=== PATIENT | female | born 1945 | race Caucasian/White ===

== ENCOUNTER 2022-02-04 11:07 | Outpatient (CLI) | payer MEDICARE, SELFPAY ==
[2022-02-04 13:51] LABS: INR 2.16 (0.91-1.10); Prothrombin Time 25.2 Seconds
== END 2022-02-04 11:08 | disposition home or self-care (01) ==
LOC: FRMREF 11:07
PROVIDERS: PCP Physician Assistant Medical; Visit Provider Physician Assistant Medical
DX: Z79.01 Long term (current) use of anticoagulants (principal)
CPT/HCPCS: 85610

== ENCOUNTER 2022-09-30 10:40 | Outpatient (CLI) | payer MEDICARE, SELFPAY | END 2022-09-30 10:41 | disposition home or self-care (01) | LOC: NFLDREF 10-04 06:08 | PROVIDERS: PCP Physician Assistant Medical; Referring Provider Physician Assistant Medical; Visit Provider Physician Assistant Medical | DX: I10 Essential (primary) hypertension (principal); Z79.01 Long term (current) use of anticoagulants | CPT/HCPCS: 80048 ==

== ENCOUNTER 2022-12-19 11:49 | Outpatient (CLI) | payer MEDICARE, SELFPAY | END 2022-12-19 11:50 | disposition home or self-care (01) | LOC: NFLDREF 12-23 23:09 | PROVIDERS: PCP Physician Assistant Medical; Referring Provider Physician Assistant Medical; Visit Provider Nurse Practitioner Family | DX: N39.0 Urinary tract infection, site not specified (principal); B35.3 Tinea pedis; R35.0 Frequency of micturition | CPT/HCPCS: 87086 ==

== ENCOUNTER 2023-06-01 10:05 | Outpatient (CLI) | payer MEDICARE, SELFPAY | END 2023-06-01 10:06 | disposition home or self-care (01) | LOC: NFLDREF 06-03 07:27 | PROVIDERS: PCP Physician Assistant Medical; Referring Provider Physician Assistant Medical; Visit Provider Physician Assistant Medical | DX: E03.9 Hypothyroidism, unspecified (principal); E78.5 Hyperlipidemia, unspecified; I10 Essential (primary) hypertension; R73.03 Prediabetes | CPT/HCPCS: 80053; 80061; 84443; 87086 ==

== ENCOUNTER 2023-07-20 14:40 | Outpatient (CLI) | payer MEDICARE, SELFPAY ==
--- OUTSIDE RECORDS SUMMARY | 2023-08-04 12:30 | XMS_ITS | Encounter Summary ---
Author Organization [facility] Address [address] [place] [address] Care Team Providers Care Cured Meats Supervisor Name Role Phone Humberto Peng M.D. Primary Care Provider [phone] Encounter Details Date Type Department Care Team (Late st Contact Info) Description 07/14/2023 [facility] Only [facility] H[facility] M.D. [address] [place] [address] Hypothyroidism Social History Tobacco Use Types Packs/Day Years Used Date Smoking Tobacco: Never Smokeless Tobacco: Never Alcohol Use Standard Drinks/Week Comments No 0 (1 standard drink = 0.6 oz pur e alcohol) Humiliation, Afraid, Rape, and Kick questionnair e Answer Date Recorded Within the last year, have y ou been afraid of your partner or ex-partner? No 02/25/2022 Within the last year, have y ou been humiliated or emotionally abused in other ways by your partner or ex-partner? No Within the last year, have y ou been kicked, hit, slapped, or otherwise physically hurt by your partner or ex-partner? No 02/25/2022 Within the last year, have y ou been raped or forced to have any kind of sexual activity by your partner or ex-partner? No 02/25/2022 Social Connection and Isolat ion Panel [NHANES] Answer Date Recorded In a typical week, how many times do you talk on the phone with family, friends, or neighbors? More than three times a week 02/25/2022 How often do you get togethe r with friends or relatives? Once a week 02/25/2022 How often do you attend chur ch or yazidi services? More than 4 times per year 02/25/2022 Do you belong to any clubs o r organizations such as yazidi groups, unions, fraternal or athletic groups, or school groups? Yes 02/25/2022 How often do you attend meet ings of the clubs or organizations you belong to? More than 4 times per year 02/25/2022 Are you , , di vorced, , never , or living with a partner? 02/25/2022 AUDIT-C Answer Date Recorded Q1: How often do you have a drink containing alc ohol? Never 02/25/2022 Average Number of Drinks Not on file 023 Frequency of Binge Drinking Not on file 02/09 Overall Financial Resource Strain (CARDIA) Answe r Date Recorded How hard is it for you to pa y for the very basics like food, housing, medical care, and heating? Not hard at all 02/25/2022 PHQ-2 Answer Date Recorded PHQ-2 Score 0 03/04/2022 [facility] Occupat ional Health - Occupational Stress Questionnaire Answer Date Recorded Do you feel stress - tense, restless, nervous, or anxious, or unable to sleep at night because your mind is troubled all the time - these days? Only a little 02/25/2022 Exercise Vital Sign Answer Date Recorde d On average, how many days pe r week do you engage in moderate to strenuous exercise (like a brisk walk)? Patient declined On average, how many minutes do you engage in exercise at this level? Patient declined 02/25/2022 Hunger Vital Sign Answer Date Recorded Within the past 12 months, y ou worried that your food would run out before you got the money to buy more. Never true 02/25/19 23 Within the past 12 months, t he food you bought just didn't last and you didn't have money to get more. Never true 02/25/2022 PRAPARE - Transportation Answer Date Re corded In the past 12 months, has l ack of transportation kept you from medical appointments or from getting medications? No 02/09 In the past 12 months, has l ack of transportation kept you from meetings, work, or from getting things needed for daily living? No 02/25/2022 Housing Stability Vital Sign Answer Brian e Recorded In the last 12 months, was t here a time when you were not able to pay the mortgage or rent on time? No 02/25/2022 In the last 12 months, how many places have you lived? 1 02/25/2022 In the last 12 months, was t here a time when you did not have a steady place to sleep or slept in a chcf (including now)? No 02/25/2022 Nutrition Answer Date Recorded Nutrition: EVOO Fat Source No 02/25 On average, how many serving s of fruits and vegetables do you eat per day (serving size is equal to 1 cup or approximately the size of a tennis ball)? 2-3 02/25/2022 Dental Answer Date Recorded Dental: Regular Dentist Yes 02/09/20 Employment Answer Date Recorded Employment status Retired 02/25/2022 Education Answer Date Recorded What is the highest level of school you have completed or the highest degree you have received? Some college, no degree 06/24/2020 Sex and Gender Information Value Date Recorded Sex Assigned at Female 06/04/2018 7:39 PM CDT Gender Identity Female 06/04/2018 7:39 PM CDT Sexual Orientation Straight 06/04/2018 7: 39 PM CDT documented as of this encounter Plan of Treatment Upcoming Encounters Date Type Department Care Team (Latest Contact Info) Description 09/03/2023 1:00 PM CDT Comprehensive Visit Department of Urology in [address] [phone] Zulay Murphy, P.A.-C. [address] [place] [phone] Discharge Disposition: Home or Self Care Scheduled Orders Name Type Priority Associated Diagnoses Orde r Schedule S-TSH (Thyroid-Stimulating Hormone - Sensitive) Lab Routine Hypothyroidism Expected: 07/28/2023, Expires: 01/10/2024 documented as of this encounter Visit Diagnoses Diagnosis Hypothyroidism documented in this encounter Care Teams Cured Meats Supervisor Relationship Specialty Start Date End Date Humberto Peng M.D. [address] [place] [phone] PCP - General 08/08/16 documented as of this encounter
--- OUTSIDE RECORDS SUMMARY | 2023-08-04 12:30 | XMS_ITS | Encounter Summary ---
Author Organization [facility] Address [address] [place] [address] Care Team Providers Care Industrial Engineering Analyst Name Role Phone Humberto Peng M.D. Primary Care Provider [phone] Reason for Referral * Outpatient (Routine) - Authorized Specialty Diagnoses / Procedures Referred By Tiffanie houston Referred To Contact Urology Diagnoses Urinary Urge Incontinence Stephen Boucher P.A.-CXena [address] [place] [address] [facility] Region Referral ID Status Reason Start Date Expiration Date V isits Requested Visits Authorized [id number] Authorized 06/03/2023 12/02/2024 1 1 Encounter Details Date Type Department Care Team (Latest Contact Info) Description 06/03/2023 [facility] [address] [place] [address] Stephen Boucher P.A.-Talib [address] [place] [phone] Urinary Urge Incontinence (Primary Dx) Social History Tobacco Use Types Packs/Day Years [...] week 02/25/2022 How often do you attend [facility] or islam services? More than 4 times per year 02/25/2022 Do you belong to any clubs o r organizations such as congregational groups, unions, fraternal or athletic groups, or [...] Answer Date Recorded PHQ-2 Score 0 03/04/2022 [facility] of Occupat ional Health - Occupational Stress [...] place to sleep or slept in a usp (including now)? No 02/25/2022 Nutrition Answer Date [...] CDT Comprehensive Visit Department of Urology in [place], [place] [address] [place] [phone] Zulay Murphy P.A.-C. [address], [place] [phone] Discharge Disposition: Home or Self Care Scheduled Referrals Name Type Priority Associated Diagnoses Orde r Schedule Urology Referral Outpatient Referral Routine Urinary Urge Incontinence Expected: 06/03/2023 (Approximate), Expires: 09/01/2024 documented as of this encounter Visit Diagnoses Diagnosis Urinary Urge Incontinence- Primary documented in this encounter Care Teams Industrial Engineering Analyst Relationship Specialty Start Date End Date Humberto Peng M.D. [address] [place] [phone] PCP - General 08/08/16 documented as of this encounter
--- OUTSIDE RECORDS SUMMARY | 2023-08-04 12:30 | XMS_ITS ---
Author Organization [facility] Address [address] [place] [address] Care Team Providers Care Lawn Mower Repairer Name Role Phone Unavailable Unavailable Unavailable Surgery Details Not on file Complications Check Surgery Details section. Procedure Estimated Blood Loss Check Surgery Details section. Procedure Findings Check Surgery Details section. Procedure Specimens Taken Check Surgery Details section.
--- OUTSIDE RECORDS SUMMARY | 2023-08-04 12:30 | XMS_ITS | Referral Summary ---
Author Organization [facility] Address [address] [place] [address] Care Team Providers Care Pump House Engineer Name Role Phone Humberto Peng M.D. Primary Care Provider [phone] Source Comments Patient records contain information from all sites at [facility]. For routine questions regarding patient records, call [phone] during business hours, M-F 8:00 AM - 5:00 PM Central Time. Record requests for emergency care only can be directed to [phone] at any time.[facility] Encounters Date Type Department Care Team Description 07/27/2023 Clinical Communication Department of Urology in [address] [phone] Zulay Murphy, P.A.-C. 07/14/2023 Orders Only [facility] PCP [facility] Humberto Peng M.D. Hypothyroidism 06/03/2023 [facility] [address] [place] [address] Stephen Boucher, P.A.-C. Urinary Urge Incontinence (Primary Dx) from Last 3 Months Allergies Active Allergy Reactions Criticality Noted Date Comments Adhesive Tape-Silicones Other (see comments) 10/02/2014 Aspirin GI intolerance 05/07/2013 ASPIRIN - Upset Stomach Iodinated Contrast Media Hives (Reselect Reaction) 05/07/2013 NSAIDS - (Tolectin) Latex Other (see comments) 10/02/2014 Nsaids (Non-Steroidal Anti-Inflammatory Drug) Other (see comments) 07/16/2021 Pollen Extracts Hives (Reselect Reaction) High 08/11/2019 Sulfa (Sulfonamide Antibiotics) Other (see comments) 10/02/2014 Medications Medication Sig Dispensed Refills Start Date End Date Status acetaminophen (TYLENOL) 325 mg tablet Take 2 tablets by mouth every 4 (four) hours as needed. 11/30/2013 Active aspirin (ASPIR-81 ORAL) Take 1 tablet by mouth daily. 10/02/2014 Active miscellaneous medical supply misc nasal cushions See Instructions, Dx PAT Duration 15 months patient preference, 1 each, 5 Refill(s) 12/08/2014 Active warfarin (COUMADIN) 4 mg tablet Take 1 tablet by mouth as directed. 10/02/2014 Active montelukast (SINGULAIR) 10 mg tablet Take 1 tablet by mouth daily. 11/03/2018 Active DME CPAPIndications:Apne a Sleep Obstructive DME Order 1 Device 12/30/2019 Active cyanocobalamin (VITAMIN B12) 1,000 mcg tablet Daily Active magnesium ascorbate, bulk, powder 1 Scoop. Active lisinopril-hydroCHLO ROthiazide (Zestoretic) 10-12.5 mg per tablet Take 1 tablet by mouth daily. 90 tablet 3 12/14/2020 Active amLODIPine (NORVASC) 5 mg tablet Take 5 mg by mouth at bedtime. 12/28/2020 Active Ventolin HFA 90 mcg/actuation inhaler INHALE TWO PUFFS BY MOUTH EVERY 6 HOURS NEEDED FOR WHEEZING 54 g 3 07/20/2022 Active lovastatin (MEVACOR) 20 mg tablet TAKE ONE TABLET BY MOUTH EVERY DAY WITH DINNER 90 tablet 3 09/24/2022 Active gabapentin (NEURONTIN) 400 mg capsule TAKE 3 CAPSULES BY MOUTH 3 TIMES DAILY 810 capsule 3 09/30/2022 Active trospium (SANCTURA) 20 mg tablet TAKE 1 TABLET BY MOUTH THREE TIMES DAILY. 270 tablet 3 12/24/2022 Active levothyroxine (SYNTHROID, LEVOTHROID) 100 mcg tablet take one tablet by mouth every day 90 tablet 3 12/24/2022 Active lansoprazole (PREVACID) [address] capsule take one capsule by mouth twice a day 180 capsule 3 03/27/2023 Active Active Problems Problem Noted Date Diagnosed Date Varicose Vein Lower Extremity Bilateral 07/08/19 20 Embolus Pulmonary Personal History 06/09/2018 Hyperlipidemia On Treatment 06/04/2018 Obesity Body Mass Index 30-39.9 Adult 05/28/2017 Hypertension Essential Primary 05/14/2016 Diabetes Mellitus Type 2 Peripheral Neuropathy 0 05/14/2016 Hypothyroidism On Replacement 05/14/2016 Overactive Bladder 05/14/2016 Apnea Sleep Obstructive 05/18/2015 Mixed Irritable Bowel Syndrome 05/18/2015 Prison (Current) Anticoagulant Treatment 09/2015 Lymphedema 05/18/2015 Neuropathy Peripheral 05/18/2015 Reflux Esophageal 10/27/2013 Overview: Esophageal reflux 05/13/2007-EGD in January of 2007, repeat in 3 years 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 Overview: Degeneration of lumbar or lumbosacral intervertebral disc 05/13/2007- MRI reviewed patient declines ortho referral at present time Resolved Problems Problem Noted Date Diagnosed Date Resolved Date Transient Ischemic Attack 05/18/2015 Overview: Unspecified transient cerebral ischemia Immunizations Name Administration Dates Next Due H1N1 All Forms 01/30/2009 Influenza high dose QV(65 ye ars or older) (PF) 11/27/2020,11/21/2019 Influenza, Injectable, Quadrivalent 11/21/2019,1 Influenza, Unspecified 11/24/2019,2016,11/16/2015,2014,11/21/2013,10/26/2012,10/28/2011,0 10/23/2010,11/23/2005,12/11/2003, 003,11/30/2001,12/07/2000,01/06/2000 PPSV23 07/19/2009,05/14/2007 SARS-COV-2 (COVID-19) - PFIZ ER (Discontinued)(12 years or older) 04/24/2020,04/03/2020 Td (Adult), adsorbed 04/24/2011,05/11/2001 Tdap 05/18/2015 influenza high dose (65 year s or older) (PF) 11/29/2018,10/28/2017 Social History Tobacco Use Types Packs/Day Years Used Date Smoking Tobacco: Never Smokeless Tobacco: Never Tobacco Cessation:Counseling Given: Not Answered Alcohol Use Standard Drinks/Week Comments No 0 [...] often do you attend chur ch or islam services? More than 4 times per year 02/25/2022 Do you belong to any clubs o r organizations such as mosque groups, unions, fraternal or athletic groups, or [...] Answer Date Recorded PHQ-2 Score 0 03/04/2022 [facility] [place] [facility] Occupat ional Health - Occupational Stress [...] money to buy more. Never true 02/25/19 Within the past 12 months, t he [...] place to sleep or slept in a longterm (including now)? No 02/25/2022 Nutrition Answer Date [...] Orientation Straight 06/04/2018 7: 39 PM CDT Last Filed Vital Signs Vital Sign Reading Time Taken Comments Blood Pressure 133/73 07/16/2021 3:10 PM CDT Pulse 85 07/16/2021 3:10 PM CDT Temperature 36.1 ??C (97 ??F) 07/16/2021 3:10 PM CDT Respiratory Rate 18 12/02/2013 10:00 AM CDT Oxygen Saturation 96% 07/16/2021 3:10 PM CDT Inhaled Oxygen Concentration - - Weight 106 kg (233 lb 4 oz) 07/16/2021 3:10 PM C DT Height 163 cm (5' 4.17) 07/16/2021 3:10 PM CDT Body Mass Index 39.82 07/16/2021 3:10 PM CDT Plan of Treatment Upcoming Encounters Date Type Department Care Team (Latest Contact Info) Description 09/03/2023 1:00 PM CDT Comprehensive Visit Department of Urology in [address] [phone] Zulay Murphy, Anahi.A.-C. [address] [phone] Discharge Disposition: Home or Self Care Procedures Procedure Name Priority Date/Time Associated Diagnosis Comments BI BREAST SCREENING BILATERAL WITH TOMOSYNTHESIS RAD - Routine (most inpatients and all outpatients) 10/28/2022 1:05 PM CDT Screening Mammogram High Risk Patient EXTI THYROID-STIMULATING HORMONE-SENSITIVE (S-TSH), S Routine 02/26/2022 11:23 AM ORAL SURGERY PHYSICIAN EXTI BASIC METABOLIC PANEL, FASTING, S Routine 02/26/2022 11:23 AM ORAL SURGERY PHYSICIAN HEMOGLOBIN A1C, B Routine 07/16/2021 1:2 8 PM CDT Diabetes Mellitus Type 2 Peripheral Neuropathy (HCC) Hyperlipidemia On Treatment Hypertension Essential Primary Hypothyroidism On Replacement [employer] Gatherer (Current) Anticoagulant Treatment Reflux Esophageal ALBUMIN, RANDOM, U Routine 07/16/2021 1: 22 PM CDT Diabetes Mellitus Type 2 Peripheral Neuropathy (HCC) Hyperlipidemia On Treatment Hypertension Essential Primary Hypothyroidism On Replacement [place] Gatherer (Current) Anticoagulant Treatment Reflux Esophageal COLOGUARD Routine 07/21/2017 2:00 AM CDT Screening Cancer Colon from Last 3 Months or Most Recently Relevant to Health Maintenance Results * BI Breast Screening Bilateral with Tomosynthesis (10/28/2022 1:05 PM CDT) Anatomical Region Laterality Modality Breast, Breast Imaging RST L OS, Breast Imaging ARZ LOS, Breast Imaging FLA LOS Bilateral Mammography 10/29/2022 8:18 AM CDT Impressions 10/29/2022 8:20 AM CDT Negative. RECOMMENDATION: ??Annual Screening Mammogram ASSESSMENT: ??BI-RADS: 1: Negative. Narrative 10/29/2022 8:20 AM CDT EXAM: ??BI BREAST SCREENING BILATERAL WITH TOMOSYNTHESIS Current study was evaluated with a Computer Aided Detection (CAD) system. INDICATION: ??Screening mammogram. COMPARISON: ??Prior exam(s) were available and reviewed for comparison. DENSITY: ??b. There are scattered areas of fibroglandular density. FINDINGS: ??No mammographic findings of malignancy. Procedure Note Isidro Parry M.D. - 10/29/2022 EXAM: BI BREAST SCREENING BILATERAL WITH TOMOSYNTHESIS Current study was evaluated with a Computer Aided Detection (CAD) system. INDICATION: Screening mammogram. COMPARISON: Prior exam(s) were available and reviewed for comparison. DENSITY: b. There are scattered areas of fibroglandular density. FINDINGS: No mammographic findings of malignancy. IMPRESSION: Negative. RECOMMENDATION: Annual Screening Mammogram ASSESSMENT: BI-RADS: 1: Negative. Humberto Peng M.D. Harry BI PROCEDURES * (ABNORMAL) Hemoglobin A1c (07/16/2021 1:28 PM CDT) Hemoglobin A1c, B 6.4(H) 4.2 - 5.6 % 07/16/2021 2:04 PM CDT [facility] Comment: Hemoglobin A1c values of 5.7-6.4 percent indicate an increased risk for developing diabetes mellitus. In diabetic patients, HbA1c goals should be discussed with healthcare provider. Blood (Blood, Venous) 07/16/2021 1:28 PM CDT 07/16/2021 1:29 PM CDT Humberto Peng M.D. LAB BLOOD ADD-ON Performing Organization Address City/[facility]/ZIP Co de Phone Number [facility] [address] [place] [address], [place] [facility] in [place] [address] [place] [phone] * (ABNORMAL) Albumin, Random, Urine (07/16/2021 1:22 PM CDT) Microalbumin <12.0 mg/L 07/16/2021 2:04 PM CDT [facility] Comment:If clinically indica cristobal, contact the lab for additional testing. Creatinine 39 mg/dL 07/16/2021 2:04 PM CDT [facility] Albumin/Creatinine Ratio <31(H) <25 mg/g 07/16/2021 2:04 PM CDT [facility] Comment: This ratio may not correspond with the reference range because one or both of the values used to calculate the ratio was above or below the quantification limits. Urine (Urine, First Voided) 07/16/2021 1:22 PM CDT 07/16/2021 1:38 PM CDT Humberto Peng M.D. LAB URINE ORDERABLES Performing Organization Address City/[facility]/ZIP Co de Phone Number [facility] [address] [place] [address], [place] [facility] in [address] [phone] * (ABNORMAL) Cologuard (07/21/2017 2:00 AM CDT) Result Positive (A) Not Applicable 07/28/2017 6:30 PM CDT [facility] Comment: A positive result can indicate the presence of colorectal cancer (CRC) or advanced adenoma (pre-cancer). Correlate clinically and recommend follow-up investigation with a structural examination of the colon such as diagnostic colonoscopy. Test Type: Composite algorithmic analysis of stool DNA-biomarkers with hemoglobin immunoassay. ?? Quantitative values of individual biomarkers are not reportable and are not associated with individual biomarker result reference ranges. Precautions and Limitations: Cologuard is intended for colorectal cancer screening of adults of either sex, 50 years or older, who are at typical average-risk for colorectal cancer. A negative Cologuard test result does not guarantee the absence of colorectal cancer or advanced adenoma (pre-cancer). Patients with a negative Cologuard test result should be advised to continue participating in a colorectal cancer screening program. Cologuard may produce a positive result, even though a colonoscopy may not find colorectal cancer or precancerous polyps. The performance of Cologuard has been established in a cross sectional study (i.e., single point in time). Performance has not been evaluated in adults who have been previously tested with Cologuard or in patients less than 50 years of age. Cologuard has been approved for use by the U.S. FDA. Cologuard performance data in a 10,000 patient pivotal study using colonoscopy as the reference method can be accessed at the following location: www.[employer]/results. ??Additional description of the Cologuard test process, warnings and precautions can be found at www.cologuardtest.com. Rx Only. Stool 07/21/2017 2:00 AM CDT 07/22/2017 1:13 PM CDT Humberto Peng M.D. LAB BODY FLUIDS AND STOOLS ORDERABLES [facility] [address] [place] [address] from Last 3 Months or Most Recently Relevant to Health Maintenance Care Teams Pump House Engineer Relationship Specialty Start Date End Date Humberto Peng M.D. [address] [place] [phone] PCP - General 08/08/16
--- OUTSIDE RECORDS SUMMARY | 2023-08-04 12:30 | XMS_ITS | Encounter Summary ---
Author Organization [facility] Address [address] [place] [address] Care Team Providers Care Print Buyer Name Role Phone Humberto Peng M.D. Primary Care Provider [phone] Encounter Details Date Type Department Care Team (Late st Contact Info) Description 07/27/2023 Clinical Communication Department of Urology in [place], [place] [address] [place] [phone] Zulay Murphy, P.AXena-CXena [address], [place] [phone] Social History Tobacco Use Types Packs/Day Years [...] often do you attend chur ch or sabianism services? More than 4 times per year 02/25/2022 Do you belong to any clubs o r organizations such as alevism groups, unions, fraternal or athletic groups, or [...] Answer Date Recorded PHQ-2 Score 0 03/04/2022 [facility] of Occupat ional Health - Occupational [...] place to sleep or slept in a detention (including now)? No 02/25/2022 Nutrition Answer Date [...] CDT Comprehensive Visit Department of Urology in [place], [place] [address] [place] [phone] Zulay Murphy P.A.-C. [address] [place] [phone] Discharge Disposition: Home or Self Care documented as of this encounter Visit Diagnoses Not on filedocumented in this encounter Care Teams Print Buyer Relationship Specialty Start Date End Date Humberto Peng M.D. [address] [phone] PCP - General 08/08/16 documented as of this encounter
--- OUTSIDE RECORDS SUMMARY | 2023-08-04 12:30 | XMS_ITS | Clinical Summary ---
Author Organization [facility] Address [address] [place] [address] Care Team Providers Care Machine Compositor Name Role Phone Humberto Peng M.D. Primary Care Provider [phone] Source Comments Patient records contain information from all sites at [facility]. For routine questions regarding patient records, call [phone] during business hours, M-F 8:00 AM - 5:00 PM Central Time. Record requests for emergency care only can be directed to [phone] at any time.[facility] Allergies Active Allergy Reactions Criticality Noted Date [...] Obstructive 05/18/2015 Mixed Irritable Bowel Syndrome 05/18/2015 Custodial (Current) Anticoagulant Treatment 09/2015 Lymphedema 05/18/2015 Neuropathy [...] Attack 05/18/2015 Overview: Unspecified transient cerebral ischemia Encounters Date Type Department Care Team Description 07/27/2023 Clinical Communication Department of Urology in [place], [place] [address] [place] [address] Zulay Murphy P.A.-C. 07/14/2023 Orders Only [facility] Humberto Powers M.D. Hypothyroidism 06/03/2023 Community Orders [facility] [address] [place] [address] Stephen Boucher, P.A.-C. Urinary Urge Incontinence (Primary Dx) from Last 3 Months Immunizations Name Administration Dates Next Due H1N1 All Forms 01/30/2009 Influenza high dose QV(65 ye ars or older) (PF) 11/27/2020,11/21/2019 Influenza, Injectable, Quadrivalent 11/21/2019,1 Influenza, Unspecified 11/24/2019,2016,11/16/2015,2014,11/21/2013,10/26/2012,10/28/2011,0 10/23/2010,11/23/2005,12/11/2003, 003,11/30/2001,12/07/2000,01/06/2000 PPSV23 07/19/2009,05/14/2007 SARS-COV-2 (COVID-19) - PFIZ ER (Discontinued)(12 years or older) 04/24/2020,04/03/2020 Td (Adult), adsorbed 04/24/2011,05/11/2001 Tdap 05/18/2015 influenza high dose (65 year s or older) (PF) 11/29/2018,10/28/2017 Family History Medical History Relation Name Comments Diabetes Brother David Lopez Cataracts Father basil skin cancer Other cancer Father basil skin cancer Arthritis Mother .Raymond Lopez Heart attack Mother .Raymond Lopez Hypothyroidism Mother .Raymond Lopez Lymphoma Mother .Raymondignacio Barretore non hodgekins lymphoma Parkinsonism Mother .Raymond Lopez Parkinsons disease Mother .Raymond Lopez Coronary artery disease Paternal Grandfather Roberto Terry about 73-75 Breast cancer Paternal Grandmother Radha Lopez Multiple sclerosis Sister 1 Breast cancer Sister 2 Layla Boo currently in t reatment Diabetes Sister 2 Layla Boo Relation Name Status Comments Brother David Lopez Father basil skin cancer Mother .Raymond Lopez Paternal Grandfather Roberto Lopez Paternal Grandmother Radha Lopez Sister 1 Sister 2 Layla Boo Social History Tobacco Use Types Packs/Day Years [...] 02/25/2022 How often do you attend chur or tenriism services? More than 4 times per year [...] Answer Date Recorded PHQ-2 Score 0 03/04/2022 [facility] - Occupational [...] place to sleep or slept in a residential (including now)? No 02/25/2022 Nutrition Answer Date [...] CDT Comprehensive Visit Department of Urology in [address] [address] Zulay Murphy, P.A.-C. [address] [place] [address] [phone] (work) Discharge Disposition: Home or Self Care Health Maintenance Due Date Last Done Comments Hepatitis C Screening 1945 Office Visit for Blood Press ure Check / Re-check 1945 Visit: Medicare Annual Wellness 1945 Zoster Vaccines (1 of 2) 12/05/1993 Hepatitis B Vaccines (1 of 3 - Risk 3-dose series) 2003 Pneumococcal vaccine (65+ ye ars) (2 of 2 - PCV) 07/19/2010 07/19/2009, 05/14/2007 Dilated Eye Exam 09/23/2013 09/23/2012, 05/2010, 12/14/2008, Additional history exists Hemoglobin A1C 01/15/2022 07/16/2021, 06/10, 12/23/2019, Additional history exists Diabetic Office Visit with F oot Exam 07/16/2022 07/16/2021 Urine Albumin 07/16/2022 07/16/2021, 06/10, 11/29/2018 Depression Screening (Annual PHQ-2) 02/09/2023 Fall Risk Screen (Annual) 02/09/2023 Creatinine Level (Kidney Fun ction Test) 02/26/2023 02/26/2022, 07/16/2021, 12/26/2020, Additional history exists Potassium Level 02/26/2023 02/26/2022, 06/0 08/2021, 12/26/2020, Additional history exists Sodium Level 02/26/2023 02/26/2022, 06/0 08/2021, 12/26/2020, Additional history exists Thyroid Stimulating Hormone (TSH) test for thyroid function 02/26/2023 02/26/2022, 12/26/2020, 11/22/2018, Additional history exists Visit: Chronic Disease, age 18+ 03/04/2023 , 03/04/2022 COVID-19 Vaccine (7 - 2022-2 4 season) 2023 11/25/2022, 11/27/2021, 06/29/2021, Additional history exists DTaP,Tdap,and Td Vaccines (2 - Td or Tdap) 05/17/2025 05/18/2015, 04/24/2011, 05/11/2001 Colonoscopy Discontinued 07/25/2008 (Perf ormed elsewhere), 10/31/2004 Cologuard Discontinued 07/21/2017 Colorectal Cancer Surveillance Discontinued Mammogram Discontinued 10/28/2022, 10/10, 07/16/2021, Additional history exists Influenza Vaccine Completed 12/01/2022, , 11/27/2020, Additional history exists CT Colonography Discontinued Procedures Procedure Name Priority Date/Time Associated Diagnosis Comments BI BREAST SCREENING BILATERAL WITH TOMOSYNTHESIS RAD - Routine (most inpatients and all outpatients) 10/28/2022 1:05 PM CDT Screening Mammogram High Risk Patient EXTI THYROID-STIMULATING HORMONE-SENSITIVE (S-TSH), S Routine 02/26/2022 11:23 AM TAX REPRESENTATIVE EXTI BASIC METABOLIC PANEL, FASTING, S Routine 02/26/2022 11:23 AM TAX REPRESENTATIVE HEMOGLOBIN A1C, B Routine 07/16/2021 1:2 8 PM CDT Diabetes Mellitus Type 2 Peripheral Neuropathy (HCC) Hyperlipidemia On Treatment Hypertension Essential Primary Hypothyroidism On Replacement Custodial (Current) Anticoagulant Treatment Reflux Esophageal ALBUMIN, RANDOM, U Routine 07/16/2021 1: 22 PM CDT Diabetes Mellitus Type 2 Peripheral Neuropathy (HCC) Hyperlipidemia On Treatment Hypertension Essential Primary Hypothyroidism On Replacement Insurance Executive (Current) Anticoagulant Treatment Reflux Esophageal COLOGUARD Routine [...] ASSESSMENT: BI-RADS: 1: Negative. Humberto Peng M.D. IMG BI PROCEDURES * (ABNORMAL) Hemoglobin A1c (07/16/2021 [...] CDT Humberto Peng M.D. LAB BLOOD ADD-ON [facility] [address] [address], [place] RDWG [facility] [place] [address] [address] * (ABNORMAL) Albumin, Random, Urine (07/16/2021 1:22 [...] CDT Humberto Peng M.D. LAB URINE ORDERABLES [facility] [address] [place] [address], [facility] [place] [address] [place] [address] * (ABNORMAL) Cologuard (07/21/2017 2:00 AM CDT) Result Positive (A) Not Applicable 07/28/2017 6:30 PM CDT [facility] Comment: A positive result can indicate the [...] can be accessed at the following location: www.[facility]/results. ??Additional description of the Cologuard test process, warnings and precautions can be found at [email or web address].com. Rx Only. Stool 07/21/2017 2:00 AM CDT 07/22/2017 1:13 PM CDT Humberto Peng M.D. LAB BODY FLUIDS AND STOOLS ORDERABLES [facility] [address] [place] [address] from Last 3 Months or Most Recently Relevant to Health Maintenance Care Teams Machine Compositor Relationship Specialty Start Date End Date Humberto Peng M.D. [address] [address] PCP - General 08/08/16
--- OUTSIDE RECORDS SUMMARY | 2023-08-04 12:31 | XMS_ITS | Encounter Summary ---
Author Organization [facility] Address [address] [place] [address] Care Team Providers Care Body Engineer Name Role Phone Dudley House MD Primary Care Provider [phone] Frankie Gaspar MD Unavailable Unavailable Augusta De La Cruz DPM Unavailable [phone] Kyle Morris MD Unavailable [phone] Sony Perez MD Unavailable [phone] Matt Grover MD Unavailable [phone] Albert Brownlee MD Unavailable [phone] Humberto Peng MD Primary Care Provider [phone] James Jasso DO Unavailable [phone] Rajat Urban MD Unavailable Unavailable Thuy Coto PA-C Unavailable [phone] James Stevens DPM Unavailable [phone] Teresa Ferrer-C Unavailable Reason for Visit * Reason Onset Date Comments MyChart Communication 03/05/2010 Medication concerns Encounter Details Date Type Department Care Team (Late st Contact Info) Description 03/05/2010 MyC Medical Advice [facility] [place] Internal Medicine [address] [place] [address] Dudley House MD [address] [place] [address] MyChart Communication (Medication concerns) Social History Tobacco Use Types Packs/Day Years Used Date Smoking Tobacco: Never Alcohol Use Standard Drinks/Week Comments No 0 (1 standard drink = 0.6 oz pur e alcohol) Sex and Gender Information Value Date Recorded Sex Assigned at Not on file Gender Identity Not on file Sexual Orientation Straight 06/26/2018 6: 53 PM CDT documented as of this encounter Plan of Treatment Not on file documented as of this encounter Visit Diagnoses Not on filedocumented in this encounter Care Teams Body Engineer Relationship Specialty Start Date End Date Dudley House MD [address] [place] [address] PCP - General 03/23/07 09/02/10 Frankie Gaspar MD PCP - Obstetrics/Gynecology 03/03/00 07/23/11 Augusta De La Cruz DPM PCP - Podiatry 09/26/05 Kyle Morris MD PCP - Ophthalmology 02/17/06 Sony Perez MD PCP - ENT 03/19/07 12/08/17 Matt Grover MD [address] [facility] [address] [place], [place] [address] PCP - Urology 12/22/08 Albert Brownlee MD [address] [place] [address] PCP - Surgery Surgery 09/28/09 11/02/12 Humberto Peng MD [facility] [place] [address] [place] [address] PCP - General Family Practice 09/03/10 James Jasso DO [facility] [place] [address] [place] [address] PCP - Obstetrics/Gynecology brass sorter 07/24/11 Rajat Urban MD [facility] [place] [address] [place] [address] PCP - Orthopaedics Orthopedics 12/02/11 12/08/17 Thuy Coto PA-C [facility] [place] [address] [place] [address] PCP - Surgery Physician Heel Seat Filler 11/03/12 James Stevens DPM [address] [facility] [address] [place] [address] Assigned Musculoskeletal Provider 04/25/20 10/25/21 Teresa Ferrer PA-C [address] [address] Physician Heel Seat Filler Urology 02/20/23 documented as of this encounter
--- OUTSIDE RECORDS SUMMARY | 2023-08-04 12:31 | XMS_ITS | Encounter Summary ---
Author Organization [facility] Address [address] [place] [address] Care Team Providers Care Cdl Company Flatbed Driver Name Role Phone Dudley House MD Primary Care Provider [phone] Frankie Gaspar MD Unavailable Unavailable Augusta De La Cruz DPM Unavailable [phone] Kyle Morris MD Unavailable [phone] Ned Birmingham MD Unavailable [phone] Sony Perez MD Unavailable [phone] Matt Grover MD Unavailable [phone] Encounter Details Date Type Department Care Team (Late st Contact Info) Description 05/15/2009 8:30 AM CDT [facility] in [address] [address] Dudley House MD [address] [place] [address] Social History Tobacco Use Types Packs/Day Years [...] on filedocumented in this encounter Care Teams Cdl Company Flatbed Driver Relationship Specialty Start Date End Date Dudley House MD [address] [place] [address] PCP - General 03/23/07 09/02/10 Frankie Gaspar MD PCP - Obstetrics/Gynecology 03/03/0007/22 Augusta De La Cruz DPM PCP - Podiatry 09/26/05 Kyle Morris MD PCP - Ophthalmology 02/17/06 Ned Birmingham MD XXX [place] [address] PCP - Surgery 10/25/08 09/27/09 Sony Perez MD [address] [place] [address] PCP - ENT 03/19/07 12/08/17 Matt Grover MD [address] [place] [address] [address] [place], [place] [address] PCP - Urology 12/22/08 documented as of this encounter
--- OUTSIDE RECORDS SUMMARY | 2023-08-04 12:31 | XMS_ITS | Encounter Summary ---
Author Organization [facility] Address [address] [place] [address] Care Team Providers Care Chipper Feeder Name Role Phone Dudley House MD Primary Care Provider [phone] Frankie Gaspar MD Unavailable Unavailable Augusta De LaC ruz DPM Unavailable [phone] Kyle Morris MD Unavailable [phone] Ned Birmingham MD Unavailable [phone] Sony Perez MD Unavailable [phone] Encounter Details Date Type Department Care Team (Late st Contact Info) Description 10/27/2008 10:12 AM CDT [facility] in [address] [phone] Ned Birmingham MD XXX [place] [address] Social History Tobacco Use Types Packs/Day Years [...] on filedocumented in this encounter Care Teams Chipper Feeder Relationship Specialty Start Date End Date Dudley House MD [address] [place] [address] PCP - General 03/23/07 09/02/10 Frankie Gaspar MD PCP - Obstetrics/Gynecology 03/03/0007/22 Augusta De La Cruz DPM PCP - Podiatry 09/26/05 Kyle Morris MD PCP - Ophthalmology 02/17/06 Ned Birmingham MD XXX NO INFO FOUND [address] [place] [address] PCP - Surgery 10/25/08 09/27/09 Sony Perez MD XXX NO INFO FOUND [address] [place] [address] PCP - ENT 03/19/07 12/08/17 documented as of this encounter
--- OUTSIDE RECORDS SUMMARY | 2023-08-04 12:31 | XMS_ITS | Encounter Summary ---
Author Organization [facility] Address [address] [place] [address] Care Team Providers Care Management Liaison Name Role Phone Dudley House MD Primary Care Provider [phone] Frankie Gaspar MD Unavailable Unavailable Augusta De La Cruz DPM Unavailable [phone] Kyle Morris MD Unavailable [phone] Sony Perez MD Unavailable [phone] Matt Grover MD Unavailable [phone] Albert Brownlee MD Unavailable [phone] Encounter Details Date Type Department Care Team (Late st Contact Info) Description 11/22/2009 10:00 AM CDT [facility] in [address] [address] Albert Brownlee MD [address] [place] [address] Social History Tobacco Use Types Packs/Day Years Used Date Smoking Tobacco: Never Smokeless Tobacco: Never Alcohol Use Standard Drinks/Week Comments No 0 (1 standard drink = 0.6 oz pur e alcohol) Sex and Gender Information Value Date Recorded Sex Assigned at Not on file Gender Identity Not on file Sexual Orientation Straight 06/26/2018 6: 53 PM CDT documented as of this encounter Progress Notes * Albert Brownlee MD - 11/22/2009 1:04 PM CDT PROCEDURE/OPERATIVE REPORT Date of Procedure: 11/22/09 Attending Physician: Dr. Brownlee. PREOPERATIVE DIAGNOSIS: Right lower extremity superficial venous reflux with right medial malleolar inflammatory changes and hemosiderin deposition. POSTOPERATIVE DIAGNOSIS: Right lower extremity superficial venous reflux with right medial malleolar inflammatory changes and hemosiderin deposition. OPERATIONS: 1. Ultrasound-guided percutaneous access greater saphenous vein 2. Ultrasound-guided percutaneous access accessory vein to saphenous system 3. Ultrasound-guided sclerotherapy with 1% sodium tetradecyl 4. Position of VNUS catheter over guidewire SURGEON: Dr. Brownlee. METAL CUTTER: Mily Vega. SECOND CORONER/MEDICAL EXAMINER: MELISA Jean. ANESTHESIA: Local MAC. PROCEDURE AND FINDINGS: The patient's right leg was prepped and draped and was imaged with ultrasound. She had a traditional saphenofemoral junction. On the upper thigh region she had bifurcation of the saphenous vein. She sent one very large anterior thigh branch towards the knee region and following this down the vessel did get underneath the inflammatory changes of the anterior ankle and right medial malleolar region. The true saphenous vein at the level of this bifurcation tapered down to the level of the knee and then expanded a little bit just distal to the knee. I ultimately accessed the greater saphenous vein in the true traditional system distal to the knee, passed a guidewire but could not get it to go much above the knee due to this very narrowed area. I did put a dilating sheath, attempted to pass the catheter over a 0.25 guidewire and was unable to negotiate it. I made the decision to move slightly anterior to access the larger vessel. With a single attempt passed a guidewire and placed a 7 Turkish dilating sheath. When passing the catheter again at the level of this bifurcation in an upper thigh region the catheter could not be negotiated through this nor could a small guidewire. I made the decision to treat this short segment of this anterior branch of the greater saphenous vein. This area was infiltrated with tumescent anesthesia and with a 7 Turkish closureFAST I treated three segments for a total of 1 minute of treatment time. Both these access sheaths were removed and pressure was held until hemostatic. I then imaged the area of the inflammatory changes. There were two large segments of varicosities noted. I made the decision for ultrasound-guided injections of sodium tetradecyl. I used a total of 4 cc. I used a total of five different injection sites. Confirmation the needle into this vein was confirmed by visualization by ultrasound and also aspiration of blood. No more than 1 cc was injected at any given site. When this was completed I wrapped the access sites with Kerlix gauze. The ankle region was wrapped from the base of the toes to just proximal to the injection sites with Coban and then a compression wrap was placed. At the end of the procedure sponge, needle and instrument counts are correct. The patient tolerated the procedure well. Albert Brownlee M.D. Sis/dac cc: documented in this encounter Plan of Treatment Not on file documented as of this encounter Visit Diagnoses Not on filedocumented in this encounter Care Teams Management Liaison Relationship Specialty Start Date End Date Dudley House MD [address] [place] [address] PCP - General 03/23/07 09/02/10 Frankie Gaspar MD PCP - Obstetrics/Gynecology 03/03/0007/22 Augusta De La Cruz DPM PCP - Podiatry 09/26/05 Kyle Morris MD PCP - Ophthalmology 02/17/06 Sony Perez MD PCP - ENT 03/19/07 12/08/17 Matt Grover MD [address] [place] [address] PCP - Urology 12/22/08 Albert Brownlee MD [address] [place] [address] PCP - Surgery Surgery 09/28/09 11/02/12 documented as of this encounter
--- OUTSIDE RECORDS SUMMARY | 2023-08-04 12:31 | XMS_ITS | Encounter Summary ---
Author Organization [facility] Address [address] [place] [address] Care Team Providers Care Transportation Assistant Name Role Phone Dudley House MD Primary Care Provider rFankie Gaspar MD Unavailable Unavailable Augusta De La CruzM Unavailable [phone] Kyle Morris MD Unavailable [phone] Ned Birmingham MD Unavailable Sony Perez MD Unavailable [phone] Matt Grover MD Unavailable [phone] Albert Brownlee MD Unavailable Humberto Peng MD Primary Care Provider [phone] James Jasso DO Unavailable [phone] Rajat Urban MD Unavailable Unavailable Thuy CotoC Unavailable [phone] James Stevens DPM Unavailable [phone] Teresa FerrerC Unavailable Encounter Details Date Type Department Care Team (Late st Contact Info) Description 07/05/2009 MyC Medical Advice [facility] [place] Podiatry [address] [place] [address] Augusta De La Cruz, DPM [facility] [address] [place] [address] Social History Tobacco Use Types Packs/Day Years [...] on filedocumented in this encounter Care Teams Transportation Assistant Relationship Specialty Start Date End Date Dudley House MD [address] [place] [address] PCP - General 03/23/07 09/02/10 Frankie Gaspar MD PCP - Obstetrics/Gynecology 03/03/00 07/23/11 Augusta De La Cruz DPM PCP - Podiatry 09/26/05 Kyle Morris MD PCP - Ophthalmology 02/17/06 Ned Birmingham MD XXX [place] [address] PCP - Surgery 10/25/08 09/27/09 Sony Perez MD XXX [place] [address] PCP - ENT 03/19/07 12/08/17 Matt Grover MD [address] [place] [address] PCP - Urology 12/22/08 Albert Brownlee MD [address] [place] [address] PCP - Surgery Surgery 09/28/09 11/02/12 Humberto Peng MD [facility] [place] [address] [place] [address] PCP - General Family Practice 09/03/10 James Jasso DO [facility] [place] [address] [place] [address] PCP - Obstetrics/Gynecology cable tower 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
--- OUTSIDE RECORDS SUMMARY | 2023-08-04 12:31 | XMS_ITS | Encounter Summary ---
Author Organization [facility] Address [address] [place] [address] Care Team Providers Care Soccer Coach Name Role Phone Dudley House MD Primary Care Provider [phone] Frankie Gaspar MD Unavailable Unavailable Augusta De La Cruz DPM Unavailable [phone] Kyle Morris MD Unavailable [phone] Sony Perez MD Unavailable [phone] Matt Grover MD Unavailable [phone] Albert Brownlee MD Unavailable [phone] Humberto Peng MD Primary Care Provider [phone] James Jasso DO Unavailable [phone] Rajat Urban MD Unavailable Unavailable Thuy Coto PARickyC Unavailable + [phone] James Stevens DPM Unavailable [phone] Teresa FerrerC Unavailable Reason for Visit * Reason Onset Date Comments Refill Request 06/03/2010 Encounter Details Date Type Department Care Team (Late st Contact Info) Description 06/03/2010 MyC Refill [facility] in [place] Internal Medicine [address] [place] [address] Dudley House MD [address] [place] [address] Refill Request Social History Tobacco Use Types Packs/Day Years Used Date Smoking Tobacco: Never Alcohol Use Standard Drinks/Week Comments No 0 (1 standard drink = 0.6 oz pur e alcohol) Sex and Gender Information Value Date Recorded Sex Assigned at Not on file Gender Identity Not on file Sexual Orientation Straight 06/26/2018 6: 53 PM CDT documented as of this encounter Miscellaneous Notes * Telephone Encounter - Camila Braun - 06/03/2010 5:03 PM CDT rx faxed to sleep lab. * Telephone Encounter - Augusta Roland MD - 06/03/2010 2:07 PM CDT approved * Telephone Encounter - Carolyn Kruse - 06/03/2010 1:51 PM CDT Please review in PCPs absence. Thank you. Unable to approve medication per the RN refill protocol due to: - Medication not on refill protocol list - Provider not in refill pool Last visit: BP Readings from Last 1 Encounters: 02/15/10 110/78 CAD/HTN and/or CHF labs: CR 0.89 02/15/2010 POTASSIUM 4.0 02/15/2010 TSH 1.75 07/19/2009 * Telephone Encounter - Carolyn Kruse - 06/03/2010 1:50 PM [facility] Pastora Lua would like a refill of the following medications: ORDER FOR DME [Dudley House,] Preferred pharmacy: [facility] Lab - [facility] Comment: the Sleep Lab is needing a RX up date for Cpap mask and supplies as needed. This can be sent to them directly at the Sleep Lab here at [facility]. documented in this encounter Plan of Treatment Not on file documented as of this encounter Visit Diagnoses Diagnosis PAT (obstructive sleep apnea)- Primary Obstructive sleep apnea (adult) (pediatric) documented in this encounter Care Teams Soccer Coach Relationship Specialty Start Date End Date Dudley House MD [address] [place] [address] PCP - General 03/23/07 09/02/10 Frankie Gaspar MD PCP - Obstetrics/Gynecology 03/03/00 07/23/11 Augusta De La Cruz DPM PCP - Podiatry 09/26/05 Kyle Morris MD PCP - Ophthalmology 02/17/06 Sony ePrez MD PCP - ENT 03/19/07 12/08/17 Matt Grover MD [address] [facility] [address] [place] [address] PCP - Urology 12/22/08 Albert Brownlee MD [address] [place] [address] PCP - Surgery Surgery 09/28/09 11/02/12 Humberto Peng MD [facility] [address] [place] [address] PCP - General Family Practice 09/03/10 James Jasso DO [facility] [place] [address] [place] [address] PCP - Obstetrics/Gynecology information engineer 07/24/11 Rajat Urban MD [facility] [place] [address] [place] [address] PCP - Orthopaedics Orthopedics 12/02/11 12/08/17 Thuy Coto PA-C [facility] [place] [address] [place] [address] PCP - Surgery Physician Councillor [employer] 11/03/12 James Stevens DPM [address] [facility] [address] [place], [place] [address] Assigned Musculoskeletal Provider 04/25/20 10/25/21 Teresa Ferrer PA-C [address] [place], [place] [address] Physician Councillor [employer] Urology 02/20/23 documented as of this encounter
--- OUTSIDE RECORDS SUMMARY | 2023-08-04 12:31 | XMS_ITS | Encounter Summary ---
Author Organization [facility] Address [address] [place] [address] Care Team Providers Care Sail Finisher Hand Name Role Phone Dudley House MD Primary Care Provider Frankie Gaspar MD Unavailable Unavailable Augusta De La Cruz DPM Unavailable [phone] Kyle Morris MD Unavailable [phone] Ned Birmingham MD Unavailable [phone] Sony Perez MD Unavailable [phone] Encounter Details Date Type Department Care Team (Late st Contact Info) Description 11/17/2008 8:45 AM CDT [facility] in [address] [address] Adriane Stern [place] [address] Postop Check (Primary Dx) Social History Tobacco Use Types [...] as of this encounter Visit Diagnoses Diagnosis Postop check- Primary Follow-up examination, following unspecified surgery documented in this encounter Care Teams Sail Finisher Hand Relationship Specialty Start Date End Date Dudley House MD [address] [place] [address] PCP - General 03/23/07 09/02/10 Frankie Gaspar MD PCP - Obstetrics/Gynecology 03/03/0007/22 Augusta De La Cruz DPM PCP - Podiatry 09/26/05 Kyle Morris MD PCP - Ophthalmology 02/17/06 Ned Birmingham MD XXX NO INFO FOUND [place] [id number] PCP - Surgery 10/25/08 09/27/09 Sony Perez MD XXX NO INFO FOUND XXX [place] [id number] PCP - ENT 03/19/07 12/08/17 documented as of this encounter
--- OUTSIDE RECORDS SUMMARY | 2023-08-04 12:31 | XMS_ITS | Encounter Summary ---
Author Organization [facility] Address [address] [place] [address] Care Team Providers Care Supervisor Hard Candy Name Role Phone Dudley House MD Primary Care Provider [phone] Frankie Gaspar MD Unavailable Unavailable Augusta De La Cruz DPM Unavailable [phone] Kyle Morris MD Unavailable Ned Birmingham MD Unavailable Sony Perez MD Unavailable [phone] Encounter Details Date Type Department Care Team (Late st Contact Info) Description 11/19/2008 11:05 AM CDT [facility] in [address] [address] James Chapin MD [address] [place], [place] [id number] Social History Tobacco Use Types Packs/Day Years [...] as of this encounter Progress Notes * Adriane Stern MD - 11/20/2008 11:18 AM CDT PROCEDURE/OPERATIVE REPORT Date of Procedure: 11/17/08 PREOPERATIVE DIAGNOSES: Intrinsic sphincteric deficiency. POSTOPERATIVE DIAGNOSES: Intrinsic sphincteric deficiency. OPERATION: Periurethral bulking with Macroplastique. SURGEON: Dr. Stern. ANESTHESIA: MAC and local. ESTIMATED BLOOD LOSS: 5 mL. DRAINS: In and out Mata catheter. COMPLICATIONS: None. FINDINGS: Wide open urethra. Normal appearing bladder mucosa. Normal ureteral orifices. 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 We discussed the risks, benefits and alternatives to the procedure as well as complications and success rate. At this point consents were then obtained. PROCEDURE: The patient was taken to the operating room. She was prepped and draped in the usual fashion and at this point pause was taken to identify the patient, date of , medical record number, procedure, allergies and position. The procedure then began by placing viscous Xylocaine into the patient's urethra and bladder. Cystoscopy was performed and normal appearing bladder mucosa, ureteral orifices and wide open urethra were noted. With the cystoscope sitting in the mid urethra Macroplastique was injected circumferentially around the urethra in approximately five areas. A total of 3.5 mL was used and was able to bulk the urethra enough so the tissue then met in the midline. With the bladder full no urine was noted to leak after the procedure was concluded. In and out Mata catheter was then placed to drain her bladder. At this point the procedure was concluded. The patient was undraped, awoke and transferred to recovery in good condition. Adriane Stern M.D. KLEduin/dac2 cc: documented in this encounter Plan of Treatment Not on file documented as of this encounter Visit Diagnoses Not on filedocumented in this encounter Care Teams Supervisor Hard Candy Relationship Specialty Start Date End Date Dudley House MD [address] [place] [address] PCP - General 03/23/07 09/02/10 Frankie Gaspar MD PCP - Obstetrics/Gynecology 03/03/0007/22 Augusta De La Cruz DPM PCP - Podiatry 09/26/05 Kyle Morris MD PCP - Ophthalmology 02/17/06 Ned Birmingham MD XXX NO INFO FOUND XXX [place] [id number] PCP - Surgery 10/25/08 09/27/09 Sony Perez MD XXX NO INFO FOUND XXX [place] [id number] PCP - ENT 03/19/07 12/08/17 documented as of this encounter
--- OUTSIDE RECORDS SUMMARY | 2023-08-04 12:31 | XMS_ITS | Encounter Summary ---
Author Organization [facility] Address [address] [place] [address] Care Team Providers Care Hand Salter Name Role Phone Dudley House MD Primary Care Provider [phone] Frankie Gaspar MD Unavailable Unavailable Augusta De La Cruz DPM Unavailable [phone] Kyle Morris MD Unavailable [phone] Mike Villareal DO Unavailable [phone] Sony Perez MD Unavailable [phone] Encounter Details Date Type Department Care Team (Late st Contact Info) Description 10/20/2008 8:45 AM CDT [facility] in [address] [address] Dudley House MD [address] [place] [address] Social History Tobacco Use Types [...] on filedocumented in this encounter Care Teams Hand Salter Relationship Specialty Start Date End Date Dudley House MD [address] [place] [address] PCP - General 03/23/07 09/02/10 Frankie Gaspar MD PCP - Obstetrics/Gynecology 03/03/0007/22 Augusta De La Cruz DPM PCP - Podiatry 09/26/05 Kyle Morris MD PCP - Ophthalmology 02/17/06 Mike Villareal DO [facility] [address] [place] [address] PCP - Surgery 08/03/06 10/24/08 Sony Perez MD [facility] [address] [place], [place] [address] PCP - ENT 03/19/07 12/08/17 documented as of this encounter
--- OUTSIDE RECORDS SUMMARY | 2023-08-04 12:31 | XMS_ITS | Encounter Summary ---
Author Organization [facility] Address [address] [place] [address] Care Team Providers Care Heat Sealing Machine Operator Name Role Phone Dudley House MD Primary Care Provider [phone] Frankie Gaspar MD Unavailable Unavailable Augusta De La Cruz DPM Unavailable [phone] Kyle Morris MD Unavailable Ned Birmingham MD Unavailable [phone] Sony Perez MD Unavailable [phone] Matt Grover MD Unavailable [phone] Albert Brownlee MD Unavailable Humberto Peng MD Primary Care Provider [phone] James Jasso DO Unavailable [phone] Rajat Urban MD Unavailable Unavailable Thuy Coto PARickyC Unavailable [phone] James Stevens DPM Unavailable Teresa FerrerC Unavailable Encounter Details Date Type Department Care Team (Late st Contact Info) Description 07/27/2009 MyC Medical Advice in [place] Internal Medicine [address] [place] [address] Dudley House MD [address] [place] [address] Social History Tobacco Use Types Packs/Day Years [...] on filedocumented in this encounter Care Teams Heat Sealing Machine Operator Relationship Specialty Start Date End Date Dudley House MD [address] [place] [address] PCP - General 03/23/07 09/02/10 Frankie Gaspar MD PCP - Obstetrics/Gynecology 03/03/00 07/23/11 Augusta De La Cruz DPM PCP - Podiatry 09/26/05 Kyle Morris MD PCP - Ophthalmology 02/17/06 Ned Birmingham MD XXX [place] [address] PCP - Surgery 10/25/08 09/27/09 Sony Perez MD XXX NO INFO FOUND XXX [place] [id number] PCP - ENT 03/19/07 12/08/17 Matt Grover MD [address] [facility] [address] [place] [address] PCP - Urology 12/22/08 Albert Brownlee MD [address] [place] [address] PCP - Surgery Surgery 09/28/09 11/02/12 Humberto Peng MD [facility] [place] [address] [place] [address] PCP - General Family Practice 09/03/10 James Jasso DO [facility] [place] [address] [place] [address] PCP - Obstetrics/Gynecology professional architect 07/24/11 Rajat Urban MD [facility] [place] [address] [place] [address] PCP - Orthopaedics Orthopedics 12/02/11 12/08/17 Thuy Coto PA-C [facility] [place] [address] [place] [address] PCP - Surgery Physician Dumpcart Driver 11/03/12 James Stevens DPM [id number] [place] [address] [address] [place] [address] Assigned Musculoskeletal Provider 04/25/20 10/25/21 Teresa Ferrer PA-C [address] [place] [address] Physician Dumpcart Driver Urology 02/20/23 documented as of this encounter
--- OUTSIDE RECORDS SUMMARY | 2023-08-04 12:31 | XMS_ITS | Encounter Summary ---
Author Organization [facility] Address [address] [place] [address] Care Team Providers Care Gum Cook Name Role Phone Dudley House MD Primary Care Provider [phone] Frankie Gaspar MD Unavailable Unavailable Augusta De La Cruz DPM Unavailable [phone] Kyle Morris MD Unavailable [phone] Sony Perez MD Unavailable [phone] Matt Grover MD Unavailable [phone] Albert Brownlee MD Unavailable [phone] Encounter Details Date Type Department Care Team (Late st Contact Info) Description 11/26/2009 2:01 PM CDT [facility] [address] [place] [address] Albert Brownlee MD [address] [place] [address] Social History Tobacco Use Types Packs/Day Years [...] on filedocumented in this encounter Care Teams Gum Cook Relationship Specialty Start Date End Date Dudley House MD [address] [place] [address] PCP - General 03/23/07 09/02/10 Frankie Gaspar MD PCP - Obstetrics/Gynecology 03/03/0007/22 Augusta De La Cruz DPM PCP - Podiatry 09/26/05 Kyle Morris MD PCP - Ophthalmology 02/17/06 Sony Perez MD PCP - ENT 03/19/07 12/08/17 Matt Grover MD 420 [facility] [address] [place], [place] [address] PCP - Urology 12/22/08 Albert Brownlee MD [address] [place] [address] PCP - Surgery Surgery 09/28/09 11/02/12 documented as of this encounter
--- OUTSIDE RECORDS SUMMARY | 2023-08-04 12:31 | XMS_ITS | Encounter Summary ---
Author Organization [facility] Address [address] [place] [address] Care Team Providers Care Fashion Designer Name Role Phone Dudley House MD Primary Care Provider [phone] rFankie Gaspar MD Unavailable Unavailable Augusta De La Cruz DPM Unavailable [phone] Kyle Morris MD Unavailable [phone] Ned Birmingham MD Unavailable Sony Perez MD Unavailable [phone] Matt Grover MD Unavailable [phone] Albert Brownlee MD Unavailable [phone] Humberto Peng MD Primary Care Provider [phone] James Jasso DO Unavailable [phone] Rajat Urban MD Unavailable Unavailable Thuy Coto PARickyC Unavailable [phone] James Stevens DPM Unavailable Teresa FerrerC Unavailable Reason for Visit * Reason Onset Date Comments Patient Inquiry 07/23/2009 Encounter Details Date Type Department Care Team (Late st Contact Info) Description 07/23/2009 MyC Medical Advice [facility] in [place] Internal Medicine [address] [place] [address] Dudley House MD [address] [place] [address] Patient Inquiry Social History Tobacco Use Types Packs/Day Years [...] on filedocumented in this encounter Care Teams Fashion Designer Relationship Specialty Start Date End Date Dudley House MD [address] [place] [address] PCP - General 03/23/07 09/02/10 Frankie Gaspar MD PCP - Obstetrics/Gynecology 03/03/00 07/23/11 Augusta De La Cruz DPM PCP - Podiatry 09/26/05 Kyle Morris MD PCP - Ophthalmology 02/17/06 Ned Birmingham MD XXX [place] [address] PCP - Surgery 10/25/08 09/27/09 Sony Perez MD XXX [place] [address] PCP - ENT 03/19/07 12/08/17 Matt Grover MD [address] [place] [address] PCP - Urology 12/22/08 Albert Brownlee MD [address] [place] [address] PCP - Surgery Surgery 09/28/09 11/02/12 Humberto Peng MD [facility] [place] [address] [place] [address] PCP - General Family Practice 09/03/10 James Jasso DO [facility] [place] [address] [place] [address] PCP - Obstetrics/Gynecology surg nurse 07/24/11 Rajat Urban MD [facility] [place] [address] [place] [address] PCP - Orthopaedics Orthopedics 12/02/11 12/08/17 Thuy Coto PA-C [facility] [place] [address] [place] [address] PCP - Surgery Physician Charging Machine Operator 11/03/12 James Stevens DPM [address] [facility] [address] [place] [address] Assigned Musculoskeletal Provider 04/25/20 10/25/21 Teresa Ferrer PA-C [address] [place] [address] Physician Charging Machine Operator Urology 02/20/23 documented as of this encounter
--- OUTSIDE RECORDS SUMMARY | 2023-08-04 12:31 | XMS_ITS | Encounter Summary ---
Author Organization [facility] Address [address] [place] [address] Care Team Providers Care Size Cutter Name Role Phone Dudley House MD Primary Care Provider [phone] Frankie Gaspar MD Unavailable Unavailable Augusta De La Cruz DPM Unavailable [phone] Kyle Morris MD Unavailable [phone] Sony Perez MD Unavailable [phone] Matt Grover MD Unavailable [phone] Albert Brownlee MD Unavailable [phone] GinetteHumberto bowser MD Primary Care Provider [phone] James Jasso DO Unavailable [phone] Rajat Urban MD Unavailable Unavailable Thuy CotoC Unavailable [phone] James Stevens DPM Unavailable [phone] Teresa FerrerC Unavailable [phone] Encounter Details Date Type Department Care Team (Late st Contact Info) Description 02/15/2010 MyC Medical Advice [facility] in [place] Internal Medicine [address] [place] [address] Dudley House MD [address] [place] [address] Social History Tobacco Use Types [...] on filedocumented in this encounter Care Teams Size Cutter Relationship Specialty Start Date End Date Dudley House MD [address] [place] [address] PCP - General 03/23/07 09/02/10 Frankie Gaspar MD PCP - Obstetrics/Gynecology 03/03/00 07/23/11 Augusta De La Cruz DPM PCP - Podiatry 09/26/05 Kyle Morris MD PCP - Ophthalmology 02/17/06 Sony Perez MD PCP - ENT 03/19/07 12/08/17 Matt Grover MD 420 [facility] [address] [place] [address] PCP - Urology 12/22/08 Albert Brownlee MD [address] [place] [address] PCP - Surgery Surgery 09/28/09 11/02/12 Humberto Peng MD [facility] [place] [address] [place] [address] PCP - General Family Practice 09/03/10 James Jasso DO [facility] [place] [address] [place] [address] PCP - Obstetrics/Gynecology machine shop worker 07/24/11 Rajat Urban MD [facility] [place] [address] [place] [address] PCP - Orthopaedics Orthopedics 12/02/11 12/08/17 Thuy Coto PA-C [facility] [place] [address] [place] [address] PCP - Surgery Physician Pharmacy Ancillary 11/03/12 James Stevens DPM [address] [facility] [address] [place], [place] [address] Assigned Musculoskeletal Provider 04/25/20 10/25/21 Teresa Ferrer PA-C [address] [place] [address] Physician Pharmacy Ancillary Urology 02/20/23 documented as of this encounter
--- OUTSIDE RECORDS SUMMARY | 2023-08-04 12:31 | XMS_ITS | Clinical Summary ---
Author Organization [facility] Address [address] [place] [address] Care Team Providers Care Glaze Handler Name Role Phone Augusta De La Cruz Suzanne DPM Unavailable [phone] Kyle Morris MD Unavailable [phone] Matt Grover MD Unavailable GinetteHumberto bowser MD Primary Care Provider [phone] James Jasso DO Unavailable [phone] Thuy CotoC Unavailable [phone] Teresa Ferrer-C Unavailable Allergies Active Allergy Reactions Criticality Noted Date Comments Aspirin GI Disturbance Upset Stomach Latex Other (See Comments) 10/02/2014 Nsaids Hives (Tolectin) Sulfa Antibiotics 05/15/2003 Pt. Unsure of reaction. States nothing serious. Medications Medication Sig Dispensed Refills Start Date End Date Status ORDER FOR DMEIndications:PAT (obstructive sleep apnea) overnight oximetry with CPAP 1 Device 1 07/19/2009 Active ORDER FOR DMEIndications:PAT (obstructive sleep apnea) At Bedtime. CPAP supplies and mask 1 Device 1 05/06/2010 Active Cyanocobalamin (VITAMIN B 12 PO) Take 1,000 tablets by mouth daily. Active ORDER FOR DMEIndications:PAT (obstructive sleep apnea) Replacement CPAP supplies as needed: mask, headgear, humidifier chamber, cushions, pillows, tubing, filters, water chamber. ANA MARÍA: 99 months 1 each 0 03/25/2012 Active COMPRESSION STOCKINGSIndications:V aricose veins of lower extremities with other complications See Admin Instructions. knee high 15-20 cm water. Up to 15 a year 2 each 15 06/03/2012 Active lovastatin (MEVACOR) 20 MG tabletIndications:Mixe d hyperlipidemia Take 1 tablet (20 mg) by mouth daily (with dinner) 90 tablet 3 10/29/2012 Active trospium (SANCTURA) 20 MG tabletIndications:Urge ncy of urination Take 1 tablet (20 mg) by mouth 3 times daily (before meals) May take 1 additional tablet daily as needed. 270 tablet 3 10/29/2012 Active Elastic Bandages & Supports (MEDICAL COMPRESSION STOCKINGS) MISCIndications:Varico se veins of lower extremities with other complications 1 Package daily Wear 20-30 mm Hg knee high Juzo compression stockings daily and remove at night. 2 each 0 12/03/2012 Active gabapentin (NEURONTIN) 400 MG capsuleIndications:Uns pecified cause of encephalitis, myelitis, and encephalomyelitis Take 3 capsules (1,200 mg) by mouth 3 times daily For neuropathic pain in legs 270 capsule 3 03/31/2013 Active lisinopril-hydrochloro thiazide (PRINZIDE,ZESTORETIC) 10-12.5 MG per tabletIndications:Unsp ecified essential hypertension Take 1 tablet by mouth daily 90 tablet 3 03/31/2013 Active clopidogrel (PLAVIX) 75 MG tabletIndications:Acut e, but ill-defined, cerebrovascular disease,Mixed hyperlipidemia Take 1 tablet (75 mg) by mouth daily 90 tablet 3 03/31/2013 Active LANsoprazole (PREVACID) 30 MG capsuleIndications:Eso phageal reflux,Unspecified hypothyroidism Take 1 capsule (30 mg) by mouth 2 times daily 180 capsule 3 03/31/2013 Active levothyroxine (SYNTHROID) 88 MCG tabletIndications:Unsp ecified hypothyroidism,Esophag eal reflux Take 1 tablet (88 mcg) by mouth daily 90 tablet 3 03/31/2013 Active Additional Information Patient taking differently: 100 mcgOral DAILY, Reported on 02/27/2016 OXYCODONE HCL PO Take 5 mg by mouth every 4 hours as needed Active WARFARIN SODIUM PO Take 4 mg by mouth daily Active solifenacin (VESICARE) 5 MG tabletIndications:Mixe d incontinence urge and stress (male)(female) Take 1 tablet (5 mg) by mouth daily 30 tablet 1 02/27/2016 Active Active Problems Problem Noted Date Diagnosed Date Morbid obesity 04/19/2020 Hyperglycemia 07/25/2010 Varicose veins of lower extremities with ulcer 0 09/28/2009 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 Provider to review Degeneration of lumbar or lumbosacral interverte bral disc 05/14/2007 Overview: 05/13/2007- MRI reviewed patient declines ortho referral at present time Systemic lupus erythematosus 01/29/2007 Overview: 03/26/2007- work up at [facility] negative for lupus. Adivised her to repeat KOBE and NEIL in 3 mnth or sooner. Also no evidence of Sjorgens Transient cerebral ischemia 09/24/2004 Overview: Problem list name updated by automated process. Provider to review Hypothyroidism 12/15/2003 Overview: 05/13/2007- on 88 mcg of Synthroid stable Problem list name updated by automated process. Provider to review Essential hypertension 04/06/2003 Overview: 05/2007- stable on Lisinopril and HCTZ Problem list name updated by automated process. Provider to review Esophageal reflux 11/05/2001 Overview: 05/13/2007-EGD in January of 2007, repeat in 3 years Encephalitis, myelitis, and encephalomyelitis Overview: 2002 at [place] bases on MRI scans that subsequently improved. Problem list name updated by automated process. Provider to review Resolved Problems Problem Noted Date Diagnosed Date Resolved Date Muscle weakness (generalized) 11/20/2005 05/12/2008 Overview: MRI of lumbar spine from Jan only mild foraminal compression Achilles bursitis or tendinitis 11/06/2005 05/14/2007 Cervicalgia 01/10/2005 05/14/2007 Urinary frequency 05/30/2003 05/14/2007 Asymptomatic varicose veins 04/16/2001 05/14/2007 Immunizations Name Administration Dates Next Due Influenza (IIV3) PF 10/26/2012, 6,12/11/2003,11/22/2002, 002,12/07/2000,01/06/2000 Pneumococcal 23 valent 07/19/2009,05/14/2007 TD,PF 7+ (Tenivac) 04/24/2011,05/11/2001 012 Family History Medical History Relation Comments Diabetes Brother 3 Eye Disorder Father CATARACTS Neurologic Disorder Father Neuropathy Diabetes Maternal Grandmother Heart Disease Maternal Grandmother mi great Blood Disease Mother non-Hodgkins Lym phoma Cancer Mother non hodgkins lym phoma Neurologic Disorder Mother Parkinsons Osteoporosis Mother Thyroid Disease Mother Cerebrovascular Disease Other self Heart Disease Paternal Grandfather age 73 of [place] Neurologic Disorder Sister 4 Multiple scl erosis Alzheimer Disease No family hx of Anesthesia Reaction No family hx of Breast Cancer No family hx of Cancer - colorectal No family hx of Hypertension No family hx of Relation Status Comments Brother 1 Alive Brother 2 Alive Brother 3 Father Alive Maternal Grandmother Mother Alive Other Paternal Grandfather Sister 1 Alive Sister 2 Alive Sister 3 Alive Sister 4 Social History Tobacco Use Types Packs/Day Years Used Date Smoking Tobacco: Never Smokeless Tobacco: Never Tobacco Cessation:Counseling Given: Yes Alcohol Use Standard Drinks/Week Comments No 0 (1 standard drink = 0.6 oz pur e alcohol) Adolescent Education Answer Date Record ed Getting School Help Needed Not on file 11/02 Sex and Gender Information Value Date Recorded Sex Assigned at Not on file Gender Identity Not on file Sexual Orientation Straight 06/26/2018 6: 53 PM CDT Last Filed Vital Signs Vital Sign Reading Time Taken Comments Blood Pressure 138/68 04/19/2020 1:38 PM PEDIATRIC ONCOLOGY NURSE Pulse 88 03/31/2013 9:37 AM PEDIATRIC ONCOLOGY NURSE Temperature 36.1 ??C (96.9 ??F) 04/07/2012 4:12 PM CS T Respiratory Rate 20 12/25/2005 8:00 AM PEDIATRIC ONCOLOGY NURSE Oxygen Saturation 96% 06/15/2008 2:21 PM CDT Inhaled Oxygen Concentration - - Weight 103.7 kg (228 lb 9.9 oz) 10/29/2012 8:27 AM CDT Height 162.6 cm (5' 4) 04/19/2020 1:38 PM PEDIATRIC ONCOLOGY NURSE Body Mass Index 40.24 06/03/2012 8:14 AM CDT Plan of Treatment Health Maintenance Due Date Last Done Comments ADVANCE CARE PLANNING 1943 ANNUAL REVIEW OF HM ORDERS 1943 CT COLONOGRAPHY 1943 DIABETIC FOOT EXAM 1943 FIT 1943 FLEX SIG 1943 sDNA (Cologuard) 1943 HEPATITIS C SCREENING 12/05/1961 ZOSTER IMMUNIZATION (1 of 2) 12/05/1993 RSV VACCINE ( & 60+) (1 - 1-dose 60+ series) 2003 FALL RISK ASSESSMENT 12/05/2008 MEDICARE ANNUAL WELLNESS VISIT 10/12/2009 10/12/2008, 12/11/2006, 07/20/2003, Additional history exists Pneumococcal Vaccine: 65+ Years (2 of 2 - PCV) 07/19/2010 07/19/2009, 05/14/2007 DEXA 10/13/2011 10/12/2008, 10/10, 06/19/2000 EYE EXAM 09/23/2013 09/23/2012, 08/05/2010, 12/14/2008, Additional history exists COLONOSCOPY 10/31/2014 10/31/2004, 11/17/1991 COLORECTAL CANCER SCREENING 10/31/2014 MICROALBUMIN 07/05/2020 07/06/2019 A1C 05/27/2022 02/26/2022, 12/10, 12/23/2019, Additional history exists PHQ-2 (once per calendar year) 2023 BMP 02/26/2023 02/26/2022, 12/10, 12/23/2019, Additional history exists LIPID 02/26/2023 02/26/2022, 12/10, 12/23/2019, Additional history exists TSH W/FREE T4 REFLEX 02/26/2023 02/26/2022, 12/26/2020, 12/23/2019, Additional history exists COVID-19 Vaccine (2022- season) 2023 11/25/2022, 11/27/2021, 06/29/2021, Additional history exists DTAP/TDAP/TD IMMUNIZATION (2 - Td or Tdap) 05/17/2025 05/18/2015, 04/24/2011, 04/24/2011, Additional history exists MAMMO SCREENING Discontinued 10/28/2022, 06/0 08/2021, 07/17/2020, Additional history exists INFLUENZA VACCINE Completed 12/01/2022, , 11/27/2020, Additional history exists HPV IMMUNIZATION Aged Out No longer e ligible based on patient's age to complete this topic IPV IMMUNIZATION Aged Out No longer e ligible based on patient's age to complete this topic MENINGITIS IMMUNIZATION Aged Out No l onger eligible based on patient's age to complete this topic RSV MONOCLONAL ANTIBODY Aged Out No l onger eligible based on patient's age to complete this topic Procedures Procedure Name Priority Date/Time Associated Diagnosis Comments MA SCREENING BILATERAL W/ CALLUM Routine 10/28/2022 1:05 PM CDT TSH Routine 02/26/2022 11:23 AM PEDIATRIC ONCOLOGY NURSE Diabetic neuropathy (H) Hypothyroidism, adult Hypertension Diabetic polyneuropathy (H) Hyperlipidemia LIPID PROFILE Routine 02/26/2022 11:23 AM PEDIATRIC ONCOLOGY NURSE Diabetic neuropathy (H) Hypothyroidism, adult Hypertension Diabetic polyneuropathy (H) Hyperlipidemia BASIC METABOLIC PANEL Routine 02/26/2022 11:23 AM PEDIATRIC ONCOLOGY NURSE Diabetic neuropathy (H) Hypothyroidism, adult Hypertension Diabetic polyneuropathy (H) Hyperlipidemia HEMOGLOBIN A1C Routine 02/26/2022 11:23 AM PEDIATRIC ONCOLOGY NURSE Diabetic neuropathy (H) Hypothyroidism, adult Hypertension Diabetic polyneuropathy (H) Hyperlipidemia ALBUMIN RANDOM URINE QUANTITATIVE Routine 07/06/2019 9:51 AM CDT Diabetic neuropathy, type II diabetes mellitus (H) Hypothyroidism, adult Essential hypertension HC DEXA BONE DENSITY, >=1 SITE, AXIAL SKELETON Routine 10/12/2008 10:52 AM CDT Osteopenia [facility] COLONOSCOPY THRU STOMA, DIAGNOSTIC Routine 10/31/2004 Screening Mal Neop-Colon from Last 3 Months or Most Recently Relevant to Health Maintenance Results * TSH (02/26/2022 11:23 AM PEDIATRIC ONCOLOGY NURSE) TSH 2.31 0.30 - 4.20 uIU/mL 02/26/2022 5:49 PM PEDIATRIC ONCOLOGY NURSE [facility] Blood BLOOD SPECIMEN / Unknown Venipuncture / Unknown 02/26/2022 11:23 AM PEDIATRIC ONCOLOGY NURSE 02/26/2022 11:23 AM PEDIATRIC ONCOLOGY NURSE Humberto Peng MD LAB - BLOOD ORDERABL ES [facility] [address] [facility], [address] [address], [facility] [phone] * Lipid Profile (02/26/2022 11:23 AM PEDIATRIC ONCOLOGY NURSE) Cholesterol 168 <200 mg/dL 02/26/2022 5:49 PM PEDIATRIC ONCOLOGY NURSE [facility] Triglycerides 110 <150 mg/dL 02/26/2022 5:49 PM PEDIATRIC ONCOLOGY NURSE [facility] Direct Measure HDL 71 >=50 mg/dL 2022 5:49 PM PEDIATRIC ONCOLOGY NURSE [facility] LDL Cholesterol Calculated 75 <=100 mg/dL 02/26/2022 5:49 PM PEDIATRIC ONCOLOGY NURSE [facility] Non HDL Cholesterol 97 <130 mg/dL 02/26/2022 5:49 PM PEDIATRIC ONCOLOGY NURSE [facility] Blood BLOOD SPECIMEN / Unknown Venipuncture / Unknown 02/26/2022 11:23 AM PEDIATRIC ONCOLOGY NURSE 02/26/2022 11:23 AM PEDIATRIC ONCOLOGY NURSE Narrative [facility] - 02/26/2022 5:49 PM PEDIATRIC ONCOLOGY NURSE Cholesterol Desirable: ??<200 mg/dL Triglycerides Normal: ??Less than 150 mg/dL Borderline High: ??150-199 mg/dL High: ??200-499 mg/dL Very High: ??Greater than or equal to 500 mg/dL Direct Measure HDL Female: ??Greater than or equal to 50 mg/dL Male: ??Greater than or equal to 40 mg/dL LDL Cholesterol Desirable: ??<100mg/dL Above Desirable: ??100-129 mg/dL Borderline High: ??130-159 mg/dL High: ??160-189 mg/dL Very High: ??>= 190 mg/dL Non HDL Cholesterol Desirable: ??130 mg/dL Above Desirable: ??130-159 mg/dL Borderline High: ??160-189 mg/dL High: ??190-219 mg/dL Very High: ??Greater than or equal to 220 mg/dL Humberto Peng MD LAB - BLOOD ORDERABL ES [facility] [address] [facility], [address] [place] [address], [facility] [phone] * (ABNORMAL) Hemoglobin A1c (02/26/2022 11:23 AM PEDIATRIC ONCOLOGY NURSE) Hemoglobin A1C 6.5(H) 0.0 - 5.6 % 02/26/2022 11:46 AM PEDIATRIC ONCOLOGY NURSE [facility] Comment: Normal <5.7% Prediabetes 5.7-6.4% ?? Diabetes 6.5% or higher Note: Adopted from ADA consensus guidelines. Blood BLOOD SPECIMEN / Unknown Venipuncture / Unknown 02/26/2022 11:23 AM PEDIATRIC ONCOLOGY NURSE 02/26/2022 11:23 AM PEDIATRIC ONCOLOGY NURSE Humberto Peng MD LAB - BLOOD ORDERABL ES [facility] Lab [address] [place] [address] (no room number, 1st floor of clinic) [place] [address], [facility] [phone] * (ABNORMAL) Basic metabolic panel (02/26/2022 11:23 AM PEDIATRIC ONCOLOGY NURSE) Sodium 143 136 - 145 mmol/L 02/26/2022 5:49 PM PEDIATRIC ONCOLOGY NURSE [facility] Potassium 4.3 3.4 - 5.3 mmol/L 02/26/2022 5:49 PM PEDIATRIC ONCOLOGY NURSE [facility] Chloride 105 98 - 107 mmol/L 02/26/2022 5:49 PM PEDIATRIC ONCOLOGY NURSE [facility] Carbon Dioxide (CO2) 25 22 - 29 mmol/L 02/26/2022 5:49 PM PEDIATRIC ONCOLOGY NURSE [facility] Anion Gap 13 7 - 15 mmol/L 02/26/2022 5:49 PM PEDIATRIC ONCOLOGY NURSE [facility] Urea Nitrogen 19.2 8.0 - 23.0 mg/dL 02/26/2022 5:49 PM PEDIATRIC ONCOLOGY NURSE [facility] Creatinine 0.84 0.51 - 0.95 mg/dL 02/26/2022 5:49 PM PEDIATRIC ONCOLOGY NURSE [facility] Calcium 9.5 8.8 - 10.2 mg/dL 02/26/2022 5:49 PM PEDIATRIC ONCOLOGY NURSE [facility] Glucose 109(H) 70 - 99 mg/dL 02/26/2022 5:49 PM PEDIATRIC ONCOLOGY NURSE [facility] GFR Estimate 71 >60 mL/min/1.7 3m2 02/26/2022 5:49 PM PEDIATRIC ONCOLOGY NURSE [facility] Comment:Effective January 102020 eGFRcr in adults is calculated using the 2020 CKD-EPI creatinine equation which includes age and gender (Diane et al., NEJ, DOI: 10.1056/DNUXth4674985) Blood BLOOD SPECIMEN / Unknown Venipuncture / Unknown 02/26/2022 11:23 AM PEDIATRIC ONCOLOGY NURSE 02/26/2022 11:23 AM PEDIATRIC ONCOLOGY NURSE Humberto Peng MD LAB - BLOOD ORDERABL ES [facility] [address] [facility], [address] [id number] [phone] * Albumin Random Urine Quantitative with Creat Ratio (07/06/2019 9:51 AM CDT) Creatinine Urine 36 mg/dL 07/06/2019 1:50 PM CDT [facility] Albumin Urine mg/L <5 mg/L 07/06/2019 2:07 PM CDT [facility] Albumin Urine mg/g Cr Unable to calculate due to low value 0 - 25 mg/g Cr 07/06/2019 2:07 PM CDT [facility] Urine specimen (specimen) 07/06/2019 9:51 AM CDT 07/06/2019 9:52 AM CDT Humberto Peng MD LAB - URINE ORDERABL ES Performing Organization Address City/[facility]/ZIP Co de Phone Number [facility] [address] [place] [address] * DEXA,BONE DENSITY,AXIAL SKELETON (10/12/2008 10:52 AM CDT) Anatomical Region Laterality Modality Other 10/12/2008 10:5 2 AM CDT Impressions 10/12/2008 4:39 PM CDT DEXA BONE MINERAL DENSITY SCAN October 12, 2008 10:52 AM INDICATION: Hyperthyroidism. TECHNIQUE: The lumbar spine and hips were scanned with DEXA technique performed using a [employer] scanner. DEXA results are reported according to T-score. The T-score is the standard deviation from the peak bone mass in a normal young adult patient. A T-score of -1.0 to -2.5 correlates with osteopenia. A T-score of less than -2.5 correlates with osteoporosis. COMPARISON: 10/25/2004. FINDINGS: Lumbar spine: The T-score is -0.6 between L1 and L4. The worst lumbar spine T-score is -1.4 at L1. Hips: The right hip T-score is -0.2. The left hip T-score is -0.5. The bone mineral density at the worst hip is 0.975 gm/cm2. No statistically significant change in bone mineral density from previous exam. IMPRESSION: 1. Low normal bone mineral density in the lumbar spine is associated with low risk of insufficiency fracture. 2. Normal bone mineral density bilateral hips with associated lower risk of insufficiency fracture. Dudley House MD SPECIAL IMAGING STUD IES * COLONOSCOPY (10/31/2004) Albert Figueroa MD PROCEDURES Performing Organization Address City/[facility]/ZIP Co de Phone Number [facility] [address] from Last 3 Months or Most Recently Relevant to Health Maintenance Care Teams Glaze Handler Relationship Specialty Start Date End Date Augusta De La Cruz DPM PCP - Podiatry 09/26/05 Kyle Morris MD PCP - Ophthalmology 02/17/06 Matt Grover MD [address] [place] [address] [address] [place], [place] [address] PCP - Urology 12/22/08 Humberto Peng MD [facility] [place] [address] [place] [address] PCP - General Family Practice 09/03/10 James Jasso DO [facility] [address] [place] [address] PCP - Obstetrics/Gynecology cro 07/24/11 Thuy Coto PA-C [facility] [address] [place] [address] PCP - Surgery Physician Emu Farmer 11/03/12 Teresa Ferrer PA-C [address] [address] Physician Emu Farmer Urology 02/20/23
--- OUTSIDE RECORDS SUMMARY | 2023-08-04 12:31 | XMS_ITS | Encounter Summary ---
Author Organization [facility] Address [address] [place] [address] Care Team Providers Care Case Management Director Name Role Phone Dudley House MD Primary Care Provider [phone] Frankie Gaspar MD Unavailable Unavailable Augusta De La Cruz DPM Unavailable [phone] Kyle Morris MD Unavailable [phone] Ned Birmingham MD Unavailable Sony Perez MD Unavailable [phone] Matt Grover MD Unavailable [phone] Albert Brownlee MD Unavailable [phone] Humberto Peng MD Primary Care Provider [phone] James Jasso DO Unavailable [phone] Rajat Urban MD Unavailable Unavailable Thuy Coto PA-C Unavailable [phone] James Stevens DPM Unavailable Teresa Ferrer-C Unavailable Reason for Visit * Reason Onset Date Comments MyChart Communication 10/27/2008 DEXA resul ts Encounter Details Date Type Department Care Team (Late st Contact Info) Description 10/27/2008 MyC Medical Advice [facility] [place] Internal Medicine [address] [place] [id number] Dudley House MD [address] [place] [address] MyChart Communication (DEXA results) Social History Tobacco Use Types Packs/Day Years [...] on filedocumented in this encounter Care Teams Case Management Director Relationship Specialty Start Date End Date Dudley House MD [address] [place] [address] PCP - General 03/23/07 09/02/10 Frankie Gaspar MD PCP - Obstetrics/Gynecology 03/03/00 07/23/11 Augusta De La Cruz DPM PCP - Podiatry 09/26/05 Kyle Morris MD PCP - Ophthalmology 02/17/06 Ned Birmingham MD XXX [place] [address] PCP - Surgery 10/25/08 09/27/09 Sony Perez MD XXX NO [place] [address] PCP - ENT 03/19/07 12/08/17 Matt Grover MD [address] [place] [address] [address] [place] [address] PCP - Urology 12/22/08 Albert Brownlee MD [address] [place] [address] PCP - Surgery Surgery 09/28/09 11/02/12 Humberto Peng MD [facility] [place] [address] [place] [address] PCP - General Family Practice 09/03/10 James Jasso DO [facility] [place] [address] [place] [address] PCP - Obstetrics/Gynecology dispatcher street department 07/24/11 Rajat Urban MD [facility] [place] [address] [place] [address] PCP - Orthopaedics Orthopedics 12/02/11 12/08/17 Thuy Coto PA-C [facility] [place] [address] [place] [address] PCP - Surgery Physician German Tutor 11/03/12 James Stevens DPM [address] [facility] [address] [place], [place] [address] Assigned Musculoskeletal Provider 04/25/20 10/25/21 Teresa Ferrer PA-C [address] [place] [address] [place] [address] Physician German Tutor Urology 02/20/23 documented as of this encounter
--- OUTSIDE RECORDS SUMMARY | 2023-08-04 12:31 | XMS_ITS | Encounter Summary ---
Author Organization [facility] Address [address] [place] [address] Care Team Providers Care Licensed Embalmer Supervisor Name Role Phone Dudley House MD Primary Care Provider Frankie Gaspar MD Unavailable Unavailable Augusta De La Cruz DPM Unavailable [phone] Kyle Morris MD Unavailable [phone] Ned Birmingham MD Unavailable [phone] Sony Perez MD Unavailable [phone] Matt Grover MD Unavailable [phone] Albert Brownlee MD Unavailable Humberto Peng MD Primary Care Provider [phone] James Jasso DO Unavailable [phone] Rajat Urban MD Unavailable Unavailable Thuy Coto PA-C Unavailable [phone] James Stevens DPM Unavailable [phone] Teresa Ferrer-C Unavailable Encounter Details Date Type Department Care Team (Late st Contact Info) Description 11/23/2008 MyC Medical Advice [facility] [place] ASSISTANT PRODUCTION EDITOR [address] [place] [address] Adriane [place] [address] Social History Tobacco Use Types Packs/Day Years [...] on filedocumented in this encounter Care Teams Licensed Embalmer Supervisor Relationship Specialty Start Date End Date Dudley House MD [address] [place] [address] PCP - General 03/23/07 09/02/10 Frankie Gaspar MD PCP - Obstetrics/Gynecology 03/03/00 07/23/11 Augusta De La Cruz DPM PCP - Podiatry 09/26/05 Kyle Morris MD PCP - Ophthalmology 02/17/06 Ned Birmingham MD XXX [place] [address] PCP - Surgery 10/25/08 09/27/09 Sony Perez MD XXX [place] [address] PCP - ENT 03/19/07 12/08/17 Matt Grover MD [address] [place] [address] [address] [place] [address] PCP - Urology 12/22/08 Albert Brownlee MD [address] [place] [address] PCP - Surgery Surgery 09/28/09 11/02/[address] [facility] [place] [address] [place] [address] PCP - General Family Practice 09/03/[address] [facility] [place] [address] [place] [address] PCP - Obstetrics/Gynecology chairman & co founder 07/24/[address] [facility] [place] [address] [place] [address] PCP - Orthopaedics Orthopedics 12/02/11 12/08/17 Thuy Coto PA-C [facility] [place] [address] [place] [address] PCP - Surgery Physician Grades 1 Thru 6 Visiting Teacher 11/03/12 James Stevens DPM [address] [facility] [address] [place] [address] Assigned Musculoskeletal Provider 04/25/20 10/25/21 Teresa Ferrer PA-C [address] [place] [address] Physician Grades 1 Thru 6 Visiting Teacher Urology 02/20/23 documented as of this encounter
--- OUTSIDE RECORDS SUMMARY | 2023-08-04 12:31 | XMS_ITS | Encounter Summary ---
Author Organization [facility] Address [address] [place] [address] Care Team Providers Care Icing Mixer Name Role Phone Dudley House MD Primary Care Provider Frankie Gaspar MD Unavailable Unavailable Augusta De La Cruz DPM Unavailable [phone] Kyle Morris MD Unavailable [phone] Sony Perez MD Unavailable [phone] Matt Grover MD Unavailable [phone] Albert Brownlee MD Unavailable [phone] Encounter Details Date Type Department Care Team (Late st Contact Info) Description 08/29/2010 9:00 AM CDT [facility] in [address] [place] [address] Humberto Peng MD [address] [place] [address] Social History Tobacco Use Types Packs/Day Years [...] on filedocumented in this encounter Care Teams Icing Mixer Relationship Specialty Start Date End Date Dudley House MD [address] [place] [address] PCP - General 03/23/07 09/02/10 Frankie Gaspar MD PCP - Obstetrics/Gynecology 03/03/0007/22 Augusta De La Cruz DPM PCP - Podiatry 09/26/05 Kyle Morris MD PCP - Ophthalmology 02/17/06 Sony Perez MD PCP - ENT 03/19/07 12/08/17 Matt Grover MD 420 [facility] 394 [place], [place] [address] PCP - Urology 12/22/08 Albert Brownlee MD [address] [place] [address] PCP - Surgery Surgery 09/28/09 11/02/12 documented as of this encounter
--- OUTSIDE RECORDS SUMMARY | 2023-08-04 12:31 | XMS_ITS | Encounter Summary ---
Author Organization [facility] Address [address] [place] [address] Care Team Providers Care Timber Cutter Name Role Phone Dudley House MD Primary Care Provider [phone] Frankie Gaspar MD Unavailable Unavailable Augusta De La Cruz DPM Unavailable [phone] Kyle Morris MD Unavailable Ned Birmingham MD Unavailable [phone] Sony Perez MD Unavailable [phone] Matt Grover MD Unavailable Albert Brownlee MD Unavailable [phone] Humberto Peng MD Primary Care Provider [phone] James Jasso DO Unavailable [phone] Rajat Urban MD Unavailable Unavailable Thuy Coto PARickyC Unavailable [phone] James Stevens DPM Unavailable Teresa FerrerC Unavailable [phone] Encounter Details Date Type Department Care Team (Late st Contact Info) Description 07/26/2009 MyC Medical Advice [facility] in [place] [facility] [address] [place] [address] Dudley House MD [address] [place] [address] Social History Tobacco Use Types Packs/Day Years [...] on filedocumented in this encounter Care Teams Timber Cutter Relationship Specialty Start Date End Date Dudley House MD [address] [place] [address] PCP - General 03/23/07 09/02/10 Frankie Gaspar MD PCP - Obstetrics/Gynecology 03/03/00 07/23/11 Augusta De La Cruz DPM PCP - Podiatry 09/26/05 Kyle Morris MD PCP - Ophthalmology 02/17/06 Ned Birmingham MD XXX [place] [address] PCP - Surgery 10/25/08 09/27/09 Sony Perez MD XXX NO INFO FOUND XXX [place] [id number] PCP - ENT 03/19/07 12/08/17 Matt Grover MD 420 [facility] 394 [place] [address] PCP - Urology 12/22/08 Albert Brownlee MD 640 [place] [address] PCP - Surgery Surgery 09/28/09 11/02/12 Humberto Peng MD [facility] [place] [address] [place] [address] PCP - General Family Practice 09/03/10 James Jasso DO [facility] [place] [address] [place] [address] PCP - Obstetrics/Gynecology systems tester 07/24/11 Rajat Urban MD [facility] [place] [address] [place] [address] PCP - Orthopaedics Orthopedics 12/02/11 12/08/17 Thuy Coto PA-C [facility] [place] [address] [place] [address] PCP - Surgery Physician Diving Supervisor 11/03/12 James Stevens DPM [id number] [place] [address] [address] [place] [address] Assigned Musculoskeletal Provider 04/25/20 10/25/21 Teresa Ferrer PA-C [address] [place] [address] Physician Diving Supervisor Urology 02/20/23 documented as of this encounter
--- OUTSIDE RECORDS SUMMARY | 2023-08-04 12:31 | XMS_ITS | Encounter Summary ---
Author Organization [facility] Address [address] [place] [address] Care Team Providers Care Direct Service Professional Name Role Phone Dudley House MD Primary Care Provider [phone] Frankie Gaspar MD Unavailable Unavailable Augusta De La Cruz DPM Unavailable [phone] Kyle Morris MD Unavailable [phone] Sony Perez MD Unavailable [phone] Matt Grover MD Unavailable [phone] Albert Brownlee MD Unavailable [phone] Encounter Details Date Type Department Care Team (Late st Contact Info) Description 10/03/2009 12:[address] [facility] in [facility] [address] [place] [address] Albert Brownlee MD [address] [place] [address] Social History Tobacco Use Types Packs/Day Years [...] on filedocumented in this encounter Care Teams Direct Service Professional Relationship Specialty Start Date End Date Dudley House MD [address] [place] [address] PCP - General 03/23/07 09/02/10 rFankie Gaspar MD PCP - Obstetrics/Gynecology 03/03/0007/22 Augusta De La Cruz DPM PCP - Podiatry 09/26/05 Kyle Morris MD PCP - Ophthalmology 02/17/06 Sony Perez MD PCP - ENT 03/19/07 12/08/17 Matt Grover MD 420 [facility] 394 [place], [place] [address] PCP - Urology 12/22/08 Albert Brownlee MD 640 [place] [address] PCP - Surgery Surgery 09/28/09 11/02/12 documented as of this encounter
--- OUTSIDE RECORDS SUMMARY | 2023-08-04 12:31 | XMS_ITS | Encounter Summary ---
Author Organization [place] [place] Address [address] [place] [address] Care Team Providers Care Rotary Rig Engine Operator Name Role Phone Dudley House MD Primary Care Provider [phone] Frankie Gaspar MD Unavailable Unavailable Augusta De La Cruz DPM Unavailable [phone] Kyle Morris MD Unavailable [phone] Sony Perez MD Unavailable [phone] Matt Grover MD Unavailable Albert Brownlee MD Unavailable [phone] Encounter Details Date Type Department Care Team (Late st Contact Info) Description 01/17/2010 8:[address] [facility] in [address] [address] Albert Brownlee MD [address] [place] [address] Social History Tobacco Use Types Packs/Day Years [...] on filedocumented in this encounter Care Teams Rotary Rig Engine Operator Relationship Specialty Start Date End Date Dudley House MD [address] [place] [address] PCP - General 03/23/07 09/02/10 Frankie Gaspar MD PCP - Obstetrics/Gynecology 03/03/0007/22 Augusta De La Cruz DPM PCP - Podiatry 09/26/05 Kyle Morris MD PCP - Ophthalmology 02/17/06 Sony Perez MD PCP - ENT 03/19/07 12/08/17 Matt Grover MD 420 [facility] 394 [place] [address] PCP - Urology 12/22/08 Albert Brownlee MD 640 [place] [address] PCP - Surgery Surgery 09/28/09 11/02/12 documented as of this encounter
--- OUTSIDE RECORDS SUMMARY | 2023-08-04 12:31 | XMS_ITS | Referral Summary ---
Author Organization [facility] Address [address] [place] [address] Care Team Providers Care Firer Watertender Name Role Phone Augusta De La Cruz Suzanne DPM Unavailable [phone] Kyle Morris MD Unavailable [phone] Matt Grover MD Unavailable [phone] GinetteHumberto bowser MD Primary Care Provider [phone] James Jasso DO Unavailable [phone] Thuy CotoC Unavailable [phone] Teresa Ferrer-C Unavailable [phone] Allergies Active Allergy Reactions Criticality Noted Date [...] Encephalitis, myelitis, and encephalomyelitis Overview: 2002 at [place] bases on MRI scans that subsequently improved. [...] valent 07/19/2009,05/14/2007 TD,PF 7+ (Tenivac) 04/24/2011,05/11/2001 012 Social History Tobacco Use Types Packs/Day Years [...] Comments Blood Pressure 138/68 04/19/2020 1:38 PM MEAT SLICER Pulse 88 03/31/2013 9:37 AM MEAT SLICER Temperature 36.1 ??C (96.9 ??F) 04/07/2012 4:12 PM CS T Respiratory Rate 20 12/25/2005 8:00 AM MEAT SLICER Oxygen Saturation 96% 06/15/2008 2:21 PM CDT Inhaled Oxygen Concentration - - Weight 103.7 kg (228 lb 9.9 oz) 10/29/2012 8:27 AM CDT Height 162.6 cm (5' 4) 04/19/2020 1:38 PM MEAT SLICER Body Mass Index 40.24 06/03/2012 8:14 AM CDT Plan of Treatment Not on file Procedures Procedure Name Priority Date/Time Associated Diagnosis Comments MA SCREENING BILATERAL W/ CALLUM Routine 10/28/2022 1:05 PM CDT TSH Routine 02/26/2022 11:23 AM MEAT SLICER Diabetic neuropathy (H) Hypothyroidism, adult Hypertension Diabetic polyneuropathy (H) Hyperlipidemia LIPID PROFILE Routine 02/26/2022 11:23 AM MEAT SLICER Diabetic neuropathy (H) Hypothyroidism, adult Hypertension Diabetic polyneuropathy (H) Hyperlipidemia BASIC METABOLIC PANEL Routine 02/26/2022 11:23 AM MEAT SLICER Diabetic neuropathy (H) Hypothyroidism, adult Hypertension Diabetic polyneuropathy (H) Hyperlipidemia HEMOGLOBIN A1C Routine 02/26/2022 11:23 AM MEAT SLICER Diabetic neuropathy (H) Hypothyroidism, adult Hypertension Diabetic [...] Maintenance Results * TSH (02/26/2022 11:23 AM MEAT SLICER) TSH 2.31 0.30 - 4.20 uIU/mL 02/26/2022 5:49 PM MEAT SLICER [facility] Blood BLOOD SPECIMEN / Unknown Venipuncture / Unknown 02/26/2022 11:23 AM MEAT SLICER 02/26/2022 11:23 AM MEAT SLICER Humberto Peng MD LAB - BLOOD ORDERABL ES [facility] [address] [facility] J [facility], [address] [place] [address], [facility] [phone] * Lipid Profile (02/26/2022 11:23 AM MEAT SLICER) Cholesterol 168 <200 mg/dL 02/26/2022 5:49 PM MEAT SLICER [facility] Triglycerides 110 <150 mg/dL 02/26/2022 5:49 PM MEAT SLICER [facility] Direct Measure HDL 71 >=50 mg/dL 2022 5:49 PM MEAT SLICER [facility] LDL Cholesterol Calculated 75 <=100 mg/dL 02/26/2022 5:49 PM MEAT SLICER [facility] Non HDL Cholesterol 97 <130 mg/dL 02/26/2022 5:49 PM MEAT SLICER [facility] Blood BLOOD SPECIMEN / Unknown Venipuncture / Unknown 02/26/2022 11:23 AM MEAT SLICER 02/26/2022 11:23 AM MEAT SLICER Narrative [facility] - 02/26/2022 5:49 PM MEAT SLICER Cholesterol Desirable: ??<200 mg/dL Triglycerides Normal: ??Less [...] BLOOD ORDERABL ES [facility] 500 [facility], [address] [address] [phone] * (ABNORMAL) Hemoglobin A1c (02/26/2022 11:23 AM MEAT SLICER) Hemoglobin A1C 6.5(H) 0.0 - 5.6 % 02/26/2022 11:46 AM MEAT SLICER [facility] Comment: Normal <5.7% Prediabetes 5.7-6.4% ?? Diabetes 6.5% or higher Note: Adopted from ADA consensus guidelines. Blood BLOOD SPECIMEN / Unknown Venipuncture / Unknown 02/26/2022 11:23 AM MEAT SLICER 02/26/2022 11:23 AM MEAT SLICER Humberto Peng MD LAB - BLOOD ORDERABL ES [facility] [address] [facility] (no room number, 1st floor of clinic) [place] [address], [facility] [phone] * (ABNORMAL) Basic metabolic panel (02/26/2022 11:23 AM MEAT SLICER) Sodium 143 136 - 145 mmol/L 02/26/2022 5:49 PM MEAT SLICER [facility] Potassium 4.3 3.4 - 5.3 mmol/L 02/26/2022 5:49 PM MEAT SLICER [facility] Chloride 105 98 - 107 mmol/L 02/26/2022 5:49 PM MEAT SLICER [facility] Carbon Dioxide (CO2) 25 22 - 29 mmol/L 02/26/2022 5:49 PM MEAT SLICER [facility] Anion Gap 13 7 - 15 mmol/L 02/26/2022 5:49 PM MEAT SLICER [facility] Urea Nitrogen 19.2 8.0 - 23.0 mg/dL 02/26/2022 5:49 PM MEAT SLICER [facility] Creatinine 0.84 0.51 - 0.95 mg/dL 02/26/2022 5:49 PM MEAT SLICER [facility] Calcium 9.5 8.8 - 10.2 mg/dL 02/26/2022 5:49 PM MEAT SLICER [facility] Glucose 109(H) 70 - 99 mg/dL 02/26/2022 5:49 PM MEAT SLICER [facility] GFR Estimate 71 >60 mL/min/1.7 3m2 02/26/2022 5:49 PM MEAT SLICER [facility] Comment:Effective January 102020 eGFRcr in adults is calculated using the 2020 CKD-EPI creatinine equation which includes age and gender (Diane et al., NEJM, DOI: 10.1056/GLDZen1385691) Blood BLOOD SPECIMEN / Unknown Venipuncture / Unknown 02/26/2022 11:23 AM MEAT SLICER 02/26/2022 11:23 AM MEAT SLICER Humberto Peng MD LAB - BLOOD ORDERABL ES Performing Organization Address [facility] Co de Phone Number [facility] [address] [facility] J [facility], Room [address] [place] [address], [facility] [phone] * Albumin Random Urine Quantitative with Creat Ratio (07/06/2019 9:51 AM CDT) Creatinine Urine 36 mg/dL 07/06/2019 1:50 PM CDT [facility] Albumin Urine mg/L <5 mg/L 07/06/2019 2:07 PM CDT [facility] Albumin Urine mg/g Cr Unable to calculate due to low value 0 - 25 mg/g Cr 07/06/2019 2:07 PM CDT [facility] Urine specimen (specimen) 07/06/2019 9:51 AM CDT 07/06/2019 9:52 AM CDT Humberto Peng MD LAB - URINE ORDERABL ES Performing Organization Address [facility] Co de Phone Number [facility] [address] [place] [address] * DEXA,BONE DENSITY,AXIAL SKELETON (10/12/2008 10:52 AM CDT) Anatomical Region Laterality Modality Other 10/12/2008 10:5 2 AM CDT Impressions 10/12/2008 4:39 PM CDT DEXA BONE MINERAL DENSITY SCAN October 12, 2008 10:52 AM INDICATION: Hyperthyroidism. TECHNIQUE: The lumbar spine and hips were scanned with DEXA technique performed using a Donay scanner. DEXA results are reported according to [...] * COLONOSCOPY (10/31/2004) Albert Figueroa MD PROCEDURES [facility] [address] from Last 3 Months or Most Recently Relevant to Health Maintenance Care Teams Firer Watertender Relationship Specialty Start Date End Date Augusta De La Cruz DPM PCP - Podiatry 09/26/05 Kyle Morris MD PCP - Ophthalmology 02/17/06 Matt Grover MD [address] [facility] [address] [place] [address] PCP - Urology 12/22/08 Humberto Peng MD [facility] [address] [place] [address] PCP - General Family Practice 09/03/10 James Jasso DO [facility] [address] [place] [address] PCP - Obstetrics/Gynecology community health director 07/24/11 Thuy Coto PA-C [facility] [address] [place] [address] PCP - Surgery Physician Assembler Bonding 11/03/12 Teresa Ferrer PA-C [address] [address] Physician Assembler Bonding Urology 02/20/23
--- OUTSIDE RECORDS SUMMARY | 2023-08-04 12:31 | XMS_ITS | Encounter Summary ---
Author Organization [place] Address [address] [place] [address] Care Team Providers Care Blow Torch Burner Name Role Phone Dudley House MD Primary Care Provider Frankie Gaspar MD Unavailable Unavailable Augusta De La Cruz DPM Unavailable [phone] Kyle Morris MD Unavailable [phone] Ned Birmingham MD Unavailable Sony Perez MD Unavailable [phone] Matt Grover MD Unavailable [phone] Albert Brownlee MD Unavailable Humberto Peng MD Primary Care Provider [phone] James Jasso DO Unavailable [phone] Rajat Urban MD Unavailable Unavailable Thuy CotoC Unavailable [phone] James Stevens DPM Unavailable [phone] Teresa FerrerC Unavailable Encounter Details Date Type Department Care Team (Late st Contact Info) Description 11/17/2008 [facility] in [place] Inpatient Dept [address] [place] [address] Frw, Inpatient Provider Bladder Pain (Primary Dx) Social History Tobacco Use Types [...] as of this encounter Visit Diagnoses Diagnosis Bladder pain- Primary Other symptoms involving urinary system documented in this encounter Care Teams Blow Torch Burner Relationship Specialty Start Date End Date Dudley House MD [address] [place] [address] PCP - General 03/23/07 09/02/10 Frankie Gaspar MD PCP - Obstetrics/Gynecology 03/03/00 07/23/11 Augusta De La Cruz DPM PCP - Podiatry 09/26/05 Kyle Morris MD PCP - Ophthalmology 02/17/06 Ned Birmingham MD XXX [place] [address] PCP - Surgery 10/25/08 09/27/09 Sony Perez MD XXX [place] [address] PCP - ENT 03/19/07 12/08/17 Matt Grover MD [address] [place] [address] [address] [place] [address] PCP - Urology 12/22/08 Albert Brownlee MD [address] [place] [address] PCP - Surgery Surgery 09/28/09 11/02/12 Humberto Peng MD [facility] [place] [address] [place] [address] PCP - General Family Practice 09/03/10 James Jasso DO [facility] [place] [address] [place] [address] PCP - Obstetrics/Gynecology clinic mgr 07/24/11 Rajat Urban MD [facility] [place] [address] [place] [address] PCP - Orthopaedics Orthopedics 12/02/11 12/08/17 Thuy Coto PA-C [facility] [place] [address] [place] [address] PCP - Surgery Physician Operations Specialist 11/03/12 James Stevens DPM [address] [facility] [address] [place] [address] Assigned Musculoskeletal Provider 04/25/20 10/25/21 Teresa Ferrer PA-C [address] [place], [place] [address] Physician Operations Specialist Urology 02/20/23 documented as of this encounter
--- OUTSIDE RECORDS SUMMARY | 2023-08-04 12:31 | XMS_ITS | Encounter Summary ---
Author Organization [facility] Address [address] [place] [address] Care Team Providers Care Diesel Engine Engineer Name Role Phone Dudley House MD Primary Care Provider [phone] Frankie Gaspar MD Unavailable Unavailable Augusta De La Cruz DPM Unavailable [phone] Kyle Morris MD Unavailable [phone] Ned Birmingham MD Unavailable [phone] Sony Perez MD Unavailable [phone] Encounter Details Date Type Department Care Team (Late st Contact Info) Description 11/22/2008 5:53 PM CDT [facility] in [address] [address] Adriane Stern MD XXX RETIRED [place], [place] [id number] Social History Tobacco Use Types Packs/Day Years [...] on filedocumented in this encounter Care Teams Diesel Engine Engineer Relationship Specialty Start Date End Date Dudley House MD [address] [place] [address] PCP - General 03/23/07 09/02/10 Frankie Gaspar MD PCP - Obstetrics/Gynecology 03/03/0007/22 Augusta De La Cruz DPM PCP - Podiatry 09/26/05 Kyle Morris MD PCP - Ophthalmology 02/17/06 Ned Birmingham MD XXX NO INFO FOUND XXX [place] [address] PCP - Surgery 10/25/08 09/27/09 Sony Perez MD XXX NO INFO FOUND XXX [place] [address] PCP - ENT 03/19/07 12/08/17 documented as of this encounter
--- OUTSIDE RECORDS SUMMARY | 2023-08-04 12:32 | XMS_ITS | Encounter Summary ---
Author Organization [place] Address [address] [place] [address] Care Team Providers Care Flight Follower Name Role Phone Dudley House MD Primary Care Provider [phone] Albert Figueroa MD Primary Care Provider [phone] Frankie Gaspar MD Unavailable Unavailable Augusta De La Cruz DPM Unavailable [phone] Kyle Morris MD Unavailable [phone] Ned Birmingham MD Unavailable [phone] Mike Villareal DO Unavailable [phone] Sony Perez MD Unavailable [phone] Matt Grover MD Unavailable [phone] Albert Brownlee MD Unavailable [phone] GinetteHumberto bowser MD Primary Care Provider [phone] James Jasso DO Unavailable [phone] Rajat Urban MD Unavailable Unavailable Thuy Coto PARickyC Unavailable + [phone] James Stevens DPM Unavailable [phone] Teresa FerrerC Unavailable Reason for Visit * Reason Onset Date Comments MyChart Communication 03/15/2007 question r egarding need for appt Encounter Details Date Type Department Care Team (Latest Contact Info) Description 03/15/2007 MyC Medical Advice [facility] in [place] Ophthalmology [address] [place] [address] Kyle Morris MD [facility] [address] [facility] [address] [place] [address] MyChart Communication (question regarding ... Social History Tobacco Use Types Packs/Day Years [...] on filedocumented in this encounter Care Teams Flight Follower Relationship Specialty Start Date End Date Dudley House MD [address] [place] [address] PCP - General 03/23/07 09/02/10 Albert Figueroa MD [facility] [address] [facility] [address] [place] [address] PCP - General 10/30/03 03/22/07 Frankie Gaspar MD PCP - Obstetrics/Gynecology 03/03/00 07/23/11 Augusta De La Cruz DPM PCP - Podiatry 09/26/05 Kyle Morris MD PCP - Ophthalmology 02/17/06 Ned Birmingham MD XXX [place] [address] PCP - Surgery 10/25/08 09/27/09 Mike Villareal DO [facility] [address] [place] [address] PCP - Surgery 08/03/06 10/24/08 Sony Perez MD [facility] [address] [place] [address] PCP - ENT 03/19/07 12/08/17 Matt Grover MD [address] [place] [address] PCP - Urology 12/22/08 Albert Brownlee MD [address] [place] [address] PCP - Surgery Surgery 09/28/09 11/02/12 Humberto Peng MD [facility] [place] [address] [place] [address] PCP - General Family Practice 09/03/10 James Jasso DO [facility] [place] [address] [place] [address] PCP - Obstetrics/Gynecology trimmer buffing wheel 07/24/11 Rajat Urban MD [facility] [place] [address] [place] [address] PCP - Orthopaedics Orthopedics 12/02/11 12/08/17 Thuy Coto PA-C [facility] [place] [address] [place] [address] PCP - Surgery Physician C Winforms Developer 11/03/12 James Stevens DPM [address] [facility] [address] [place] [address] Assigned Musculoskeletal Provider 04/25/20 10/25/21 Teresa Ferrer PA-C [address] [place], [place] [address] Physician C Winforms Developer Urology 02/20/23 documented as of this encounter
--- OUTSIDE RECORDS SUMMARY | 2023-08-04 12:32 | XMS_ITS | Encounter Summary ---
Author Organization [place] Address [address] [place] [address] Care Team Providers Care Collection Systems Foreman Name Role Phone Dudley House MD Primary Care Provider [phone] Frankie Gaspar MD Unavailable Unavailable Augusta De La Cruz DPM Unavailable [phone] Kyle Morris MD Unavailable [phone] Mike Villareal DO Unavailable [phone] Sony Perez MD Unavailable [phone] Encounter Details Date Type Department Care Team (Late st Contact Info) Description 07/25/2008 9:53 AM CDT [facility] in [address] [address] Dudley House MD [address] [place] [address] Social History Tobacco Use Types [...] on filedocumented in this encounter Care Teams Collection Systems Foreman Relationship Specialty Start Date End Date Dudley House MD [address] [place] [address] PCP - General 03/23/07 09/02/10 Frankie Gaspar MD PCP - Obstetrics/Gynecology 03/03/0007/22 Augusta De La Cruz DPM PCP - Podiatry 09/26/05 Kyle Morris MD PCP - Ophthalmology 02/17/06 Mike Villareal DO [facility] [address] [place] [address] PCP - Surgery 08/03/06 10/24/08 Sony Perez MD [facility] [address] [place], [place] [address] PCP - ENT 03/19/07 12/08/17 documented as of this encounter
--- OUTSIDE RECORDS SUMMARY | 2023-08-04 12:32 | XMS_ITS | Encounter Summary ---
Author Organization [facility] Address [address] [place] [address] Care Team Providers Care Cigarette Making Machine Catcher Name Role Phone Dudley House MD Primary Care Provider [phone] Frankie Gaspar MD Unavailable Unavailable Augusta De La Cruz DPM Unavailable [phone] Kyle Morris MD Unavailable +[phone] Ned Birmingham MD Unavailable +[phone] Mike Villareal DO Unavailable [phone] Sony Perez MD Unavailable [phone] Matt Grover MD Unavailable Albert Brownlee MD Unavailable Humberto Peng MD Primary Care Provider [phone] James Jasso DO Unavailable [phone] Rajat Urban MD Unavailable Unavailable Thuy CotoC Unavailable +[phone] James Stevens DPM Unavailable +[phone] Teresa FerrerC Unavailable [phone] Encounter Details Date Type Department Care Team (Late st Contact Info) Description 10/12/2008 MyC Medical Advice [facility] in [place] Internal Medicine [address] [place] [id number] Dudley House MD [address] [place] [address] Social History Tobacco Use Types [...] on filedocumented in this encounter Care Teams Cigarette Making Machine Catcher Relationship Specialty Start Date End Date Dudley House MD [address] [place] [address] PCP - General 03/23/07 09/02/10 Frankie Gaspar MD PCP - Obstetrics/Gynecology 03/03/00 07/23/11 Augusta De La Cruz DPM PCP - Podiatry 09/26/05 Kyle Morris MD PCP - Ophthalmology 02/17/06 Ned Birmingham MD XXX [place] [address] PCP - Surgery 10/25/08 09/27/09 Mike Villareal DO [facility] [address] [place] [address] PCP - Surgery 08/03/06 10/24/08 Sony Perez MD [facility] [address] [place] [address] PCP - ENT 03/19/07 12/08/17 Matt Grover MD [address] [facility] [address] [place] [address] PCP - Urology 12/22/08 Albert Brownlee MD [address] [place] [address] PCP - Surgery Surgery 09/28/09 11/02/[address] [facility] [place] [address] [place] [address] PCP - General Family Practice 09/03/[address] [facility] [place] [address] [place] [address] PCP - Obstetrics/Gynecology dairy farm supervisor 07/24/[address] [facility] [place] [address] [place] [address] PCP - Orthopaedics Orthopedics 12/02/11 12/08/17 Thuy Coto PA-C [facility] [place] [address] [place] [address] PCP - Surgery Physician Barge Captain 11/03/12 James Stevens DPM [address] [facility] [address] [place] [address] Assigned Musculoskeletal Provider 04/25/20 10/25/21 Teresa Ferrer PA-C [address] [address] Physician Barge Captain Urology 02/20/23 documented as of this encounter
--- OUTSIDE RECORDS SUMMARY | 2023-08-04 12:32 | XMS_ITS | Encounter Summary ---
Author Organization [facility] Address [address] [place] [address] Care Team Providers Care Strap Folding Machine Operator Name Role Phone Dudley House MD Primary Care Provider [phone] Frankie Gaspar MD Unavailable Unavailable Augusta De La Cruz DPM Unavailable +[phone] Kyle Morris MD Unavailable [phone] Mike Villareal DO Unavailable [phone] Sony Perez MD Unavailable [phone] Encounter Details Date Type Department Care Team (Late st Contact Info) Description 10/12/2008 9:41 AM CDT [facility] in [address] [address] Dudley House MD [address] [place] [address] Social History Tobacco Use Types [...] on filedocumented in this encounter Care Teams Strap Folding Machine Operator Relationship Specialty Start Date End Date Dudley House MD [address] [place] [address] PCP - General 03/23/07 09/02/10 Frankie Gaspar MD PCP - Obstetrics/Gynecology 03/03/0007/22 Augusta De La Cruz DPM PCP - Podiatry 09/26/05 Kyle Morris MD PCP - Ophthalmology 02/17/06 Mike Villareal DO [facility] [address] [place] [address] PCP - Surgery 08/03/06 10/24/08 Sony Perez MD [facility] [address] [place], [place] [address] PCP - ENT 03/19/07 12/08/17 documented as of this encounter
--- OUTSIDE RECORDS SUMMARY | 2023-08-04 12:32 | XMS_ITS | Encounter Summary ---
Author Organization [facility] Address [address] [place] [address] Care Team Providers Care Forensic Nurse Name Role Phone Dudley House MD Primary Care Provider [phone] Albert Figueroa MD Primary Care Provider [phone] Frankie Gaspar MD Unavailable Unavailable Augusta De La Cruz DPM Unavailable [phone] Kyle Morris MD Unavailable [phone] Ned Birmingham MD Unavailable [phone] Mike Villareal DO Unavailable [phone] Sony Perez MD Unavailable [phone] Matt Grovre MD Unavailable [phone] Albert Brownlee MD Unavailable [phone] GinetteHumberto bowser MD Primary Care Provider [phone] James Jasso DO Unavailable + [phone] Rajat Urban MD Unavailable Unavailable Thuy CotoC Unavailable + [phone] James Stevens DPM Unavailable [phone] Teresa Ferrer PA-C Unavailable Reason for Visit * Reason Onset Date Comments MyChart Communication 06/18/2006 right eye Encounter Details Date Type Department Care Team (Latest Contact Info) Description 06/17/2006 MyC Medical Advice [facility] in [place] Ophthalmology [address] [place] [phone] Kyle Morris MD [facility] [address] [facility] [address] [place] [address] MyChart Communication (right eye) Social History Tobacco Use Types Packs/Day Years [...] on filedocumented in this encounter Care Teams Forensic Nurse Relationship Specialty Start Date End Date Dudley House MD [address] [place] [phone] PCP - General 03/23/07 09/02/10 Albert Figueroa MD [facility] [address] [facility] [address] [place] [address] PCP - General 10/30/03 03/22/07 Frankie Gaspar MD PCP - Obstetrics/Gynecology 03/03/00 07/23/11 Augusta De La Cruz DPM PCP - Podiatry 09/26/05 Kyle Morris MD PCP - Ophthalmology 02/17/06 Ned Birmingham MD [place] [address] PCP - Surgery 10/25/08 09/27/09 Mike Villareal DO [facility] [address] [place] [address] PCP - Surgery 08/03/06 10/24/08 Sony Perez MD [facility] [address] [place] [address] PCP - ENT 03/19/07 12/08/17 Matt Grover MD [address] [place] [address] PCP - Urology 12/22/08 Albert Brownlee MD [address] [place] [address] PCP - Surgery Surgery 09/28/09 11/02/12 Humberto Peng MD [facility] [place] [address] [place] [address] PCP - General Family Practice 09/03/10 James Jasso DO [facility] [place] [address] [place] [address] PCP - Obstetrics/Gynecology solar mechanical engineer 07/24/11 Rajat Urban MD [facility] [place] [address] [place] [address] PCP - Orthopaedics Orthopedics 12/02/11 12/08/17 Thuy Coto PA-C [facility] [place] [address] [place] [address] PCP - Surgery Physician Circulating Process Inspector 11/03/12 James Stevens DPM [address] [facility] [address] [place], [place] [address] Assigned Musculoskeletal Provider 04/25/20 10/25/21 Teresa Ferrer PA-C [address] [place], [place] [address] Physician Circulating Process Inspector Urology 02/20/23 documented as of this encounter
--- OUTSIDE RECORDS SUMMARY | 2023-08-04 12:32 | XMS_ITS | Encounter Summary ---
Author Organization [facility] Address [address] [place] [address] Care Team Providers Care Pre Assembly Wirer Name Role Phone Dudley House MD Primary Care Provider [phone] Albert Figueroa MD Primary Care Provider [phone] Frankie Gaspar MD Unavailable Unavailable Augusta De La Cruz DPM Unavailable [phone] Kyle Morris MD Unavailable +[phone] Ned Birmingham MD Unavailable +[phone] Mike Villareal DO Unavailable [phone] Sony Perez MD Unavailable [phone] Matt Grover MD Unavailable [phone] Albert Brownlee MD Unavailable [phone] GinetteHumberto bowser MD Primary Care Provider [phone] James Jasso DO Unavailable [phone] Rajat Urban MD Unavailable Unavailable Thuy CotoC Unavailable + [phone] James Stevens DPM Unavailable +[phone] Teresa Ferrer PA-C Unavailable [phone] Encounter Details Date Type Department Care Team (Late st Contact Info) Description 12/16/2006 MyC Medical Advice [facility] in [place] Internal Medicine [address] [facility] [address] Dudley House MD [address] [place] [address] Social History Tobacco Use Types [...] on filedocumented in this encounter Care Teams Pre Assembly Wirer Relationship Specialty Start Date End Date Dudley House MD [address] [place] [address] PCP - General 03/23/07 09/02/10 Albert Figueroa MD [facility] [address] [facility] [address] [place] [address] PCP - General 10/30/03 03/22/07 Frankie Gaspar MD PCP - Obstetrics/Gynecology 03/03/00 07/23/11 Augusta De La Cruz DPM PCP - Podiatry 09/26/05 Kyle Morris MD PCP - Ophthalmology 02/17/06 Ned Birmingham MD XXX [place] [address] PCP - Surgery 10/25/08 09/27/09 Mike Villareal DO [facility] [address] [place] [address] PCP - Surgery 08/03/06 10/24/08 Sony Perez MD [facility] [address] [place] [address] PCP - ENT 03/19/07 12/08/17 Matt Grover MD [address] [place] [address] [address] [place], [place] [address] PCP - Urology 12/22/08 Albert Brownlee MD [address] [place] [address] PCP - Surgery Surgery 09/28/09 11/02/12 Humberto Peng MD [facility] [place] [address] [place] [address] PCP - General Family Practice 09/03/10 James Jasso DO [facility] [place] [address] [place] [address] PCP - Obstetrics/Gynecology butcher assistant 07/24/11 Rajat Urban MD [facility] [place] [address] [place] [address] PCP - Orthopaedics Orthopedics 12/02/11 12/08/17 Thuy Coto PA-C [facility] [place] [address] [place] [address] PCP - Surgery Physician Migration Agent 11/03/12 James Stevens DPM [address] [facility] [address] [place] [address] Assigned Musculoskeletal Provider 04/25/20 10/25/21 Teresa Ferrer PA-C [address] [id number] Physician Migration Agent Urology 02/20/23 documented as of this encounter
--- OUTSIDE RECORDS SUMMARY | 2023-08-04 12:32 | XMS_ITS | Encounter Summary ---
Author Organization [place] Address [address] [place] [address] Care Team Providers Care Auto Self Service Station Attendant Name Role Phone Dudley House MD Primary Care Provider Albert Figueroa MD Primary Care Provider [phone] Frankie Gaspar MD Unavailable Unavailable Augusta De La Cruz DPM Unavailable [phone] Kyle Morris MD Unavailable [phone] Ned Birmingham MD Unavailable Mike Villareal DO Unavailable [phone] Sony Perez MD Unavailable [phone] Matt Grover MD Unavailable [phone] Albert Brownlee MD Unavailable [phone] GinetteHumberto bowser MD Primary Care Provider [phone] James Jasso DO Unavailable [phone] Rajat Urban MD Unavailable Unavailable Thuy CotoC Unavailable + [phone] James Stevens DPM Unavailable [phone] Teresa Ferrer PA-C Unavailable Encounter Details Date Type Department Care Team (Late st Contact Info) Description 02/09/2007 MyC Medical Advice [facility] in [place] Internal Medicine [address] [facility] [place] [address] Dudley House MD [address] [place] [address] Social History Tobacco Use Types [...] on filedocumented in this encounter Care Teams Auto Self Service Station Attendant Relationship Specialty Start Date End Date Dudley House MD [address] [place] [address] PCP - General 03/23/07 09/02/10 Albert Figueroa MD [facility] [address] [facility] [address] [place] [address] PCP - General 10/30/03 03/22/07 Frankie Gaspar MD PCP - Obstetrics/Gynecology 03/03/00 07/23/11 Augusta De La Cruz DPM PCP - Podiatry 09/26/05 Kyle Morris MD PCP - Ophthalmology 02/17/06 Ned Birmingham MD XXX [place] [address] PCP - Surgery 10/25/08 09/27/09 Mike Villareal DO [facility] [address] [place] [address] PCP - Surgery 08/03/06 10/24/08 Sony Perez MD [facility] [address] [place] [address] PCP - ENT 03/19/07 12/08/17 Matt Grover MD [address] [place] [address] [address] [place], [place] [address] PCP - Urology 12/22/08 Albert Brownlee MD [address] [place] [address] PCP - Surgery Surgery 09/28/09 11/02/12 Humberto Peng MD [facility] [place] [address] [place] [address] PCP - General Family Practice 09/03/10 James Jasso DO [facility] [place] [address] [place] [address] PCP - Obstetrics/Gynecology internal specialist 07/24/11 Rajat Urban MD [facility] [place] [address] [place] [address] PCP - Orthopaedics Orthopedics 12/02/11 12/08/17 Thuy Coto PA-C [facility] [place] [address] [place] [address] PCP - Surgery Physician Animal Rescuer 11/03/12 James Stevens DPM [address] [facility] [address] [place] [address] Assigned Musculoskeletal Provider 04/25/20 10/25/21 Teresa Ferrer PA-C [address] [id number] Physician Animal Rescuer Urology 02/20/23 documented as of this encounter
--- OUTSIDE RECORDS SUMMARY | 2023-08-04 12:32 | XMS_ITS | Encounter Summary ---
Author Organization [place] Address [address] [place] [address] Care Team Providers Care Truck Rental Service Attendant Name Role Phone Dudley House MD Primary Care Provider [phone] Albert Figueroa MD Primary Care Provider [phone] Frankie Gaspar MD Unavailable Unavailable Augusta De La Cruz DPM Unavailable [phone] Kyle Morris MD Unavailable [phone] Ned Birmingham MD Unavailable [phone] Mike Villareal DO Unavailable [phone] Sony Perez MD Unavailable [phone] Matt Grover MD Unavailable +[phone] Albert Brownlee MD Unavailable [phone] GinetteHumberto bowser MD Primary Care Provider [phone] James Jasso DO Unavailable [phone] Rajat Urban MD Unavailable Unavailable Thuy CotoC Unavailable + [phone] James Stevens DPM Unavailable +[phone] Teresa Ferrer PA-C Unavailable [phone] Encounter Details Date Type Department Care Team (Late st Contact Info) Description 12/16/2006 MyC Medical Advice [facility] in [place] Internal Medicine [address] [address] Dudley House MD [address] [place] [address] Social History Tobacco Use Types [...] on filedocumented in this encounter Care Teams Truck Rental Service Attendant Relationship Specialty Start Date End Date Dudley House MD [address] [address] PCP - General 03/23/07 09/02/10 Albert Figueroa MD [facility] [address] [facility] [address] [place] [address] PCP - General 10/30/03 03/22/07 Frankie Gaspar MD PCP - Obstetrics/Gynecology 03/03/00 07/23/11 Augusta De La Cruz DPM PCP - Podiatry 09/26/05 Kyle Morris MD PCP - Ophthalmology 02/17/06 Ned Birmingham MD XXX [place] [address] PCP - Surgery 10/25/08 09/27/09 Mike Villareal DO [facility] [address] [place] [address] PCP - Surgery 08/03/06 10/24/08 Sony Perez MD [facility] [address] [place] [address] PCP - ENT 03/19/07 12/08/17 Matt Grover MD [address] [place] [address] 394 [place], [place] [address] PCP - Urology 12/22/08 Albert Brownlee MD [address] [place] [address] PCP - Surgery Surgery 09/28/09 11/02/12 Humberto Peng MD [facility] [place] [address] [place] [address] PCP - General Family Practice 09/03/10 James Jasso DO [facility] [place] [address] [place] [address] PCP - Obstetrics/Gynecology telecommunications repairer 07/24/11 Rajat Urban MD [facility] [place] [address] [place] [address] PCP - Orthopaedics Orthopedics 12/02/11 12/08/17 Thuy Coto PA-C [facility] [place] [address] [place] [address] PCP - Surgery Physician Central Processing Tech 11/03/12 James Stevens DPM [address] [facility] [address] [place] [address] Assigned Musculoskeletal Provider 04/25/20 10/25/21 Teresa Ferrer PA-C [address] [id number] Physician Central Processing Tech Urology 02/20/23 documented as of this encounter
--- OUTSIDE RECORDS SUMMARY | 2023-08-04 12:32 | XMS_ITS | Encounter Summary ---
Author Organization [facility] Address [address] [place] [address] Care Team Providers Care Editor School Photograph Name Role Phone Dudley House MD Primary Care Provider [phone] Albert Figueroa MD Primary Care Provider [phone] Frankie Gaspar MD Unavailable Unavailable Augusta De La Cruz DPM Unavailable [phone] Kyle Morris MD Unavailable [phone] Ned Birmingham MD Unavailable +[phone] Mike Villareal DO Unavailable [phone] Sony Perez MD Unavailable [phone] Matt Grover MD Unavailable +[phone] Albert Brownlee MD Unavailable +[phone] GinetteHumberto bowser MD Primary Care Provider [phone] James Jasso DO Unavailable +[phone] Rajat Urban MD Unavailable Unavailable Thuy CotoC Unavailable + [phone] James Stevens DPM Unavailable +[phone] Teresa Ferrer PA-C Unavailable Reason for Visit * Reason Onset Date Comments Patient Request 03/22/2007 Encounter Details Date Type Department Care Team (Late st Contact Info) Description 03/22/2007 MyC Medical Advice [facility] in [place] Internal Medicine [address] [place] [address] Dudley House MD [address] [place] [address] Patient Request Social History Tobacco Use Types Packs/Day [...] encounter Miscellaneous Notes * Telephone Encounter - Megan Gurrola - 03/22/2007 4:51 PM CST See Admittor message OL BUS DRIVER/TEACHER ASSISTANT documented in this encounter Plan of Treatment Not on file documented as of this encounter Visit Diagnoses Not on filedocumented in this encounter Care Teams Editor School Photograph Relationship Specialty Start Date End Date Dudley House MD [address] [place] [address] PCP - General 03/23/07 09/02/10 Albert Figueroa MD [facility] [address] [facility] [address] [place] [address] PCP - General 10/30/03 03/22/07 Frankie Gaspar MD PCP - Obstetrics/Gynecology 03/03/00 07/23/11 Augusta De La Cruz DPM PCP - Podiatry 09/26/05 Kyle Morris MD PCP - Ophthalmology 02/17/06 Ned Birmingham MD XXX NO INFO FOUND [place] [address] PCP - Surgery 10/25/08 09/27/09 Mike Villareal DO [facility] [address] [place] [address] PCP - Surgery 08/03/06 10/24/08 Sony Perez MD [facility] [address] [place] [address] PCP - ENT 03/19/07 12/08/17 Matt Grover MD [address] [place] [address] PCP - Urology 12/22/08 Albert Brownlee MD [address] [place] [address] PCP - Surgery Surgery 09/28/09 11/02/[address] [facility] [place] [address] [place] [address] PCP - General Family Practice 09/03/[address] [facility] [place] [address] [place] [address] PCP - Obstetrics/Gynecology hha 07/24/[address] [facility] [place] [address] [place] [address] PCP - Orthopaedics Orthopedics 12/02/11 12/08/[address]uy Coto PA-C [facility] [place] [address] [facility] [address] [place] [address] PCP - Surgery Physician Show Horse Driver 11/03/12 James Stevens DPM [address] [facility] [address] [place], [place] [address] Assigned Musculoskeletal Provider 04/25/20 10/25/21 Teresa Ferrer PA-C [address] [place], [place] [address] Physician Show Horse Driver Urology 02/20/23 documented as of this encounter
--- OUTSIDE RECORDS SUMMARY | 2023-08-04 12:32 | XMS_ITS | Encounter Summary ---
Author Organization [place] Address [address] [place] [address] Care Team Providers Care Housesmith Name Role Phone Dudley House MD Primary Care Provider [phone] Albert Figueroa MD Primary Care Provider [phone] Frankie Gaspar MD Unavailable Unavailable Augusta De La Cruz DPM Unavailable +[phone] Kyle Morris MD Unavailable +[phone] Ned Birmingham MD Unavailable +[phone] Mike Villaeral DO Unavailable [phone] Sony Perez MD Unavailable [phone] Matt Grover MD Unavailable +[phone] Albert Brownlee MD Unavailable +[phone] GinetteHumberto bowser MD Primary Care Provider +[phone] James Jasso DO Unavailable +[phone] Rajat Urban MD Unavailable Unavailable Thuy CotoC Unavailable + [phone] James Stevens DPM Unavailable +[phone] Teresa Ferrer PA-C Unavailable Encounter Details Date Type Department Care Team (Late st Contact Info) Description 10/13/2006 MyC Medical Advice [facility] [place] Podiatry [address] [place] [id number] Augusta De La Cruz DPM [facility] [address] [place] [address] Social History Tobacco Use Types Packs/Day Years [...] on filedocumented in this encounter Care Teams Housesmith Relationship Specialty Start Date End Date Dudley House MD [address] [place] [phone] PCP - General 03/23/07 09/02/10 Albert Figueroa MD [facility] [address] [place] [address] PCP - General 10/30/03 03/22/07 Frankie Gaspar MD PCP - Obstetrics/Gynecology 03/03/00 07/23/11 Augusta De La Cruz DPM PCP - Podiatry 09/26/05 Kyle Morris MD PCP - Ophthalmology 02/17/06 Ned Birmingham MD XXX [place] [address] PCP - Surgery 10/25/08 09/27/09 Mike Villareal DO [facility] [address] [place] [address] PCP - Surgery 08/03/06 10/24/08 Sony Perez MD [facility] [address] [place] [address] PCP - ENT 03/19/07 12/08/17 Matt Grover MD [address] [place] [address] PCP - Urology 12/22/08 Albert Brownlee MD [address] [place] [id number] PCP - Surgery Surgery 09/28/09 11/02/[address] [facility] [place] [address] [place] [address] PCP - General Family Practice 09/03/[address] [facility] [place] [address] [place] [address] PCP - Obstetrics/Gynecology compensation supervisor 07/24/[address] [facility] [place] [address] [place] [address] PCP - Orthopaedics Orthopedics 12/02/11 12/08/17 Thuy Coto PA-C [facility] [place] [address] [place] [address] PCP - Surgery Physician Adoption Manager 11/03/12 James Stevens DPM [address] [facility] [address] [place], [place] [address] Assigned Musculoskeletal Provider 04/25/20 10/25/21 Teresa Ferrer PA-C [address] [place] [address] [id number] Physician Adoption Manager Urology 02/20/23 documented as of this encounter
--- OUTSIDE RECORDS SUMMARY | 2023-08-04 12:32 | XMS_ITS | Encounter Summary ---
Author Organization [place] Address [address] [place] [address] Care Team Providers Care Technical Project Manager Name Role Phone Dudley House MD Primary Care Provider [phone] Albert Figueroa MD Primary Care Provider +[phone] Frankie Gaspar MD Unavailable Unavailable Augusta De La Cruz DPM Unavailable +[phone] Klye Morris MD Unavailable +[phone] Ned Birmingham MD Unavailable +[phone] Mike Villareal DO Unavailable [phone] Sony Perez MD Unavailable [phone] Matt Grover MD Unavailable +[phone] Albert Brownlee MD Unavailable +[phone] GinetteHumberto bowser MD Primary Care Provider +[phone] James Jasso DO Unavailable +[phone] Rajat Urban MD Unavailable Unavailable Thuy CotoC Unavailable + [phone] James Stevens DPM Unavailable +[phone] Teresa Ferrer PA-C Unavailable Encounter Details Date Type Department Care Team (Late st Contact Info) Description 12/17/2006 MyC Medical Advice [facility] [place] Internal Medicine [address] [place] [address] Dudley House MD [address] [place] [address] Social History Tobacco Use Types [...] on filedocumented in this encounter Care Teams Technical Project Manager Relationship Specialty Start Date End Date Dudley House MD [address] [place] [address] PCP - General 03/23/07 09/02/10 Albert Figueroa MD [facility] [address] [facility] [address] [place] [address] PCP - General 10/30/03 03/22/07 Frankie Gaspar MD PCP - Obstetrics/Gynecology 03/03/00 07/23/11 Augusta De La Cruz DPM PCP - Podiatry 09/26/05 Kyle Morris MD PCP - Ophthalmology 02/17/06 Ned Birmingham MD XXX [place] [address] PCP - Surgery 10/25/08 09/27/09 Mike Villareal DO [facility] [address] [place] [address] PCP - Surgery 08/03/06 10/24/08 Sony Perez MD [facility] [address] [place] [address] PCP - ENT 03/19/07 12/08/17 Matt Grover MD [address] [place] [address] [address] [place], [place] [address]30[address] PCP - Urology 12/22/08 Albert Brownlee MD [address] [place] [address] PCP - Surgery Surgery 09/28/09 11/02/12 Humberto Peng MD [facility] [place] [address] [place] [address] PCP - General Family Practice 09/03/10 James Jasso DO [facility] [place] [address] [place] [address] PCP - Obstetrics/Gynecology river pilot 07/24/11 Rajat Urban MD [facility] [place] [address] [place] [address] PCP - Orthopaedics Orthopedics 12/02/11 12/08/17 Thuy Coto PA-C [facility] [place] [address] [place] [address] PCP - Surgery Physician Global Professional 11/03/12 James Stevens DPM [address] [facility] [address] [place] [address] Assigned Musculoskeletal Provider 04/25/20 10/25/21 Teresa Ferrer PA-C [address] [id number] Physician Global Professional Urology 02/20/23 documented as of this encounter
--- OUTSIDE RECORDS SUMMARY | 2023-08-04 12:32 | XMS_ITS | Encounter Summary ---
Author Organization [place] Address [address] [place] [address] Care Team Providers Care Sales Project Administrator Name Role Phone Dudley House MD Primary Care Provider [phone] Albert Figueroa MD Primary Care Provider [phone] Frankie Gaspar MD Unavailable Unavailable Augusta De La Cruz DPM Unavailable +[phone] Kyle Morris MD Unavailable +[phone] Ned Birmingham MD Unavailable +[phone] Mike Villareal DO Unavailable [phone] Sony Perez MD Unavailable [phone] Matt Grover MD Unavailable +[phone] Albert Brownlee MD Unavailable +[phone] GinetteHumberto bowser MD Primary Care Provider +[phone] James Jasso DO Unavailable +[phone] Rajat Urban MD Unavailable Unavailable Thuy CotoC Unavailable + [phone] James Stevens DPM Unavailable +[phone] Teresa Ferrer PA-C Unavailable Reason for Visit * Reason Onset Date Comments MyChart Communication 12/29/2006 Encounter Details Date Type Department Care Team (Latest Contact Info) Description 12/29/2006 MyC Medical Advice [facility] [place] TMH TEACHER [address] [place] [id number] Frankie [facility] Social History Tobacco Use Types Packs/Day Years [...] on filedocumented in this encounter Care Teams Sales Project Administrator Relationship Specialty Start Date End Date Dudley House MD [address] [place] [address] PCP - General 03/23/07 09/02/10 Albert Figueroa MD [facility] [address] [place] [address] PCP - General 10/30/03 03/22/07 Frankie Gaspar MD PCP - Obstetrics/Gynecology 03/03/00 07/23/11 Augusta De La Cruz DPM PCP - Podiatry 09/26/05 Kyle Morris MD PCP - Ophthalmology 02/17/06 Ned Birmingham MD XXX [place] [address] PCP - Surgery 10/25/08 09/27/09 Mike Villareal DO [facility] [address] [place] [address] PCP - Surgery 08/03/06 10/24/08 Sony Perez MD [facility] [address] [place] [address] PCP - ENT 03/19/07 12/08/17 Matt Grover MD [address] [facility] [address] [place] [address] PCP - Urology 12/22/08 Albert Brownlee MD [address] [place] [address] PCP - Surgery Surgery 09/28/09 11/02/12 Humberto Peng MD [facility] [place] [address] [place] [address] PCP - General Family Practice 09/03/10 James Jasso DO [facility] [place] [address] [place] [address] PCP - Obstetrics/Gynecology person investigator 07/24/11 Rajat Urban MD [facility] [place] [address] [place] [address] PCP - Orthopaedics Orthopedics 12/02/11 12/08/17 Thuy Coto PA-C [facility] [place] [address] [place] [address] PCP - Surgery Physician Certified Nuclear Medicine Technologist 11/03/12 [place] [address] [facility] [address] [place] [address] Assigned Musculoskeletal Provider 04/25/20 10/25/21 Teresa Ferrer PA-C [address] [address] Physician Certified Nuclear Medicine Technologist Urology 02/20/23 documented as of this encounter
--- OUTSIDE RECORDS SUMMARY | 2023-08-04 12:32 | XMS_ITS | Encounter Summary ---
Author Organization [place] Address [address] [place] [address] Care Team Providers Care Music Professionals Name Role Phone Dudley House MD Primary Care Provider Albert Figueroa MD Primary Care Provider [phone] Frankie Gaspar MD Unavailable Unavailable Augusta De La Crzu DPM Unavailable +[phone] Kyle Morris MD Unavailable +[phone] Ned Birmingham MD Unavailable +[phone] Mike Villareal DO Unavailable [phone] Sony Perez MD Unavailable [phone] Matt Grover MD Unavailable +[phone] Albert Brownlee MD Unavailable [phone] GinetteHumberto bowser MD Primary Care Provider +[phone] James Jasso DO Unavailable +[phone] Rajat Urban MD Unavailable Unavailable Thuy CotoC Unavailable + [phone] James Stevens DPM Unavailable +[phone] Teresa Ferrer PA-C Unavailable Encounter Details Date Type Department Care Team (Late st Contact Info) Description 02/09/2007 MyC Medical Advice [facility] [place] Internal Medicine [address] [place] [address] Dudley House MD [address] [place] [address] Social History Tobacco Use Types [...] on filedocumented in this encounter Care Teams Music Professionals Relationship Specialty Start Date End Date Dudley House MD [address] [place] [address] PCP - General 03/23/07 09/02/10 Albert Figueroa MD [facility] [address] [facility] [address] [place] [address] PCP - General 10/30/03 03/22/07 Frankie Gaspar MD PCP - Obstetrics/Gynecology 03/03/00 07/23/11 Augusta De La Cruz DPM PCP - Podiatry 09/26/05 Kyle Morris MD PCP - Ophthalmology 02/17/06 Ned Birmingham MD XXX NO [place] [address] PCP - Surgery 10/25/08 09/27/09 Mike Villareal DO [facility] [address] [place] [address] PCP - Surgery 08/03/06 10/24/08 Sony Perez MD [facility] [address] [place] [address] PCP - ENT 03/19/07 12/08/17 Matt Grover MD [address] [place] [address] [address] [place], [place] [address] PCP - Urology 12/22/08 Albert Brownlee MD [address] [place] [address] PCP - Surgery Surgery 09/28/09 11/02/12 Humberto Peng MD [facility] [place] [address] [place] [address] PCP - General Family Practice 09/03/10 James Jasso DO [facility] [place] [address] [place] [address] PCP - Obstetrics/Gynecology fair[place] gold attendant 07/24/11 Rajat Urban MD [facility] [place] [address] [place] [address] PCP - Orthopaedics Orthopedics 12/02/11 12/08/17 Thuy Coto PA-C [facility] [place] [address] [place] [address] PCP - Surgery Physician Lining Stuffer 11/03/12 James Stevens DPM [address] [facility] [address] [place] [address] Assigned Musculoskeletal Provider 04/25/20 10/25/21 Teresa Ferrer PA-C [address] [id number] Physician Lining Stuffer Urology 02/20/23 documented as of this encounter
--- OUTSIDE RECORDS SUMMARY | 2023-08-04 12:32 | XMS_ITS | Encounter Summary ---
Author Organization [place] Address [address] [place] [address] Care Team Providers Care Wafer Mounter Name Role Phone Dudley House MD Primary Care Provider [phone] Frankie Gaspar MD Unavailable Unavailable Augusta De La Cruz DPM Unavailable [phone] Kyle Morris MD Unavailable +[phone] Ned Birmingham MD Unavailable Mike Villareal DO Unavailable [phone] Sony Perez MD Unavailable [phone] Matt Grover MD Unavailable +[phone] Albert Brownlee MD Unavailable [phone] Humberto Peng MD Primary Care Provider [phone] James Jasso DO Unavailable [phone] Rajat Urban MD Unavailable Unavailable Thuy Coto PARickyC Unavailable +[phone] James Stevens DPM Unavailable +[phone] Teresa FerrerC Unavailable Reason for Visit * Reason Onset Date Comments MyChart Communication 06/28/2007 symptoms Encounter Details Date Type Department Care Team (Late st Contact Info) Description 06/28/2007 MyC Medical Advice [facility] [place] Podiatry [address] [place] [address] Augusta De La Cruz DPM [facility] [place] [address] [place] [address] MyChart Communication (symptoms) Social History Tobacco Use Types Packs/Day Years [...] on filedocumented in this encounter Care Teams Wafer Mounter Relationship Specialty Start Date End Date Dudley House MD [address] [place] [address] PCP - General 03/23/07 09/02/10 Frankie Gaspar MD PCP - Obstetrics/Gynecology 03/03/00 07/23/11 Augusta De La Cruz DPM PCP - Podiatry 09/26/05 Kyle Morris MD PCP - Ophthalmology 02/17/06 Ned Birmingham MD XXX [place] [address] PCP - Surgery 10/25/08 09/27/09 Mike Villareal DO [facility] [address] [place] [address] PCP - Surgery 08/03/06 10/24/08 Sony Perez MD [facility] [address] [place] [address] PCP - ENT 03/19/07 12/08/17 Matt Grover MD [address] [place] [address] 394 [place], [place] [address] PCP - Urology 12/22/08 Albert Brownlee MD [address] [place] [address] PCP - Surgery Surgery 09/28/09 11/02/12 Humberto Peng MD [facility] [place] [address] [place] [address] PCP - General Family Practice 09/03/10 James Jasso DO [facility] [place] [address] [place] [address] PCP - Obstetrics/Gynecology ground products director 07/24/11 Rajat Urban MD [facility] [place] [address] [place] [address] PCP - Orthopaedics Orthopedics 12/02/11 12/08/17 Thuy Coto PA-C [facility] [place] [address] [place] [address] PCP - Surgery Physician Promotions Director 11/03/12 [place] [address] [address] Assigned Musculoskeletal Provider 04/25/20 10/25/21 Teresa Ferrer PA-C [address] 831087 Physician Promotions Director Urology 02/20/23 documented as of this encounter
--- OUTSIDE RECORDS SUMMARY | 2023-08-04 12:32 | XMS_ITS | Encounter Summary ---
Author Organization [place] Address [address] [place] [address] Care Team Providers Care Security Solutions Architect Name Role Phone Dudley House MD Primary Care Provider [phone] Frankie Gaspar MD Unavailable Unavailable Augusta De La Cruz DPM Unavailable [phone] Kyle Morris MD Unavailable [phone] Mike Villareal DO Unavailable [phone] Sony Perez MD Unavailable [phone] Encounter Details Date Type Department Care Team (Late st Contact Info) Description 08/04/2008 9:[address] [facility] in [address] [address] Dudley House MD [address] [place] [address] Social History Tobacco Use Types [...] on filedocumented in this encounter Care Teams Security Solutions Architect Relationship Specialty Start Date End Date Dudley House MD [address] [place] [address] PCP - General 03/23/07 09/02/10 Frankie Gaspar MD PCP - Obstetrics/Gynecology 03/03/0007/22 Augusta De La Cruz DPM PCP - Podiatry 09/26/05 Kyle Morris MD PCP - Ophthalmology 02/17/06 Mike Villareal DO [facility] [address] [place] [address] PCP - Surgery 08/03/06 10/24/08 Sony Perez MD [facility] [address] [place], [place] [address] PCP - ENT 03/19/07 12/08/17 documented as of this encounter
--- OUTSIDE RECORDS SUMMARY | 2023-08-04 12:32 | XMS_ITS | Encounter Summary ---
Author Organization [place] Address [address] [place] [address] Care Team Providers Care Quilt Sewer Name Role Phone Dudley House MD Primary Care Provider [phone] Frankie Gaspar MD Unavailable Unavailable Augusta De La Cruz DPM Unavailable [phone] Kyle Morris MD Unavailable Ned Birmingham MD Unavailable Mike Villareal DO Unavailable [phone] Sony Perez MD Unavailable [phone] Matt Grover MD Unavailable Albert Brownlee MD Unavailable Humberto Peng MD Primary Care Provider [phone] James Jasso DO Unavailable [phone] Rajat Urban MD Unavailable Unavailable Thuy CotoC Unavailable [phone] James Stevens DPM Unavailable +[phone] Teresa FerrerC Unavailable Encounter Details Date Type Department Care Team (Late st Contact Info) Description 12/31/2007 MyC Medical Advice [facility] [place] Internal Medicine [address] [place] [address] Dudley House MD [address] [place] [address] Social History Tobacco Use Types [...] on filedocumented in this encounter Care Teams Quilt Sewer Relationship Specialty Start Date End Date Dudley House MD [address] [place] [address] PCP - General 03/23/07 09/02/10 Frankie Gaspar MD PCP - Obstetrics/Gynecology 03/03/00 07/23/11 Augusta De La Cruz DPM PCP - Podiatry 09/26/05 Kyle Morris MD PCP - Ophthalmology 02/17/06 Ned Birmingham MD XXX [place] [address] PCP - Surgery 10/25/08 09/27/09 Mike Villareal DO [facility] [address] [place] [address] PCP - Surgery 08/03/06 10/24/08 Sony Perez MD [facility] [address] [place] [address] PCP - ENT 03/19/07 12/08/17 Matt Grover MD [address] [facility] [address] [place] [address] PCP - Urology 12/22/08 Albert Brownlee MD [address] [place] [address] PCP - Surgery Surgery 09/28/09 11/02/12 Humberto Peng MD [facility] [place] [address] [place] [address] PCP - General Family Practice 09/03/10 James Jasso DO [facility] [address] [place] [address] PCP - Obstetrics/Gynecology race car mechanic 07/24/11 Rajat Urban MD [facility] [address] [place] [address] PCP - Orthopaedics Orthopedics 12/02/11 12/08/17 Thuy Coto PA-C [facility] [address] [place] [address] PCP - Surgery Physician Forms Examiner 11/03/12 James Stevens DPM [address] [facility] [address] [place] [address] Assigned Musculoskeletal Provider 04/25/20 10/25/21 Teresa Ferrer PA-C [address] [address] Physician Forms Examiner Urology 02/20/23 documented as of this encounter
--- OUTSIDE RECORDS SUMMARY | 2023-08-04 12:32 | XMS_ITS | Encounter Summary ---
Author Organization [place] Address [address] [place] [address] Care Team Providers Care Tile Helper Name Role Phone Dudley House MD Primary Care Provider [phone] Albert Figueroa MD Primary Care Provider [phone] Frankie Gaspar MD Unavailable Unavailable Augusta De La Cruz DPM Unavailable [phone] Kyle Morris MD Unavailable +[phone] Ned Birmingham MD Unavailable [phone] Mike Villareal DO Unavailable [phone] Sony Perez MD Unavailable [phone] Matt Grover MD Unavailable [phone] Albert Brownlee MD Unavailable [phone] GinetteHumberto bowser MD Primary Care Provider [phone] James Jasso DO Unavailable [phone] Rajat Urban MD Unavailable Unavailable Thuy CotoC Unavailable + [phone] James Stevens DPM Unavailable [phone] Teresa Ferrer PA-C Unavailable Encounter Details Date Type Department Care Team (Late st Contact Info) Description 01/13/2007 MyC Medical Advice [facility] [place] GL ACCOUNTANT [address] [place] [phone] Nicole Peraza MD [facility] [address] [place] [address] Social History Tobacco Use Types Packs/Day Years [...] on filedocumented in this encounter Care Teams Tile Helper Relationship Specialty Start Date End Date Dudley House MD [address] [place] [phone] PCP - General 03/23/07 09/02/10 Albert Figueroa MD [facility] [address] [place] [address] PCP - General 10/30/03 03/22/07 Frankie Gaspar MD PCP - Obstetrics/Gynecology 03/03/00 07/23/11 Augusta De La Cruz DPM PCP - Podiatry 09/26/05 Kyle Morris MD PCP - Ophthalmology 02/17/06 Ned Birmingham MD XXX [place] [address] PCP - Surgery 10/25/08 09/27/09 Mike Villareal DO [facility] [address] [place] [address] PCP - Surgery 08/03/06 10/24/08 Sony Perez MD [facility] [address] [place] [address] PCP - ENT 03/19/07 12/08/17 Matt Grover MD [address] [place] [address] PCP - Urology 12/22/08 Albert Brownlee MD [address] [place] [id number] PCP - Surgery Surgery 09/28/09 11/02/12 Humberto Peng MD [facility] [place] [address] [place] [address] PCP - General Family Practice 09/03/10 James Jasso DO [facility] [place] [address] [place] [address] PCP - Obstetrics/Gynecology vp digital marketing social media and crm 07/24/11 Rajat Urban MD [facility] [place] [address] [place] [address] PCP - Orthopaedics Orthopedics 12/02/11 12/08/17 Thuy Coto PA-C [facility] [place] [address] [place] [address] PCP - Surgery Physician Instructional Technology Facilitator 11/03/12 James Stevens DPM [address] [facility] [address] [place], [place] [address] Assigned Musculoskeletal Provider 04/25/20 10/25/21 Teresa Ferrer PA-C [address] [id number] Physician Instructional Technology Facilitator Urology 02/20/23 documented as of this encounter
--- OUTSIDE RECORDS SUMMARY | 2023-08-04 12:32 | XMS_ITS | Encounter Summary ---
Author Organization [place] Address [address] [place] [address] Care Team Providers Care Die Casting Supervisor Name Role Phone Dudley House MD Primary Care Provider [phone] Albert Figueroa MD Primary Care Provider [phone] Frankie Gaspar MD Unavailable Unavailable Augusta De La Cruz DPM Unavailable [phone] Kyle Morris MD Unavailable [phone] Ned Birmingham MD Unavailable Mike Villareal DO Unavailable [phone] Sony Perez MD Unavailable [phone] Matt Grover MD Unavailable [phone] Albert Brownlee MD Unavailable [phone] GinetteHumberto bowser MD Primary Care Provider [phone] James Jasso DO Unavailable [phone] Rajat Urban MD Unavailable Unavailable Thuy CotoC Unavailable + [phone] James Stevens DPM Unavailable +[phone] Teresa Ferrer PA-C Unavailable Encounter Details Date Type Department Care Team (Late st Contact Info) Description 07/17/2006 MyC Medical Advice [facility] [place] Internal Medicine [address] [place] [id number] Albert Figueroa MD [facility] [address] [place] [address] [address] [place] [address] Social History Tobacco Use Types Packs/Day Years [...] on filedocumented in this encounter Care Teams Die Casting Supervisor Relationship Specialty Start Date End Date Dudley House MD [address] [place] [address] PCP - General 03/23/07 09/02/10 Albert Figueroa MD [facility] [address] [place] [address] PCP - General 10/30/03 03/22/07 Frankie Gaspar MD PCP - Obstetrics/Gynecology 03/03/00 07/23/11 Augusta De La Cruz DPM PCP - Podiatry 09/26/05 Kyle Morris MD PCP - Ophthalmology 02/17/06 Ned Birmingham MD XXX [place] [address] PCP - Surgery 10/25/08 09/27/09 Mike Villareal DO [facility] [address] [place] [address] PCP - Surgery 08/03/06 10/24/08 Sony Perez MD [facility] [address] [place] [address] PCP - ENT 03/19/07 12/08/17 Matt Grover MD [address] [place] [address] PCP - Urology 12/22/08 Albert Brownlee MD [address] [place] [address] PCP - Surgery Surgery 09/28/09 11/02/12 Humberto Peng MD [facility] [place] [address] [place] [address] PCP - General Family Practice 09/03/10 James Jasso DO [facility] [place] [address] [place] [address] PCP - Obstetrics/Gynecology traffic signal repairer 07/24/11 Rajat Urban MD [facility] [place] [address] [place] [address] PCP - Orthopaedics Orthopedics 12/02/11 12/08/17 Thuy Coto PA-C [facility] [place] [address] [place] [address] PCP - Surgery Physician Compliance Representative Dealer 11/03/12 James Stevens DPM [address] [facility] [address] [place] [address] Assigned Musculoskeletal Provider 04/25/20 10/25/21 Teresa Ferrer PA-C [address] [address] Physician Compliance Representative Dealer Urology 02/20/23 documented as of this encounter
--- OUTSIDE RECORDS SUMMARY | 2023-08-04 12:32 | XMS_ITS | Encounter Summary ---
Author Organization [place] Address [address] [place] [address] Care Team Providers Care Reel Cart Operator Name Role Phone Dudley House MD Primary Care Provider [phone] Albert Figueroa MD Primary Care Provider [phone] Frankie Gaspar MD Unavailable Unavailable Augusta De La Cruz DPM Unavailable [phone] Kyle Morris MD Unavailable +[phone] Ned Birmingham MD Unavailable [phone] Mike Villareal DO Unavailable [phone] Sony Perez MD Unavailable [phone] Matt Grover MD Unavailable [phone] Albert Brownlee MD Unavailable [phone] GinetteHumberto bowser MD Primary Care Provider [phone] James Jasso DO Unavailable [phone] Rajat Urban MD Unavailable Unavailable Thuy CotoC Unavailable + [phone] James Stevens DPM Unavailable +[phone] Teresa Ferrer PA-C Unavailable [phone] Encounter Details Date Type Department Care Team (Late st Contact Info) Description 12/17/[address] [facility] [place] Internal Medicine [address] [facility] [place] [address] Dudley House MD [address] [place] [address] Social History Tobacco Use Types [...] on filedocumented in this encounter Care Teams Reel Cart Operator Relationship Specialty Start Date End Date Dudley House MD [address] [place] [address] PCP - General 03/23/07 09/02/10 Albert Figueroa MD [facility] [address] [facility] [address] [place] [address] PCP - General 10/30/03 03/22/07 Frankie Gaspar MD PCP - Obstetrics/Gynecology 03/03/00 07/23/11 Augusta De La Cruz DPM PCP - Podiatry 09/26/05 Kyle Morris MD PCP - Ophthalmology 02/17/06 Ned Birmingham MD XXX NO INFO FOUND [place] [address] PCP - Surgery 10/25/08 09/27/09 Mike Villareal DO [facility] [address] [place] [address] PCP - Surgery 08/03/06 10/24/08 Sony Perez MD [facility] [address] [place] [address] PCP - ENT 03/19/07 12/08/17 Matt Grover MD [address] [place] [address] [address] [place], [place] [address] PCP - Urology 12/22/08 Albert Brownlee MD [address] [place] [address] PCP - Surgery Surgery 09/28/09 11/02/12 Humberto Peng MD [facility] [place] [address] [place] [address] PCP - General Family Practice 09/03/10 James Jasso DO [facility] [place] [address] [place] [address] PCP - Obstetrics/Gynecology medication aide 07/24/11 Rajat Urban MD [facility] [place] [address] [place] [address] PCP - Orthopaedics Orthopedics 12/02/11 12/08/17 Thuy Coto PA-C [facility] [place] [address] [place] [address] PCP - Surgery Physician Assistant To The Director 11/03/12 James Stevens DPM [address] [facility] [address] [place] [address] Assigned Musculoskeletal Provider 04/25/20 10/25/21 Teresa Ferrer PA-C [address] [id number] Physician Assistant To The Director Urology 02/20/23 documented as of this encounter
--- OUTSIDE RECORDS SUMMARY | 2023-08-04 12:32 | XMS_ITS | Encounter Summary ---
Author Organization [place] Address [address] [place] [address] Care Team Providers Care Fish Roe Processor Name Role Phone Dudley House MD Primary Care Provider Frankie Gaspar MD Unavailable Unavailable Augusta De La Cruz DPM Unavailable [phone] Kyle Morris MD Unavailable [phone] Ned Birmingham MD Unavailable Mike Villareal DO Unavailable [phone] Sony Perez MD Unavailable [phone] Matt Grover MD Unavailable [phone] Albert Brownlee MD Unavailable [phone] Humberto Peng MD Primary Care Provider [phone] James Jasso DO Unavailable [phone] Rajat Urban MD Unavailable Unavailable Thuy Coto PARickyC Unavailable [phone] James Stevens DPM Unavailable [phone] Teresa FerrerC Unavailable Reason for Referral * Specialty Diagnoses / Procedures Referred By Contdemetrio t Referred To Contact Dudley House MD [address] [place] [address] Referral ID Status Reason Start Date Expiration Date Visits Re quested Visits Authorized Scheduling Instructions Sleep Lab will contact you by phone to arrange sleep study. Comments [facility] SLEEP [facility]ORD[facility] SLEEP STUDY PRESCRIPTION Allergies: Aspirin, Nsaids and Sulfa drugs Polysomnography for: excessive daytime sleepiness FULL NIGHT CPAP/BIPAP titration I give permission for sleep lab to leave message on voice mail or answering machine when scheduling. initals ___ Fax number if needed: [phone] * * * * * * * * * * NOTE FOR CHECK OUT: Sleep Lab will contact patient to arrange sleep study. * * * * * * * * * * Fax number if needed: [phone] * * * * * * * * * * NOTE FOR CHECK OUT: Sleep Lab will contact patient to arrange study. * * * * * * * * * * Reason for Visit * Reason Onset Date Comments MyChart Communication 05/22/2008 sleep stud y question Encounter Details Date Type Department Care Team (Late st Contact Info) Description 05/12/2008 MyC Medical Advice [facility] [place] Internal Medicine [address] [place] [address] Dudley House MD [address] [place] [address] MyChart Communication (sleep study question) Social History Tobacco Use Types Packs/Day Years [...] * Telephone Encounter - Camila Braun - 05/22/2008 10:50 AM CDT Rx faxed to [facility]. documented in this encounter Plan of Treatment Pending Results Name Type Priority Associated Diagnoses Date /Time CONSULT TO SLEEP LAB (RW) Referral Routine Excessive Somnolence Disorder 05/22/2008 documented as of this encounter Procedures Procedure Name Priority Date/Time Associated Diagnosis Comments [facility] ([facility]) REFERRAL Routine 05/22/2008 Excessive Somnolence Disorder documented in this encounter Visit Diagnoses Diagnosis Excessive somnolence disorder- Primary Hypersomnia, unspecified documented in this encounter Care Teams Fish Roe Processor Relationship Specialty Start Date End Date Dudley House MD [address] [place] [address] PCP - General 03/23/07 09/02/10 Frankie Gaspar MD PCP - Obstetrics/Gynecology 03/03/00 07/23/11 Augusta De La Cruz DPM PCP - Podiatry 09/26/05 Kyle Morris MD PCP - Ophthalmology 02/17/06 Ned Birmingham MD XXX [place] [address] PCP - Surgery 10/25/08 09/27/09 Mike Villareal DO [facility] [address] [place] [address] PCP - Surgery 08/03/06 10/24/08 Sony Perez MD [facility] [address] [place] [address] PCP - ENT 03/19/07 12/08/17 Matt Grover MD [address] [place] [address] [address] [place] [address] PCP - Urology 12/22/08 Albert Brownlee MD [address] [place] [address] PCP - Surgery Surgery 09/28/09 11/02/12 Humberto Peng MD [facility] [place] [address] [place] [address] PCP - General Family Practice 09/03/10 James Jasso DO [facility] [place] [address] [place] [address] PCP - Obstetrics/Gynecology insurance clerk 07/24/11 Rajat Urban MD [facility] [place] [address] [place] [address] PCP - Orthopaedics Orthopedics 12/02/11 12/08/17 Thuy Coto PA-C [facility] [place] [address] [place] [address] PCP - Surgery Physician Gun Perforator 11/03/12 James Stevens DPM [address] [facility] [address] [place] [address] Assigned Musculoskeletal Provider 04/25/20 10/25/21 Teresa Ferrer PA-C [address] [place] [address] Physician Gun Perforator Urology 02/20/23 documented as of this encounter
--- OUTSIDE RECORDS SUMMARY | 2023-08-04 12:32 | XMS_ITS | Encounter Summary ---
Author Organization [place] Address [address] [place] [address] Care Team Providers Care Disease And Insect Control Boss Name Role Phone Dudley House MD Primary Care Provider [phone] Frankie Gaspar MD Unavailable Unavailable Augusta De La Cruz DPM Unavailable [phone] Kyle Morris MD Unavailable [phone] Ned Birmingham MD Unavailable [phone] Mike Villareal DO Unavailable [phone] Sony Perez MD Unavailable [phone] aMtt Grover MD Unavailable [phone] Albert Brownlee MD Unavailable Humberto Peng MD Primary Care Provider [phone] James Jasso DO Unavailable [phone] Rajat Urban MD Unavailable Unavailable Thuy CotoC Unavailable [phone] James Stevens DPM Unavailable [phone] Teresa FerrerC Unavailable Encounter Details Date Type Department Care Team (Late st Contact Info) Description 01/05/2008 MyC Medical Advice [facility] [place] Internal Medicine [address] [place] [id number] Dudley House MD [address] [place] [address] Social History Tobacco Use Types [...] on filedocumented in this encounter Care Teams Disease And Insect Control Boss Relationship Specialty Start Date End Date Dudley House MD [address] [place] [address] PCP - General 03/23/07 09/02/10 Frankie Gaspar MD PCP - Obstetrics/Gynecology 03/03/00 07/23/11 Augusta De La Cruz DPM PCP - Podiatry 09/26/05 Kyle Morris MD PCP - Ophthalmology 02/17/06 Ned Birmingham MD XXX [place] [address] PCP - Surgery 10/25/08 09/27/09 Mike Villareal DO [facility] [address] [place] [address] PCP - Surgery 08/03/06 10/24/08 Sony Perez MD [facility] [address] [place] [address] PCP - ENT 03/19/07 12/08/17 Matt Grover MD [address] [facility] [address] [place] [address] PCP - Urology 12/22/08 Albert Brownlee MD [address] [place] [address] PCP - Surgery Surgery 09/28/09 11/02/12 Humberto Peng MD [facility] [place] [address] [place] [address] PCP - General Family Practice 09/03/10 James Jasso DO [facility] [place] [address] [place] [address] PCP - Obstetrics/Gynecology boiler tube blower 07/24/11 Rajat Urban MD [facility] [place] [address] [place] [address] PCP - Orthopaedics Orthopedics 12/02/11 12/08/17 Thuy Coto PA-C [facility] [place] [address] [place] [address] PCP - Surgery Physician Hospital Pharmacy Technician 11/03/12 James Stevens DPM [address] [facility] [address] [place] [address] Assigned Musculoskeletal Provider 04/25/20 10/25/21 Teresa Ferrer PA-C [address] [address] Physician Hospital Pharmacy Technician Urology 02/20/23 documented as of this encounter
--- OUTSIDE RECORDS SUMMARY | 2023-08-04 12:32 | XMS_ITS | Encounter Summary ---
Author Organization [place] Address [address] [place] [address] Care Team Providers Care Outboard Motor Mechanic Name Role Phone Dudley House MD Primary Care Provider [phone] Albert Figueroa MD Primary Care Provider [phone] Frankie Gaspar MD Unavailable Unavailable Augusta De La Cruz DPM Unavailable [phone] Kyle Morris MD Unavailable [phone] Ned Birmingham MD Unavailable [phone] Mike Villareal DO Unavailable [phone] Sony Perez MD Unavailable [phone] Matt Grover MD Unavailable [phone] Albert Brownlee MD Unavailable [phone] GinetteHumberto bowser MD Primary Care Provider [phone] James Jasso DO Unavailable [phone] Rajat Urban MD Unavailable Unavailable Thuy CotoC Unavailable + [phone] James Stevens DPM Unavailable [phone] Teresa Ferrer PA-C Unavailable Encounter Details Date Type Department Care Team (Late st Contact Info) Description 09/30/2006 [facility] in [place] Inpatient Dept [address] [address] Frw, Inpatient Provider Social History Tobacco Use Types Packs/Day Years [...] as of this encounter Progress Notes * Mike Villareal - 09/30/2006 11:00 AM CDTPROCEDURE/OPERATIVE REPORT Date of Procedure: 09/30/06 PREOPERATIVE DIAGNOSES: Symptomatic varicose veins, left leg. POSTOPERATIVE DIAGNOSES: Symptomatic varicose veins, left leg. OPERATION: Radiofrequency VNUS closure of the greater saphenous vein left thigh and segmental excision of a small segment of the greater saphenous vein in the proximal left lower leg just below the knee. SURGEON: Dr. Villareal. ANESTHESIA: MAC anesthetic with local infiltration of 1/4% Marcaine solution with epinephrine. PROCEDURE: The patient was prepped and draped in a supine position. The bed was turned to a slight reversed Trendelenburg position and with ultrasound guidance the greater saphenous vein was identified and the area mapped on the distal left thigh. The vein was then followed to below the knee and there was a tortuous area of the greater saphenous vein at the level of the knee. A successful puncture site was established approximately 8 to 10 centimeters below the knee and after establishing the sheath in the vein there was an attempt made to pass the J-tipped guide wire by the curved and the straight end but could not be advance past the tortuous area of greater saphenous into the level of the knee. It was decided at that point to convert the vein puncture site below the knee to a cut down of the vein where a small segment of the vein at the puncture site was isolated. It was doubly tied with 2-0 Vicryl proximally and distally and a short 1 centimeter segment of vein was then dissected free dividing the greater saphenous vein below the knee. A second puncture site was then attempted at an area above the knee and again once the sheath was established blood flow was obtained through the sheath and it was flushed with saline. The radiofrequency catheter was then measured to the appropriate length and passed through the sheath to the level of the saphenofemoral junction which was identified again with ultrasound. The tip of the catheter was withdrawn into the greater saphenous vein just distal to the greater saphenous junction and approximately 1 1/2 to 2 centimeters distal to the junction with the inferior epigastric vein. Once the catheter was positioned appropriately a tumescent was injected along the entire length of the vein utilizing approximately 390 cc of tumescent. The catheter was then activated at the groin site and it was repeated twice at this site and the total pull back time was at 2 minutes. Once the treatment was completed the radiofrequency catheter and sheath were removed and pressure held over the puncture site at the distal greater saphenous vein. The cut down site over the greater saphenous vein below the knee had been closed with two 4-0 undyed Vicryl intradermal sutures. Once hemostasis was achieved at the puncture site above the knee Benzoin and Steri-Strips were applied over both wounds and the wounds were then covered with gauze held in place with a Kerlix wrap. A compressive oil recovery operator stocking was then placed over the lower leg and a second one over the thigh. The lower leg compressive oil recovery operator was reinforced with a Coban wrap. The patient tolerated the procedure well and was returned to the post anesthetic recovery room in stable condition. Mike Villareal Jr., D.O. WFA/zaida cc: documented in this encounter Plan of Treatment Not on file documented as of this encounter Visit Diagnoses Not on filedocumented in this encounter Care Teams Outboard Motor Mechanic Relationship Specialty Start Date End Date Dudley House MD [address] [place] [address] PCP - General 03/23/07 09/02/10 Albert Figueroa MD [address] [address] PCP - General 10/30/03 03/22/07 Frankie Gaspar MD PCP - Obstetrics/Gynecology 03/03/00 07/23/11 Augusta De La Cruz, DPM PCP - Podiatry 09/26/05 Kyle Morris MD PCP - Ophthalmology 02/17/06 Ned Birmingham MD XXX NO INFO FOUND XXX [place] [address] PCP - Surgery 10/25/08 09/27/09 Mike Villareal DO [facility] [address] [place] [address] PCP - Surgery 08/03/06 10/24/08 Sony Perez MD [facility] [address] [place] [address] PCP - ENT 03/19/07 12/08/17 Matt Grover MD [address] [place] [address] [address] [place] [address] PCP - Urology 12/22/08 Albert Brownlee MD [address] [place] [address] PCP - Surgery Surgery 09/28/09 11/02/12 Humberto Peng MD [facility] [place] [address] [place] [address] PCP - General Family Practice 09/03/10 James Jasso DO [facility] [place] [address] [place] [address] PCP - Obstetrics/Gynecology fruit grader operator 07/24/11 Rajat Urban MD [facility] [place] [address] [place] [address] PCP - Orthopaedics Orthopedics 12/02/11 12/08/17 Thuy Coto PA-C [facility] [place] [address] [place] [address] PCP - Surgery Physician Clinical Account Specialist 11/03/12 James Stevens DPM [address] [facility] [address] [place], [place] [address] Assigned Musculoskeletal Provider 04/25/20 10/25/21 Teresa Ferrer PA-C [address] [place] [address] Physician Clinical Account Specialist Urology 02/20/23 documented as of this encounter
--- OUTSIDE RECORDS SUMMARY | 2023-08-04 12:32 | XMS_ITS | Encounter Summary ---
Author Organization [place] Address [address] [place] [address] Care Team Providers Care Tax Commissioner Name Role Phone Dudley House MD Primary Care Provider Frankie Gaspar MD Unavailable Unavailable Augusta De La Cruz DPM Unavailable [phone] Kyle Morris MD Unavailable Ned Birmingham MD Unavailable [phone] Miek Villareal DO Unavailable [phone] Sony Perez MD Unavailable [phone] Matt Grover MD Unavailable Albert Brownlee MD Unavailable [phone] Humberto Peng MD Primary Care Provider [phone] James Jasso DO Unavailable [phone] Rajat Urban MD Unavailable Unavailable Thuy CotoC Unavailable [phone] James Stevens DPM Unavailable [phone] Teresa FerrerC Unavailable Encounter Details Date Type Department Care Team (Late st Contact Info) Description 08/15/[address] [facility] [place] Internal Medicine [address] [place] [address] Dudley House MD [address] [place] [address] Social History Tobacco Use Types [...] on filedocumented in this encounter Care Teams Tax Commissioner Relationship Specialty Start Date End Date Dudley House MD [address] [place] [address] PCP - General 03/23/07 09/02/10 Frankie Gaspar MD PCP - Obstetrics/Gynecology 03/03/00 07/23/11 Augusta De La Cruz DPM PCP - Podiatry 09/26/05 Kyle Morris MD PCP - Ophthalmology 02/17/06 Ned Birmingham MD XXX [place] [address] PCP - Surgery 10/25/08 09/27/09 Mike Villareal DO [facility] [address] [place] [address] PCP - Surgery 08/03/06 10/24/08 Sony Perez MD [facility]3] [address] [place] [address] PCP - ENT 03/19/07 12/08/17 Matt Grover MD [address] [facility] [address] [place] [address] PCP - Urology 12/22/08 Albert Brownlee MD [address] [place] [address] PCP - Surgery Surgery 09/28/09 11/02/12 Humberto Peng MD [facility] [address] [place] [address] PCP - General Family Practice 09/03/10 James Jasso DO [facility] [address] [place] [address] PCP - Obstetrics/Gynecology technician plant and maintenance 07/24/11 Rajat Urban MD [facility] [address] [place] [address] PCP - Orthopaedics Orthopedics 12/02/11 12/08/17 Thuy Coto PA-C [facility] [address] [place] [address] PCP - Surgery Physician Wax Pumper 11/03/12 Jmaes Stevens DPM [address] [facility] [address] [place] [address] Assigned Musculoskeletal Provider 04/25/20 10/25/21 Teresa Ferrer PA-C [address] [address] Physician Wax Pumper Urology 02/20/23 documented as of this encounter
--- OUTSIDE RECORDS SUMMARY | 2023-08-04 12:33 | XMS_ITS | Encounter Summary ---
Author Organization [place] Address [address] [place] [address] Care Team Providers Care Brush Fabrication Supervisor Name Role Phone Dudley House MD Primary Care Provider [phone] Albert Figueroa MD Primary Care Provider +[phone] Frankie Gaspar MD Unavailable Unavailable Augusta De La Cruz DPM Unavailable +[phone] Kyle Morris MD Unavailable +[phone] Kayode Brambila OD Unavailable +[phone] Ned Birmingham MD Unavailable +[phone] Mike Villareal DO Unavailable +[phone] Sony Perez MD Unavailable [phone] Matt Grover MD Unavailable +[phone] Albert Brownlee MD Unavailable +[phone] GinetteHumberto bowser MD Primary Care Provider +[phone] James Jasso DO Unavailable +[phone] Rajat Urban MD Unavailable Unavailable Thuy CotoC Unavailable +[phone] James Stevens DPM Unavailable +[phone] Teresa Ferrer PA-C Unavailable Encounter Details Date Type Department Care Team (Late st Contact Info) Description 11/04/2005 MyC Medical Advice [facility] [place] Medical Records [address] [place] [phone] Elvin Allred Social History Tobacco Use Types Packs/Day Years [...] on filedocumented in this encounter Care Teams Brush Fabrication Supervisor Relationship Specialty Start Date End Date Dudley House MD [address] [place] [address] PCP - General 03/23/07 09/02/10 Albert Figueroa MD [facility] [address] [address] PCP - General 10/30/03 03/22/07 Frankie Gaspar MD PCP - Obstetrics/Gynecology 03/03/00 07/23/11 Augusta De La Cruz DPM PCP - Podiatry 09/26/05 Kyle Morris MD PCP - Ophthalmology 02/17/06 Kayode Brambila OD [facility] [address] [facility] [address] [place] [address] PCP - Ophthalmology 03/03/00 02/16/06 Ned Birmingham MD XXX NO INFO FOUND XXX [place], [place] [address] PCP - Surgery 10/25/08 09/27/09 Mike Villareal DO [facility] [address] [place] [address] PCP - Surgery 08/03/06 10/24/08 Sony Perez MD [facility] [address] [place] [address] PCP - ENT 03/19/07 12/08/17 Matt Grover MD 420 [facility] [address] [place] [address] PCP - Urology 12/22/08 Albert Brownlee MD [address] [place] [address] PCP - Surgery Surgery 09/28/09 11/02/12 Humberto Peng MD [facility] [place] [address] [place] [address] PCP - General Family Practice 09/03/10 James Jasso DO [facility] [place] [address] [place] [address] PCP - Obstetrics/Gynecology business specialist 07/24/11 Rajat Urban MD [facility] [place] [address] [place] [address] PCP - Orthopaedics Orthopedics 12/02/11 12/08/17 Thuy Coto PA-C [facility] [address] [place] [address] PCP - Surgery Physician Outside Rigger 11/03/12 James Stevens DPM [address] [facility] [address] [place], [place] [address] Assigned Musculoskeletal Provider 04/25/20 10/25/21 Teresa Ferrer PA-C [address] [place], [place] [address] Physician Outside Rigger Urology 02/20/23 documented as of this encounter
--- OUTSIDE RECORDS SUMMARY | 2023-08-04 12:33 | XMS_ITS | Encounter Summary ---
Author Organization [place] Address [address] [place] [address] Care Team Providers Care Assistant Finance Manager Name Role Phone Dudley House MD Primary Care Provider [phone] Albert Figueroa MD Primary Care Provider [phone] Frankie Gaspar MD Unavailable Unavailable Augusta De La Cruz DPM Unavailable +[phone] Kyle Morris MD Unavailable +[phone] Kayode Brambila OD Unavailable +[phone] Ned Birmingham MD Unavailable +[phone] Mike Villareal DO Unavailable +[phone] Sony Perez MD Unavailable Matt Grover MD Unavailable +[phone] Albert Brownlee MD Unavailable +[phone] GinetteHumberto bowser MD Primary Care Provider +[phone] James Jasso DO Unavailable +[phone] Rajat Urban MD Unavailable Unavailable Thuy CotoC Unavailable + [phone] James Stevens DPM Unavailable +[phone] Teresa Ferrer PA-C Unavailable [phone] Reason for Visit * Reason Onset Date Comments Counseling 12/15/2005 Encounter Details Date Type Department Care Team (Late st Contact Info) Description 12/15/2005 MyC Medical Advice [facility] in [place] Medical Records [address] [place] [phone] Elvin Allred Counseling Social History Tobacco Use Types Packs/Day Years [...] on filedocumented in this encounter Care Teams Assistant Finance Manager Relationship Specialty Start Date End Date Dudley House MD [address] [place] [address] PCP - General 03/23/07 09/02/10 Albert Figueroa MD [facility] [place] [address] [place] [address] PCP - General 10/30/03 03/22/07 Frankie Gaspar MD PCP - Obstetrics/Gynecology 03/03/00 07/23/11 Augusta De La Cruz DPM PCP - Podiatry 09/26/05 Kyle Morris MD PCP - Ophthalmology 02/17/06 Kayode Brambila OD [facility] [place] [address] [place] [address] PCP - Ophthalmology 03/03/00 02/16/06 Ned Birmingham MD XXX NO [place] [address] PCP - Surgery 10/25/08 09/27/09 Mike Villareal DO [facility] [address] [place] [address] PCP - Surgery 08/03/06 10/24/08 Sony Perez MD [facility] [address] [place] [address] PCP - ENT 03/19/07 12/08/17 Matt Grover MD [address] [place] [address] [address] [place], [place] [address] PCP - Urology 12/22/08 Albert Brownlee MD [address] [place] [address] PCP - Surgery Surgery 09/28/09 11/02/12 Humberto Peng MD [facility] [place] [address] [place] [address] PCP - General Family Practice 09/03/10 James Jasso DO [facility] [place] [address] [place] [address] PCP - Obstetrics/Gynecology retention manager 07/24/11 Rajat Urban MD [facility] [place] [address] [place] [address] PCP - Orthopaedics Orthopedics 12/02/11 12/08/17 Thuy Coto PA-C [facility] [address] [facility] [address] [place] [address] PCP - Surgery Physician Dehorner 11/03/12 James Stevens DPM [address] [facility] [address] [place], [place] [address] Assigned Musculoskeletal Provider 04/25/20 10/25/21 Teresa Ferrer PA-C [address] [place], [place] [address] Physician Dehorner Urology 02/20/23 documented as of this encounter
--- OUTSIDE RECORDS SUMMARY | 2023-08-04 12:33 | XMS_ITS | Encounter Summary ---
Author Organization [place] Address [address] [place] [address] Care Team Providers Care Keyboard Operator Name Role Phone Dudley House MD Primary Care Provider [phone] Albert Figueroa MD Primary Care Provider [phone] Frankie Gaspar MD Unavailable Unavailable Augusta De La Cruz DPM Unavailable +[phone] Kyle Morris MD Unavailable +[phone] Ned Birmingham MD Unavailable +[phone] Mike Villareal DO Unavailable [phone] Sony Perez MD Unavailable [phone] Matt Grover MD Unavailable +[phone] Albert Brownlee MD Unavailable +[phone] GinetteHumberto bowser MD Primary Care Provider +[phone] James Jasso DO Unavailable +[phone] Rajat Urban MD Unavailable Unavailable Thuy CotoC Unavailable + [phone] James Stevens DPM Unavailable +[phone] Teresa Ferrer PA-C Unavailable Encounter Details Date Type Department Care Team (Late st Contact Info) Description 06/15/2006 MyC Medical Advice [facility] [place] Internal Medicine [address] [place] [phone] Albert Figueroa MD [facility] [address] [place] [address] [address] [place] [address] Social History Tobacco Use Types Packs/Day Years [...] on filedocumented in this encounter Care Teams Keyboard Operator Relationship Specialty Start Date End Date Dudley House MD [address] [place] [address] PCP - General 03/23/07 09/02/10 Albert Figueroa MD [facility] [address] [place] [address] PCP - General 10/30/03 03/22/07 Frankie Gaspar MD PCP - Obstetrics/Gynecology 03/03/00 07/23/11 Augusta De La Cruz DPM PCP - Podiatry 09/26/05 Kyle Morris MD PCP - Ophthalmology 02/17/06 Ned Birmingham MD XXX [place] [address] PCP - Surgery 10/25/08 09/27/09 Mike Villareal DO [facility] [address] [place] [address] PCP - Surgery 08/03/06 10/24/08 Sony Perez MD [facility] [address] [place] [address] PCP - ENT 03/19/07 12/08/17 Matt Grover MD [address] [place] [address] PCP - Urology 12/22/08 Albert Brownlee MD [address] [place] [address] PCP - Surgery Surgery 09/28/09 11/02/12 Humberto Peng MD [facility] [place] [address] [place] [address] PCP - General Family Practice 09/03/10 James Jasso DO [facility] [place] [address] [place] [address] PCP - Obstetrics/Gynecology coconut cooker 07/24/11 Rajat Urban MD [facility] [place] [address] [place] [address] PCP - Orthopaedics Orthopedics 12/02/11 12/08/17 Thuy Coto PA-C [facility] [place] [address] [place] [address] PCP - Surgery Physician Personal Fitness Manager 11/03/12 James Stevens DPM [address] [facility] [address] [place] [address] Assigned Musculoskeletal Provider 04/25/20 10/25/21 Teresa Ferrer PA-C [address] [address] Physician Personal Fitness Manager Urology 02/20/23 documented as of this encounter
--- OUTSIDE RECORDS SUMMARY | 2023-08-04 12:33 | XMS_ITS | Encounter Summary ---
Author Organization [place] Address [address] [place] [address] Care Team Providers Care Carton And Can Supply Supervisor Name Role Phone Dudley House MD Primary Care Provider [phone] Albert Figueroa MD Primary Care Provider [phone] Frankie Gaspar MD Unavailable Unavailable Augusta De La Cruz DPM Unavailable +[phone] Kyle Morris MD Unavailable +[phone] Ned Birmingham MD Unavailable +[phone] Mike Villareal DO Unavailable [phone] Sony Perez MD Unavailable [phone] Matt Grover MD Unavailable +[phone] Albert Brownlee MD Unavailable +[phone] GinetteHumberto bowser MD Primary Care Provider +[phone] James Jasso DO Unavailable +[phone] Rajat Urban MD Unavailable Unavailable Thuy Coto PARickyC Unavailable + [phone] James Stevens DPM Unavailable +[phone] Teresa FerrerC Unavailable [phone] Reason for Visit * Reason Onset Date Comments MyChart Communication 04/24/2006 Dental wor k/medication question Encounter Details Date Type Department Care Team (Late st Contact Info) Description 04/24/2006 MyC Medical Advice [facility] [place] Medical Records [address] [place] [phone] Elvin Allred Communication (Dental work/medicat... Social History Tobacco Use Types Packs/Day Years [...] on filedocumented in this encounter Care Teams Carton And Can Supply Supervisor Relationship Specialty Start Date End Date Dudley House MD [address] [place] [address] PCP - General 03/23/07 09/02/10 Albert Figueroa MD [facility] [address] [place] [address] PCP - General 10/30/03 03/22/07 Frankie Gaspar MD PCP - Obstetrics/Gynecology 03/03/00 07/23/11 Augusta De La Cruz DPM PCP - Podiatry 09/26/05 Kyle Morris MD PCP - Ophthalmology 02/17/06 Ned Birmingham MD XXX NO INFO FOUND XXX [place] [address] PCP - Surgery 10/25/08 09/27/09 Mike Villareal DO [facility] [address] [place] [address] PCP - Surgery 08/03/06 10/24/08 Sony Perez MD [facility] [address] [place] [address] PCP - ENT 03/19/07 12/08/17 Matt Grover MD [address] [place] [address] [address] [place] [address] PCP - Urology 12/22/08 Albert Brownlee MD [address] [place] [id number] PCP - Surgery Surgery 09/28/09 11/02/12 Humberto Peng MD [facility] [place] [address] [place] [address] PCP - General Family Practice 09/03/10 James Jasso DO [facility] [place] [address] [place] [address] PCP - Obstetrics/Gynecology career discovery teacher 07/24/11 Rajat Urban MD [facility] [place] [address] [place] [address] PCP - Orthopaedics Orthopedics 12/02/11 12/08/17 Thuy Coto PA-C [facility] [place] [address] [place] [address] PCP - Surgery Physician Rn Disease Management 11/03/12 James Stevens DPM [address] [facility] [address] [place] [address] Assigned Musculoskeletal Provider 04/25/20 10/25/21 Teresa Ferrer PA-C [address] [address] Physician Rn Disease Management Urology 02/20/23 documented as of this encounter
--- OUTSIDE RECORDS SUMMARY | 2023-08-04 12:33 | XMS_ITS | Encounter Summary ---
Author Organization [place] Address [address] [place] [address] Care Team Providers Care Conservation Scientist Name Role Phone Dudley House MD Primary Care Provider +[phone] Albert Figueroa MD Primary Care Provider [phone] Frankie Gaspar MD Unavailable Unavailable Augusta De La Cruz DPM Unavailable +[phone] Kyle Morris MD Unavailable +[phone] Kayode Brambila OD Unavailable +[phone] Ned Birmingham MD Unavailable +[phone] Mike Villareal DO Unavailable [phone] Sony Perez MD Unavailable [phone] Matt Grover MD Unavailable +[phone] Albert Brownlee MD Unavailable +[phone] GinetteHumberto bowser MD Primary Care Provider +[phone] James Jasso DO Unavailable +[phone] Rajat Urban MD Unavailable Unavailable Thuy CotoC Unavailable +[phone] James Stevens DPM Unavailable +[phone] Teresa Ferrer PA-C Unavailable [phone] Encounter Details Date Type Department Care Team (Late st Contact Info) Description 12/10/2005 MyC Medical Advice [facility] in [place] Medical Records [address] [place] [id number] Elvin Allred Social History Tobacco Use Types [...] encounter Miscellaneous Notes * Telephone Encounter - Bud Adriane - 12/10/2005 12:[address] Figueroa could you assist with this pt question thanks very much L ENGINEERING PROCESS WORKER documented in this encounter Plan of Treatment Not on file documented as of this encounter Visit Diagnoses Not on filedocumented in this encounter Care Teams Conservation Scientist Relationship Specialty Start Date End Date Dudley House MD [address] [place] [address] PCP - General 03/23/07 09/02/10 Albert Figueroa MD [facility] [address] [place] [address] PCP - General 10/30/03 03/22/07 Frankie Gaspar MD PCP - Obstetrics/Gynecology 03/03/00 07/23/11 Augusta De La Cruz DPM PCP - Podiatry 09/26/05 Kyle Morris MD PCP - Ophthalmology 02/17/06 Kayode Brambila OD [facility] [place] [address] [place] [address] PCP - Ophthalmology 03/03/00 02/16/06 Ned Birmingham MD XXX NO [place] [address] PCP - Surgery 10/25/08 09/27/09 Mike Villareal DO [facility] [address] [place], [place] [address] PCP - Surgery 08/03/06 10/24/08 Sony Perez MD [facility] [address] [place] [address] PCP - ENT 03/19/07 12/08/17 Matt Grover MD [address] [facility] [address] [place] [address] PCP - Urology 12/22/08 Albert Brownlee MD [address] [place] [address] PCP - Surgery Surgery 09/28/09 11/02/12 Humberto Peng MD [facility] [place] [address] [place] [address] PCP - General Family Practice 09/03/10 James Jasso DO [facility] [place] [address] [place] [address] PCP - Obstetrics/Gynecology residential door installer 07/24/11 Rajat Urban MD [facility] [place] [address] [place] [address] PCP - Orthopaedics Orthopedics 12/02/11 12/08/17 Thuy Coto PA-C [facility] [place] [address] [place] [address] PCP - Surgery Physician Paradi Operator 11/03/12 James Stevens DPM [address] [facility] [address] [place] [address] Assigned Musculoskeletal Provider 04/25/20 10/25/21 Teresa Ferrer PA-C [address] [id number] Physician Paradi Operator Urology 02/20/23 documented as of this encounter
--- OUTSIDE RECORDS SUMMARY | 2023-08-04 12:33 | XMS_ITS | Encounter Summary ---
Author Organization [place] Address [address] [place] [address] Care Team Providers Care Engineering Systems Analyst Name Role Phone Dudley House MD Primary Care Provider [phone] Albert Figueroa MD Primary Care Provider +[phone] Frankie Gaspar MD Unavailable Unavailable Augusta De La Cruz DPM Unavailable +[phone] Kyle Morris MD Unavailable +[phone] Kayode Brambila OD Unavailable +[phone] Ned Birmingham MD Unavailable +[phone] Mike Villareal DO Unavailable [phone] Sony Perez MD Unavailable [phone] Matt Grover MD Unavailable +[phone] Albert Brownlee MD Unavailable +[phone] GinetteHumberto bowser MD Primary Care Provider +[phone] James Jasso DO Unavailable +[phone] Rajat Urban MD Unavailable Unavailable Thuy CotoC Unavailable +[phone] James Stevens DPM Unavailable +[phone] Teresa Ferrer PA-C Unavailable Encounter Details Date Type Department Care Team (Late st Contact Info) Description 11/06/2005 MyC Medical Advice [facility] in [place] Medical Records [address] [place] [address] Elvin Allred Social History Tobacco Use Types [...] on filedocumented in this encounter Care Teams Engineering Systems Analyst Relationship Specialty Start Date End Date Dudley House MD [address] [place] [address] PCP - General 03/23/07 09/02/10 Albert Figuerao MD [facility] [address] [address] PCP - General 10/30/03 03/22/07 Frankie Gaspar MD PCP - Obstetrics/Gynecology 03/03/00 07/23/11 Augusta De La Cruz DPM PCP - Podiatry 09/26/05 Kyle Morris MD PCP - Ophthalmology 02/17/06 Kayode Brambila OD [facility] [address] [facility] [address] [place] [address] PCP - Ophthalmology 03/03/00 02/16/06 Ned Birmingham MD XXX NO INFO FOUND XXX [place], [place] [address] PCP - Surgery 10/25/08 09/27/09 Mike Villareal DO [facility] [address] [place] [address] PCP - Surgery 08/03/06 10/24/08 Sony Perez MD [facility] [address] [place] [address] PCP - ENT 03/19/07 12/08/17 Matt Grover MD [address] [facility] [address] [place] [address] PCP - Urology 12/22/08 Albert Brownlee MD [address] [place] [address] PCP - Surgery Surgery 09/28/09 11/02/12 Humberto Peng MD [facility] [place] [address] [place] [address] PCP - General Family Practice 09/03/10 James Jasso DO [facility] [place] [address] [place] [address] PCP - Obstetrics/Gynecology degreasing wheel operator 07/24/11 Rajat Urban MD [facility] [place] [address] [place] [address] PCP - Orthopaedics Orthopedics 12/02/11 12/08/17 Thuy Coto PA-C [facility] [address] [place] [address] PCP - Surgery Physician Atomic Physics Teacher 11/03/12 James Stevens DPM [address] [facility] [address] [place], [place] [address] Assigned Musculoskeletal Provider 04/25/20 10/25/21 Teresa Ferrer PA-C [address] [place], [place] [address] Physician Atomic Physics Teacher Urology 02/20/23 documented as of this encounter
--- OUTSIDE RECORDS SUMMARY | 2023-08-04 12:33 | XMS_ITS | Encounter Summary ---
Author Organization [place] Address [address] [place] [address] Care Team Providers Care Stopper Maker Helper Name Role Phone Dudley House MD Primary Care Provider [phone] Albert Figueroa MD Primary Care Provider [phone] Frankie Gaspar MD Unavailable Unavailable Augusta De La Cruz DPM Unavailable +[phone] Kyle Morris MD Unavailable +[phone] Ned Birmingham MD Unavailable +[phone] Mike Villareal DO Unavailable [phone] Sony Perez MD Unavailable [phone] Matt Grover MD Unavailable +[phone] Albert Brownlee MD Unavailable +[phone] GinetteHumberto bowser MD Primary Care Provider +[phone] James Jasso DO Unavailable [phone] Rajat Urban MD Unavailable Unavailable Thuy CotoC Unavailable + [phone] James Stevens DPM Unavailable +[phone] Teresa Ferrer PA-C Unavailable Encounter Details Date Type Department Care Team (Late st Contact Info) Description 03/18/2006 MyC Medical Advice [facility] [place] Medical Records [address] [place] [address] Elvin Allred Social History Tobacco Use Types [...] on filedocumented in this encounter Care Teams Stopper Maker Helper Relationship Specialty Start Date End Date Dudley House MD [address] [place] [phone] PCP - General 03/23/07 09/02/10 Albert Figueroa MD [facility] [address] [facility] [address] [place] [address] PCP - General 10/30/03 03/22/07 Frankie Gaspar MD PCP - Obstetrics/Gynecology 03/03/00 07/23/11 Augusta De La Cruz DPM PCP - Podiatry 09/26/05 Kyle Morris MD PCP - Ophthalmology 02/17/06 Ned Birmingham MD XXX [place] [address] PCP - Surgery 10/25/08 09/27/[address] [facility] [address] [place] [address] PCP - Surgery 08/03/06 10/24/[address] [facility] [address] [place] [address] PCP - ENT 03/19/07 12/08/17 Matt Grover MD [address] [place] [address] [address] [place] [address] PCP - Urology 12/22/08 Albert Brownlee MD [address] [place] [address] PCP - Surgery Surgery 09/28/09 11/02/12 Humberto Peng MD [facility] [place] [address] [place] [address] PCP - General Family Practice 09/03/10 James Jasso DO [facility] [place] [address] [place] [address] PCP - Obstetrics/Gynecology director of compliance 07/24/11 Rajat Urban MD [facility] [place] [address] [place] [address] PCP - Orthopaedics Orthopedics 12/02/11 12/08/17 Thuy Coto PA-C [facility] [place] [address] [place] [address] PCP - Surgery Physician Trombone Slide Assembler 11/03/12 James Stevens DPM [facility] [address] [place] [address] Assigned Musculoskeletal Provider 04/25/20 10/25/21 Teresa Ferrer PA-C [address] [facility] [address] [place], [place] [address] Physician Trombone Slide Assembler Urology 02/20/23 documented as of this encounter
--- OUTSIDE RECORDS SUMMARY | 2023-08-04 12:33 | XMS_ITS | Encounter Summary ---
Author Organization [place] Address [address] [place] [address] Care Team Providers Care Sound Person Name Role Phone Dudley House MD Primary Care Provider [phone] Albert Figueroa MD Primary Care Provider +[phone] Frankie Gaspar MD Unavailable Unavailable Augusta De La Cruz DPM Unavailable +[phone] Kyle Morris MD Unavailable +[phone] Kayode Brambila OD Unavailable +[phone] Ned Birmingham MD Unavailable +[phone] Mike Villareal DO Unavailable +[phone] Sony Perez MD Unavailable +[phone] Matt Grover MD Unavailable +[phone] Albert Brownlee MD Unavailable +[phone] GinetteHumberto bowser MD Primary Care Provider +[phone] James Jasso DO Unavailable +[phone] Rajat Urban MD Unavailable Unavailable Thuy CotoC Unavailable +[phone] James Stevens DPM Unavailable +[phone] Teresa Ferrer PA-C Unavailable Encounter Details Date Type Department Care Team (Late st Contact Info) Description 12/10/2005 MyC Medical Advice [facility] [place] Medical Records [address] [place] [phone] Elvin Allred Social History Tobacco Use Types [...] on filedocumented in this encounter Care Teams Sound Person Relationship Specialty Start Date End Date Dudley House MD [address] [place] [address] PCP - General 03/23/07 09/02/10 Albert Figueroa MD [facility] [address] [address] PCP - General 10/30/03 03/22/07 Frankie Gaspar MD PCP - Obstetrics/Gynecology 03/03/00 07/23/11 Augusta De La Cruz DPM PCP - Podiatry 09/26/05 Kyle Morris MD PCP - Ophthalmology 02/17/06 Kayode Brambila OD [facility] [address] [facility] [address] [place] [address] PCP - Ophthalmology 03/03/00 02/16/06 Ned Birmingham MD XXX NO INFO FOUND XXX [place], [place] [address] PCP - Surgery 10/25/08 09/27/09 Mike Villareal DO [facility] [address] [place] [address] PCP - Surgery 08/03/06 10/24/08 Sony Perez MD [facility] [address] [place] [address] PCP - ENT 03/19/07 12/08/17 Matt Grover MD 420 [facility] [address] [place] [address] PCP - Urology 12/22/08 Albert Brownlee MD [address] [place] [address] PCP - Surgery Surgery 09/28/09 11/02/12 Humberto Peng MD [facility] [place] [address] [place] [address] PCP - General Family Practice 09/03/10 James Jasso DO [facility] [place] [address] [place] [address] PCP - Obstetrics/Gynecology test desk trouble locator 07/24/11 Rajat Urban MD [facility] [place] [address] [place] [address] PCP - Orthopaedics Orthopedics 12/02/11 12/08/17 Thuy Coto PA-C [facility] [address] [place] [address] PCP - Surgery Physician Hot Strip Mill Inspector 11/03/12 James Stevens DPM [address] [facility] [address] [place], [place] [id number] Assigned Musculoskeletal Provider 04/25/20 10/25/21 Teresa Ferrer PA-C [address] [place], [place] [address] Physician Hot Strip Mill Inspector Urology 02/20/23 documented as of this encounter
--- OUTSIDE RECORDS SUMMARY | 2023-08-04 12:33 | XMS_ITS | Encounter Summary ---
Author Organization [place] Address [address] [place] [address] Care Team Providers Care Male Impersonator Name Role Phone Dudley House MD Primary Care Provider [phone] Albert Figueroa MD Primary Care Provider +[phone] Frankie Gaspar MD Unavailable Unavailable Augusta De La Cruz DPM Unavailable +[phone] Kyle Morris MD Unavailable +[phone] Kayode Brambila OD Unavailable +[phone] Ned Birmingham MD Unavailable +[phone] Mike Villareal DO Unavailable +[phone] Sony Perez MD Unavailable [phone] Matt Grover MD Unavailable +[phone] Albert Brownlee MD Unavailable +[phone] GinetteHumberto bowser MD Primary Care Provider +[phone] James Jasso DO Unavailable +[phone] Rajat Urban MD Unavailable Unavailable Thuy CotoC Unavailable +[phone] James Stevens DPM Unavailable +[phone] Teresa Ferrer PA-C Unavailable Encounter Details Date Type Department Care Team (Late st Contact Info) Description 10/24/2005 MyC Medical Advice [facility] in [place] Medical Records [address] [place] [address] Elvin Allred Social History Tobacco Use Types [...] on filedocumented in this encounter Care Teams Male Impersonator Relationship Specialty Start Date End Date Dudley House MD [address] [place] [address] PCP - General 03/23/07 09/02/10 Albert Figueroa MD [facility] [address] [address] PCP - General 10/30/03 03/22/07 Frankie Gaspar MD PCP - Obstetrics/Gynecology 03/03/00 07/23/11 Augusta De La Cruz DPM PCP - Podiatry 09/26/05 Kyle Morris MD PCP - Ophthalmology 02/17/06 Kayode Brambila OD [facility] [address] [facility] [address] [place] [address] PCP - Ophthalmology 03/03/00 02/16/06 Ned Birmingham MD XXX NO INFO FOUND XXX [place] [place], [place] [address] PCP - Surgery 10/25/08 09/27/09 Mike Villareal DO [facility] [address] [place] [address] PCP - Surgery 08/03/06 10/24/08 Sony Perez MD [facility] [address] [place] [address] PCP - ENT 03/19/07 12/08/17 Matt Grover MD [address] [facility] [address] [place] [address] PCP - Urology 12/22/08 Albert Brownlee MD [address] [place] [address] PCP - Surgery Surgery 09/28/09 11/02/12 Humberto Peng MD [facility] [place] [address] [place] [address] PCP - General Family Practice 09/03/10 James Jasso DO [facility] [place] [address] [place] [address] PCP - Obstetrics/Gynecology sed special education teacher 07/24/11 Rajat Urban MD [facility] [place] [address] [place] [address] PCP - Orthopaedics Orthopedics 12/02/11 12/08/17 Thuy Coto PA-C [facility] [address] [place] [address] PCP - Surgery Physician Electric Knife Operator 11/03/12 James Stevens DPM [address] [facility] [address] [place], [place] [address] Assigned Musculoskeletal Provider 04/25/20 10/25/21 Teresa Ferrer PA-C [address] [place], [place] [address] Physician Electric Knife Operator Urology 02/20/23 documented as of this encounter
--- OUTSIDE RECORDS SUMMARY | 2023-08-04 12:33 | XMS_ITS | Encounter Summary ---
Author Organization [place] Address [address] [place] [address] Care Team Providers Care Security Sales Manager Name Role Phone Dudley House MD Primary Care Provider [phone] Albert Figueroa MD Primary Care Provider +[phone] Frankie Gaspar MD Unavailable Unavailable Augusta De La Cruz DPM Unavailable +[phone] Kyle Morris MD Unavailable +[phone] Kayode Brambila OD Unavailable +[phone] Ned Birmingham MD Unavailable +[phone] Mike Villareal DO Unavailable +[phone] Sony Perez MD Unavailable +[phone] Matt Grover MD Unavailable +[phone] Albert Brownlee MD Unavailable +[phone] GinetteHumberto bowser MD Primary Care Provider +[phone] James Jasso DO Unavailable +[phone] Rajat Urban MD Unavailable Unavailable Thuy Coto PARickyC Unavailable + [phone] James Stevens DPM Unavailable +[phone] Teresa Ferrer PA-C Unavailable Reason for Visit * Reason Onset Date Comments Triage 01/05/2006 Encounter Details Date Type Department Care Team (Late st Contact Info) Description 01/05/2006 MyC Medical Advice [facility] in [place] Medical Records [address] [place] [phone] Elvin Allred Triage Social History Tobacco Use Types Packs/Day Years [...] filedocumented in this encounter Care Teams Security Sales Manager Relationship Specialty Start Date End Date Dudley House MD [address] [place] [address] PCP - General 03/23/07 09/02/10 Albert Figueroa MD [facility] [place] [address] [place] [address] PCP - General 10/30/03 03/22/07 Frankie Gaspar MD PCP - Obstetrics/Gynecology 03/03/00 07/23/11 Augusta De La Cruz DPM PCP - Podiatry 09/26/05 Kyle Morris MD PCP - Ophthalmology 02/17/06 Kayode Brambila OD [facility] [place] [address] [place] [address] PCP - Ophthalmology 03/03/00 02/16/06 Ned Birmingham MD XXX [place] [address] PCP - Surgery 10/25/08 09/27/09 Mike Villareal DO [facility] [address] [place] [address] PCP - Surgery 08/03/06 10/24/08 Sony Perez MD [facility] [address] [place] [address] PCP - ENT 03/19/07 12/08/17 Matt Grover MD [address] [place] [address] [address] [place], [place] [address] PCP - Urology 12/22/08 Albert Brownlee MD [address] [place] [address] PCP - Surgery Surgery 09/28/09 11/02/12 Humberto Peng MD [facility] [place] [address] [place] [address] PCP - General Family Practice 09/03/10 James Jasso DO [facility] [place] [address] [place] [address] PCP - Obstetrics/Gynecology child welfare director 07/24/11 Rajat Urban MD [facility] [place] [address] [place] [address] PCP - Orthopaedics Orthopedics 12/02/11 12/08/17 Thuy Coto PA-C [facility] [address] [facility] [address] [place] [address] PCP - Surgery Physician Sign Designer 11/03/12 James Stevens DPM [address] [facility] [address] [place], [place] [address] Assigned Musculoskeletal Provider 04/25/20 10/25/21 Teresa Ferrer PA-C [address] [place], [place] [address] Physician Sign Designer Urology 02/20/23 documented as of this encounter
--- OUTSIDE RECORDS SUMMARY | 2023-08-04 12:33 | XMS_ITS | Encounter Summary ---
Author Organization [place] Address [address] [place] [address] Care Team Providers Care Medical Laboratory Scientist Name Role Phone Dudley House MD Primary Care Provider [phone] Albert Figueroa MD Primary Care Provider [phone] Frankie Gaspar MD Unavailable Unavailable Augsuta De La Cruz DPM Unavailable +[phone] Kyle Morris MD Unavailable +[phone] Ned Birmingham MD Unavailable +[phone] Mike Villareal DO Unavailable [phone] Sony Perez MD Unavailable [phone] Matt Grover MD Unavailable +[phone] Albert Brownlee MD Unavailable +[phone] GinetteHumberto bowser MD Primary Care Provider +[phone] James Jasso DO Unavailable +[phone] Rajat Urban MD Unavailable Unavailable Thuy CotoC Unavailable + [phone] James Stevens DPM Unavailable +[phone] Teresa Ferrer PA-C Unavailable Encounter Details Date Type Department Care Team (Late st Contact Info) Description 05/12/2006 MyC Medical Advice [facility] [place] Medical Records [address] [place] [phone] Elvin Allred Social History Tobacco Use Types [...] on filedocumented in this encounter Care Teams Medical Laboratory Scientist Relationship Specialty Start Date End Date Dudley House MD [address] [place] [phone] PCP - General 03/23/07 09/02/10 Albert Figueroa MD [facility] [address] [facility] [address] [place] [address] PCP - General 10/30/03 03/22/07 Frankie Gaspar MD PCP - Obstetrics/Gynecology 03/03/00 07/23/11 Augusta De La Cruz DPM PCP - Podiatry 09/26/05 Kyle Morris MD PCP - Ophthalmology 02/17/06 Ned Birmingham MD XXX [place] [address] PCP - Surgery 10/25/08 09/27/09 Mike Villareal DO [facility] [address] [place] [address] PCP - Surgery 08/03/06 10/24/08 Sony Perez MD [facility] [address] [place] [address] PCP - ENT 03/19/07 12/08/17 Matt Grover MD [address] [place] [address] [address] [place] [address] PCP - Urology 12/22/08 Albert Brownlee MD [address] [place] [address] PCP - Surgery Surgery 09/28/09 11/02/12 Humberto Peng MD [facility] [place] [address] [place] [address] PCP - General Family Practice 09/03/10 James Jasso DO [facility] [address] [place] [address] PCP - Obstetrics/Gynecology audio visual tech 07/24/11 Rajat Urban MD [facility] [address] [place] [address] PCP - Orthopaedics Orthopedics 12/02/11 12/08/17 Thuy Coto PA-C [facility] [address] [place] [address] PCP - Surgery Physician Loss Control Engineer 11/03/12 James Stevens DPM [facility] [address] [place] [address] Assigned Musculoskeletal Provider 04/25/20 10/25/21 Teresa Ferrer PA-C [address] [place], [place] [address] Physician Loss Control Engineer Urology 02/20/23 documented as of this encounter
--- OUTSIDE RECORDS SUMMARY | 2023-08-04 12:33 | XMS_ITS | Encounter Summary ---
Author Organization [place] Address [address] [place] [address] Care Team Providers Care Director Strategic Planning Name Role Phone Dudley House MD Primary Care Provider [phone] Albert Figueroa MD Primary Care Provider [phone] Frankie Gaspar MD Unavailable Unavailable Augusta De La Cruz DPM Unavailable +[phone] Kyle Morris MD Unavailable +[phone] Kayode Brambila OD Unavailable +[phone] Ned Birmingham MD Unavailable +[phone] Mike Villareal DO Unavailable [phone] Sony Perez MD Unavailable +[phone] Matt Grover MD Unavailable +[phone] Albert Brownlee MD Unavailable +[phone] GinetteHumberto bowser MD Primary Care Provider +[phone] James Jasso DO Unavailable +[phone] Rajat Urban MD Unavailable Unavailable Thuy Coto PARickyC Unavailable +[phone] James Stevens DPM Unavailable +[phone] Teresa Ferrer PA-C Unavailable [phone] Reason for Visit * Reason Onset Date Comments Call Back 01/22/2006 lab test results Encounter Details Date Type Department Care Team (Late st Contact Info) Description 01/21/2006 MyC Medical Advice [facility] in [place] Medical Records [address] [place] [phone] Elvin Allred Call Back (lab test results ) Social History Tobacco Use Types Packs/Day Years [...] * Telephone Encounter - Bud Adriane - 01/22/2006 9:36 AM CST Pt has question about recent lab test I do not see that letter has been sent test done 01-19 ORK OPERATIONS ANALYST documented in this encounter Plan of Treatment Not on file documented as of this encounter Visit Diagnoses Not on filedocumented in this encounter Care Teams Director Strategic Planning Relationship Specialty Start Date End Date Dudley House MD [address] [place] [address] PCP - General 03/23/07 09/02/10 Albert Figueroa MD [facility] [address] [facility] [address] [place] [address] PCP - General 10/30/03 03/22/07 Frankie Gaspar MD PCP - Obstetrics/Gynecology 03/03/00 07/23/11 Augusta De La Cruz DPM PCP - Podiatry 09/26/05 Kyle Morris MD PCP - Ophthalmology 02/17/06 Kayode Brambila OD [facility] [place] [address] [place] [address] PCP - Ophthalmology 03/03/00 02/16/06 Ned Birmingham MD XXX [place] [address] PCP - Surgery 10/25/08 09/27/09 Mike Villareal DO [facility] [address] [place] [address] PCP - Surgery 08/03/06 10/24/08 Sony Perez MD [facility] [address] [place] [address] PCP - ENT 03/19/07 12/08/17 Matt Grover MD [address] [place] [address] [address] [place] [address] PCP - Urology 12/22/08 Albert Brownlee MD [address] [place] [address] PCP - Surgery Surgery 09/28/09 11/02/12 Humberto Peng MD [facility] [place] [address] [place] [address] PCP - General Family Practice 09/03/10 James Jasso DO [facility] [place] [address] [place] [address] PCP - Obstetrics/Gynecology heel attacher wood 07/24/11 Rajat Urban MD [facility] [place] [address] [place] [address] PCP - Orthopaedics Orthopedics 12/02/11 12/08/17 Thuy Coto PA-C [facility] [place] [address] [place] [address] PCP - Surgery Physician Parts Expediter 11/03/12 James Stevens DPM [address] [facility] [address] [place] [address] Assigned Musculoskeletal Provider 04/25/20 10/25/21 Teresa Ferrer PA-C [address] [place], [place] [address] Physician Parts Expediter Urology 02/20/23 documented as of this encounter
--- OUTSIDE RECORDS SUMMARY | 2023-08-04 12:33 | XMS_ITS | Encounter Summary ---
Author Organization [place] Address [address] [place] [address] Care Team Providers Care Drift Miner Name Role Phone Dudley House MD Primary Care Provider [phone] Albert Figueroa MD Primary Care Provider +[phone] Frankie Gaspar MD Unavailable Unavailable Augusta De La Cruz DPM Unavailable +[phone] Kyle Morris MD Unavailable +[phone] Ned Birmingham MD Unavailable +[phone] Mike Villareal DO Unavailable [phone] Sony Perez MD Unavailable [phone] Matt Grover MD Unavailable +[phone] Albert Brownlee MD Unavailable +[phone] GinetteHumberto bowser MD Primary Care Provider +[phone] James Jasso DO Unavailable +[phone] Rajat Urban MD Unavailable Unavailable Thuy CotoC Unavailable + [phone] James Stevens DPM Unavailable +[phone] Teresa Ferrer PA-C Unavailable Encounter Details Date Type Department Care Team (Late st Contact Info) Description 03/16/2006 MyC Medical Advice [facility] [place] Medical Records [address] [place] [phone] Elvin Allred Social History Tobacco Use Types [...] on filedocumented in this encounter Care Teams Drift Miner Relationship Specialty Start Date End Date Dudley House MD [address] [place] [phone] PCP - General 03/23/07 09/02/10 Albert Figueroa MD [facility] [address] [facility] [address] [place] [address] PCP - General 10/30/03 03/22/07 Frankie Gaspar MD PCP - Obstetrics/Gynecology 03/03/00 07/23/11 Augusta De La Cruz DPM PCP - Podiatry 09/26/05 Kyle Morris MD PCP - Ophthalmology 02/17/06 Ned Birmingham MD XXX [place] [address] PCP - Surgery 10/25/08 09/27/09 Mike Villareal DO [facility] [address] [place] [address] PCP - Surgery 08/03/06 10/24/08 Sony Perez MD [facility] [address] [place] [address] PCP - ENT 03/19/07 12/08/17 Matt Grover MD [address] [place] [address] [address] [place] [address] PCP - Urology 12/22/08 Albert Brownlee MD [address] [place] [address] PCP - Surgery Surgery 09/28/09 11/02/12 Humberto Peng MD [facility] [place] [address] [place] [address] PCP - General Family Practice 09/03/10 James Jasso DO [facility] [place] [address] [place] [address] PCP - Obstetrics/Gynecology gas load dispatcher 07/24/11 Rajat Urban MD [facility] [place] [address] [place] [address] PCP - Orthopaedics Orthopedics 12/02/11 12/08/17 Thuy Coto PA-C [facility] [place] [address] [place] [address] PCP - Surgery Physician Sorting And Folding Supervisor 11/03/12 James Stevens DPM [facility] [address] [place] [address] Assigned Musculoskeletal Provider 04/25/20 10/25/21 Teresa Ferrer PA-C [address] [facility] [address] [place], [place] [address] Physician Sorting And Folding Supervisor Urology 02/20/23 documented as of this encounter
--- OUTSIDE RECORDS SUMMARY | 2023-08-04 12:33 | XMS_ITS | Encounter Summary ---
Author Organization [place] Address [address] [place] [address] Care Team Providers Care Bowling Alley Mechanic Name Role Phone Dudley Hosue MD Primary Care Provider [phone] Albert Figueroa MD Primary Care Provider [phone] Frankie Gaspar MD Unavailable Unavailable Augusta De La Cruz DPM Unavailable +[phone] Kyle Morris MD Unavailable +[phone] Kayode Brambila OD Unavailable +[phone] Ned Birmingham MD Unavailable +[phone] Mike Villareal DO Unavailable [phone] Sony Perez MD Unavailable [phone] Matt Grover MD Unavailable +[phone] Albert Brownlee MD Unavailable +[phone] GinetteHumberto bowser MD Primary Care Provider +[phone] James Jasso DO Unavailable +[phone] Rajat Urban MD Unavailable Unavailable Thuy CotoC Unavailable +[phone] James Stevens DPM Unavailable +[phone] Teresa Ferrer PA-C Unavailable Encounter Details Date Type Department Care Team (Late st Contact Info) Description 11/04/2005 MyC Medical Advice [facility] [place] Medical Records [address] [place] [phone] Elvin Allred Social History Tobacco Use Types [...] encounter Miscellaneous Notes * Telephone Encounter - Sharon Zamudio - 11/04/2005 9:40 AM CDT Routed to Dr. Gaspar documented in this encounter Plan of Treatment Not on file documented as of this encounter Visit Diagnoses Not on filedocumented in this encounter Care Teams Bowling Alley Mechanic Relationship Specialty Start Date End Date Dudley House MD [address] [place] [address] PCP - General 03/23/07 09/02/10 Albert Figueroa MD [facility] [address] [place] [address] PCP - General 10/30/03 03/22/07 Frankie Gaspar MD PCP - Obstetrics/Gynecology 03/03/00 07/23/11 Augusta De La Cruz DPM PCP - Podiatry 09/26/05 Kyle Morris MD PCP - Ophthalmology 02/17/06 Kayode Brambila OD [facility] [place] [address] [place] [address] PCP - Ophthalmology 03/03/00 02/16/06 Ned Birmingham MD XXX [place] [address] PCP - Surgery 10/25/08 09/27/09 Mike Villareal DO [facility] [address] [place], [place] [address] PCP - Surgery 08/03/06 10/24/08 Sony Perez MD [facility] [address] [place] [address] PCP - ENT 03/19/07 12/08/17 Matt Grover MD [address] [facility] [address] [place] [address] PCP - Urology 12/22/08 Albert Brownlee MD [address] [place] [address] PCP - Surgery Surgery 09/28/09 11/02/12 Humberto Peng MD [facility] [place] [address] [place] [address] PCP - General Family Practice 09/03/10 James Jasso DO [facility] [place] [address] [place] [address] PCP - Obstetrics/Gynecology network operations technician 07/24/11 Rajat Urban MD [facility] [place] [address] [place] [address] PCP - Orthopaedics Orthopedics 12/02/11 12/08/17 Thuy Coto PA-C [facility] [place] [address] [place] [address] PCP - Surgery Physician Custom Bike Builder 11/03/12 James Stevens DPM [address] [facility] [address] [place], [place] [id number] Assigned Musculoskeletal Provider 04/25/20 10/25/21 Teresa Ferrer PA-C [address] [address] Physician Custom Bike Builder Urology 02/20/23 documented as of this encounter
--- OUTSIDE RECORDS SUMMARY | 2023-08-04 12:33 | XMS_ITS | Encounter Summary ---
Author Organization [facility] Address [address] [place] [address] Care Team Providers Care Welt Slasher Name Role Phone Dudley House MD Primary Care Provider [phone] Albert Figueroa MD Primary Care Provider [phone] Frankie Gaspar MD Unavailable Unavailable Augusta De La Cruz DPM Unavailable +[phone] Kyle Morris MD Unavailable +[phone] Kayode Brambila OD Unavailable +[phone] Ned Birmingham MD Unavailable +[phone] Mike Villareal DO Unavailable [phone] Sony Perez MD Unavailable [phone] Matt Grover MD Unavailable [phone] Albert Brownlee MD Unavailable [phone] GinetteHumberto bowser MD Primary Care Provider +[phone] James Jasso DO Unavailable [phone] Rajat Urban MD Unavailable Unavailable Thuy CotoC Unavailable +[phone] James Stevens DPM Unavailable +[phone] Teresa Ferrer PA-C Unavailable Encounter Details Date Type Department Care Team (Late st Contact Info) Description 10/27/2005 MyC Medical Advice [facility] [place] Medical Records [address] [place] [id number] Elvin Allred Social History Tobacco Use Types [...] encounter Miscellaneous Notes * Telephone Encounter - Frankie Gaspar - 10/28/2005 8:58 AM CDT Coming in at 16:45 today documented in this encounter Plan of Treatment Not on file documented as of this encounter Visit Diagnoses Not on filedocumented in this encounter Care Teams Welt Slasher Relationship Specialty Start Date End Date Dudley House MD [address] [place] [address] PCP - General 03/23/07 09/02/10 Albert Figueroa MD [place] [address] [address] [facility] [address] [place] [address] PCP - General 10/30/03 03/22/07 Frankie Gaspar MD PCP - Obstetrics/Gynecology 03/03/00 07/23/11 Augusta De La Cruz DPM PCP - Podiatry 09/26/05 Kyle Morris MD PCP - Ophthalmology 02/17/06 Kayode Brambila OD [facility] [place] [address] [place] [address] PCP - Ophthalmology 03/03/00 02/16/06 Ned Birmingham MD XXX NO INFO FOUND XXX [place] [address] PCP - Surgery 10/25/08 09/27/09 Mike Villaeral DO [facility] [address] [facility] [place] [place] [address] PCP - Surgery 08/03/06 10/24/08 Sony Perez MD [facility] [address] [facility] [place] [address] PCP - ENT 03/19/07 12/08/17 Matt Grover MD [address] [facility] [address] [place] [address] PCP - Urology 12/22/08 Albert Brownlee MD [address] [place] [address] PCP - Surgery Surgery 09/28/09 11/02/12 Humberto Peng MD [facility] [place] [address] [place] [address] PCP - General Family Practice 09/03/10 James Jasso DO [facility] [place] [address] [place] [address] PCP - Obstetrics/Gynecology forest fire fighters dispatcher 07/24/11 Rajat Urban MD [facility] [place] [address] [facility] [address] [place] [address] PCP - Orthopaedics Orthopedics 12/02/11 12/08/17 Thuy Coto PA-C [facility] [place] [address] [facility] [address] [place] [address] PCP - Surgery Physician Palletiser Operator 11/03/12 James Stevens DPM [address] [facility] [address] [place], [place] [id number] Assigned Musculoskeletal Provider 04/25/20 10/25/21 Teresa Ferrer PA-C [address] [facility] [address] [place], [place] [address] Physician Palletiser Operator Urology 02/20/23 documented as of this encounter
--- OUTSIDE RECORDS SUMMARY | 2023-08-04 12:33 | XMS_ITS | Encounter Summary ---
Author Organization [facility] Address [address] [place] [address] Care Team Providers Care Fire Engine Operator Name Role Phone Dudley House MD Primary Care Provider [phone] Albert Figueroa MD Primary Care Provider [phone] Frankie Gaspar MD Unavailable Unavailable Augusta De La Cruz DPM Unavailable +[phone] Kyle Morris MD Unavailable +[phone] Kayode Brambila OD Unavailable +[phone] Ned Birmingham MD Unavailable +[phone] Mike Villareal DO Unavailable [phone] Sony Perez MD Unavailable [phone] Matt Grover MD Unavailable [phone] Albert Brownlee MD Unavailable +[phone] GinetteHumberto bowser MD Primary Care Provider +[phone] James Jasso DO Unavailable [phone] Rajat Urban MD Unavailable Unavailable Thuy CotoC Unavailable +[phone] James Stevens DPM Unavailable +[phone] Teresa Ferrer PA-C Unavailable Encounter Details Date Type Department Care Team (Late st Contact Info) Description 12/31/2005 [facility] [place] Inpatient Dept [address] [place] [address] Frw, Inpatient Provider Social History Tobacco Use [...] as of this encounter Progress Notes * Kyle Morris MD - 12/31/2005 9:52 AM CSTPROCEDURE/OPERATIVE REPORT Date of Procedure: 12/31/2005 PREOPERATIVE DIAGNOSIS: 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 POSTOPERATIVE DIAGNOSIS: Visually disabling nuclear sclerotic cortical cataract of the left eye. OPERATION: PHACOEMULSIFICATION WITH LENS IMPLANTATION LEFT EYE. SURGEON: KIANA ANESTHESIA: MAC COMPLICATIONS: None INDICATIONS: Ms. Lua presented to the Ophthalmology Clinic with complaints of blurred vision in her left eye. On examination the patient was noted to have a +3 nuclear sclerotic cataract. The risks, benefits and alternatives to phacoemulsification with lens implant were discussed including suprachoroidal hemorrhage, endophthalmitis and loss of the eye. The patient desired an emmetropic for refractive outcome. A consent was obtained. PROCEDURE: In the operating room after receiving topical anesthesia the left eye was prepped and draped in a sterile fashion. A lid speculum was placed in the eye. A 12:30 paracentesis tract was made. Viscoelastic was injected into the anterior chamber. A 2.75-millimeter clear corneal incision was made at the temporal limbus with the hetal knife. A cystotome needle and Utrata forceps created a capsulorrhexis. Hydrodissection and hydrodelineation were performed. The central cortex and epinucleus were removed from within the capsulorrhexis using the phaco handpiece. The nucleus was grooved centrally and deeply rotated 90 degrees and cracked in half. Each nuclear half was disassembled using the phaco chopper and handpiece. Each nuclear fragment was captured, phacoemulsified and removed. The epinuclear bowl was captured, flipped over and removed in its entirety. Residual cortex was removed with the irrigation and aspiration handpiece. Viscoelastic filled the capsule and anterior chamber. An WILSON PCIOL model [id number] with a power of 26.0 diopters was inserted into the capsule without difficulty. Residual viscoelastic was removed from the capsule and anterior chamber. The stroma of the wound and paracentesis tracts were hydrated and the chamber filled to a normal intraocular pressure. The wounds were checked for leaks and none were found. Quixin, Alphagan and Pilocarpine were instilled into the eye. Two 600 micron limbal relaxing incisions were made to relax 2 diopters of corneal astigmatism. The patient tolerated the procedure well and left the operating room in satisfactory condition. Kyle Morris M.D. RADHA/irma cc: OR TECHNICAL PROGRAM MANAGER documented in this encounter Plan of Treatment Not on file documented as of this encounter Visit Diagnoses Not on filedocumented in this encounter Care Teams Fire Engine Operator Relationship Specialty Start Date End Date Dudley House MD [address] [place] [address] PCP - General 03/23/07 09/02/10 Albert Figueroa MD [address] [address] PCP - General 10/30/03 03/22/07 Frankie Gaspar MD PCP - Obstetrics/Gynecology 03/03/00 07/23/11 Augusta De La Cruz DPM PCP - Podiatry 09/26/05 Kyle Morris MD PCP - Ophthalmology 02/17/06 Kayode Brambila OD [facility] [place] [address] [place] [address] PCP - Ophthalmology 03/03/00 02/16/06 Ned Birmingham MD XXX [place] [address] PCP - Surgery 10/25/08 09/27/09 Mike Villareal DO [facility] [address] [place] [address] PCP - Surgery 08/03/06 10/24/08 Sony Perez MD [facility] [address] [place] [address] PCP - ENT 03/19/07 12/08/17 Matt Grover MD [address] [facility] [address] [place] [address] PCP - Urology 12/22/08 Albert Brownlee MD [address] [place] [address] PCP - Surgery Surgery 09/28/09 11/02/12 Humberto Peng MD [facility] [place] [address] [place] [address] PCP - General Family Practice 09/03/10 James Jasso DO [facility] [place] [address] [place] [address] PCP - Obstetrics/Gynecology meat apprentice 07/24/11 Rajat Urban MD [facility] [place] [address] [place] [address] PCP - Orthopaedics Orthopedics 12/02/11 12/08/17 Thuy Coto PA-C [facility] [place] [address] [place] [address] PCP - Surgery Physician Tank Filler 11/03/12 James Stevens D[place] [address] [facility] [address] [place], [place] [id number] Assigned Musculoskeletal Provider 04/25/20 10/25/21 Teresa Ferrer PA-C [address] [place] [address] [place] [id number] Physician Tank Filler Urology 02/20/23 documented as of this encounter
--- OUTSIDE RECORDS SUMMARY | 2023-08-04 12:33 | XMS_ITS | Encounter Summary ---
Author Organization [facility] Address [address] [place] [address] Care Team Providers Care Audio Recording Engineer Name Role Phone Dudley House MD Primary Care Provider [phone] Albert Figueroa MD Primary Care Provider [phone] Frankie Gaspar MD Unavailable Unavailable Augusta De La Cruz DPM Unavailable [phone] Kyle Morris MD Unavailable +[phone] Kayode Brambila OD Unavailable +[phone] Ned Birmingham MD Unavailable +[phone] Mike Villareal DO Unavailable [phone] Sony Perez MD Unavailable [phone] Matt Grover MD Unavailable [phone] Albert Brownlee MD Unavailable [phone] GinetteHumberto bowser MD Primary Care Provider [phone] James Jasso DO Unavailable [phone] Rajat Urban MD Unavailable Unavailable Thuy CotoC Unavailable [phone] James Stevens DPM Unavailable +[phone] Teresa Ferrer PA-C Unavailable [phone] Encounter Details Date Type Department Care Team (Late st Contact Info) Description 01/19/2006 [facility] [place] Inpatient Dept [address] [place] [address] Frw, Inpatient Provider Social History Tobacco [...] Progress Notes * Kyle Morris MD - 01/19/2006 1:03 PM CSTPROCEDURE/OPERATIVE REPORT Date of Procedure: 01/19/06 PREOPERATIVE DIAGNOSIS: Visually disabling cortical nuclear sclerotic cataract, right eye. POSTOPERATIVE DIAGNOSIS: Visually disabling cortical nuclear sclerotic cataract, right eye. OPERATION: Phacoemulsification with lens implantation, right eye. SURGEON: KIANA ANESTHESIA: MAC COMPLICATIONS: None INDICATIONS: Ms. Lua presented with complaints of poor vision in her right eye. On examination in the clinic she was noted to have a cortical nuclear sclerotic cataract. She was also noted on topography and manifest refraction to have significant astigmatism. It is advised she undergo phacoemulsification with lens implantation. The risks, benefits and alternatives to surgery were discussed including suprachoroidal hemorrhage, endophthalmitis and loss of the eye. The patient desired emmetropic refractive end point. A consent was obtained. PROCEDURE: In the operating room after receiving topical anesthesia the right eye was prepped and draped in a sterile fashion. A lid speculum was placed in the eye. A 6:30 paracentesis tract was made. Viscoelastic was injected [...] and anterior chamber. An WILSON PCIOL model [id number] with a power of 25.0 diopters was inserted into the capsule without difficulty. Residual viscoelastic was removed from the capsule and anterior chamber. The stroma of the wound and paracentesis tracts were hydrated and the chamber filled to a normal intraocular pressure. The wounds were checked for leaks and none were found. Quixin, Alphagan and Pilocarpine were instilled into the eye. The patient tolerated the procedure well and left the operating room in satisfactory condition. Two limbal relaxing incisions were made to relax 2 1/2 diopters of corneal astigmatism. Analia Evans/zaida cc: MENTATION LEAD documented in this encounter Plan of Treatment Not on file documented as of this encounter Visit Diagnoses Not on filedocumented in this encounter Care Teams Audio Recording Engineer Relationship Specialty Start Date End Date Dudley House MD [address] [place] [address] PCP - General 03/23/07 09/02/10 Albert Figueroa MD [address] [address] PCP - General 10/30/03 03/22/07 Frankie Gaspar MD PCP - Obstetrics/Gynecology 03/03/00 07/23/11 Augusta De La Cruz, DPM PCP - Podiatry 09/26/05 Kyle Morris MD PCP - Ophthalmology 02/17/06 Kayode Brambila OD [facility] [place] [address] [place] [address] PCP - Ophthalmology 03/03/00 02/16/06 Ned Birmingham MD XXX NO INFO FOUND [place] [address] PCP - Surgery 10/25/08 09/27/09 Mike Villareal DO [facility] [address] [place], [place] [address] PCP - Surgery 08/03/06 10/24/08 Sony Perez MD [facility] [address] [place] [address] PCP - ENT 03/19/07 12/08/17 Matt Grover MD [address] [facility] [address] [place] [address] PCP - Urology 12/22/08 Albert Brownlee MD [address] [place] [address] PCP - Surgery Surgery 09/28/09 11/02/12 Humberto Peng MD [facility] [place] [address] [place] [address] PCP - General Family Practice 09/03/10 James Jasso DO [facility] [place] [address] [place] [address] PCP - Obstetrics/Gynecology system administrator 07/24/11 Rajat Urban MD [facility] [place] [address] [place] [address] PCP - Orthopaedics Orthopedics 12/02/11 12/08/17 Thuy Coto PA-C [facility] [place] [address] [place] [address] PCP - Surgery Physician Lay Out Former 11/03/12 James Stevens DPM [address] [facility] [address] [place], [place] [address] Assigned Musculoskeletal Provider 04/25/20 10/25/21 Teresa Ferrer PA-C [address] [address] Physician Lay Out Former Urology 02/20/23 documented as of this encounter
--- OUTSIDE RECORDS SUMMARY | 2023-08-04 12:33 | XMS_ITS | Encounter Summary ---
Author Organization [facility] Address [address] [place] [address] Care Team Providers Care Delivery Table Operator Name Role Phone Dudley House MD Primary Care Provider [phone] Albert Figueroa MD Primary Care Provider [phone] Frankie Gaspar MD Unavailable Unavailable Augusta De La Cruz DPM Unavailable [phone] Kyle Morris MD Unavailable +[phone] Ned Birmingham MD Unavailable +[phone] Mike Villareal DO Unavailable [phone] Sony Perez MD Unavailable [phone] Matt Grover MD Unavailable [phone] Albert Brownlee MD Unavailable [phone] GinetteHumberto bowser MD Primary Care Provider [phone] James Jasso DO Unavailable + [phone] Rajat Urban MD Unavailable Unavailable Thuy Coto PARickyC Unavailable + [phone] James Stevens DPM Unavailable [phone] Teresa Ferrer PA-C Unavailable Reason for Visit * Reason Onset Date Comments MyChart Communication 05/26/2006 Left eye Encounter Details Date Type Department Care Team (Late st Contact Info) Description 05/26/2006 MyC Medical Advice [facility] [place] Medical Records [address] [place] [phone] Elvin Allred Communication (Left eye) Social History Tobacco Use Types Packs/Day [...] on filedocumented in this encounter Care Teams Delivery Table Operator Relationship Specialty Start Date End Date Dudley House MD [address] [place] [address] PCP - General 03/23/07 09/02/10 Albert Figueroa MD [facility] [address] [place] [address] PCP - General 10/30/03 03/22/07 Frankie Gaspar MD PCP - Obstetrics/Gynecology 03/03/00 07/23/11 Augusta De La Cruz DPM PCP - Podiatry 09/26/05 Kyle Morris MD PCP - Ophthalmology 02/17/06 Ned Birmingham MD XXX NO [place] [address] PCP - Surgery 10/25/08 09/27/09 Mike Villareal DO [facility] [address] [place] [address] PCP - Surgery 08/03/06 10/24/08 Sony Perez MD [facility] [address] [place] [address] PCP - ENT 03/19/07 12/08/17 Matt Grover MD [address] [place] [address] [address] [place], [place] [address] PCP - Urology 12/22/08 Albert Brownlee MD [address] [place] [address] PCP - Surgery Surgery 09/28/09 11/02/[address] [facility] [place] [address] [place] [address] PCP - General Family Practice 09/03/[address] [facility] [place] [address] [place] [address] PCP - Obstetrics/Gynecology erp business analyst 07/24/[address] [facility] [place] [address] [place] [address] PCP - Orthopaedics Orthopedics 12/02/11 12/08/17 Thuy Coto PA-C [facility] [place] [address] [place] [address] PCP - Surgery Physician Tankage Supervisor 11/03/12 James Stevens DPM [address] [facility] [address] [place] [address] Assigned Musculoskeletal Provider 04/25/20 10/25/21 Teresa Ferrer PA-C [address] [address] Physician Tankage Supervisor Urology 02/20/23 documented as of this encounter
--- OUTSIDE RECORDS SUMMARY | 2023-08-04 12:33 | XMS_ITS | Encounter Summary ---
Author Organization [place] Address [address] [place] [address] Care Team Providers Care Pastry Cook Apprentice Name Role Phone Dudley House MD Primary Care Provider [phone] Albert Figueroa MD Primary Care Provider +[phone] Frankie Gaspar MD Unavailable Unavailable Augusta De La Cruz DPM Unavailable +[phone] Kyle Morris MD Unavailable +[phone] eNd Birmingham MD Unavailable +[phone] Mike Villareal DO Unavailable [phone] Sony Perez MD Unavailable [phone] Matt Grover MD Unavailable +[phone] Albert Brownlee MD Unavailable +[phone] GinetteHumberto bowser MD Primary Care Provider +[phone] James Jasso DO Unavailable [phone] Rajat Urban MD Unavailable Unavailable Thuy CotoC Unavailable + [phone] James Stevens DPM Unavailable [phone] Teresa Ferrer PA-C Unavailable Reason for Visit * Reason Onset Date Comments Medication Request 03/27/2006 Encounter Details Date Type Department Care Team (Late st Contact Info) Description 03/27/[address] [facility] [place] Medical Records [address] [place] [id number] Elvin Allred Medication Request Social History Tobacco Use Types Packs/Day [...] on filedocumented in this encounter Care Teams Pastry Cook Apprentice Relationship Specialty Start Date End Date Dudley House MD [address] [place] [address] PCP - General 03/23/07 09/02/10 Albert Figueroa MD [facility] [address] [facility] [address] [place] [address] PCP - General 10/30/03 03/22/07 Frankie Gaspar MD PCP - Obstetrics/Gynecology 03/03/00 07/23/11 Augusta De La Cruz DPM PCP - Podiatry 09/26/05 Kyle Morris MD PCP - Ophthalmology 02/17/06 Ned Birmingham MD XXX NO INFO FOUND XXX [place] [address] PCP - Surgery 10/25/08 09/27/09 Mike Villareal DO [facility] [address] [place] [address] PCP - Surgery 08/03/06 10/24/08 Sony Perez MD [facility] [address] [place] [address] PCP - ENT 03/19/07 12/08/17 Matt Grover MD [address] [place] [address] PCP - Urology 12/22/08 Albert Brownlee MD [address] [place] [address] PCP - Surgery Surgery 09/28/09 11/02/12 Humberto Peng MD [facility] [place] [address] [place] [address] PCP - General Family Practice 09/03/10 James Jasso DO [facility] [place] [address] [place] [address] PCP - Obstetrics/Gynecology bench scientist 07/24/11 Rajat Urban MD [facility] [place] [address] [place] [address] PCP - Orthopaedics Orthopedics 12/02/11 12/08/17 Thuy Coto PA-C [facility] [place] [address] [place] [address] PCP - Surgery Physician Textile Chemist 11/03/12 James Stevens DPM [address] [facility] [address] [place], [place] [id number] Assigned Musculoskeletal Provider 04/25/20 10/25/21 Teresa Ferrer PA-C [address] [facility] [address] [place], [place] [id number] Physician Textile Chemist Urology 02/20/23 documented as of this encounter
--- OUTSIDE RECORDS SUMMARY | 2023-08-04 12:33 | XMS_ITS | Encounter Summary ---
Author Organization [facility] Address [address] [place] [address] Care Team Providers Care Furnace Builder Name Role Phone Dudley House MD Primary Care Provider [phone] Albert Figueroa MD Primary Care Provider [phone] Frankie Gaspar MD Unavailable Unavailable Augusta De La Cruz DPM Unavailable +[phone] Kyle Morris MD Unavailable +[phone] Ned Birmingham MD Unavailable +[phone] Mike Villareal DO Unavailable +[phone] Sony Perez MD Unavailable [phone] Matt Grover MD Unavailable +[phone] Albert Brownlee MD Unavailable +[phone] GinetteHumberto bowser MD Primary Care Provider +[phone] James Jasso DO Unavailable +[phone] Rajat Urban MD Unavailable Unavailable Thuy CotoC Unavailable + [phone] James Stevens DPM Unavailable +[phone] Teresa Ferrer PA-C Unavailable Encounter Details Date Type Department Care Team (Late st Contact Info) Description 04/03/2006 MyC Medical Advice [facility] in [place] Medical Records [address] [place] [id number] Elvin Allred Social History Tobacco Use Types [...] on filedocumented in this encounter Care Teams Furnace Builder Relationship Specialty Start Date End Date Dudley House MD [address] [place] [phone] PCP - General 03/23/07 09/02/10 Albert Figueroa MD [facility] [address] [facility] [address] [place] [address] PCP - General 10/30/03 03/22/07 Frankie Gaspar MD PCP - Obstetrics/Gynecology 03/03/00 07/23/11 Augusta De La Cruz DPM PCP - Podiatry 09/26/05 Kyle Morris MD PCP - Ophthalmology 02/17/06 Ned Birmingham MD XXX [place] [address] PCP - Surgery 10/25/08 09/27/09 Mike Villareal DO [facility] [address] [place] [address] PCP - Surgery 08/03/06 10/24/08 Sony Perez MD [facility] [address] [place] [address] PCP - ENT 03/19/07 12/08/17 Matt Grover MD [address] [place] [address] [address] [place] [address] PCP - Urology 12/22/08 Albert Brownlee MD [address] [place] [address] PCP - Surgery Surgery 09/28/09 11/02/12 Humberto Peng MD [facility] [place] [address] [place] [address] PCP - General Family Practice 09/03/10 James Jasso DO [facility] [place] [address] [place] [address] PCP - Obstetrics/Gynecology vc++ developer 07/24/11 Rajat Urban MD [facility] [place] [address] [place] [address] PCP - Orthopaedics Orthopedics 12/02/11 12/08/17 Thuy Coto PA-C [facility] [place] [address] [place] [address] PCP - Surgery Physician Nut Dehydrator Operator 11/03/12 James Stevens DPM [facility] [address] [place] [address] Assigned Musculoskeletal Provider 04/25/20 10/25/21 Teresa Ferrer PA-C [address] [facility] [address] [place], [place] [address] Physician Nut Dehydrator Operator Urology 02/20/23 documented as of this encounter
--- OUTSIDE RECORDS SUMMARY | 2023-08-04 12:33 | XMS_ITS | Encounter Summary ---
Author Organization [facility] Address [address] [place] [address] Care Team Providers Care Blanket Weaver Name Role Phone Dudley House MD Primary Care Provider [phone] Albert Figueroa MD Primary Care Provider [phone] Frankie Gaspar MD Unavailable Unavailable Augusta De La Cruz DPM Unavailable +[phone] Kyle Morris MD Unavailable +[phone] Kayode Brambila OD Unavailable +[phone] Ned Birmingham MD Unavailable +[phone] Mike Villareal DO Unavailable +[phone] Sony Perez MD Unavailable [phone] Matt Grover MD Unavailable +[phone] Albert Brownlee MD Unavailable +[phone] GinetteHumberto bowser MD Primary Care Provider +[phone] James Jasso DO Unavailable +[phone] Rajat Urban MD Unavailable Unavailable Thuy Coto PARickyC Unavailable + [phone] James Stevens DPM Unavailable +[phone] Teresa Ferrer PA-C Unavailable Reason for Visit * Reason Onset Date Comments Call Back 12/10/2005 return My chart ?? Encounter Details Date Type Department Care Team (Late st Contact Info) Description 12/10/2005 MyC Medical Advice [facility] in [place] Medical Records [place] [phone] Elvin Allred Call Back (return My chart ??) Social History Tobacco Use Types Packs/Day Years [...] encounter Miscellaneous Notes * Telephone Encounter - Adriane Farrell - 12/10/2005 12:[address] Gaspar pt has question and is getting back to you about use of Detrol LA pt is using My CHart Y WAFFLE ASSEMBLER documented in this encounter Plan of Treatment Not on file documented as of this encounter Visit Diagnoses Not on filedocumented in this encounter Care Teams Blanket Weaver Relationship Specialty Start Date End Date Dudley House MD [address] [place] [phone] PCP - General 03/23/07 09/02/10 Albert Figueroa MD [facility] [address] [place] [address] PCP - General 10/30/03 03/22/07 Frankie Gaspar MD PCP - Obstetrics/Gynecology 03/03/00 07/23/11 Augusta De La Cruz DPM PCP - Podiatry 09/26/05 Kyle Morris MD PCP - Ophthalmology 02/17/06 Kayode Brambila OD [facility] [place] [address] [place] [address] PCP - Ophthalmology 03/03/00 02/16/06 Ned Birmingham MD XXX [place] [address] PCP - Surgery 10/25/08 09/27/09 Mike Villareal DO [facility] [address] [place] [address] PCP - Surgery 08/03/06 10/24/08 Sony Perez MD [facility] [address] [place] [address] PCP - ENT 03/19/07 12/08/17 Matt Grover MD [address] [facility] [address] [place] [address] PCP - Urology 12/22/08 Albert Brownlee MD [address] [place] [address] PCP - Surgery Surgery 09/28/09 11/02/12 Humberto Peng MD [facility] [place] [address] [place] [address] PCP - General Family Practice 09/03/10 James Jasso DO [facility] [place] [address] [place] [address] PCP - Obstetrics/Gynecology tie maker 07/24/11 Rajat Urban MD [facility] [place] [address] [place] [address] PCP - Orthopaedics Orthopedics 12/02/11 12/08/17 Thuy Coto PA-C [facility] [place] [address] [place] [address] PCP - Surgery Physician Detail Supervisor 11/03/12 James Stevens DPM [address] [facility] [address] [place], [place] [address] Assigned Musculoskeletal Provider 04/25/20 10/25/21 Teresa Ferrer PA-C [address] [place], [place] [address] Physician Detail Supervisor Urology 02/20/23 documented as of this encounter
--- OUTSIDE RECORDS SUMMARY | 2023-08-04 12:33 | XMS_ITS | Encounter Summary ---
Author Organization [facility] Address [address] [place] [address] Care Team Providers Care Medical Laboratory Manager Name Role Phone Dudley House MD Primary Care Provider [phone] Albert Figueroa MD Primary Care Provider [phone] Frankie Gaspar MD Unavailable Unavailable Augusta De La Cruz DPM Unavailable +[phone] Kyle Morris MD Unavailable +[phone] Kayode Brambila OD Unavailable +[phone] Ned Birmingham MD Unavailable +[phone] Mike Villareal DO Unavailable [phone] Sony Perez MD Unavailable [phone] Matt Grover MD Unavailable +[phone] Albert Brownlee MD Unavailable +[phone] GinetteHumberto bowser MD Primary Care Provider +[phone] James Jasso DO Unavailable +[phone] Rajat Urban MD Unavailable Unavailable Thuy CotoC Unavailable +[phone] James Stevens DPM Unavailable +[phone] Teresa Ferrer PA-C Unavailable Encounter Details Date Type Department Care Team (Late st Contact Info) Description 10/01/2005 Telephone [facility] [place] MANAGER WORK [address] [place] [phone] Frankie Gaspar MD Social History Tobacco Use Types Packs/Day Years [...] encounter Miscellaneous Notes * Telephone Encounter - Darcy Fair - 10/01/2005 1:41 PM CDT Calling you back to discuss if she should continue medication you gave her at her last visit. She can be reached at home or cell number listed below. * Telephone Encounter - Kay Bal - 10/01/2005 8:45 AM CDT Pt was instructed to call Dr Gaspar back this week. She can be reached today at [phone] or C: [phone] documented in this encounter Plan of Treatment Not on file documented as of this encounter Visit Diagnoses Not on filedocumented in this encounter Care Teams Medical Laboratory Manager Relationship Specialty Start Date End Date Dudley House MD [address] [place] [phone] PCP - General 03/23/07 09/02/10 Albert Figueroa MD [facility] [address] [place] [address] PCP - General 10/30/03 03/22/07 Frankie Gaspar MD PCP - Obstetrics/Gynecology 03/03/00 07/23/11 Augusta De La Cruz DPM PCP - Podiatry 09/26/05 Kyle Morris MD PCP - Ophthalmology 02/17/06 Kayode Brambila OD [facility] [address] [facility] [address] [place] [address] PCP - Ophthalmology 03/03/00 02/16/06 Ned Birmingham MD XXX [place] [address] PCP - Surgery 10/25/08 09/27/09 Mike Villareal DO [facility] [address] [place] [address] PCP - Surgery 08/03/06 10/24/08 Sony Perez MD [facility] [address] [place] [address] PCP - ENT 03/19/07 12/08/17 Matt Grover MD [address] [facility] [address] [place] [address] PCP - Urology 12/22/08 Albert Brownlee MD [address] [place] [address] PCP - Surgery Surgery 09/28/09 11/02/12 Humberto Peng MD [facility] [place] [address] [place] [address] PCP - General Family Practice 09/03/10 James Jasso DO [facility] [place] [address] [place] [address] PCP - Obstetrics/Gynecology barber stylist 07/24/11 Rajat Urban MD [facility] [place] [address] [place] [address] PCP - Orthopaedics Orthopedics 12/02/11 12/08/17 Thuy Coto PA-C [facility] [place] [address] [place] [address] PCP - Surgery Physician Driver License Reviewing Officer 11/03/12 James Stevens DPM [address] [facility] [address] [place], [place] [address] Assigned Musculoskeletal Provider 04/25/20 10/25/21 Teresa Ferrer PA-C [address] [facility] [address] [place], [place] [address] Physician Driver License Reviewing Officer Urology 02/20/23 documented as of this encounter
--- OUTSIDE RECORDS SUMMARY | 2023-08-04 12:34 | XMS_ITS | Encounter Summary ---
Author Organization [facility] Address [address] [place] [address] Care Team Providers Care Senior Safety Support Manager Name Role Phone Dudley House MD Primary Care Provider [phone] Albert Figueroa MD Primary Care Provider [phone] Frankie Gaspar MD Unavailable Unavailable Augusta De La Cruz DPM Unavailable Frw, None Unavailable Unavailable Kyle Morris MD Unavailable +[phone] Kayode Brambila OD Unavailable +[phone] Ned Birmingham MD Unavailable +[phone] Mike Villareal DO Unavailable [phone] Sony Perez MD Unavailable [phone] Matt Grover MD Unavailable [phone] Albert Brownlee MD Unavailable +[phone] GinetteHumberto bowser MD Primary Care Provider +[phone] James Jasso DO Unavailable [phone] Rajat Urban MD Unavailable Unavailable Thuy Coto PARickyC Unavailable +[phone] James Stevens DPM Unavailable +[phone] Teresa FerrerC Unavailable [phone] Reason for Visit * Reason Onset Date Comments MyChart Communication 03/17/2005 medication question Encounter Details Date Type Department Care Team (Late st Contact Info) Description 03/17/2005 MyC Medical Advice [facility] in [place] Medical Records [place] [phone] Elvin Allredhart Communication (medication question) Social History Tobacco Use Types Packs/Day [...] on filedocumented in this encounter Care Teams Senior Safety Support Manager Relationship Specialty Start Date End Date Dudley House MD [address] [place] [address] PCP - General 03/23/07 09/02/10 Albert Figueroa MD [facility] [address] [facility] [address] [place] [address] PCP - General 10/30/03 03/22/07 Frankie Gaspar MD PCP - Obstetrics/Gynecology 03/03/00 07/23/11 Augusta De La Cruz DPM PCP - Podiatry 09/26/05 Frw, None PCP - Podiatry 09/26/04 09/25/05 Kyle Morris MD PCP - Ophthalmology 02/17/06 Kayode Brambila OD [facility] [address] [place] [address] PCP - Ophthalmology 03/03/00 02/16/06 Ned Birmingham MD XXX [place] [id number] PCP - Surgery 10/25/08 09/27/09 Mike Villareal DO [facility] [address] [place] [address] PCP - Surgery 08/03/06 10/24/08 Sony Perez MD [facility] [address] [place] [address] PCP - ENT 03/19/07 12/08/17 Matt Grover MD [address] [facility] [address] [place] [address] PCP - Urology 12/22/08 Albert Brownlee MD [address] [place] [address] PCP - Surgery Surgery 09/28/09 11/02/12 Humberto Peng MD [facility] [place] [address] [place] [address] PCP - General Family Practice 09/03/10 James Jasso DO [facility] [place] [address] [place] [address] PCP - Obstetrics/Gynecology food service assistant 07/24/11 Rajat Urban MD [facility] [place] [address] [place] [address] PCP - Orthopaedics Orthopedics 12/02/11 12/08/17 Thuy Coto PA-C [facility] [place] [address] [place] [address] PCP - Surgery Physician Dragline Operator Helper 11/03/12 James Stevens DPM [address] [facility] [address] [place] [address] Assigned Musculoskeletal Provider 04/25/20 10/25/21 Teresa Ferrer PA-C [address] [place], [place] [address] Physician Dragline Operator Helper Urology 02/20/23 documented as of this encounter
--- OUTSIDE RECORDS SUMMARY | 2023-08-04 12:34 | XMS_ITS | Encounter Summary ---
Author Organization [facility] Address [address] [place] [address] Care Team Providers Care Wind Turbine Controls Engineer Name Role Phone Dudley House MD Primary Care Provider Albert Figueroa MD Primary Care Provider [phone] Frankie Gaspar MD Unavailable Unavailable Augusta De La Cruz DPM Unavailable +[phone] Frw, None Unavailable Unavailable Kyle Morris MD Unavailable +[phone] Kayode Brambila OD Unavailable +[phone] Ned Birmingham MD Unavailable [phone] Mike Villareal DO Unavailable [phone] Sony Perez MD Unavailable [phone] Matt Grover MD Unavailable [phone] Albert Brownlee MD Unavailable [phone] GinetteHumberto bowser MD Primary Care Provider [phone] James Jasso DO Unavailable [phone] Rajat Urban MD Unavailable Unavailable Thuy CotoC Unavailable James Stevens DPM Unavailable +[phone] Teresa Ferrer PA-C Unavailable Encounter Details Date Type Department Care Team (Late st Contact Info) Description 08/05/2005 [facility] [place] PROJECT MANAGEMENT DIRECTOR [address] [place] [phone] Frankie Gaspar MD Social History Tobacco Use [...] on filedocumented in this encounter Care Teams Wind Turbine Controls Engineer Relationship Specialty Start Date End Date Dudley House MD [address] [place] [address] PCP - General 03/23/07 09/02/10 Albert Figueroa MD [facility] [address] [place] [address] PCP - General 10/30/03 03/22/07 Frankie Gaspar MD PCP - Obstetrics/Gynecology 03/03/00 07/23/11 Augusta De La Cruz DPM PCP - Podiatry 09/26/05 Frw, None PCP - Podiatry 09/26/04 09/25/05 Kyle Morris MD PCP - Ophthalmology 02/17/06 Kayode Brambila OD [facility] [place] [address] [place] [address] PCP - Ophthalmology 03/03/00 02/16/06 Ned Birmingham MD XXX [place] [address] PCP - Surgery 10/25/08 09/27/09 Mike Villareal DO [facility] [address] [place], [place] [address] PCP - Surgery 08/03/06 10/24/08 Sony Perez MD [facility]3] [address] [place], [place] [address] PCP - ENT 03/19/07 12/08/17 Matt Grover MD [address] [place] [address] PCP - Urology 12/22/08 Albert Brownlee MD [address] [place] [address] PCP - Surgery Surgery 09/28/09 11/02/12 Humberto Peng MD [facility] [address] [place] [address] PCP - General Family Practice 09/03/10 James Jasso DO [facility] [place] [address] [place] [address] PCP - Obstetrics/Gynecology glassware selector 07/24/11 Rajat Urban MD [facility] [place] [address] [place] [address] PCP - Orthopaedics Orthopedics 12/02/11 12/08/17 Thuy Coto PA-C [facility] [place] [address] [place] [address] PCP - Surgery Physician Battery Charger 11/03/12 James Stevens DPM [address] [facility] [address] [place], [place] [address] Assigned Musculoskeletal Provider 04/25/20 10/25/21 Teresa Ferrer PA-C [address] [place] [address] Physician Battery Charger Urology 02/20/23 documented as of this encounter
--- OUTSIDE RECORDS SUMMARY | 2023-08-04 12:34 | XMS_ITS | Encounter Summary ---
Author Organization [facility] Address [address] [place] [address] Care Team Providers Care Grain Handler Name Role Phone Dudley House MD Primary Care Provider [phone] Albert Figueroa MD Primary Care Provider [phone] Frankie Gaspar MD Unavailable Unavailable Augusta De La Cruz DPM Unavailable Frw, None Unavailable Unavailable Kyle Morris MD Unavailable +[phone] Kayode Brambila OD Unavailable +[phone] Ned Birmingham MD Unavailable Mike Villareal DO Unavailable [phone] Sony Perez MD Unavailable [phone] Matt Grover MD Unavailable Albert Brownlee MD Unavailable +[phone] GinetteHumberto bowser MD Primary Care Provider [phone] James Jasso DO Unavailable [phone] Rajat Urban MD Unavailable Unavailable Thuy Coto PARickyC Unavailable [phone] James Stevens DPM Unavailable [phone] Teresa FerrerC Unavailable Reason for Visit * Reason Onset Date Comments MyChart Communication 11/13/2004 Encounter Details Date Type Department Care Team (Late st Contact Info) Description 11/11/2004 MyC Medical Advice [facility] [place] Medical Records [place] [phone] Elvin Allred MyChart Communication Social History Tobacco Use Types Packs/Day [...] on filedocumented in this encounter Care Teams Grain Handler Relationship Specialty Start Date End Date Dudley House MD [address] [place] [phone] PCP - General 03/23/07 09/02/10 Albert Figueroa MD [facility] [address] [facility] [address] [place] [address] PCP - General 10/30/03 03/22/07 Frankie Gaspar MD PCP - Obstetrics/Gynecology 03/03/00 07/23/11 Augusta De La Cruz DPM PCP - Podiatry 09/26/05 Frw, None PCP - Podiatry 09/26/04 09/25/05 Kyle Morris MD PCP - Ophthalmology 02/17/06 Kayode Brambila OD [facility] [address] [place] [address] PCP - Ophthalmology 03/03/00 02/16/06 Ned Birmingham MD XXX NO INFO FOUND XXX [place] [address] PCP - Surgery 10/25/08 09/27/09 Mike Villareal DO [facility] [address] [place] [address] PCP - Surgery 08/03/06 10/24/08 Sony Perez MD [facility] [address] [place] [address] PCP - ENT 03/19/07 12/08/17 Matt Grover MD [address] [place] [address] PCP - Urology 12/22/08 Albert Brownlee MD [address] [place] [address] PCP - Surgery Surgery 09/28/09 11/02/12 Humberto Peng MD [facility] [place] [address] [place] [address] PCP - General Family Practice 09/03/10 James Jasso DO [facility] [place] [address] [place] [address] PCP - Obstetrics/Gynecology power manager 07/24/11 Rajat Urban MD [facility] [place] [address] [place] [address] PCP - Orthopaedics Orthopedics 12/02/11 12/08/17 Thuy Coto PA-C [facility] [place] [address] [place] [address] PCP - Surgery Physician Patient Biller 11/03/12 James Stevens DPM [address] [facility] [address] [place], [place] [address] Assigned Musculoskeletal Provider 04/25/20 10/25/21 Teresa Ferrer PA-C [address] [place] [address] Physician Patient Biller Urology 02/20/23 documented as of this encounter
--- OUTSIDE RECORDS SUMMARY | 2023-08-04 12:34 | XMS_ITS | Encounter Summary ---
Author Organization [facility] Address [address] [place] [address] Care Team Providers Care Paper Sorter Name Role Phone Dudley House MD Primary Care Provider [phone] Albert Figueroa MD Primary Care Provider [phone] Frankie Gaspar MD Unavailable Unavailable Augusta De La Cruz DPM Unavailable [phone] Frw, None Unavailable Unavailable Kyle Morris MD Unavailable [phone] Kayode Brambila OD Unavailable +[phone] Ned Birmingham MD Unavailable Mike Villareal DO Unavailable [phone] Sony Perez MD Unavailable [phone] Matt Grover MD Unavailable [phone] Albert Brownlee MD Unavailable [phone] GinetteHumberto bowser MD Primary Care Provider [phone] James Jasso DO Unavailable [phone] Rajat Urban MD Unavailable Unavailable Thuy Coto PARickyC Unavailable [phone] James Stevens DPM Unavailable [phone] Teresa FerrerC Unavailable Reason for Visit * Reason Onset Date Comments Medication Question 05/05/2005 see mychart message Encounter Details Date Type Department Care Team (Late st Contact Info) Description 05/05/2005 MyC Medical Advice [facility] in [place] Medical Records CARL Alexander [phone] Elvin Allred Medication Question (see mychart message) Social History Tobacco Use Types Packs/Day Years [...] on filedocumented in this encounter Care Teams Paper Sorter Relationship Specialty Start Date End Date Dudley House MD [address] [place] [phone] PCP - General 03/23/07 09/02/10 Albert Figueroa MD [facility] [address] [facility] [address] [place] [address] PCP - General 10/30/03 03/22/07 Frankie Gaspar MD PCP - Obstetrics/Gynecology 03/03/00 07/23/11 Augusta De La Cruz DPM PCP - Podiatry 09/26/05 Frw, None PCP - Podiatry 09/26/04 09/25/05 Kyle Morris MD PCP - Ophthalmology 02/17/06 Kayode Brambila OD [facility] [address] [place] [address] PCP - Ophthalmology 03/03/00 02/16/06 Ned Birmingham MD XXX NO [place] [address] PCP - Surgery 10/25/08 09/27/09 Mike Villareal DO [facility] [address] [place] [address] PCP - Surgery 08/03/06 10/24/08 Sony Perez MD [facility] [address] [place] [address] PCP - ENT 03/19/07 12/08/17 Matt Grover MD [address] [facility] [address] [place] [address] PCP - Urology 12/22/08 Albert Brownlee MD [address] [place] [address] PCP - Surgery Surgery 09/28/09 11/02/12 Humberto Peng MD [facility] [place] [address] [facility] [address] PCP - General Family Practice 09/03/10 James Jasso DO [facility] [place] [address] [place] [address] PCP - Obstetrics/Gynecology 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 07/24/11 Rajat Urban MD [facility] [place] [address] [facility] [address] [place] [address] PCP - Orthopaedics Orthopedics 12/02/11 12/08/17 Thuy Coto PA-C [facility] [place] [address] [place] [address] PCP - Surgery Physician Regional Agronomist 11/03/12 James Stevens DPM [address] [facility] [address] [place] [address] Assigned Musculoskeletal Provider 04/25/20 10/25/21 Teresa Ferrer PA-C [address] [place] [address] Physician Regional Agronomist Urology 02/20/23 documented as of this encounter
--- OUTSIDE RECORDS SUMMARY | 2023-08-04 12:34 | XMS_ITS | Encounter Summary ---
Author Organization [facility] Address [address] [place] [address] Care Team Providers Care Advanced Registered Nurse Name Role Phone Dudley House MD Primary Care Provider Albert Figueroa MD Primary Care Provider [phone] Frankie Gaspar MD Unavailable Unavailable Augusta De La Cruz DPM Unavailable [phone] Frw, None Unavailable Unavailable Kyle Morris MD Unavailable +[phone] Kayoed Brambila OD Unavailable [phone] Ned Birmingham MD Unavailable Mike Villareal DO Unavailable [phone] Sony Perez MD Unavailable [phone] Matt Grover MD Unavailable [phone] Albert Brownlee MD Unavailable [phone] GinetteHumberto bowser MD Primary Care Provider [phone] James Jasso DO Unavailable [phone] Rajat Urban MD Unavailable Unavailable Thuy Coto PARickyC Unavailable [phone] James Stevens DPM Unavailable [phone] Teresa FerrerC Unavailable Reason for Visit * Reason Onset Date Comments Call Back 08/06/2005 post-op question s Encounter Details Date Type Department Care Team (Late st Contact Info) Description 08/06/2005 Telephone [facility] in [place] LENS GENERATING MACHINE TENDER [address] [phone] Frankie Gaspar MD Call Back (post-op questions) Social History Tobacco Use Types Packs/Day Years [...] encounter Miscellaneous Notes * Telephone Encounter - Sima De Santiago - 08/06/2005 8:57 AM CDT Pt had bladder surgery with you yesterday, wondering if it is to be expected to have continued incontinence and whether or not she should be taking her detrol. She also has significant bruising across her lower abdomen and is wondering if that is normal. She can be reached at home number or cell [phone]. documented in this encounter Plan of Treatment Not on file documented as of this encounter Visit Diagnoses Not on filedocumented in this encounter Care Teams Advanced Registered Nurse Relationship Specialty Start Date End Date Dudley House MD [address] [place] [address] PCP - General 03/23/07 09/02/10 Albert Figueroa MD [facility] [address] [place] [address] PCP - General 10/30/03 03/22/07 Frankie Gaspar MD PCP - Obstetrics/Gynecology 03/03/00 07/23/11 Augusta De La Cruz DPM PCP - Podiatry 09/26/05 Frw, None PCP - Podiatry 09/26/04 09/25/05 Kyle Morris MD PCP - Ophthalmology 02/17/06 Kayode Brambila OD [facility] [address] [facility] [address] [place] [address] PCP - Ophthalmology 03/03/00 02/16/06 Ned Birmingham MD XXX [place] [address] PCP - Surgery 10/25/08 09/27/09 Mike Villareal DO [facility] [address] [place] [address] PCP - Surgery 08/03/06 10/24/08 Sony Perez MD 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 07/24/11 Rajat Urban MD [facility] [place] [address] [place] [address] PCP - Orthopaedics Orthopedics 12/02/11 12/08/17 Thuy Coto PA-C [facility] [place] [address] [place] [address] PCP - Surgery Physician Sound Ranging Crewmember 11/03/12 James Stevens DPM [address] [facility] [address] [place], [place] [address] Assigned Musculoskeletal Provider 04/25/20 10/25/21 Teresa Ferrer PA-C [address] [place], [place] [address] Physician Sound Ranging Crewmember Urology 02/20/23 documented as of this encounter
--- OUTSIDE RECORDS SUMMARY | 2023-08-04 12:34 | XMS_ITS | Encounter Summary ---
Author Organization [facility] Address [address] [place] [address] Care Team Providers Care E Merchant Name Role Phone Dudley House MD Primary Care Provider [phone] Albert Figureoa MD Primary Care Provider [phone] Frankie Gaspar MD Unavailable Unavailable Augusta De La Cruz DPM Unavailable [phone] Frw, None Unavailable Unavailable Kyle Morris MD Unavailable [phone] Kayode Brambila OD Unavailable [phone] Ned Birmingham MD Unavailable [phone] Mike Villareal DO Unavailable [phone] Sony Perez MD Unavailable [phone] Matt Grover MD Unavailable [phone] Albert Brownlee MD Unavailable [phone] GinetteHumberto bowser MD Primary Care Provider [phone] James Jasso DO Unavailable [phone] Rajat Urban MD Unavailable Unavailable Thuy CotoC Unavailable James Stevens DPM Unavailable [phone] Teresa Ferrer PA-C Unavailable [phone] Encounter Details Date Type Department Care Team (Late st Contact Info) Description 07/25/[address] [facility] [place] Internal Medicine [address] [place] [phone] Albert Figueroa MD [facility] [address] [place] [address] Social History Tobacco Use Types Packs/Day Years [...] on filedocumented in this encounter Care Teams E Merchant Relationship Specialty Start Date End Date Dudley House MD [address] [place] [phone] PCP - General 03/23/07 09/02/10 Albert Figueroa MD [address] [address] PCP - General 10/30/03 03/22/07 Frankie Gaspar MD PCP - Obstetrics/Gynecology 03/03/00 07/23/11 Augusta De La Cruz DPM PCP - Podiatry 09/26/05 Frw, None PCP - Podiatry 09/26/04 09/25/05 Kyle Morris MD PCP - Ophthalmology 02/17/06 Kayode Brambila OD [facility] [place] [address] [place] [address] PCP - Ophthalmology 03/03/00 02/16/06 Ned Birmingham MD XXX NO INFO FOUND XXX [place] [address] PCP - Surgery 10/25/08 09/27/09 Mike Villareal DO [facility] [address] [place] [address] PCP - Surgery 08/03/06 10/24/08 Sony Perez MD [facility] [address] [place] [address] PCP - ENT 03/19/07 12/08/17 Matt Grover MD 420 [facility] [address] [place] [address] PCP - Urology 12/22/08 Albert Brownlee MD [address] [place] [address] PCP - Surgery Surgery 09/28/09 11/02/12 Humberto Peng MD [facility] [place] [address] [place] [address] PCP - General Family Practice 09/03/10 James Jasso DO [facility] [place] [address] [place] [address] PCP - Obstetrics/Gynecology fisher seal 07/24/11 Rajat Urban MD [facility] [place] [address] [place] [address] PCP - Orthopaedics Orthopedics 12/02/11 12/08/17 Thuy Coto PA-C [facility] [place] [address] [place] [address] PCP - Surgery Physician Glass Blowing Lathe Operator 11/03/12 James Stevens DPM [address] [facility] [address] [place], [place] [address] Assigned Musculoskeletal Provider 04/25/20 10/25/21 Teresa Ferrer PA-C [address] [place], [place] [address] Physician Glass Blowing Lathe Operator Urology 02/20/23 documented as of this encounter
--- OUTSIDE RECORDS SUMMARY | 2023-08-04 12:34 | XMS_ITS | Encounter Summary ---
Author Organization [facility] Address [address] [place] [address] Care Team Providers Care Cook Starch Name Role Phone Dudley House MD Primary Care Provider Albert Figueroa MD Primary Care Provider [phone] Frankie Gaspar MD Unavailable Unavailable Augusta De La Cruz DPM Unavailable +[phone] Frw, None Unavailable Unavailable Kyle Morris MD Unavailable [phone] Kayode Brambila OD Unavailable +[phone] Ned Birmingham MD Unavailable [phone] Mike Villareal DO Unavailable [phone] Sony Perez MD Unavailable [phone] Matt Grover MD Unavailable [phone] Albert Brownlee MD Unavailable [phone] GinetteHumberto bowser MD Primary Care Provider [phone] James Jasso DO Unavailable [phone] Rajat Urban MD Unavailable Unavailable Thuy CotoC Unavailable James Stevens DPM Unavailable [phone] Teresa Ferrre PA-C Unavailable Encounter Details Date Type Department Care Team (Late st Contact Info) Description 08/05/2005 [facility] in [place] Inpatient Dept [address] [place] [address] Frw, Inpatient Provider Social History Tobacco [...] as of this encounter Progress Notes * Frankie Gaspar - 08/06/2005 12:33 PM CDTPROCEDURE/OPERATIVE REPORT Date of Procedure: 08/05/2005 PREOPERATIVE DIAGNOSES: 1. Stress urinary incontinence. 2. Intrinsic sphincter defect. 3. Cystocele. POSTOPERATIVE DIAGNOSES: 1. Stress urinary incontinence. 2. Intrinsic sphincter defect. 3. Cystocele. PROCEDURE: Anterior vaginal repair, tension free vaginal tape, cystoscopy. SURGEON: Frankie Gaspar M.D., Web Content Director: Juliano Elmore M.D. ANESTHESIA: General anesthesia. ESTIMATED BLOOD LOSS: 50 milliliters. COMPLICATIONS: None. INDICATIONS: Pastora Lua has stress urinary incontinence with urodynamic studies finding ISD (intrinsic sphincter deficiency) and stress incontinence. She understands that sling surgery has the best chance of helping but also has a small chance of not being effective in solving incontinence problem. She may also need to continue on an incontinence medication. PROCEDURE: The patient is taken to surgery with an IV (intravenous) in place. General anesthesia is administered and she is easily intubated. She is placed in lithotomy position and peritoneum and vagina are prepped and draped in a normal sterile manner. The anterior vaginal wall is opened from one centimeter inside the hymenal ring to the vaginal cuff. The mucosa is taken off the fascia sharply and bluntly. The fascia is pulled to the midline with 2-0 Vicryl interrupted box sutures. A Mata catheter is placed in the bladder and the bladder emptied. A styloid is placed in the Mata and the bladder is pushed to the contralateral side as each TVT needle is placed towards the ipsilateral shoulder. With the TVT sheaths in place, the Mata catheter is removed and the cystoscope is placed in the bladder. The bladder is viewed and found to have no abnormalities and no evidence of injury. The cystoscope is removed and the Mata catheter is placed and the bladder emptied. The TVT is then pulled to within one fingerbreath of the urethra. The TVT is trimmed at the exit sites and the abdominal wall. These wounds are closed with Dermabond. The anterior vaginal wall is then closed with 0 Vicryl running locking suture and is dry. The Mata catheter is left in place. The patient is awakened and extubated in the operating room and taken awake in good condition to the recovery room. All sponge, needle and instrument counts were correct. Frankie Gaspar M.D. WDS/aleksander cc: documented in this encounter Plan of Treatment Not on file documented as of this encounter Visit Diagnoses Not on filedocumented in this encounter Care Teams Cook Starch Relationship Specialty Start Date End Date Dudley House MD [address] [place] [address] PCP - General 03/23/07 09/02/10 Albert Figueroa MD [address] [address] PCP - General 10/30/03 03/22/07 Frankie Gaspar MD PCP - Obstetrics/Gynecology 03/03/00 07/23/11 Augusta De La Cruz, WILLIAMM PCP - Podiatry 09/26/05 Frw, None PCP - Podiatry 09/26/04 09/25/05 Kyle Morris MD PCP - Ophthalmology 02/17/06 Kayode Brambila OD [facility] [place] [address] [place] [address] PCP - Ophthalmology 03/03/00 02/16/06 Ned Birmingham MD XXX [place] [address] PCP - Surgery 10/25/08 09/27/09 Mike Villareal DO [facility] [address] [place], [place] [address] PCP - Surgery 08/03/06 10/24/08 Sony Perez MD [facility] [address] [place] [address] PCP - ENT 03/19/07 12/08/17 Matt Grover MD 420 [facility] [address] [place] [address] PCP - Urology 12/22/08 Albert Brownlee MD [address] [place] [address] PCP - Surgery Surgery 09/28/09 11/02/12 Humberto Peng MD [facility] [place] [address] [place] [address] PCP - General Family Practice 09/03/10 James Jasso DO [facility] [place] [address] [place] [address] PCP - Obstetrics/Gynecology pillar worker 07/24/11 Rajat Urban MD [facility] [place] [address] [place] [address] PCP - Orthopaedics Orthopedics 12/02/11 12/08/17 Thuy Coto PA-C [facility] [place] [address] [place] [address] PCP - Surgery Physician Web Content Director 11/03/12 James Stevens DPM [address] [facility] [address] [place], [place] [address] Assigned Musculoskeletal Provider 04/25/20 10/25/21 Teresa Ferrer PA-C [address] [address] Physician Web Content Director Urology 02/20/23 documented as of this encounter
--- OUTSIDE RECORDS SUMMARY | 2023-08-04 12:34 | XMS_ITS | Encounter Summary ---
Author Organization [facility] Address [address] [place] [address] Care Team Providers Care Bar Roller Name Role Phone Dudley House MD Primary Care Provider Albert Figueroa MD Primary Care Provider [phone] Frankie Gaspar MD Unavailable Unavailable Augusta De La Cruz DPM Unavailable [phone] Frw, None Unavailable Unavailable Kyle Morris MD Unavailable [phone] Kayode Brambila OD Unavailable [phone] Ned Birmingham MD Unavailable Mike Villareal DO Unavailable [phone] Sony Perez MD Unavailable [phone] Matt Grover MD Unavailable [phone] Albert Brownlee MD Unavailable [phone] GinetteHumberto bowser MD Primary Care Provider [phone] James Jasso DO Unavailable [phone] Rajat Urban MD Unavailable Unavailable Thuy CotoC Unavailable James Stevens DPM Unavailable [phone] Teresa Ferrer PA-C Unavailable Encounter Details Date Type Department Care Team (Late st Contact Info) Description 01/01/2005 MyC Medical Advice [facility] [place] Internal Medicine [address] [place] [phone] Albert Figueroa MD [facility] [address] [place] [address] Social History Tobacco Use Types Packs/Day Years [...] on filedocumented in this encounter Care Teams Bar Roller Relationship Specialty Start Date End Date Dudley House MD [address] [place] [address] PCP - General 03/23/07 09/02/10 Albert Figueroa MD [address] [address] PCP - General 10/30/03 03/22/07 Frankie Gaspar MD PCP - Obstetrics/Gynecology 03/03/00 07/23/11 Augusta De La Cruz DPM PCP - Podiatry 09/26/05 Frw, None PCP - Podiatry 09/26/04 09/25/05 Kyle Morris MD PCP - Ophthalmology 02/17/06 Kayode Brambila OD [facility] [place] [address] [place] [address] PCP - Ophthalmology 03/03/00 02/16/06 Ned Birmingham MD XXX NO INFO FOUND XXX [place] [address] PCP - Surgery 10/25/08 09/27/[address] [facility] [address] [place] [address] PCP - Surgery 08/03/06 10/24/[address] 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
--- OUTSIDE RECORDS SUMMARY | 2023-08-04 12:34 | XMS_ITS | Encounter Summary ---
Author Organization [facility] Address [address] [place] [address] Care Team Providers Care Gastroenterology Manager Name Role Phone Dudley House MD Primary Care Provider [phone] Albert Figueroa MD Primary Care Provider [phone] Frankie Gaspar MD Unavailable Unavailable Augusta De La Cruz DPM Unavailable [phone] Frw, None Unavailable Unavailable Kyle Morris MD Unavailable +[phone] Kayode Brambila OD Unavailable +[phone] Ned Birmingham MD Unavailable [phone] Mike Villareal DO Unavailable [phone] Sony Perez MD Unavailable [phone] Matt Grover MD Unavailable Albert Brownlee MD Unavailable [phone] GinetteHumberto bowser MD Primary Care Provider [phone] James Jasso DO Unavailable [phone] Rajat Urban MD Unavailable Unavailable Thuy Coot PARickyC Unavailable [phone] James Stevens DPM Unavailable [phone] Teresa FerrerC Unavailable Reason for Visit * Reason Onset Date Comments MyChart Communication 07/28/2005 question a bout medical leave Encounter Details Date Type Department Care Team (Late st Contact Info) Description 07/28/2005 MyC Medical Advice [facility] in [place] Medical Records CARL Alexander [phone] Elvin Allred MyChart Communication (question about medi... Social History Tobacco Use Types Packs/Day Years [...] on filedocumented in this encounter Care Teams Gastroenterology Manager Relationship Specialty Start Date End Date Dudley House MD [address] [place] [phone] PCP - General 03/23/07 09/02/10 Albert Figueroa MD [facility] [place] [address] [facility] [address] [place] [address] PCP - General 10/30/03 03/22/07 Frankie Gaspar MD PCP - Obstetrics/Gynecology 03/03/00 07/23/11 Augusta De La Cruz DPM PCP - Podiatry 09/26/05 Frw, None PCP - Podiatry 09/26/04 09/25/05 Kyle Morris MD PCP - Ophthalmology 02/17/06 Kayode Brambila OD [facility] [place] [address] [place] [address] PCP - Ophthalmology 03/03/00 02/16/06 Ned Birmingham MD XXX [place] [address] PCP - Surgery 10/25/08 09/27/09 Mike Villareal DO [facility] [address] [place] [address] PCP - Surgery 08/03/06 10/24/08 Sony Perez MD [facility] [address] [place] [address] PCP - ENT 03/19/07 12/08/17 Matt Grover MD 420 [facility] [address] [place] [address] PCP - Urology 12/22/08 Albert Brownlee MD [address] [place] [address] PCP - Surgery Surgery 09/28/09 11/02/12 Humberto Peng MD [facility] [place] [address] [place] [address] PCP - General Family Practice 09/03/10 James Jasso DO [facility] [place] [address] [place] [address] PCP - Obstetrics/Gynecology job compositor 07/24/11 Rajat Urban MD [facility] [place] [address] [place] [address] PCP - Orthopaedics Orthopedics 12/02/11 12/08/17 Thuy Coto PA-C [facility] [place] [address] [place] [address] PCP - Surgery Physician 7Th Grade Teacher 11/03/12 James Stevens DPM [address] [facility] [address] [place], [place] [address] Assigned Musculoskeletal Provider 04/25/20 10/25/21 Teresa Ferrer PA-C [address] [place], [place] [address] Physician 7Th Grade Teacher Urology 02/20/23 documented as of this encounter
--- OUTSIDE RECORDS SUMMARY | 2023-08-04 12:34 | XMS_ITS | Encounter Summary ---
Author Organization [facility] Address [address] [place] [address] Care Team Providers Care Fashion Illustrator Name Role Phone Dudley House MD Primary Care Provider Albert Figueroa MD Primary Care Provider [phone] Frankie Gaspar MD Unavailable Unavailable Augusta De La Cruz DPM Unavailable [phone] Frw, None Unavailable Unavailable Kyle Morris MD Unavailable [phone] Kayode Brambila OD Unavailable [phone] Ned Birmingham MD Unavailable Mike Villareal DO Unavailable [phone] Sony Perez MD Unavailable [phone] Matt Grover MD Unavailable [phone] Albert Brownlee MD Unavailable [phone] GinetteHumberto bowser MD Primary Care Provider [phone] James Jasso DO Unavailable [phone] Rajat Urban MD Unavailable Unavailable Thuy CotoC Unavailable James Stevens DPM Unavailable [phone] Teresa Ferrer PA-C Unavailable Encounter Details Date Type Department Care Team (Late st Contact Info) Description 01/31/2005 MyC Medical Advice [facility] in [place] Internal Medicine [address] [place] [phone] Albert Figueroa MD [facility] [address] [place] [address] Social History Tobacco Use Types Packs/Day Years [...] filedocumented in this encounter Care Teams Fashion Illustrator Relationship Specialty Start Date End Date Dudley House MD [address] [place] [phone] PCP - General 03/23/07 09/02/10 Albert Figueroa MD [address] [address] PCP - General 10/30/03 03/22/07 Frankie Gaspar MD PCP - Obstetrics/Gynecology 03/03/00 07/23/11 Augusta De La Cruz DPM PCP - Podiatry 09/26/05 Frw, None PCP - Podiatry 09/26/04 09/25/05 Kyle Morris MD PCP - Ophthalmology 02/17/06 Kayode Brambila OD [facility] [place] [address] [place] [address] PCP - Ophthalmology 03/03/00 02/16/06 Ned Birmingham MD XXX NO INFO FOUND XXX CARL ADEN [address] PCP - Surgery 10/25/08 09/27/09 Mike Villareal DO [facility] [address] [place] [address] PCP - Surgery 08/03/06 10/24/08 Sony Perez MD [facility] [address] [place] [address] PCP - ENT 03/19/07 12/08/17 Matt Grover MD [address] [facility] [address] [place] [address] PCP - Urology 12/22/08 Albert Brownlee MD [address] [place] [address] PCP - Surgery Surgery 09/28/09 11/02/12 Humberto Peng MD [facility] [place] [address] [place] [address] PCP - General Family Practice 09/03/10 James Jasso DO [facility] [place] [address] [place] [address] PCP - Obstetrics/Gynecology telegraphic service dispatcher 07/24/11 Rajat Urban MD [facility] [place] [address] [place] [address] PCP - Orthopaedics Orthopedics 12/02/11 12/08/17 Thuy Coto PA-C [facility] [place] [address] [place] [address] PCP - Surgery Physician Tangled Yarn Worker 11/03/12 James Stevens DPM [address] [facility] [address] [place], [place] [id number] Assigned Musculoskeletal Provider 04/25/20 10/25/21 Teresa Ferrer PA-C [address] [place], [place] [address] Physician Tangled Yarn Worker Urology 02/20/23 documented as of this encounter
--- OUTSIDE RECORDS SUMMARY | 2023-08-04 12:34 | XMS_ITS | Encounter Summary ---
Author Organization [facility] Address [address] [place] [address] Care Team Providers Care Electrical Maintenance Technician Name Role Phone Dudley House MD Primary Care Provider [phone] Albert Figueroa MD Primary Care Provider [phone] Frankie Gaspar MD Unavailable Unavailable Augusta De La Cruz DPM Unavailable +[phone] Frw, None Unavailable Unavailable Kyle Morris MD Unavailable [phone] Kayode Brambila OD Unavailable [phone] Ned Birmingham MD Unavailable [phone] Mike Villareal DO Unavailable [phone] Sony Perez MD Unavailable [phone] Matt Grover MD Unavailable Albert Brownlee MD Unavailable [phone] GinetteHumberto bowser MD Primary Care Provider [phone] James Jasso DO Unavailable [phone] Rajat Urban MD Unavailable Unavailable Thuy Coto PARickyC Unavailable [phone] James Stevens DPM Unavailable [phone] Teresa FerrerC Unavailable Reason for Visit * Reason Onset Date Comments MyChart Communication 11/13/2004 Encounter Details Date Type Department Care Team (Late st Contact Info) Description 11/11/2004 MyC Medical Advice [facility] in [place] Medical Records CARL Alexander [phone] Elvin Allred MyChart Communication Social History Tobacco [...] on filedocumented in this encounter Care Teams Electrical Maintenance Technician Relationship Specialty Start Date End Date Dudley House MD [address] [place] [phone] PCP - General 03/23/07 09/02/10 Albert Figureoa MD [facility] [address] [facility] [address] [place] [address] PCP - General 10/30/03 03/22/07 Frankie Gaspar MD PCP - Obstetrics/Gynecology 03/03/00 07/23/11 Augusta De La Cruz DPM PCP - Podiatry 09/26/05 Frw, None PCP - Podiatry 09/26/04 09/25/05 Kyle Morris MD PCP - Ophthalmology 02/17/06 Kayode Brambila OD [facility] [address] [place] [address] PCP - Ophthalmology 03/03/00 02/16/06 Ned Birmingham MD XXX NO INFO FOUND XXX CAR[place] ADEN [address] PCP - Surgery 10/25/08 09/27/[address] [facility] [address] [place] [address] PCP - Surgery 08/03/06 10/24/[address] [facility] [address] [place] [address] PCP - ENT 03/19/07 12/08/17 Matt Grover MD [address] [place] [address] PCP - Urology 12/22/08 Albert Brownlee MD [address] [place] [address] PCP - Surgery Surgery 09/28/09 11/02/12 Humberto Peng MD [facility] [place] [address] [place] [address] PCP - General Family Practice 09/03/10 James Jasso DO [facility] [place] [address] [place] [address] PCP - Obstetrics/Gynecology inspector subassemblies 07/24/11 Rajat Urban MD [facility] [place] [address] [place] [address] PCP - Orthopaedics Orthopedics 12/02/11 12/08/17 Thuy Coto PA-C [facility] [place] [address] [place] [address] PCP - Surgery Physician Cocoa Roaster 11/03/12 James Stevens DPM [address] [facility] [address] [place], [place] [address] Assigned Musculoskeletal Provider 04/25/20 10/25/21 Teresa Ferrer PA-C [address] [place] [address] Physician Cocoa Roaster Urology 02/20/23 documented as of this encounter
--- OUTSIDE RECORDS SUMMARY | 2023-08-04 12:34 | XMS_ITS | Encounter Summary ---
Author Organization [facility] Address [address] [place] [address] Care Team Providers Care Sales Marketing Director Name Role Phone Dudley House MD Primary Care Provider Albert Figueroa MD Primary Care Provider [phone] Frankie Gaspar MD Unavailable Unavailable Augusta De La Cruz DPM Unavailable [phone] Frw, None Unavailable Unavailable Kyle Morris MD Unavailable [phone] Kayode Brambila OD Unavailable [phone] Ned Birmingham MD Unavailable Mike Villareal DO Unavailable [phone] Sony Perez MD Unavailable [phone] Matt Grover MD Unavailable [phone] Albert Brownlee MD Unavailable [phone] GinetteHumberto bowser MD Primary Care Provider [phone] James Jasso DO Unavailable [phone] Rajat Urban MD Unavailable Unavailable Thuy CotoC Unavailable James Stevens DPM Unavailable [phone] Teresa Ferrer PA-C Unavailable Encounter Details Date Type Department Care Team (Late st Contact Info) Description 04/22/2005 MyC Medical Advice [facility] in [place] Medical Records [address] [place] [phone] Elvin Allred Social History Tobacco Use Types [...] filedocumented in this encounter Care Teams Sales Marketing Director Relationship Specialty Start Date End Date Dudley House MD [address] [place] [address] PCP - General 03/23/07 09/02/10 Albert Figueroa MD [facility] [place] [address] [facility] [address] [place] [address] PCP - General 10/30/03 03/22/07 Frankie Gaspar MD PCP - Obstetrics/Gynecology 03/03/00 07/23/11 Augusta De La Cruz DPM PCP - Podiatry 09/26/05 Frw, None PCP - Podiatry 09/26/04 09/25/05 Kyle Morris MD PCP - Ophthalmology 02/17/06 Kayode Brambila OD [facility] [place] [address] [place] [address] PCP - Ophthalmology 03/03/00 02/16/06 Ned Birmingham MD XXX NO [place] [address] PCP - Surgery 10/25/08 09/27/09 Mike Villareal DO [facility] [address] [place] [address] PCP - Surgery 08/03/06 10/24/08 Sony Perez MD [facility] [address] [place] [address] PCP - ENT 03/19/07 12/08/17 Matt Grover MD [address] [place] [address] PCP - Urology 12/22/08 Albert Brownlee MD [address] [place] [address] PCP - Surgery Surgery 09/28/09 11/02/12 Humberto Peng MD [facility] [place] [address] [place] [address] PCP - General Family Practice 09/03/10 James Jasso DO [facility] [place] [address] [place] [address] PCP - Obstetrics/Gynecology sandwich counter attendant 07/24/11 Rajat Urban MD [facility] [place] [address] [place] [address] PCP - Orthopaedics Orthopedics 12/02/11 12/08/17 Thuy Coto PA-C [facility] [place] [address] [place] [address] PCP - Surgery Physician Security Expert 11/03/12 Jmaes Stevens DPM [address] [facility] [address] [place] [address] Assigned Musculoskeletal Provider 04/25/20 10/25/21 Teresa Ferrer PA-C [address] [facility] [address] [place] [address] Physician Security Expert Urology 02/20/23 documented as of this encounter
--- OUTSIDE RECORDS SUMMARY | 2023-08-04 12:34 | XMS_ITS | Encounter Summary ---
Author Organization [facility] Address [address] [place] [address] Care Team Providers Care Red Lead Burner Name Role Phone Dudley House MD Primary Care Provider Albert Figueroa MD Primary Care Provider [phone] Frankie Gaspar MD Unavailable Unavailable Augusta De La Cruz DPM Unavailable [phone] Frw, None Unavailable Unavailable Kyle Morris MD Unavailable [phone] Kayode Brambila OD Unavailable [phone] Ned Birmingham MD Unavailable Mike Villareal DO Unavailable [phone] Sony Perez MD Unavailable [phone] Matt Grover MD Unavailable [phone] Albert Brownlee MD Unavailable [phone] GinetteHumberto bowser MD Primary Care Provider [phone] James Jasso DO Unavailable [phone] Rajat Urban MD Unavailable Unavailable Thuy CotoC Unavailable James Stevens DPM Unavailable [phone] Teresa Ferrer PA-C Unavailable Encounter Details Date Type Department Care Team (Late st Contact Info) Description 01/31/2005 MyC Medical Advice [facility] in [place] Internal Medicine [address] [place] [phone] Albert Figueroa MD [facility] [place] [address] [place] [address] Social History Tobacco Use Types Packs/Day Years [...] on filedocumented in this encounter Care Teams Red Lead Burner Relationship Specialty Start Date End Date Dudley House MD [address] [place] [phone] PCP - General 03/23/07 09/02/10 Albert Figueroa MD [address] [address] PCP - General 10/30/03 03/22/07 Frankie Gaspar MD PCP - Obstetrics/Gynecology 03/03/00 07/23/11 Augusta De La Cruz DPM PCP - Podiatry 09/26/05 Frw, None PCP - Podiatry 09/26/04 09/25/05 Kyle Morris MD PCP - Ophthalmology 02/17/06 Kayode Brambila OD [facility] [place] [address] [place] [address] PCP - Ophthalmology 03/03/00 02/16/06 Ned Birmingham MD XXX NO INFO FOUND XXX CARL ADEN [address] PCP - Surgery 10/25/08 09/27/09 Mike Villareal DO [facility] [address] [place] [address] PCP - Surgery 08/03/06 10/24/08 Sony Perez MD [facility] [address] [place] [address] PCP - ENT 03/19/07 12/08/17 Matt Grover MD [address] [facility] [address] [place] [address] PCP - Urology 12/22/08 Albert Brownlee MD [address] [place] [address] PCP - Surgery Surgery 09/28/09 11/02/12 Humberto Peng MD [facility] [place] [address] [place] [address] PCP - General Family Practice 09/03/10 James Jasso DO [facility] [place] [address] [place] [address] PCP - Obstetrics/Gynecology red lead burner 07/24/11 Rajat Urban MD [facility] [place] [address] [place] [address] PCP - Orthopaedics Orthopedics 12/02/11 12/08/17 Thuy Coto PA-C [facility] [place] [address] [place] [address] PCP - Surgery Physician Herpetology Teacher 11/03/12 James Stevens DPM [address] [facility] [address] [place], [place] [address] Assigned Musculoskeletal Provider 04/25/20 10/25/21 Teresa Ferrer PA-C [address] [place], [place] [address] Physician Herpetology Teacher Urology 02/20/23 documented as of this encounter
--- OUTSIDE RECORDS SUMMARY | 2023-08-04 12:34 | XMS_ITS | Encounter Summary ---
Author Organization [facility] Address [address] [place] [address] Care Team Providers Care Sample Supervisor Name Role Phone Dudley House MD Primary Care Provider Albert Figueroa MD Primary Care Provider [phone] Frankie Gaspar MD Unavailable Unavailable Augusta De La Cruz DPM Unavailable [phone] Frw, None Unavailable Unavailable Kyle Morris MD Unavailable [phone] Kayode Brambila OD Unavailable [phone] Ned Birmingham MD Unavailable [phone] Mike Villareal DO Unavailable [phone] Sony Perez MD Unavailable [phone] Matt Grover MD Unavailable [phone] Albert Brownlee MD Unavailable [phone] GinetteHumberto bowser MD Primary Care Provider [phone] James Jasso DO Unavailable [phone] Rajat Urban MD Unavailable Unavailable Thuy CotoC Unavailable James Stevens DPM Unavailable [phone] Teresa Ferrer PA-C Unavailable Encounter Details Date Type Department Care Team (Late st Contact Info) Description 12/30/2004 MyC Medical Advice [facility] in [place] Medical Records [address] [place] [phone] Elvin Allred Social History Tobacco Use Types [...] on filedocumented in this encounter Care Teams Sample Supervisor Relationship Specialty Start Date End Date Dudley House MD [address] [place] [address] PCP - General 03/23/07 09/02/10 Albert Figueroa MD [facility] [place] [address] [facility] [address] [place] [address] PCP - General 10/30/03 03/22/07 Frankie Gaspar MD PCP - Obstetrics/Gynecology 03/03/00 07/23/11 Augusta De La Cruz DPM PCP - Podiatry 09/26/05 Frw, None PCP - Podiatry 09/26/04 09/25/05 Kyle Morris MD PCP - Ophthalmology 02/17/06 Kayode Brambila OD [facility] [place] [address] [place] [address] PCP - Ophthalmology 03/03/00 02/16/06 Ned Birmingham MD XXX [place] [address] PCP - Surgery 10/25/08 09/27/09 Mike Villareal DO [facility] [address] [place] [address] PCP - Surgery 08/03/06 10/24/08 Sony Perez MD [facility] [address] [place] [address] PCP - ENT 03/19/07 12/08/17 Matt Grover MD [address] [place] [address] PCP - Urology 12/22/08 Albert Brownlee MD [address] [place] [address] PCP - Surgery Surgery 09/28/09 11/02/12 Humberto Peng MD [facility] [place] [address] [place] [address] PCP - General Family Practice 09/03/10 James Jasso DO [facility] [place] [address] [place] [address] PCP - Obstetrics/Gynecology food service hotel runner 07/24/11 Rajat Urban MD [facility] [place] [address] [place] [address] PCP - Orthopaedics Orthopedics 12/02/11 12/08/17 Thuy Coto PA-C [facility] [place] [address] [place] [address] PCP - Surgery Physician Bank President 11/03/12 James Stevens DPM [address] [facility] [address] [place] [address] Assigned Musculoskeletal Provider 04/25/20 10/25/21 Teresa Ferrer PA-C [address] [facility] [address] [place] [address] Physician Bank President Urology 02/20/23 documented as of this encounter
--- OUTSIDE RECORDS SUMMARY | 2023-08-04 12:34 | XMS_ITS | Encounter Summary ---
Author Organization [facility] Address [address] [place] [address] Care Team Providers Care Internet Developer Name Role Phone Dudley House MD Primary Care Provider [phone] Albert Figueroa MD Primary Care Provider [phone] Frankie Gaspar MD Unavailable Unavailable Augusta De La Cruz DPM Unavailable [phone] Frw, None Unavailable Unavailable Kyle Morris MD Unavailable [phone] Kayode Brambila OD Unavailable [phone] Ned Birmingham MD Unavailable Mike Villareal DO Unavailable [phone] Sony Perez MD Unavailable [phone] Matt Grover MD Unavailable [phone] Albert Brownlee MD Unavailable [phone] GinetteHumberto bowser MD Primary Care Provider [phone] James Jasso DO Unavailable [phone] Rajat Urban MD Unavailable Unavailable Thuy CotoC Unavailable James Stevens DPM Unavailable [phone] Teresa Ferrer PA-C Unavailable Encounter Details Date Type Department Care Team (Late st Contact Info) Description 03/18/2005 MyC Refill [facility] in [place] Internal Medicine [address] [place] [phone] Albert Figueroa MD [facility] [address] [place] [address] Social History Tobacco Use Types Packs/Day Years [...] on filedocumented in this encounter Care Teams Internet Developer Relationship Specialty Start Date End Date Dudley House MD [address] [place] [phone] PCP - General 03/23/07 09/02/10 Albert Figueroa MD [address] [address] PCP - General 10/30/03 03/22/07 Frankie Gaspar MD PCP - Obstetrics/Gynecology 03/03/00 07/23/11 Augusta De La Cruz DPM PCP - Podiatry 09/26/05 Frw, None PCP - Podiatry 09/26/04 09/25/05 Kyle Morris MD PCP - Ophthalmology 02/17/06 Kayode Brambila OD [facility] [place] [address] [place] [address] PCP - Ophthalmology 03/03/00 02/16/06 Ned Birmingham MD XXX NO INFO FOUND XXX CARL ADEN [address] PCP - Surgery 10/25/08 09/27/09 Mike Villareal DO [facility] [address] [place] [address] PCP - Surgery 08/03/06 10/24/08 Sony Perez MD [facility] [address] [place] [address] PCP - ENT 03/19/07 12/08/17 Matt Grover MD [address] [facility] [address] [place] [address] PCP - Urology 12/22/08 Albert Brownlee MD [address] [place] [address] PCP - Surgery Surgery 09/28/09 11/02/12 Humberto Peng MD [facility] [place] [address] [place] [address] PCP - General Family Practice 09/03/10 James Jasso DO [facility] [place] [address] [place] [address] PCP - Obstetrics/Gynecology apprise counselor 07/24/11 Rajat Urban MD [facility] [place] [address] [place] [address] PCP - Orthopaedics Orthopedics 12/02/11 12/08/17 Thuy Coto PA-C [facility] [place] [address] [place] [address] PCP - Surgery Physician Teaching Manager 11/03/12 James Stevens DPM [address] [facility] [address] [place], [place] [address] Assigned Musculoskeletal Provider 04/25/20 10/25/21 Teresa Ferrer PA-C [address] [place], [place] [address] Physician Teaching Manager Urology 02/20/23 documented as of this encounter
--- OUTSIDE RECORDS SUMMARY | 2023-08-04 12:34 | XMS_ITS | Encounter Summary ---
Author Organization [facility] Address [address] [place] [address] Care Team Providers Care Floral Designer Salesperson Name Role Phone Dudley House MD Primary Care Provider Albert Figueroa MD Primary Care Provider [phone] Frankie Gaspar MD Unavailable Unavailable Augusta De La Cruz DPM Unavailable [phone] Frw, None Unavailable Unavailable Kyle Morris MD Unavailable +[phone] Kayode Brambila OD Unavailable [phone] Ned Birmingham MD Unavailable Mike Villareal DO Unavailable [phone] Sony Perez MD Unavailable [phone] Matt Grover MD Unavailable [phone] Albert Brownlee MD Unavailable [phone] GinetteHumberto bowser MD Primary Care Provider [phone] James Jasso DO Unavailable [phone] Rajat Urban MD Unavailable Unavailable Thuy CotoC Unavailable James Stevens DPM Unavailable [phone] Teresa Ferrer PA-C Unavailable [phone] Encounter Details Date Type Department Care Team (Late st Contact Info) Description 01/17/2005 MyC Medical Advice [facility] in [place] Internal Medicine [address] [place] [phone] Albert Figueroa MD [facility] [address] [place] [address] Social History Tobacco Use Types Packs/Day Years [...] on filedocumented in this encounter Care Teams Floral Designer Salesperson Relationship Specialty Start Date End Date Dudley House MD [address] [place] [phone] PCP - General 03/23/07 09/02/10 Albert Figueroa MD [address] [address] PCP - General 10/30/03 03/22/07 Frankie Gaspar MD PCP - Obstetrics/Gynecology 03/03/00 07/23/11 Augusta De La Cruz DPM PCP - Podiatry 09/26/05 Frw, None PCP - Podiatry 09/26/04 09/25/05 Kyle Morris MD PCP - Ophthalmology 02/17/06 Kayode Brambila OD [facility] [place] [address] [place] [address] PCP - Ophthalmology 03/03/00 02/16/06 Ned Birmingham MD XXX NO INFO FOUND XXX CARL ADEN [address] PCP - Surgery 10/25/08 09/27/09 Mike Villareal DO [facility] [address] [place] [address] PCP - Surgery 08/03/06 10/24/08 Sony Perez MD [facility] [address] [place] [address] PCP - ENT 03/19/07 12/08/17 Matt Grover MD [address] [facility] [address] [place] [address] PCP - Urology 12/22/08 Albert Brownlee MD [address] [place] [address] PCP - Surgery Surgery 09/28/09 11/02/12 Humberto Peng MD [facility] [place] [address] [place] [address] PCP - General Family Practice 09/03/10 James Jasso DO [facility] [place] [address] [place] [address] PCP - Obstetrics/Gynecology masking machine operator 07/24/11 Rajat Urban MD [facility] [place] [address] [place] [address] PCP - Orthopaedics Orthopedics 12/02/11 12/08/17 Thuy Coto PA-C [facility] [place] [address] [place] [address] PCP - Surgery Physician Coordinator Cardiopulmonary Services 11/03/12 James Stevens DPM [address] [facility] [address] [place], [place] [address] Assigned Musculoskeletal Provider 04/25/20 10/25/21 Teresa Ferrer PA-C [address] [place], [place] [address] Physician Coordinator Cardiopulmonary Services Urology 02/20/23 documented as of this encounter
--- OUTSIDE RECORDS SUMMARY | 2023-08-04 12:34 | XMS_ITS | Encounter Summary ---
Author Organization [place] Address [address] [place] [address] Care Team Providers Care Authorization Rep Name Role Phone Dudley House MD Primary Care Provider Albert Figueroa MD Primary Care Provider [phone] Frankie Gaspar MD Unavailable Unavailable Augusta De La Cruz DPM Unavailable Frw, None Unavailable Unavailable Kyle Morris MD Unavailable [phone] Kayode Brambila OD Unavailable [phone] Ned Birmingham MD Unavailable [phone] Mike Villareal DO Unavailable [phone] Sony Perez MD Unavailable [phone] Matt Grover MD Unavailable Albert Brownlee MD Unavailable [phone] GinetteHumberto bowser MD Primary Care Provider [phone] James Jasso DO Unavailable [phone] Rajat Urban MD Unavailable Unavailable Thuy Coto PARickyC Unavailable [phone] James Stevens DPM Unavailable [phone] Teresa FerrerC Unavailable [phone] Reason for Visit * Reason Onset Date Comments MyChart Communication 08/18/2005 would like to return to work Encounter Details Date Type Department Care Team (Late st Contact Info) Description 08/18/2005 MyC Medical Advice [facility] in [place] Medical Records CARL Alexander [phone] Elvin Allred MyChart Communication (would like to retur... Social History Tobacco Use Types Packs/Day Years [...] on filedocumented in this encounter Care Teams Authorization Rep Relationship Specialty Start Date End Date Dudley House MD [address] [place] [phone] PCP - General 03/23/07 09/02/10 Albert Figueroa MD [facility] [address] [facility] [address] [place] [address] PCP - General 10/30/03 03/22/07 Frankie Gaspar MD PCP - Obstetrics/Gynecology 03/03/00 07/23/11 Augusta De La Cruz DPM PCP - Podiatry 09/26/05 Frw, None PCP - Podiatry 09/26/04 09/25/05 Kyle Morris MD PCP - Ophthalmology 02/17/06 Kayode Brambila OD [facility] [address] [place] [address] PCP - Ophthalmology 03/03/00 02/16/06 Ned Birmingham MD XXX [place] [address] PCP - Surgery 10/25/08 09/27/09 Mike Villareal DO [facility] [address] [place] [address] PCP - Surgery 08/03/06 10/24/08 Sony Perez MD [facility] [address] [place] [address] PCP - ENT 03/19/07 12/08/17 Matt Grover MD [address] [facility] [address] [place] [address] PCP - Urology 12/22/08 Albert Brownlee MD [address] [place] [address] PCP - Surgery Surgery 09/28/09 11/02/12 Humberto Peng MD [facility] [place] [address] [place] [address] PCP - General Family Practice 09/03/10 James Jasso DO [facility] [place] [address] [place] [address] PCP - Obstetrics/Gynecology automobile brake bonder 07/24/11 Rajat Urban MD [facility] [place] [address] [facility] [address] [place] [address] PCP - Orthopaedics Orthopedics 12/02/11 12/08/17 Thuy Coto PA-C [facility] [place] [address] [facility] [address] [place] [address] PCP - Surgery Physician Database Security Administrator 11/03/12 James Stevens DPM [address] [facility] [address] [place], [place] [id number] Assigned Musculoskeletal Provider 04/25/20 10/25/21 Teresa Ferrer PA-C [address] [facility] [address] [place], [place] [id number] Physician Database Security Administrator Urology 02/20/23 documented as of this encounter
--- OUTSIDE RECORDS SUMMARY | 2023-08-04 12:34 | XMS_ITS | Encounter Summary ---
Author Organization [place] Address [address] [place] [address] Care Team Providers Care Correspondence Analyst Name Role Phone Dudley House MD Primary Care Provider Albert Fiugeroa MD Primary Care Provider [phone] Frankie Gaspar MD Unavailable Unavailable Augusta De La Cruz DPM Unavailable [phone] Frw, None Unavailable Unavailable Kyle Morris MD Unavailable [phone] Kayode Brambila OD Unavailable [phone] Ned Bimringham MD Unavailable [phone] Mike Villareal DO Unavailable [phone] Sony Perez MD Unavailable [phone] Matt Grover MD Unavailable [phone] Albert Brownlee MD Unavailable [phone] GinetteHumberto bowser MD Primary Care Provider [phone] James Jasso DO Unavailable [phone] Rajat Urban MD Unavailable Unavailable Thuy CotoC Unavailable James Stevens DPM Unavailable [phone] Teresa Ferrer PA-C Unavailable Encounter Details Date Type Department Care Team (Late st Contact Info) Description 05/18/2005 MyC Medical Advice [facility] in [place] Medical Records [address] [place] [phone] Elvin Allred Social History Tobacco Use Types [...] on filedocumented in this encounter Care Teams Correspondence Analyst Relationship Specialty Start Date End Date Dudley House MD [address] [place] [address] PCP - General 03/23/07 09/02/10 Albert Figueroa MD [facility] [place] [address] [facility] [address] [place] [address] PCP - General 10/30/03 03/22/07 Frankie Gaspar MD PCP - Obstetrics/Gynecology 03/03/00 07/23/11 Augusta De La Cruz DPM PCP - Podiatry 09/26/05 Frw, None PCP - Podiatry 09/26/04 09/25/05 Kyle Morris MD PCP - Ophthalmology 02/17/06 Kayode Brambila OD [facility] [place] [address] [place] [address] PCP - Ophthalmology 03/03/00 02/16/06 Ned Birmingham MD XXX [place] [address] PCP - Surgery 10/25/08 09/27/09 Mike Villareal DO [facility] [address] [place] [address] PCP - Surgery 08/03/06 10/24/08 Sony Perez MD [facility] [address] [place] [address] PCP - ENT 03/19/07 12/08/17 Matt Grover MD [address] [place] [address] PCP - Urology 12/22/08 Albert Brownlee MD [address] [place] [address] PCP - Surgery Surgery 09/28/09 11/02/12 Humberto Peng MD [facility] [place] [address] [place] [address] PCP - General Family Practice 09/03/10 James Jasso DO [facility] [place] [address] [place] [address] PCP - Obstetrics/Gynecology oracle dba 07/24/11 Rajat Urban MD [facility] [place] [address] [place] [address] PCP - Orthopaedics Orthopedics 12/02/11 12/08/17 Thuy Coto PA-C [facility] [place] [address] [place] [address] PCP - Surgery Physician Filter Press Pumper 11/03/12 James Stevens DPM [address] [facility] [address] [place] [address] Assigned Musculoskeletal Provider 04/25/20 10/25/21 Teresa Ferrer PA-C [address] [facility] [address] [place] [address] Physician Filter Press Pumper Urology 02/20/23 documented as of this encounter
--- OUTSIDE RECORDS SUMMARY | 2023-08-04 12:34 | XMS_ITS | Encounter Summary ---
Author Organization [place] Address [address] [place] [address] Care Team Providers Care Employee Relations Director Name Role Phone Dudley House MD Primary Care Provider Albert Figueroa MD Primary Care Provider [phone] Frankie Gaspar MD Unavailable Unavailable Augusta De La Cruz DPM Unavailable [phone] Frw, None Unavailable Unavailable Kyle Morris MD Unavailable [phone] Kayode Brambila OD Unavailable [phone] Ned Birmingham MD Unavailable Mike Villareal DO Unavailable [phone] Sony Perez MD Unavailable [phone] Matt Grover MD Unavailable [phone] Albert Brownlee MD Unavailable [phone] GinetteHumberto bowser MD Primary Care Provider [phone] James Jasso DO Unavailable [phone] Rajat Urban MD Unavailable Unavailable Thuy Coto PARickyC Unavailable [phone] James Stevens DPM Unavailable [phone] Teresa FerrerC Unavailable [phone] Reason for Visit * Reason Onset Date Comments Medication Question 03/20/2005 see mychart message Encounter Details Date Type Department Care Team (Late st Contact Info) Description 03/20/2005 MyC Medical Advice [facility] in [place] Medical Records CARL [place] [phone] Elvin Allred Medication Question (see mychart message) [...] on filedocumented in this encounter Care Teams Employee Relations Director Relationship Specialty Start Date End Date Dudley House MD [address] [place] [phone] PCP - General 03/23/07 09/02/10 Albert Figueroa MD [facility] [address] [facility] [address] [place] [address] PCP - General 10/30/03 03/22/07 Frankie Gaspar MD PCP - Obstetrics/Gynecology 03/03/00 07/23/11 Augusta De La Cruz DPM PCP - Podiatry 09/26/05 Frw, None PCP - Podiatry 09/26/04 09/25/05 Kyle Morris MD PCP - Ophthalmology 02/17/06 Kayode Brambila OD [facility] [address] [place] [address] PCP - Ophthalmology 03/03/00 02/16/06 Ned Birmingham MD XXX [place] [address] PCP - Surgery 10/25/08 09/27/09 Mike Villareal DO [facility] [address] [place] [address] PCP - Surgery 08/03/06 10/24/08 Sony Perez MD [facility] [address] [place] [address] PCP - ENT 03/19/07 12/08/17 Matt Grover MD [address] [facility] [address] [place] [address] PCP - Urology 12/22/08 Albert Brownlee MD [address] [place] [address] PCP - Surgery Surgery 09/28/09 11/02/12 Humberto Peng MD [facility] [place] [address] [facility] [place] [address] PCP - General Family Practice 09/03/10 James Jasso DO [facility] [place] [address] [place] [address] PCP - Obstetrics/Gynecology insurance sales producer 07/24/11 Rajat Urban MD [facility] [place] [address] [facility] [address] [place] [address] PCP - Orthopaedics Orthopedics 12/02/11 12/08/17 Thuy Coto PA-C [facility] [place] [address] [place] [address] PCP - Surgery Physician Medical Laboratory Technical Officer 11/03/12 James Stevens DPM [address] [facility] [address] [place] [address] Assigned Musculoskeletal Provider 04/25/20 10/25/21 Teresa Ferrer PA-C [address] [place] [address] Physician Medical Laboratory Technical Officer Urology 02/20/23 documented as of this encounter
--- OUTSIDE RECORDS SUMMARY | 2023-08-04 12:35 | XMS_ITS | Encounter Summary ---
Author Organization [place] Address [address] [place] [address] Care Team Providers Care Disability Counselor Name Role Phone Dudley House MD Primary Care Provider Albert Figueroa MD Primary Care Provider [phone] Frankie Gaspar MD Unavailable Unavailable Augusta De La Cruz DPM Unavailable [phone] Frw, None Unavailable Unavailable Kyle Morris MD Unavailable [phone] Kayode Brambila OD Unavailable [phone] Ned Birmingham MD Unavailable Mike Villareal DO Unavailable [phone] Sony Perez MD Unavailable [phone] Matt Grover MD Unavailable [phone] Albert Brownlee MD Unavailable [phone] GinetteHumberto bowser MD Primary Care Provider [phone] James Jasso DO Unavailable [phone] Rajat Urban MD Unavailable Unavailable Thuy Coto PARickyC Unavailable [phone] James Stevens DPM Unavailable [phone] Teresa FerrerC Unavailable Reason for Visit * Reason Onset Date Comments Forms 10/02/2004 FMLA Encounter Details Date Type Department Care Team (Late st Contact Info) Description 10/02/2004 MyC Medical Advice [facility] in [place] Internal Medicine [address] [id number] Albert Figueroa MD [facility] [address] [facility] [address] [place], [place] [phone] Forms (FMLA) Social History Tobacco Use Types Packs/Day Years [...] encounter Miscellaneous Notes * Telephone Encounter - Ruth Shetty - 10/02/2004 11:59 PM CDTFrom: Albert Figueroa To: PASTORA PRADO Sent: ThuOct 02, 2004 9:27 AM Subject: FMLA form Dear Ms. Prado I was just starting to fill out your FMLA form, I understand you want to go back to work 1/2 day. Please let me know: - are you still dizzy - do you have to do driving etc to get to work - what day do you want to go back to work (I understand sometime in 2 weeks from your note). Thank- you for using [employer]. Albert Figueroa MD documented in this encounter Plan of Treatment Not on file documented as of this encounter Visit Diagnoses Not on filedocumented in this encounter Care Teams Disability Counselor Relationship Specialty Start Date End Date Dudley House MD [address] [place] [phone] PCP - General 03/23/07 09/02/10 Albert Figueroa MD [facility] [address] [place] [address] PCP - General 10/30/03 03/22/07 Frankie Gaspar MD PCP - Obstetrics/Gynecology 03/03/00 07/23/11 Augusta De La Cruz, DPM PCP - Podiatry 09/26/05 Frw, None PCP - Podiatry 09/26/04 09/25/05 Kyle Morris MD PCP - Ophthalmology 02/17/06 Kayode Brambila OD [facility] [address] [facility] [address] [place] [address] PCP - Ophthalmology 03/03/00 02/16/06 Ned Birmingham MD XXX [place] [address] PCP - Surgery 10/25/08 09/27/09 Mike Villareal DO [facility] [address] [place] [address] PCP - Surgery 08/03/06 10/24/08 Sony Perez MD [facility] [address] [place] [address] PCP - ENT 03/19/07 12/08/17 Matt Grover MD [address] [place] [address] PCP - Urology 12/22/08 Albert Brownlee MD [address] [place] [address] PCP - Surgery Surgery 09/28/09 11/02/12 Humberto Peng MD [facility] [place] [address] [place] [address] PCP - General Family Practice 09/03/10 James Jasso DO [facility] [place] [address] [place] [address] PCP - Obstetrics/Gynecology living advisor 07/24/11 Rajat Urban MD [facility] [place] [address] [place] [address] PCP - Orthopaedics Orthopedics 12/02/11 12/08/17 Thuy Coto PA-C [facility] [place] [address] [place] [address] PCP - Surgery Physician Disassembler Product 11/03/12 James Stevens DPM [address] [facility] [address] [place] [address] Assigned Musculoskeletal Provider 04/25/20 10/25/21 Teresa Ferrer PA-C [address] [place] [address] Physician Disassembler Product Urology 02/20/23 documented as of this encounter
--- OUTSIDE RECORDS SUMMARY | 2023-08-04 12:35 | XMS_ITS | Encounter Summary ---
Author Organization [place] Address [address] [place] [address] Care Team Providers Care Tin Flipper Name Role Phone Dudley House MD Primary Care Provider Albert Figueroa MD Primary Care Provider Frankie Gaspar MD Unavailable Unavailable Augusta De La Cruz DPM Unavailable Frw, None Unavailable Unavailable Megan Segal DPM Unavailable [phone] Kyle Morris MD Unavailable Kayode Brambila OD Unavailable Ned Birmingham MD Unavailable Mike Villareal DO Unavailable [phone] Sony Perez MD Unavailable [phone] Matt Grover MD Unavailable Albert Brownlee MD Unavailable [phone] GinetteHumberto bowser MD Primary Care Provider [phone] James Jasso DO Unavailable Rajat Urban MD Unavailable Unavailable Thuy Coto PA-C Unavailable James Stevens DPM Unavailable [phone] Teresa Ferrer-C Unavailable Encounter Details Date Type Department Care Team (Late st Contact Info) Description 09/20/2004 MyC Medical Advice [facility] in [place] Medical Records [address] [place] [phone] Elvin Allred Social History Tobacco Use Types [...] on filedocumented in this encounter Care Teams Tin Flipper Relationship Specialty Start Date End Date Dudley House MD [address] [place] [phone] PCP - General 03/23/07 09/02/10 Albert Figueroa MD [facility] [address] [place] [address] PCP - General 10/30/03 03/22/07 Frankie Gaspar MD PCP - Obstetrics/Gynecology 03/03/00 07/23/11 Augusta De La Cruz DPM PCP - Podiatry 09/26/05 Frw, None PCP - Podiatry 09/26/04 09/25/05 Megan Segal DPM [address] [place], [place] [address] PCP - Podiatry 03/03/00 09/25/04 Kyle Morris MD [address] [place], [place] [address] PCP - Ophthalmology 02/17/06 Kayode Brambila OD [facility] [place] [address] [place] [address] PCP - Ophthalmology 03/03/00 02/16/06 Ned Birmingham MD [place] [address] PCP - Surgery 10/25/08 09/27/09 Mike Villareal DO [facility] [address] [place] [address] PCP - Surgery 08/03/06 10/24/08 Sony Perez MD [facility] [address] [place] [address] PCP - ENT 03/19/07 12/08/17 Matt Grover MD [address] [place] [address] [address] [place] [address] PCP - Urology 12/22/08 Albert Brownlee MD [address] [place] [address] PCP - Surgery Surgery 09/28/09 11/02/12 Humberto Peng MD [facility] [place] [address] [place] [address] PCP - General Family Practice 09/03/10 James Jasso DO [facility] [place] [address] [place] [address] PCP - Obstetrics/Gynecology credit interviewer 07/24/11 Rajat Urban MD [facility] [place] [address] [place] [address] PCP - Orthopaedics Orthopedics 12/02/11 12/08/17 Thuy Coto PA-C [facility] [place] [address] [place] [address] PCP - Surgery Physician Attendance Secretary 11/03/12 James Stevens DPM [address] [facility] [address] [place] [address] Assigned Musculoskeletal Provider 04/25/20 10/25/21 Teresa Ferrer PA-C [address] [facility] [address] [place] [address] Physician Attendance Secretary Urology 02/20/23 documented as of this encounter
--- OUTSIDE RECORDS SUMMARY | 2023-08-04 12:35 | XMS_ITS | Encounter Summary ---
Author Organization [place] Address [address] [place] [address] Care Team Providers Care Research And Evaluation Analyst Name Role Phone Dudley House MD Primary Care Provider Albert Figueroa MD Primary Care Provider [phone] Frankie Gaspar MD Unavailable Unavailable Augusta De La Cruz DPM Unavailable Frw, None Unavailable Unavailable Megan Segal DPM Unavailable [phone] Kyle Morris MD Unavailable [phone] Kayode Brambila OD Unavailable [phone] Ned Birmingham MD Unavailable Mike Villareal DO Unavailable [phone] Sony Perez MD Unavailable [phone] Matt Grover MD Unavailable [phone] Albert Brownlee MD Unavailable [phone] GinetteHumberto bowser MD Primary Care Provider [phone] James Jasso DO Unavailable Rajat Urban MD Unavailable Unavailable Thuy Coto PA-C Unavailable James Stevens DPM Unavailable [phone] Teresa Ferrer-C Unavailable [phone] Encounter Details Date Type Department Care Team (Late st Contact Info) Description 09/18/2004 MyC Medical Advice [facility] in [place] Medical Records [address] [place] [phone] Elvin Allred Social History Tobacco Use Types [...] on filedocumented in this encounter Care Teams Research And Evaluation Analyst Relationship Specialty Start Date End Date Dudley House MD [address] [place] [phone] PCP - General 03/23/07 09/02/10 Albert Figueroa MD [facility] [address] [place] [address] PCP - General 10/30/03 03/22/07 Frankie Gaspar MD PCP - Obstetrics/Gynecology 03/03/00 07/23/11 Augusta De La Cruz DPM PCP - Podiatry 09/26/05 Frw, None PCP - Podiatry 09/26/04 09/25/05 Megan Segal DPM [address] [place], [place] [address] PCP - Podiatry 03/03/00 09/25/04 Kyle Morris MD [address] [place], [place] [address] PCP - Ophthalmology 02/17/06 Kayode Brambila OD [facility] [place] [address] [place] [address] PCP - Ophthalmology 03/03/00 02/16/06 Ned Birmingham MD [place] [address] PCP - Surgery 10/25/08 09/27/09 Mike Villareal DO [facility] [address] [place] [address] PCP - Surgery 08/03/06 10/24/08 Sony Perez MD [facility] [address] [place] [address] PCP - ENT 03/19/07 12/08/17 Matt Grover MD [address] [place] [address] [address] [place] [address] PCP - Urology 12/22/08 Albert Brownlee MD [address] [place] [address] PCP - Surgery Surgery 09/28/09 11/02/12 Humberto Peng MD [facility] [place] [address] [place] [address] PCP - General Family Practice 09/03/10 James Jasso DO [facility] [place] [address] [place] [address] PCP - Obstetrics/Gynecology hotel lobby concierge 07/24/11 Rajat Urban MD [facility] [place] [address] [place] [address] PCP - Orthopaedics Orthopedics 12/02/11 12/08/17 Thuy Coto PA-C [facility] [place] [address] [place] [address] PCP - Surgery Physician Roll Forming Machine Set Up Mechanic 11/03/12 James Stevens DPM [address] [facility] [address] [place] [address] Assigned Musculoskeletal Provider 04/25/20 10/25/21 Teresa Ferrer PA-C [address] [facility] [address] [place] [address] Physician Roll Forming Machine Set Up Mechanic Urology 02/20/23 documented as of this encounter
--- OUTSIDE RECORDS SUMMARY | 2023-08-04 12:35 | XMS_ITS | Encounter Summary ---
Author Organization [facility] Address [address] [place] [address] Care Team Providers Care Pilling Machine Operator Name Role Phone Dudley House MD Primary Care Provider Albert Figueroa MD Primary Care Provider [phone] Frankie Gaspar MD Unavailable Unavailable Augusta De La Cruz DPM Unavailable Frw, None Unavailable Unavailable Megan Segal DPM Unavailable [phone] Kyle Morris MD Unavailable Kayode Brambila OD Unavailable [phone] Ned Birmingham MD Unavailable [phone] Mike Villareal DO Unavailable [phone] Sony Perez MD Unavailable [phone] Matt Grover MD Unavailable Albert Brownlee MD Unavailable GinetteHumberto bowser MD Primary Care Provider [phone] James Jasso DO Unavailable Rajat Urban MD Unavailable Unavailable Thuy Coto PA-C Unavailable James Stevens DPM Unavailable [phone] Teresa Ferrer-C Unavailable [phone] Encounter Details Date Type Department Care Team (Late st Contact Info) Description 09/18/2004 MyC Medical Advice [facility] in [place] Medical Records [address] [place] [phone] Elvin Allred Social History Tobacco Use Types [...] on filedocumented in this encounter Care Teams Pilling Machine Operator Relationship Specialty Start Date End Date Dudley House MD [address] [place] [phone] PCP - General 03/23/07 09/02/10 Albert Figueroa MD [facility] [address] [place] [address] PCP - General 10/30/03 03/22/07 Frankie Gaspar MD PCP - Obstetrics/Gynecology 03/03/00 07/23/11 Augusta De La Cruz DPM PCP - Podiatry 09/26/05 Frw, None PCP - Podiatry 09/26/04 09/25/05 Megan Segal DPM [address] [place], [place] [address] PCP - Podiatry 03/03/00 09/25/04 Kyle Morris MD [address] [place], [place] [address] PCP - Ophthalmology 02/17/06 Kayode Brambila OD [facility] [place] [address] [place] [address] PCP - Ophthalmology 03/03/00 02/16/06 Ned Birmingham MD [place] [address] PCP - Surgery 10/25/08 09/27/09 Mike Villareal DO [facility] [address] [place] [address] PCP - Surgery 08/03/06 10/24/08 Sony Perez MD [facility] [address] [place] [address] PCP - ENT 03/19/07 12/08/17 Matt Grover MD [address] [place] [address] [address] [place] [address] PCP - Urology 12/22/08 Albert Brownlee MD [address] [place] [address] PCP - Surgery Surgery 09/28/09 11/02/12 Humberto Peng MD [facility] [place] [address] [place] [address] PCP - General Family Practice 09/03/10 James Jasso DO [facility] [place] [address] [place] [address] PCP - Obstetrics/Gynecology gear lapper 07/24/11 Rajat Urban MD [facility] [place] [address] [place] [address] PCP - Orthopaedics Orthopedics 12/02/11 12/08/17 Thuy Coto PA-C [facility] [place] [address] [place] [address] PCP - Surgery Physician Assistant Librarian 11/03/12 James Stevens DPM [address] [facility] [address] [place] [address] Assigned Musculoskeletal Provider 04/25/20 10/25/21 Teresa Ferrer PA-C [address] [facility] [address] [place] [address] Physician Assistant Librarian Urology 02/20/23 documented as of this encounter
--- OUTSIDE RECORDS SUMMARY | 2023-08-04 12:35 | XMS_ITS | Encounter Summary ---
Author Organization [facility] Address [address] [place] [address] Care Team Providers Care Service Or Work Dispatcher Chief Name Role Phone Dudley House MD Primary Care Provider [phone] Albert Figueroa MD Primary Care Provider [phone] Frankie Gaspar MD Unavailable Unavailable Augusta De La Cruz DPM Unavailable [phone] Frw, None Unavailable Unavailable Kyle Morris MD Unavailable [phone] Kayode Brambila OD Unavailable [phone] Ned Birmingham MD Unavailable [phone] Mike Villareal DO Unavailable [phone] Sony Perez MD Unavailable [phone] Matt Grover MD Unavailable [phone] Albert Brownlee MD Unavailable [phone] GinetteHumberto bowser MD Primary Care Provider [phone] James Jasso DO Unavailable [phone] Rajat Urban MD Unavailable Unavailable Thuy CotoC Unavailable James Stevens DPM Unavailable [phone] Teresa Ferrer PA-C Unavailable Encounter Details Date Type Department Care Team (Late st Contact Info) Description 11/11/2004 MyC Medical Advice [facility] in [place] Medical Records [address] [place] [phone] Elvin Allred Social History Tobacco Use Types [...] on filedocumented in this encounter Care Teams Service Or Work Dispatcher Chief Relationship Specialty Start Date End Date Dudley House MD [address] [place] [address] PCP - General 03/23/07 09/02/10 Albert Figueroa MD [facility] [place] [address] [facility] [address] [place] [address] PCP - General 10/30/03 03/22/07 Frankie Gaspar MD PCP - Obstetrics/Gynecology 03/03/00 07/23/11 Augusta De La Cruz DPM PCP - Podiatry 09/26/05 Frw, None PCP - Podiatry 09/26/04 09/25/05 Kyle Morris MD PCP - Ophthalmology 02/17/06 Kayode Brambila OD [facility] [place] [address] [place] [address] PCP - Ophthalmology 03/03/00 02/16/06 Ned Birmingham MD XXX [place] [address] PCP - Surgery 10/25/08 09/27/09 Mike Villareal DO [facility] [address] [place] [address] PCP - Surgery 08/03/06 10/24/08 Sony Perez MD [facility] [address] [place] [address] PCP - ENT 03/19/07 12/08/17 Matt Grover MD [address] [place] [address] PCP - Urology 12/22/08 Albert Brownlee MD [address] [place] [address] PCP - Surgery Surgery 09/28/09 11/02/12 Humberto Peng MD [facility] [place] [address] [place] [address] PCP - General Family Practice 09/03/10 James Jasso DO [facility] [place] [address] [place] [address] PCP - Obstetrics/Gynecology kettleman 07/24/11 Rajat Urban MD [facility] [place] [address] [place] [address] PCP - Orthopaedics Orthopedics 12/02/11 12/08/17 Thuy Coto PA-C [facility] [place] [address] [place] [address] PCP - Surgery Physician Bureau Director 11/03/12 James Stevens DPM [address] [facility] [address] [place] [address] Assigned Musculoskeletal Provider 04/25/20 10/25/21 Teresa Ferrer PA-C [address] [facility] [address] [place] [address] Physician Bureau Director Urology 02/20/23 documented as of this encounter
--- OUTSIDE RECORDS SUMMARY | 2023-08-04 12:35 | XMS_ITS | Encounter Summary ---
Author Organization [facility] Address [address] [place] [address] Care Team Providers Care Shoulder Boner Name Role Phone Dudley House MD Primary Care Provider [phone] Albert Figueroa MD Primary Care Provider [phone] Frankie Gaspar MD Unavailable Unavailable Augusta De La Cruz DPM Unavailable [phone] Frw, None Unavailable Unavailable Kyle Morris MD Unavailable [phone] Kayode Brambila OD Unavailable [phone] Ned Birmingham MD Unavailable Mike Villareal DO Unavailable [phone] Sony Perez MD Unavailable [phone] Matt Grover MD Unavailable Albert Brownlee MD Unavailable [phone] GinetteHumberto bowser MD Primary Care Provider [phone] James Jasso DO Unavailable [phone] Rajat Urban MD Unavailable Unavailable Thuy Coto PARickyC Unavailable [phone] James Stevens DPM Unavailable [phone] Teresa FerrerC Unavailable Reason for Visit * Reason Onset Date Comments MyChart Communication 11/13/2004 Encounter Details Date Type Department Care Team (Late st Contact Info) Description 11/11/2004 MyC Medical Advice [facility] [place] Medical Records [place] [phone] Elvin Allred MyChart Communication Social History Tobacco [...] on filedocumented in this encounter Care Teams Shoulder Boner Relationship Specialty Start Date End Date Dudley House MD [address] [place] [phone] PCP - General 03/23/07 09/02/10 Albert Figueroa MD [facility] [address] [facility] [address] [place] [address] PCP - General 10/30/03 03/22/07 Frankie Gaspar MD PCP - Obstetrics/Gynecology 03/03/00 07/23/11 Augusta De La Cruz DPM PCP - Podiatry 09/26/05 Frw, None PCP - Podiatry 09/26/04 09/25/05 Kyle Morris MD PCP - Ophthalmology 02/17/06 Kayode Brambila OD [facility] [address] [place] [address] PCP - Ophthalmology 03/03/00 02/16/06 Ned Birmingham MD XXX NO INFO FOUND XXX [place] [address] PCP - Surgery 10/25/08 09/27/09 Mike Villareal DO [facility] [address] [place] [address] PCP - Surgery 08/03/06 10/24/08 Sony Perez MD [facility] [address] [place] [address] PCP - ENT 03/19/07 12/08/17 Matt Grover MD [address] [place] [address] PCP - Urology 12/22/08 Albert Brownlee MD [address] [place] [address] PCP - Surgery Surgery 09/28/09 11/02/12 Humberto Peng MD [facility] [place] [address] [place] [address] PCP - General Family Practice 09/03/10 James Jasso DO [facility] [place] [address] [place] [address] PCP - Obstetrics/Gynecology special agent group insurance 07/24/11 Rajat Urban MD [facility] [place] [address] [place] [address] PCP - Orthopaedics Orthopedics 12/02/11 12/08/17 Thuy Coto PA-C [facility] [place] [address] [place] [address] PCP - Surgery Physician House Mover Helper 11/03/12 James Stevens DPM [address] [facility] [address] [place], [place] [address] Assigned Musculoskeletal Provider 04/25/20 10/25/21 Teresa Ferrer PA-C [address] [place] [address] Physician House Mover Helper Urology 02/20/23 documented as of this encounter
--- OUTSIDE RECORDS SUMMARY | 2023-08-04 12:35 | XMS_ITS | Encounter Summary ---
Author Organization [facility] Address [address] [place] [address] Care Team Providers Care Security Screener Name Role Phone Dudley House MD Primary Care Provider [phone] Albert Figueroa MD Primary Care Provider [phone] Frankie Gaspar MD Unavailable Unavailable Augusta De La Cruz DPM Unavailable [phone] Frw, None Unavailable Unavailable Kyle Morris MD Unavailable [phone] Kayode Brambila OD Unavailable [phone] Ned Birmingham MD Unavailable Mike Villareal DO Unavailable [phone] Sony Perez MD Unavailable [phone] Matt Grover MD Unavailable [phone] Albert Brownlee MD Unavailable [phone] GinetteHumberto boswer MD Primary Care Provider [phone] James Jasso DO Unavailable [phone] Rajat Urban MD Unavailable Unavailable Thuy Coto PARickyC Unavailable [phone] James Stevens DPM Unavailable [phone] Teresa FerrerC Unavailable [phone] Reason for Visit * Reason Onset Date Comments MyChart Communication 10/25/2004 plavix/sco pe Encounter Details Date Type Department Care Team (Late st Contact Info) Description 10/25/2004 MyC Medical Advice [facility] in [place] Medical Records [place] [phone] KishantElvin MyChart Communication (plavix/scope) Social History Tobacco Use Types Packs/Day Years [...] encounter Miscellaneous Notes * Telephone Encounter - Martha Ross - 10/25/2004 10:02 AM CDT please address documented in this encounter Plan of Treatment Not on file documented as of this encounter Visit Diagnoses Not on filedocumented in this encounter Care Teams Security Screener Relationship Specialty Start Date End Date Dudley House MD [address] [place] [phone] PCP - General 03/23/07 09/02/10 Albert Figueroa MD [facility] [address] [facility] [address] [place] [address] PCP - General 10/30/03 03/22/07 Frankie Gaspar MD PCP - Obstetrics/Gynecology 03/03/00 07/23/11 Augusta De La Cruz DPM PCP - Podiatry 09/26/05 Frw, None PCP - Podiatry 09/26/04 09/25/05 Kyle Morris MD PCP - Ophthalmology 02/17/06 Kayode Brambila OD [facility] [place] [address] [place] [address] PCP - Ophthalmology 03/03/00 02/16/06 Ned Birmingham MD XXX [place] [address] PCP - Surgery 10/25/08 09/27/09 Mike Villareal DO [facility] [address] [place] [address] PCP - Surgery 08/03/06 10/24/08 Sony Perez MD [facility] [address] [facility] [place] [address] PCP - ENT 03/19/07 12/08/17 Matt Grover MD [address] [facility] [address] [place] [address] PCP - Urology 12/22/08 Albert Brownlee MD [address] [place] [address] PCP - Surgery Surgery 09/28/09 11/02/12 Humberto Peng MD [facility] [place] [address] [place] [address] PCP - General Family Practice 09/03/10 James Jasso DO [facility] [place] [address] [place] [address] PCP - Obstetrics/Gynecology commercial door installer 07/24/11 Rajat Urban MD [facility] [place] [address] [place] [address] PCP - Orthopaedics Orthopedics 12/02/11 12/08/17 Thuy Coto PA-C [facility] [place] [address] [place] [address] PCP - Surgery Physician Geothermal Technician 11/03/12 James Stevens DPM [address] [facility] [address] [place], [place] [address] Assigned Musculoskeletal Provider 04/25/20 10/25/21 Teresa Ferrer PA-C [address] [address] Physician Geothermal Technician Urology 02/20/23 documented as of this encounter
--- OUTSIDE RECORDS SUMMARY | 2023-08-04 12:35 | XMS_ITS | Encounter Summary ---
Author Organization [facility] Address [address] [place] [address] Care Team Providers Care Developmental Specialist Name Role Phone Dudley House MD Primary Care Provider Albert Figueroa MD Primary Care Provider Frankie Gaspar MD Unavailable Unavailable Augusta De La Cruz DPM Unavailable [phone] Frw, None Unavailable Unavailable Megan Segal DPM Unavailable [phone] Kyle Morris MD Unavailable Kayode Brambila OD Unavailable [phone] Ned Birmingham MD Unavailable Mike Villareal DO Unavailable [phone] Sony Perez MD Unavailable [phone] Matt Grover MD Unavailable Albert Brownlee MD Unavailable [phone] GinetteHumberto bowser MD Primary Care Provider [phone] James Jasso DO Unavailable Rajat Urban MD Unavailable Unavailable Thuy Coto PA-C Unavailable James Stevens DPM Unavailable [phone] Teresa Ferrer-C Unavailable Encounter Details Date Type Department Care Team (Late st Contact Info) Description 09/18/2004 MyC Medical Advice [facility] [place] Medical Records [address] [place] [phone] Elvin Allred Social History Tobacco Use Types [...] on filedocumented in this encounter Care Teams Developmental Specialist Relationship Specialty Start Date End Date Dudley House MD [address] [place] [phone] PCP - General 03/23/07 09/02/10 Albert Figueroa MD [facility] [address] [place] [address] PCP - General 10/30/03 03/22/07 Frankie Gaspar MD PCP - Obstetrics/Gynecology 03/03/00 07/23/11 Augusta De La Cruz DPM PCP - Podiatry 09/26/05 Frw, None PCP - Podiatry 09/26/04 09/25/05 Megan Segal DPM [address] [place], [place] [address] PCP - Podiatry 03/03/00 09/25/04 Kyle Morris MD [address] [place], [place] [address] PCP - Ophthalmology 02/17/06 Kayode Brambila OD [facility] [place] [address] [place] [address] PCP - Ophthalmology 03/03/00 02/16/06 Ned Birmingham MD XXX [place] [address] PCP - Surgery 10/25/08 09/27/09 Mike Villareal DO [facility] [address] [place] [address] PCP - Surgery 08/03/06 10/24/08 Sony Perez MD [facility] [address] [place] [address] PCP - ENT 03/19/07 12/08/17 Matt Grover MD [address] [place] [address] [address] [place] [address] PCP - Urology 12/22/08 Albert Brownlee MD [address] [place] [address] PCP - Surgery Surgery 09/28/09 11/02/12 Humberto Peng MD [facility] [place] [address] [place] [address] PCP - General Family Practice 09/03/10 James Jasso DO [facility] [place] [address] [place] [address] PCP - Obstetrics/Gynecology orthotic aide 07/24/11 Rajat Urban MD [facility] [place] [address] [place] [address] PCP - Orthopaedics Orthopedics 12/02/11 12/08/17 Thuy Coto PA-C [facility] [place] [address] [place] [address] PCP - Surgery Physician Parcel Post Order Clerk 11/03/12 [place] D[place] [address] [facility] [address] [place] [address] Assigned Musculoskeletal Provider 04/25/20 10/25/21 Teresa Ferrer PA-C [address] [facility] [address] [place] [address] Physician Parcel Post Order Clerk Urology 02/20/23 documented as of this encounter
--- OUTSIDE RECORDS SUMMARY | 2023-08-04 12:35 | XMS_ITS | Encounter Summary ---
Author Organization [facility] Address [address] [place] [address] Care Team Providers Care Advanced Registered Nurse Name Role Phone Dudley House MD Primary Care Provider Albert Figueroa MD Primary Care Provider Frankie Gaspar MD Unavailable Unavailable Augusta De La Cruz DPM Unavailable [phone] Frw, None Unavailable Unavailable Megan Segal DPM Unavailable Kyle Morris MD Unavailable Kayode Brambila OD Unavailable Ned Birmingham MD Unavailable Mike Villareal DO Unavailable [phone] Sony Perez MD Unavailable [phone] Matt Grover MD Unavailable [phone] Albert Brownlee MD Unavailable GinetteHumberto bowser MD Primary Care Provider [phone] James Jasso DO Unavailable Rajat Urban MD Unavailable Unavailable Thuy Coto PA-C Unavailable James Stevens DPM Unavailable [phone] Teresa Ferrer-C Unavailable Reason for Visit * Reason Onset Date Comments MyChart Communication 09/25/2004 questions regarding recent test and symptoms Encounter Details Date Type Department Care Team (Late st Contact Info) Description 09/24/[address] [facility] in [place] Medical Records [address] [id number] BrianhartElvin MyChart Communication (questions regarding... Social History Tobacco Use Types Packs/Day Years [...] * Telephone Encounter - Martha Ross - 09/25/2004 9:02 AM CDT please address in pcp absence documented in this encounter Plan of Treatment Not on file documented as of this encounter Visit Diagnoses Not on filedocumented in this encounter Care Teams Advanced Registered Nurse Relationship Specialty Start Date End Date Dudley House MD [address] [place] [address] PCP - General 03/23/07 09/02/10 Albert Figueroa MD [facility] [address] [facility] [address] [place] [address] PCP - General 10/30/03 03/22/07 Frankie Gaspar MD PCP - Obstetrics/Gynecology 03/03/00 07/23/11 Augusta De La Cruz DPM PCP - Podiatry 09/26/05 Frw, None PCP - Podiatry 09/26/04 09/25/05 Megan Segal, DPM [address] [place] [address] PCP - Podiatry 03/03/00 09/25/04 Kyle Morris MD [address] [place] [address] PCP - Ophthalmology 02/17/06 Kayode Brambila OD [facility] [place] [address] [place] [address] PCP - Ophthalmology 03/03/00 02/16/06 Ned Birmingham MD XXX [place] [address] PCP - Surgery 10/25/08 09/27/09 Mike Villareal DO [facility] [address] [place], [place] [address] PCP - Surgery 08/03/06 10/24/08 Sony Perez MD [facility] [address] [place] [address] PCP - ENT 03/19/07 12/08/17 Matt Grover MD [address] [facility] [address] [place], [place] [address] PCP - Urology 12/22/08 Albert Brownlee MD [address] [place] [address] PCP - Surgery Surgery 09/28/09 11/02/12 Humberto Peng MD [facility] [place] [address] [place] [address] PCP - General Family Practice 09/03/10 James Jasso DO [facility] [place] [address] [place] [address] PCP - Obstetrics/Gynecology mechanic recovery 07/24/11 Rajat Urban MD [facility] [place] [address] [place] [address] PCP - Orthopaedics Orthopedics 12/02/11 12/08/17 Thuy Coto PA-C [facility] [place] [address] [place] [address] PCP - Surgery Physician Business Development Executive 11/03/12 James Stevens DPM [address] [facility] [address] [place] [address] Assigned Musculoskeletal Provider 04/25/20 10/25/21 Teresa Ferrer PA-C [address] [address] Physician Business Development Executive Urology 02/20/23 documented as of this encounter
--- OUTSIDE RECORDS SUMMARY | 2023-08-04 12:35 | XMS_ITS | Encounter Summary ---
Author Organization [address] Address [address] [place] [address] Care Team Providers Care Program Manager Name Role Phone Dudley House MD Primary Care Provider Albert Figueroa MD Primary Care Provider Frankie Gaspar MD Unavailable Unavailable Augusta De La Cruz DPM Unavailable Frw, None Unavailable Unavailable Megan Segal DPM Unavailable Kyle Morris MD Unavailable Kayode Brambila OD Unavailable [phone] Ned Birmingham MD Unavailable [phone] Mike Villareal DO Unavailable [phone] Sony Perez MD Unavailable [phone] Matt Grover MD Unavailable Albert Brownlee MD Unavailable GinetteHumberto bowser MD Primary Care Provider [phone] James Jasso DO Unavailable Rajat Urban MD Unavailable Unavailable Thuy Coto PA-C Unavailable James Stevens DPM Unavailable [phone] Teresa Ferrer-C Unavailable Encounter Details Date Type Department Care Team (Late st Contact Info) Description 09/24/2004 MyC Medical Advice [facility] in [place] Medical Records CARL Alexander [id number] Elvin Allred Social History Tobacco Use Types [...] encounter Miscellaneous Notes * Telephone Encounter - Lokesh Wheat - 09/24/2004 9:33 AM CDT FYI, see note that was sent to patient. documented in this encounter Plan of Treatment Not on file documented as of this encounter Visit Diagnoses Not on filedocumented in this encounter Care Teams Program Manager Relationship Specialty Start Date End Date Dudley House MD [address] [place] [id number] PCP - General 03/23/07 09/02/10 Albert Figueroa MD [facility] [address] [facility] [address] [place] [address] PCP - General 10/30/03 03/22/07 Frankie Gaspar MD PCP - Obstetrics/Gynecology 03/03/00 07/23/11 Augusta De La Cruz DPM PCP - Podiatry 09/26/05 Frw, None PCP - Podiatry 09/26/04 09/25/05 Megan Segal DPM [address] [place] [address] PCP - Podiatry 03/03/00 09/25/04 Kyle Morris MD [address] [facility] [address] [place] [address] PCP - Ophthalmology 02/17/06 Kayode Brambila OD [facility] [place] [address] [facility] [address] [place] [address] PCP - Ophthalmology 03/03/00 02/16/06 Ned Birmingham MD [place] [address] PCP - Surgery 10/25/08 09/27/09 Mike Villareal DO [facility] [address] [place] [address] PCP - Surgery 08/03/06 10/24/08 Sony Perez MD [facility] [address] [place] [address] PCP - ENT 03/19/07 12/08/17 Matt Grover MD [address] [place] [address] PCP - Urology 12/22/08 Albert Brownlee MD [address] [place] [address] PCP - Surgery Surgery 09/28/09 11/02/12 Humberto Peng MD [facility] [place] [address] [place] [address] PCP - General Family Practice 09/03/10 James Jasso DO [facility] [place] [address] [place] [address] PCP - Obstetrics/Gynecology lead caster 07/24/11 Rajat Urban MD [facility] [place] [address] [place] [address] PCP - Orthopaedics Orthopedics 12/02/11 12/08/17 Thuy Coto PA-C [facility] [place] [address] [place] [address] PCP - Surgery Physician Suture Winder Hand 11/03/12 James Stevens DPM [address] [facility] [address] [place], [place] [address] Assigned Musculoskeletal Provider 04/25/20 10/25/21 Teresa Ferrer PA-C [address] [place], [place] [address] Physician Suture Winder Hand Urology 02/20/23 documented as of this encounter
--- OUTSIDE RECORDS SUMMARY | 2023-08-04 12:35 | XMS_ITS | Encounter Summary ---
Author Organization [place] Address [address] [place] [address] Care Team Providers Care Rn Critical Care Name Role Phone Dudley House MD Primary Care Provider Albert Figueroa MD Primary Care Provider Ferny Neil MD Primary Care Provider Frankie Gaspar MD Unavailable Unavailable Augusta De La Cruz DPM Unavailable Frw, None Unavailable Unavailable Megan Segal DPM Unavailable [phone] Kyle Morris MD Unavailable Kayode Brambila OD Unavailable [phone] Ned Birmingham MD Unavailable Mike Villareal DO Unavailable [phone] Sony Perez MD Unavailable [phone] Matt Grover MD Unavailable Albert Brownlee MD Unavailable [phone] GinetteHumberto bowser MD Primary Care Provider [phone] James Jasso DO Unavailable [phone] Rajat Urban MD Unavailable Unavailable Thuy Coto PA-C Unavailable [phone] James Stevens DPM Unavailable [phone] Teresa Ferrer CIPRIANO Unavailable Reason for Visit * Reason Comments Abstract Encounter Details Date Type Department Care Team (Late st Contact Info) Description 06/03/2000 Abstract [facility] in [place] Medical Records [place] [phone] Heel Sander, George Social History Tobacco Use Types Packs/Day Years Used Date Smoking Tobacco: Never Assessed Sex and Gender Information Value Date Recorded Sex Assigned at Not on file Gender Identity Not on file Sexual Orientation Straight 06/26/2018 6: 53 PM CDT documented as of this encounter Progress Notes * 06/03/2000 11:59 PM CDT Abstracted by Ricardo lror on 06/03/2000 Pastora Lua [birth year]-00 [id number] The patient enters complaining of cough, nonproductive, witho ut fever, chills or night sweats thatshe has had for a week and a half. It was not proceeded by any other upper respiratory symptoms. She denies sore throat, sinus pain, fever, chills, hemoptysis. S he is a nonsmoker and has no history of pulmonary disease. She does have a problem with transverse m yelitis and has noted that she is dev eloping some numbness in the inner aspect of her right foot mychal lar to what she had developed earlier in the left. His has been present for just a couple of weeks a lso. Her medications were reviewed and are correct on the medication sheet. She remains on the Neur ontin t.i.d. Her toe fracture hascompletely healed. ON EXAM: Ears - canals are clear. TMs are normal. Nose and throat normal. Mouth, tongue normal. Neck supple, no cervical or supraclavicular adenopathy. Lungs clear to percussion and auscultation. Heart regular rate and rhythm, no murmurs, gallops or rubs. IMPRESSION: Bronchitis. DISPOSITION: 1. Florencesin AC, 1 tsp q 4 prn cough. Increase humidity at home. 2. 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 If her symptoms persist she will call me in 2 to 3 weeks and we will have her see neurology again. Tomasz lala M.D./natan D: 03-17-00 T: 03-20-00 A bstracted by Ricardo lror on 06/03/2000 Pastora Lua 02-04-00 [id number] TELEPHONE CALL: Phone message was left regarding nondisplaced left fourth metatarsal fracture that she is to use a la ce shoe with good padding and that it should heal over a 6 week period. Ferny Neil M.D./[facility] Abstracted by Ricardo still bstractor on 06/03/2000 Pastora Lua 01-30-00 [id number] S: The patient enters for follow-up. She continues to have some aching and numbness and tingling inher left leg. I have reviewed the ne urologist's note from the [facility] in May and June when she was seen down there. They felt she h ad a transverse myelitis documented on MRI which would certainly explain her symptoms. She's been un brianne a lot of stress at work and her symptoms have gotten worse. She has more numbness. Her foot fee ls somewhat at times. She's also noticed some jerking movements and cramping at night. She did recently decrease her Neurontin from 300 mg t.i.d. to 300 mgb.i.d. and her symptoms did seem to inc rease at that time. She also injured her right foot 1 ?? months ago when she twisted it while stepping on the edge of adrop-off accidentally. She noted no swelling at that time. Her heartburn seems t o be well controlled. She has no dysphagia, odynophagia, nausea or vomiting. Her irritable bowel sy ndrome also improved interestingly with the Neurontin. O: She is alert, oriented and appropriate. BP 134/72, pulse 80, weight 197. Mouth, tongue and buccal mucosa are normal. Carotids equal withou t bruits. No neck vein distention. No adenopathy. Lungs clear. Heart regular without murmurs or g allops. Abdomen soft. No masses or tenderness. Extremities:she has bilateral varicosities, more o n the left than right. She has venous stasis pigment changes, more on the left ankle than right ankl e. There's no dependent edema. Distal pulses are 4 over 4 at the posterior tibials. 1 over 4 at the dorsalis pedis and symmetric. Neurologic: DTR's are 3+ and symmetric at the biceps, triceps and brachial radialis. 3+ at the rightknee, 2+ at the left knee, 3+ at the right ankle, 2+ at the left ankle. She has altered sensation in the left lower extremity laterally and medially, but more so lat erally. Sensation to touch over the face, upper extremities and lower extremities is otherwise eriberto l except for the left lateral leg below the knee and the left foot. Ccrodw-si-nkdm, rapid alternatin g movements are normal. Strength is 4 over 5 and symmetric at the biceps, shoulder abductors, tricep s, fingers, hamstrings and quads. Also 4 over 5 and symmetric at the dorsiflexors of the feet. A & P: Transverse myelitis, possibly related to MS, although that diagnosis remains in doubt. GERD, reasonably well controlled, although she has had a little chest pain since dropping her dos eof Neurontin. She'll increase her Prevacid to 30 b.i.d. for two weeks and then drop back to 30 onc e daily. Her Synthroid is renewed for one year, related to her hypothyroidism. In addition, she complains of some tenderness over the dorsum of the right foot which I can cause by palpating over the fourth metatarsal. We'll get a film of that area to make sure she doesn 't havea stress fracture. She has bilateral varicose veins, more on the left and righ t, and will be referred to Surgery for that. Her meds were all renewed. Ferny Neil M.D./ester D: 01-30-00 T: 02-04-00 Abstracted by Keysha Martinez magazine keeper on 06/03/2000 Pastora Lua 01-13-00 [id number] Pastora is in today with complai nts of (R) ear swelling, redness and some discomfort. She has noted it for approximately 3 days. It c mal on without obvious precipitating injury or event. Symptoms have primarily been some increased war mth and feeling of some enlargement, swelling and prominence of the (R) ear. She has used ice packs f or it and some pressure with some improvement of her symptoms. She denies any fevers, chills, ear nicole n, sinus or facial pain, neck pain, or throat discomfort. She has not had problems with her ears prev iously. She does not use the phone a lot, nor does she use earphones. She does have some earphones th at she uses at home with an electronic piano, but otherwise, does not have any pressure or damage to her ear. She does wear glasses. She states that has been about the same over the last 12-24 hours. I f anything, maybe a little bit less swollen or uncomfortable than it was yesterday or last evening. S he denies any constitutional symptoms of fevers, chills, aches and pains. Her Examination reveals (R ) external ear some swelling evident with what feels like some increasedwarmth and some floppiness, although it is not too dissimilar to the (L) ear with associated hyperemia. No obvious puncture wound . No tenderness along the crease line. No scalp or (R) sided neck, jaw or throat abnormalities. The ( R) TM is normal. Nasal exam is negative. Assessment: Hyperemia of the (R) ear of uncertain etiology . She did have an exposure to a topical lotion several days ago which she used on her hands which cau sed some itching along the thenar surface of both thumbs. No evidence of any rash or inflammation the re. It is possible that inadvertently she did grab the ear, although she does not recall that. I do n ot see any obvious signs that thisis a residual infection, and certainly it does not appear to be in volving the cartilage in the (R)ear. At this point uncertain of exact etiology although I think it i s likely a, if anything, more of an allergic reaction rather than a rash. I Recommend cool compresse s, continued observation. Treat with antibiotics if it obviously changesto the worse. But I think it should continue to resolve. I recommended she use alcohol wipes for cleaning both her arms of her gl asses as well as her ear phones for her piano, and to let us know if it worsens. Would consider antib iotics at that time. Berry Patterson MD/kiara documented in this encounter Plan of Treatment Not on file documented as of this encounter Procedures Procedure Name Priority Date/Time Associated Diagnosis Comments HCL A.M.A. HEPATIC PANEL (RW) Routine 07/12/1999 HCL AMYLASE, SERUM Routine 07/03/1999 HCL BASIC METABOLIC PANEL Routine 07/02/1999 HCL PAP SMEAR (RW) Routine 02/21/1999 HCL LIPID PANEL Routine 02/21/1999 HCL TSH Routine 02/21/1999 HCL GLUCOSE Routine 02/21/[address] [facility] UGI ENDOSCOPY, SIMPLE EXAM Routine 04/11/1998 [facility] COLONOSCOPY THRU STOMA, DIAGNOSTIC Routine 11/17/1991 documented in this encounter Results * A.M.A. HEPATIC PANEL (RW) (07/12/1999) Bilirubin Total 0.45 0.2 - 1.3 (adult)mg/ dl [facility] [place] [facility] Bilirubin Direct 0 0.0 - 0.3 (adult)mg/ dl [facility] Alkaline Phosphatase 61 50 - 136 (Adult) u/l [facility] [place] [facility] ALT 33 0 - 65 U/L [facility] [place] [facility] AST 21 0 - 37 U/L [facility] Protein Total 7.8 6.0 - 8.2 g/dl [facility] Albumin 3.5 3.2 - 4.5 g/dL [facility] Jelani Heel Sander LABORATORY Performing Organization Address [facility] de Phone Number [facility] [place] [address] * AMYLASE, SERUM (07/03/1999) Amylase 27 25 - 115 U/L [facility] [place] [facility] Jelani Heel Sander LABORATORY Performing Organization Address [facility] de Phone Number [facility] [place] [address] * A.M.A. BASIC METABOLIC PANEL (07/02/1999) Sodium 143 136 - 148 mmol/L [facility] [place] [facility] Potassium 4.3 3.5 - 5.2 mmol/L [facility] [place] [facility] Chloride 109 94 - 109 mmol/L [facility] [place] [facility] Carbon Dioxide 21.7 20 - 32 mmol/L [facility] [place] [facility] Jelani Heel Sander LABORATORY Performing Organization Address [facility] de Phone Number [facility] [place] [address] * PAP SMEAR (RW) (02/21/1999) PAP wnl [facility] Jelani Heel Sander LABORATORY Performing Organization Address [facility] de Phone Number [facility] [place] [address] * TSH (02/21/1999) TSH 1.67 0.34 - 4.82 IU/mL [facility] [place] [facility] T.W. Heel Sander LABORATORY Performing Organization Address [facility] de Phone Number [facility] [place] [address] * (ABNORMAL) A.M.A. LIPID PANEL (02/21/1999) Cholesterol 247(A) 0 - 200 mg/dL [facility] [place] [facility] Triglycerides 165 0 - 200 mg/dL [facility] [place] [facility] HDL Cholesterol 76 35 - 80 mg/dL [facility] [place] [facility] LDL Cholesterol Calculated 138(A) 0 - 130 mg/dL [facility] [place] [facility] Cholesterol/HDL Ratio 3.3 0 - 5 [facility] [place] [facility] T.W. Heel Sander LABORATORY Performing Organization Address [facility] de Phone Number [facility] [place] [address] * GLUCOSE (02/21/1999) Glucose 98 60 - 115 mg/dL [facility] [place] [facility] T.W. Heel Sander LABORATORY Performing Organization Address [facility] de Phone Number [facility] [place] [address] * UPPER GI ENDOSCOPY,EXAM (04/11/1998) K.J Heel Sander PROCEDURES Performing Organization Address [facility] de Phone Number [facility] [place] [address] * COLONOSCOPY (11/17/1991) K.J Heel Sander PROCEDURES Performing Organization Address [facility] de Phone Number [facility] [place] [address] documented in this encounter Visit Diagnoses Not on filedocumented in this encounter Care Teams Rn Critical Care Relationship Specialty Start Date End Date Dudley House MD [address] [facility] [place] [address] PCP - General 03/23/07 09/02/10 Albert Figueroa MD [facility] [place] [address] [place] [address] PCP - General 10/30/03 03/22/07 Ferny Neil MD [place] [address] PCP - General 03/03/00 10/29/03 Frankie Gaspar MD PCP - Obstetrics/Gynecology 03/03/00 07/23/11 Augusta De La Cruz, DPM PCP - Podiatry 09/26/05 Frw, None PCP - Podiatry 09/26/04 09/25/05 Megan Segal, DPM [address] [place] [address] PCP - Podiatry 03/03/00 09/25/04 Kyle Morris MD [address] [place] [address] PCP - Ophthalmology 02/17/06 Kayode Brambila OD [facility] [place] [address] [facility] [address] [place] [address] PCP - Ophthalmology 03/03/00 02/16/06 Ned Birmingham MD [place] [address] PCP - Surgery 10/25/08 09/27/09 Mike Villareal DO [facility] [address] [place] [address] PCP - Surgery 08/03/06 10/24/08 Sony Perez MD [facility] [address] [place] [address] PCP - ENT 03/19/07 12/08/17 Matt Grover MD [address] [facility] [address] [place] [address] PCP - Urology 12/22/08 Albert Brownlee MD [address] [place] [address] PCP - Surgery Surgery 09/28/09 11/02/12 Humberto Peng MD [facility] [place] [address] [place] [address] PCP - General Family Practice 09/03/10 James Jasso DO [facility] [place] [address] [place] [address] PCP - Obstetrics/Gynecology 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
--- OUTSIDE RECORDS SUMMARY | 2023-08-04 12:35 | XMS_ITS | Encounter Summary ---
Author Organization [place] Address [address] [place] [address] Care Team Providers Care Online Merchandising Coordinator Name Role Phone Dudley House MD Primary Care Provider [phone] Albert Figueroa MD Primary Care Provider [phone] Frankie Gaspar MD Unavailable Unavailable Augusta De La Cruz DPM Unavailable Frw, None Unavailable Unavailable Kyle Morris MD Unavailable [phone] Kayode Brambila OD Unavailable [phone] Ned Birmingham MD Unavailable [phone] Mike Villareal DO Unavailable [phone] Sony Perez MD Unavailable [phone] Matt Grover MD Unavailable Albert Brownlee MD Unavailable [phone] GinetteHumberto bowser MD Primary Care Provider [phone] James Jasso DO Unavailable [phone] Rajat Urban MD Unavailable Unavailable Thuy Coto PARickyC Unavailable [phone] James Stevens DPM Unavailable [phone] Teresa FerrerC Unavailable Reason for Visit * Reason Onset Date Comments MyChart Communication 11/05/2004 questions regarding injections for scan Encounter Details Date Type Department Care Team (Late st Contact Info) Description 11/05/2004 MyC Medical Advice [facility] [place] Medical Records CARL Alexander [phone] Elvin Allred MyChart Communication (questions regarding... Social History Tobacco [...] * Telephone Encounter - Martha Ross - 11/05/2004 8:41 AM CDT could you please have a provider address this question documented in this encounter Plan of Treatment Not on file documented as of this encounter Visit Diagnoses Not on filedocumented in this encounter Care Teams Online Merchandising Coordinator Relationship Specialty Start Date End Date Dudley House MD [address] [place] [address] PCP - General 03/23/07 09/02/10 Albert Figueroa MD [facility] [address] [facility] [address] [place] [address] PCP - General 10/30/03 03/22/07 Frankie Gaspar MD PCP - Obstetrics/Gynecology 03/03/00 07/23/11 Augusta De La Cruz DPM PCP - Podiatry 09/26/05 Frw, None PCP - Podiatry 09/26/04 09/25/05 Kyle Morris MD PCP - Ophthalmology 02/17/06 Kayode Brambila OD [facility] [place] [address] [place] [address] PCP - Ophthalmology 03/03/00 02/16/06 Ned Birmingham MD XXX [place] [address] PCP - Surgery 10/25/08 09/27/09 Mike Villareal DO [facility] [address] [place] [address] PCP - Surgery 08/03/06 10/24/08 Sony Perez MD [facility] [address] [place] [address] PCP - ENT 03/19/07 12/08/17 Matt Grover MD [address] [facility] [address] [place] [address] PCP - Urology 12/22/08 Albert Brownlee MD [address] [place] [address] PCP - Surgery Surgery 09/28/09 11/02/12 Humberto Peng MD [facility] [place] [address] [place] [address] PCP - General Family Practice 09/03/10 James Jasso DO [facility] [place] [address] [place] [address] PCP - Obstetrics/Gynecology prosthetist 07/24/11 Rajat Urban MD [facility] [place] [address] [place] [address] PCP - Orthopaedics Orthopedics 12/02/11 12/08/17 Thuy Coto PA-C [facility] [place] [address] [place] [address] PCP - Surgery Physician Sort Line Worker 11/03/12 James Stevens DPM [address] [facility] [address] [place], [place] [id number] Assigned Musculoskeletal Provider 04/25/20 10/25/21 Teresa Ferrer PA-C [address] [address] Physician Sort Line Worker Urology 02/20/23 documented as of this encounter
--- OUTSIDE RECORDS SUMMARY | 2023-08-04 12:35 | XMS_ITS | Encounter Summary ---
Author Organization [facility] Address [address] [place] [id number] Care Team Providers Care Car Supplier Name Role Phone Dudley House MD Primary Care Provider [phone] Albert Figueroa MD Primary Care Provider [phone] Frankie Gaspar MD Unavailable Unavailable Augusta De La Cruz DPM Unavailable [phone] Frw, None Unavailable Unavailable Kyle Morris MD Unavailable [phone] Kayode Brambila OD Unavailable [phone] Ned Birmingham MD Unavailable Mike Villareal DO Unavailable [phone] Sony Perez MD Unavailable [phone] Matt Grover MD Unavailable [phone] Albert Brownlee MD Unavailable [phone] GinetteHumberto bowser MD Primary Care Provider [phone] James Jasso DO Unavailable [phone] Rajat Urban MD Unavailable Unavailable Thuy CotoC Unavailable James Stevens DPM Unavailable [phone] Teresa Ferrer PA-C Unavailable Encounter Details Date Type Department Care Team (Late st Contact Info) Description 10/01/2004 [facility] Medical Advice [facility] [place] Medical Records [address] [place] [id number] Elvin Allred Social History Tobacco Use Types [...] on filedocumented in this encounter Care Teams Car Supplier Relationship Specialty Start Date End Date Dudley House MD [address] [place] [phone] PCP - General 03/23/07 09/02/10 Albert Figueroa MD [facility] [place] [address] [facility] [address] [place] [address] PCP - General 10/30/03 03/22/07 Frankie Gaspar MD PCP - Obstetrics/Gynecology 03/03/00 07/23/11 Augusta De La Cruz DPM PCP - Podiatry 09/26/05 Frw, None PCP - Podiatry 09/26/04 09/25/05 Kyle Morris MD PCP - Ophthalmology 02/17/06 Kayode Brambila OD [facility] [place] [address] [place] [address] PCP - Ophthalmology 03/03/00 02/16/06 Ned Birmingham MD XXX [place] [address] PCP - Surgery 10/25/08 09/27/09 Mike Villareal DO [facility] [address] [place] [address] PCP - Surgery 08/03/06 10/24/08 Sony Perez MD [facility] [address] [place] [address] PCP - ENT 03/19/07 12/08/17 Matt Grover MD [address] [place] [address] PCP - Urology 12/22/08 Albert Brownlee MD [address] [place] [address] PCP - Surgery Surgery 09/28/09 11/02/12 Humberto Peng MD [facility] [place] [address] [place] [address] PCP - General Family Practice 09/03/10 James Jasso DO [facility] [place] [address] [place] [address] PCP - Obstetrics/Gynecology accountant 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
== END 2023-07-20 14:41 | disposition home or self-care (01) ==
LOC: NFLDREF 08-04 12:28
PROVIDERS: PCP Physician Assistant Medical; Referring Provider Physician Assistant Medical; Visit Provider Physician Assistant Medical
DX: N39.0 Urinary tract infection, site not specified (principal); B35.6 Tinea cruris
CPT/HCPCS: 87077; 87086

== ENCOUNTER 2023-08-06 13:08 | Outpatient (CLI) | payer MEDICARE, SELFPAY ==
--- NOTE | 2023-08-06 13:30 | CRLHL7_ITS ---
For Patients: As a result of the Century Cures Act, medical imaging exams and procedure reports are released immediately into your electronic medical record. You may view this report before your referring provider. If you have questions, please contact your health care provider. DXA BONE MINERAL DENSITY STUDY Reason for exam: Asymptomatic menopausal state. Current height (in): 64. Weight (lb): 234. Menopause age: 28. Ethnicity: White. 1. Have you had a previous hip or vertebral fracture? No. 2. Have you had any fractures during your adult life which did not result from significant trauma (e.g., auto accident)? No. 3. Did either of your parents have a hip fracture? No. 4. Do you smoke? No. 5. Have you ever taken Glucocorticoids? No. 6. Do you have rheumatoid arthritis? No. 7. Do you have secondary osteoporosis? No. 8. Do you drink 3 or more alcoholic drinks per day? No. 9. Are you being treated for osteoporosis? No. 10. Have you ever taken any of the following medications: Actonel, Evista, Fosamax, Miacalcin, Reclast, Boniva, Forteo, HRT (i.e., estrogen/hormone therapy), Protelos, Prolia, Vitamin D, Calcium, other ??? please specify. ANSWER: No. 11. Do you have any of the following medical conditions: Anorexia or bulimia, asthma or emphysema, end stage renal disease, hyperparathyroidism, any seizure disorders, cancer, inflammatory bowel diseases, hysterectomy, other ??? please specify. ANSWER: Yes, hysterectomy. 12. What was your maximum height (inches)? 64. 13. Do you perform weight bearing exercise regularly? No. 14. Do you regularly consume dairy products? No. 15. Do you drink caffeinated beverages? No. 16. At what age did your period start? 10. 17. Are you premenopausal? No. 18. How many full-term pregnancies have you had? 2. 19. Have you ever missed your period for more than 6 months in a row (not including or menopause)? No. TECHNIQUE: Bone mineral density study was performed using the [employer]. FINDINGS: The results of the study expressed as bone mineral density (BMD) are as follows: Lumbar spine L1 to L3: BMD: 1.073 g/cm2. T-score: 0.5. Z-score: 3.1 Neck Left: BMD: 0.860 g/cm2. T-score: 0.1. Z-score: 2.4 Right: BMD: 0.831 g/cm2. T-score: -0.2. Z-score: 2.1 Total Left: BMD: 1.124 g/cm2. T-score: 1.5. Z-score: 3.5 Right: BMD: 1.005 g/cm2. T-score: 0.5. Z-score: 2.6 IMPRESSION: Normal bone density. *Comparison exams done prior to 07/2019 were performed on different unit, Aleph[employer]. Humberto Contreras M.D. Diagnostic Radiologist [email or web address]/[email or web address]/Dictated by: Humberto Contreras MD @ 08/10/2023 9:06:00 AM (Electronically Signed)
== END 2023-08-06 13:09 | disposition home or self-care (01) ==
LOC: RAD 13:09
PROVIDERS: PCP Physician Assistant Medical; Visit Provider Physician Assistant Medical
DX: Z78.0 Asymptomatic menopausal state (principal)
CPT/HCPCS: 77080

== ENCOUNTER 2024-01-08 08:39 | Outpatient (CLI) | payer MEDICARE, SELFPAY ==
--- OUTSIDE RECORDS SUMMARY | 2024-01-08 14:35 | XMS_ITS | Clinical Summary ---
Author Organization [facility] Address [address] [place] [address] Care Team Providers Care Continuity Tester Name Role Phone Humberto Peng M.D. Primary Care Provider [phone] Source Comments Patient records contain information from all sites at [facility]. For routine questions regarding patient records, call [phone] during business hours, M-F 8:00 AM - 5:00 PM Central Time. Record requests for emergency care only can be directed to [phone] at any time.[facility] Allergies Active Allergy Reactions Criticality Noted Date Comments Adhesive Tape-Silicones Other (see comments) 10/02/2014 Aspirin GI intolerance 05/07/2013 ASPIRIN - Upset Stomach Iodinated Contrast Media Hives (Reselect Reaction) 05/07/2013 NSAIDS - (Tolectin) Latex Other (see comments) 10/02/2014 Nsaids (Non-Steroidal Anti-Inflammatory Drug) Other (see comments) 07/16/2021 Pollen Extracts Hives (Reselect Reaction) High 08/11/2019 Sulfa (Sulfonamide Antibiotics) Other (see comments) 10/02/2014 Medications * This document contains information received from the source organization and may not represent a complete record from that organization. acetaminophen (TYLENOL) 325 mg tablet Take 2 tablets by mouth every 4 (four) hours as needed. 4 Active aspirin (ASPIR-81 ORAL) Take 1 tablet by mouth daily. 5 Active miscellaneous medical supply misc nasal cushions See Instructions , Dx PAT Duration 15 months patient preference, 1 each, 5 Refill(s) 5 Active warfarin (COUMADIN) 4 mg tablet Take 1 tablet by mouth as directed. 5 Active montelukast (SINGULAIR) 10 mg tablet Take 1 tablet by mouth daily. 9 Active DME CPAPIndications: Apnea Sleep Obstructive DME Order 1 Device 0 Active cyanocobalamin (VITAMIN B12) 1,000 mcg tablet Daily Act eduardo magnesium ascorbate, bulk, powder 1 Scoop. Active lisinopril-hydro CHLOROthiazide (Zestoretic) 10-12.5 mg per tablet Take 1 tablet by mouth daily. 90 tablet 3 1 Active amLODIPine (NORVASC) 5 mg tablet Take 5 mg by mouth at bedtime. 1 Active Ventolin HFA 90 mcg/actuation inhaler INHALE TWO PUFFS BY MOUTH EVERY 6 HOURS NEEDED FOR WHEEZING 54 g 3 3 Active levothyroxine (SYNTHROID, LEVOTHROID) 100 mcg tablet take one tablet by mouth every day 90 tablet 3 3 Active lansoprazole (PREVACID) [address] capsule take one capsule by mouth twice a day 180 capsule 3 4 Active triamcinolone (Kenalog) 0.1 % cream Apply topically. 3 Active lovastatin (Mevacor) 20 mg tablet Take 1 tablet (20 mg total) by mouth daily with evening meal. Patient needs Office Visit for further refills. 90 tablet 4 Active gabapentin (Neurontin) 400 mg capsule TAKE THREE CAPSULES BY MOUTH THREE TIMES A DAY 810 capsule 3 4 Active mirabegron (Myrbetriq) 25 mg 24 hr tablet Take 1 tablet (25 mg total) by mouth daily. 90 tablet 4 03/09/19 25 Active trospium (SANCTURA) 20 mg tablet TAKE 1 TABLET BY MOUTH THREE TIMES DAILY. 270 tablet 3 3 12/18/19 24 Discontinu ed(Therapy completed) Gemtesa 75 mg tablet take one tablet by mouth every day 30 tablet 4 12/18/19 24 Discontinu ed(Therapy completed) Myrbetriq 25 mg 24 hr tablet take one tablet by mouth every day 30 tablet 4 12/10/19 24 Discontinu ed(Reorder ) Active Problems Problem Noted Date Diagnosed Date Varicose Vein Lower Extremity Bilateral 07/08/19 20 Embolus Pulmonary Personal History 06/09/2018 Hyperlipidemia On Treatment 06/04/2018 Obesity Body Mass Index 30-39.9 Adult 05/28/2017 Hypertension Essential Primary 05/14/2016 Diabetes Mellitus Type 2 Peripheral Neuropathy 0 05/14/2016 Hypothyroidism On Replacement 05/14/2016 Overactive Bladder 05/14/2016 Apnea Sleep Obstructive 05/18/2015 Mixed Irritable Bowel Syndrome 05/18/2015 Residential (Current) Anticoagulant Treatment 09/2015 Lymphedema 05/18/2015 Neuropathy Peripheral 05/18/2015 Reflux Esophageal 10/27/2013 Overview (05/28/2017): Esophageal reflux 05/13/2007-EGD in January of 2007, repeat in 3 years 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 Urinary Urge Incontinence (Primary Dx) Discharge Disposition: Home or Self Care 12/12/2023 Refill Department of Family Medicine, [facility] [place], in [address] [phone] Humberto Peng M.D. Med Refill 12/10/2023 Orders Only Department of Urology in [address] [phone] Zulay Murphy MPAS, P.A.-C. 12/08/2023 Clinical Communication Department of Urology in [address] [phone] Zulay Murphy MPAS, PHung.-C. 12/17 Urology visit 12/04/2023 Refill Department of Urology in [address] [phone] Jax Mcintyre M.D. Med Refill 12/04/2023 Refill Department of Family Medicine, [facility] [place], in [address] [phone] Humberto Peng M.D. Med Refill 11/11/2023 Refill Department of Urology in [address] [phone] Jax Mcintyre M.D. Med Refill 10/18/2023 Refill Department of Family Medicine, [facility] [place], in [address] [phone] Humberto Peng M.D. Med Refill 10/16/2023 2:30 PM CDT Procedure visit Department of Urology in [address] [phone] Jax Mcintyre M.D. Urinary Urge Incontinence Discharge Disposition: Home or Self Care 10/16/2023 2:10 PM CDT Ancillary Procedure Department of Urology 10/13/2023 Orders Only [facility] Diabetes Mellitus Type 2 Peripheral Neuropathy (HCC); Monitoring For Therapeutic Drug Therapy from Last 3 Months Immunizations Name Administration Dates Next Due H1N1 All Forms 01/30/2009 Influenza high dose QV(65 ye ars or older) (PF) 11/27/2020,11/21/2019 Influenza, Injectable, Quadrivalent 11/21/2019,1 Influenza, Unspecified 11/24/2019,2016,11/16/2015,2014,11/21/2013,10/26/2012,10/28/2011,0 10/23/2010,11/23/2005,12/11/2003, 003,11/30/2001,12/07/2000,01/06/2000 PPSV23 07/19/2009,05/14/2007 SARS-COV-2 (COVID-19) - PFIZ ER (Discontinued)(12 years or older) 04/24/2020,04/03/2020 Td (Adult), adsorbed 04/24/2011,05/11/2001 Tdap 05/18/2015 influenza trivalent high dos e (HD)(PF) 11/29/2018,10/28/2017 Family History Medical History Relation Name Comments Diabetes Brother David Lopez Cataracts Father basil skin cancer Other cancer Father basil skin cancer Arthritis Mother .Raymond Lopez Heart attack Mother .Raymond Lopez Hypothyroidism Mother .Raymond Lopez Lymphoma Mother .Raymond Lopez non [place] lymphoma Parkinsonism Mother .Raymond Lopez Parkinsons disease Mother .Raymond Lopez Coronary artery disease Paternal Grandfather Roberto Terry about 73-75 Breast cancer Paternal Grandmother [place] Nicki Multiple sclerosis Sister 1 Breast cancer Sister 2 Layla Boo currently in t reatment Diabetes Sister 2 Layla Boo Relation Name Status Comments Brother David Lpoez Father basil skin cancer Mother .Raymond Loepz Paternal Grandfather Roberto Celisuire Paternal Grandmother Radha Lopez Sister 1 Sister 2 Layla Boo Social History Tobacco Use Types Packs/Day Years Used Date Smoking Tobacco: Never Smokeless Tobacco: Never Tobacco Cessation:Counseling Given: Not Answered Alcohol Use Standard Drinks/Week Comments No 0 (1 standard drink = 0.6 oz pur e alcohol) [facility] Utilities Answer Date Recorded In the past 12 months has e electric, gas, oil, or water company threatened to shut off services in your home? No 08/30/2023 Humiliation, Afraid, Rape, and Kick questionnair e [...] How often do you attend chur or oriental orthodox services? More than 4 times per year 02/25/2022 Do you belong to any clubs o r organizations such as congregation groups, unions, fraternal or athletic groups, or [...] Answer Date Recorded PHQ-2 Score 0 03/04/2022 [facility] - Occupational [...] in exercise at this level? Patient declined 08/30/2023 Hunger Vital Sign Answer Date Recorded Within the past 12 months, y ou worried that your food would run out before you got the money to buy more. Never true 08/30/19 24 Within the past 12 months, t he food you bought just didn't last and you didn't have money to get more. Never true 08/30/2023 PRAPARE - Transportation Answer Date Re corded In the past 12 months, has l ack of transportation kept you from medical appointments or from getting medications? No 08/10 In the past 12 months, has l ack of transportation kept you from meetings, work, or from getting things needed for daily living? No 08/30/2023 Nutrition Answer Date Recorded On average, how many serving s of fruits and vegetables do you eat per day (serving size is equal to 1 cup or approximately the size of a tennis ball)? 3-5 08/30/2023 Dental Answer Date Recorded Dental: Regular Dentist Yes 02/09/20 Employment Answer Date Recorded Employment status Retired 08/30/2023 Housing Stability Answer Date Recorded What is your living situation today? I have a [facility] place to live 08/30/2023 Education Answer Date Recorded What is the highest level of school you have completed or the highest degree you have received? 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 Gender Identity Female 06/04/2018 7:39 PM CDT Sexual Orientation Straight 06/04/2018 7: 39 PM CDT Last Filed Vital Signs Vital Sign Reading Time Taken Comments Blood Pressure 158/74 10/16/2023 2:28 PM CDT Pulse 96 10/16/2023 2:28 PM CDT Temperature 36.5 C (97.7 F) 10/16/2023 2:28 PM CDT Respiratory Rate 18 12/02/2013 10:00 AM CDT Oxygen Saturation 96% 07/16/2021 3:10 PM CDT Inhaled Oxygen Concentration - - Weight 106 kg (233 lb 4 oz) 07/16/2021 3:10 PM C DT Height 163 cm (5' 4.17) 07/16/2021 3:10 PM CDT Body Mass Index 39.82 07/16/2021 3:10 PM CDT Plan of Treatment Health Maintenance Due Date Last Done Comments Office Visit for Blood Pressure Check / Re-check 1945 Visit: Medicare Annual Wellness 1945 Zoster Vaccines (1 of 2) 12/05/1993 Hepatitis B Vaccines (1 of 3 - Risk 3-dose series) 2003 Pneumococcal vaccine (65+ years) (2 of 2 - PCV) 07/19/2010 07/19/2009, 05/14/2007 Dilated Eye Exam 09/23/2013 09/23/2012, 05/2010, 12/14/2008, Additional history exists RSV vaccine - (32-36 weeks) or 60+ years (1 - 1-dose 75+ series) 12/05/2018 Diabetic Office Visit with Foot Exam 07/16/2022 07/16/2021 Urine Albumin 07/16/2022 07/16/2021, 05/2 , 11/29/2018 Hemoglobin A1C 08/26/2022 02/26/2022, 06/0 08/2021, 12/26/2020, Additional history exists Depression Screening (Annual PHQ-2) 02/09/2023 Fall Risk Screen (Annual) 02/09/2023 Creatinine Level (Kidney Function Test) 02/26/2023 02/26/2022, 07/16/2021, 12/26/2020, Additional history exists Potassium Level 02/26/2023 02/26/2022, 06/0 08/2021, 12/26/2020, Additional history exists Sodium Level 02/26/2023 02/26/2022, 06/0 08/2021, 12/26/2020, Additional history exists Thyroid Stimulating Hormone (TSH) test for thyroid function 02/26/2023 02/26/2022, 12/26/2020, 11/22/2018, Additional history exists Visit: Chronic Disease, age 18+ 03/04/2023 03/04/2022, 03/04/2022 COVID-19 Vaccine ( season) 2023 11/25/2022, 11/27/2021, 06/29/2021, Additional history exists Influenza Vaccine (#1) 2023 3, 11/26/2021, 11/27/2020, Additional history exists DTaP,Tdap,and Td Vaccines (2 - Td or Tdap) 05/17/2025 05/18/2015, 04/24/2011, 05/11/2001 Colonoscopy Discontinued 07/25/2008 (Perf ormed elsewhere), 10/31/2004 Cologuard Discontinued 07/21/2017 Colorectal Cancer Surveillance Discontinued Mammogram Discontinued 10/28/2022, 10/10, 07/16/2021, Additional history exists CT Colonography Discontinued IPV Vaccines Aged Out No longer eligi ble based on patient's age to complete this topic Procedures Procedure Name Priority Date/Time Associated Diagnosis Comments UROLOGY IMAGE EXAM Routine 10/16/2023 2: 10 PM CDT BI BREAST SCREENING BILATERAL WITH TOMOSYNTHESIS RAD - Routine (most inpatients and all outpatients) 10/28/2022 1:05 PM CDT Screening Mammogram High Risk Patient HEMOGLOBIN A1C, B Routine 07/16/2021 1:2 8 PM CDT Diabetes Mellitus Type 2 Peripheral Neuropathy (HCC) Hyperlipidemia On Treatment Hypertension Essential Primary Hypothyroidism On Replacement Residential (Current) Anticoagulant Treatment Reflux Esophageal BASIC METABOLIC PANEL, S/P Routine 07/16/2021 1:28 PM CDT Diabetes Mellitus Type 2 Peripheral Neuropathy (HCC) Hyperlipidemia On Treatment Hypertension Essential Primary Hypothyroidism On Replacement Residential (Current) Anticoagulant Treatment Reflux Esophageal ALBUMIN, RANDOM, U Routine 07/16/2021 1: 22 PM CDT Diabetes Mellitus Type 2 Peripheral Neuropathy (HCC) Hyperlipidemia On Treatment Hypertension Essential Primary 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 The clinical documentation to support these images can be found on the encounter that produced images. Provider Not In System IMG NON RAD IMAGING PROCE DURES Final Result [facility] NA * BI Breast Screening Bilateral with Tomosynthesis (10/28/2022 1:05 PM CDT) Anatomical Region Laterality Modality Breast, Breast Imaging RST L OS, Breast Imaging ARZ LOS, Breast Imaging FLA LOS Bilateral Mammography 10/29/2022 8:18 AM CDT Impressions 10/29/2022 8:20 AM CDT Negative. RECOMMENDATION: Annual Screening Mammogram ASSESSMENT: BI-RADS: 1: Negative. Narrative 10/29/2022 8:20 AM CDT EXAM: BI BREAST SCREENING BILATERAL WITH TOMOSYNTHESIS Current study was evaluated with a Computer Aided Detection (CAD) system. INDICATION: Screening mammogram. COMPARISON: Prior exam(s) were available and reviewed for comparison. DENSITY: b. There are scattered areas of fibroglandular density. FINDINGS: No mammographic findings of malignancy. Procedure Note Isidro [...] Negative. Humberto Peng M.D. IMG BI PROCEDURES Final Result * (ABNORMAL) Hemoglobin A1c (07/16/2021 1:28 PM CDT) Hemoglobin A1c, B 6.4(H) 4.2 - 5.6 % 07/16/2021 2:04 PM CDT [facility] Comment: Hemoglobin A1c values of 5.7-6.4 percent indicate an increased risk for developing diabetes mellitus. In diabetic patients, HbA1c goals should be discussed with healthcare provider. Blood (Blood, Venous) 07/16/2021 1:28 PM CDT 07/16/2021 1:29 PM CDT us Humberto Peng M.D. LAB BLOOD ADD-ON Final Result [facility] [address] [place] [address], [facility] [place] [address] [place] [address] * Basic Metabolic Panel (07/16/2021 1:28 PM CDT) Potassium, P 4.2 3.6 - 5.2 mmol/L 07/16/2021 2:02 PM CDT [facility] Sodium, P 139 135 - 145 mmol/L 07/16/2021 2:02 PM CDT [facility] Chloride, P 105 98 - 107 mmol/L 07/16/2021 2:02 PM CDT [facility] Bicarbonate, P 22 22 - 29 mmol/L 07/16/2021 2:02 PM CDT [facility] Anion Gap, P 12 7 - 15 07/16/2021 2:02 PM CDT [facility] BUN (Blood Urea Nitrogen), P 18 6 - 21 mg/dL 07/16/2021 2:02 PM CDT [facility] Creatinine 0.77 0.59 - 1.04 mg/dL 07/16/2021 2:02 PM CDT [facility] eGFR-Black/Afric an [place] Islander 86 >=60 mL/min/BSA 07/16/2021 2:02 PM CDT [facility] Comment: ----ADDITIONAL INFORMATION---- Estimated GFR calculated using the 2009 CKD_EPI creatinine equation. eGFR Non-Black/Christine n [place] Islander 75 >=60 mL/min/BSA 07/16/2021 2:02 PM CDT [facility] Comment: ----ADDITIONAL INFORMATION---- Estimated GFR calculated using the 2009 CKD_EPI creatinine equation. Calcium, Total, P 9.6 8.8 - 10.2 mg/dL 07/16/2021 2:02 PM CDT [facility] Glucose, P 121 70 - 140 mg/dL 07/16/2021 2:02 PM CDT [facility] Blood (Blood, Venous) 07/16/2021 1:28 PM CDT 07/16/2021 1:29 PM CDT Humberto Peng M.D. LAB BLOOD ADD-ON Final Result Performing Organization Address [facility] Co de Phone Number [facility] [address] [place] [id number], [facility] in [address] [phone] * (ABNORMAL) Albumin, Random, Urine (07/16/2021 1:22 [...] 1:22 PM CDT 07/16/2021 1:38 PM CDT us Humberto Peng M.D. LAB URINE ORDERABLES Final Res ult Performing Organization Address [facility]/ZIP Co de Phone Number [facility] [address] [address], [facility] [place] [address] [phone] * S-TSH (Thyroid-Stimulating Hormone - Sensitive) (11/22/2018) EXT TSH 1.27 Blood (Blood, Venous) us Ordering Provider External M.D. LAB BLOOD ADD-ON Final Result * (ABNORMAL) Cologuard (07/21/2017 2:00 AM CDT) Result Positive (A) Not Applicable 07/28/2017 6:30 PM CDT [employer] Comment: A positive result can indicate the presence of colorectal cancer (CRC) or advanced adenoma (pre-cancer). Correlate clinically and recommend follow-up investigation with a structural examination of the colon such as diagnostic colonoscopy. Test Type: Composite algorithmic analysis of stool DNA-biomarkers with hemoglobin immunoassay. Quantitative values of individual biomarkers are not [...] can be accessed at the following location: www.[employer]/results. Additional description of the Cologuard test process, warnings and precautions can be found at [email or web address]. Rx Only. Stool 07/21/2017 2:00 AM CDT 07/22/2017 1:13 PM CDT Humberto Peng M.D. LAB BODY FLUIDS AND STOOLS ORD ERABLES Final Result [employer] [address] [place] [address] from Last 3 Months or Most Recently Relevant to Health Maintenance Insurance [facility] Care Teams Continuity Tester Relationship Specialty Start Date End Date Humberto Peng M.D. [address] [place] [phone] PCP - General 08/08/16
--- OUTSIDE RECORDS SUMMARY | 2024-01-08 14:35 | XMS_ITS | Referral Summary ---
Author Organization [facility] Address [address] [place] [address] Care Team Providers Care Emergency Telecommunications Dispatcher Name Role Phone Humberto Peng M.D. Primary Care Provider [phone] Source Comments Patient records contain information from all sites at [facility]. For routine questions regarding patient records, call [phone] during business hours, M-F 8:00 AM - 5:00 PM Central Time. Record requests for emergency care only can be directed to [phone] at any time.[facility] Encounters Date Type Department Care Team Description 12/18/2023 1:30 PM AMORTIZATION SCHEDULE CLERK Office Visit Department of Urology in [address] [phone] Zulay Murphy MPAS, P.A.-C. Urinary Urge Incontinence (Primary Dx) Discharge Disposition: Home or Self Care 12/12/2023 Refill Department of Family Medicine, [facility], in [address] [phone] Humberto Peng M.D. Med Refill 12/10/2023 Orders Only Department of Urology in [address] [phone] Zulay Murphy MPAS, P.A.-C. 12/08/2023 Clinical Communication Department of Urology in [address] [phone] Zulay Murphy MPAS, P.A.-C. 12/17 Urology visit 12/04/2023 Refill Department of Urology in [address] [phone] Jax Mcintyre M.D. Med Refill 12/04/2023 Refill Department of Family Medicine, [facility], in [address] [phone] Humberto Peng M.D. Med Refill 11/11/2023 Refill Department of Urology in [address] [phone] Jax Mcintyre M.D. Med Refill 10/18/2023 Refill Department of [facility], [address] [phone] Humberto Peng M.D. Med Refill 10/16/2023 2:10 PM CDT Ancillary Procedure Department of Urology 10/16/2023 2:30 PM CDT Procedure visit Department of Urology in [address] [phone] Jax Mcintyre M.D. Urinary Urge Incontinence Discharge Disposition: Home or Self Care 10/13/2023 Orders Only [facility] Humberto Peng M.D. 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) Anticoagulant Treatment 09/2015 Lymphedema 05/18/2015 Neuropathy [...] 05/18/2015 Overview (05/28/2017): Unspecified transient cerebral ischemia Immunizations Name Administration Dates Next Due H1N1 All Forms 01/30/2009 Influenza high dose QV(65 ye ars or older) (PF) 11/27/2020,11/21/2019 Influenza, Injectable, Quadrivalent 11/21/2019,1 Influenza, Unspecified 11/24/2019,2016,11/16/2015,2014,11/21/2013,10/26/2012,10/28/2011,0 10/23/2010,11/23/2005,12/11/2003, 003,11/30/2001,12/07/2000,01/06/2000 PPSV23 07/19/2009,05/14/2007 SARS-COV-2 (COVID-19) - PFIZ ER (Discontinued)(12 years or older) 04/24/2020,04/03/2020 Td (Adult), adsorbed 04/24/2011,05/11/2001 Tdap 05/18/2015 influenza trivalent high dos e (HD)(PF) 11/29/2018,10/28/2017 Social History Tobacco Use Types Packs/Day Years Used Date Smoking Tobacco: Never Smokeless Tobacco: Never Tobacco Cessation:Counseling Given: Not Answered Alcohol Use Standard Drinks/Week Comments No 0 (1 standard drink = 0.6 oz pur e alcohol) [facility] Active Endpointsities Answer Date Recorded In the past 12 months has e [employer], gas, oil, or water [employer] threatened to shut off services in your [...] do you attend [facility] or confucianism services? More than 4 times per year 02/25/2022 Do you belong to any clubs o r organizations such as restorationism groups, unions, fraternal or athletic groups, or [...] Answer Date Recorded PHQ-2 Score 0 03/04/2022 [facility] of Occupat ional [facility] - Occupational Stress Questionnaire Answer Date Recorded [...] your living situation today? I have a [facility] place to live 08/30/2023 Education Answer Date Recorded What is the highest level of school you have completed or the highest degree you have received? Some college, no degree 06/24/2020 Comments No Sex and Gender Information Value Date Recorded Sex Assigned at Female 06/04/2018 7:39 PM CDT Legal Sex Female 7:48 AM AMORTIZATION SCHEDULE CLERK Gender Identity Female 06/04/2018 7:39 PM CDT [...] 07/16/2021 3:10 PM CDT Plan of Treatment Not on file [...] Treatment Hypertension Essential Primary Hypothyroidism On Replacement [employer] [facility] (Current) Anticoagulant Treatment Reflux Esophageal BASIC METABOLIC PANEL, S/P Routine 07/16/2021 1:28 PM CDT Diabetes Mellitus Type 2 Peripheral Neuropathy (HCC) Hyperlipidemia On Treatment Hypertension Essential Primary Hypothyroidism On Replacement [facility] (Current) Anticoagulant Treatment Reflux Esophageal ALBUMIN, RANDOM, U Routine 07/16/2021 1: 22 PM CDT Diabetes Mellitus Type 2 Peripheral Neuropathy (HCC) Hyperlipidemia On Treatment Hypertension Essential Primary Hypothyroidism On Replacement Half-Way (Current) Anticoagulant Treatment Reflux Esophageal THYROID-STIMULATING HORMONE-SENSITIVE [...] found on the encounter that produced images. us Provider Not In System IMG NON RAD IMAGING PROCE DURES Final Result IINH NA * BI Breast Screening Bilateral with [...] Annual Screening Mammogram ASSESSMENT: BI-RADS: 1: Negative. us Humberto Peng M.D. IMG BI PROCEDURES Final [...] Peng M.D. LAB BLOOD ADD-ON Final Result [facility] [address] [facility] [place] [address], [facility] [place] [address] [place] [address] * Basic Metabolic Panel (07/16/2021 1:28 PM [...] 07/16/2021 2:02 PM CDT [facility] eGFR-Black/Afric an Icelandic 86 >=60 mL/min/BSA 07/16/2021 2:02 PM CDT [facility] Comment: ----ADDITIONAL INFORMATION---- Estimated GFR calculated using the 2009 CKD_EPI creatinine equation. eGFR Non-Black/Christine n Icelandic 75 >=60 mL/min/BSA 07/16/2021 2:02 PM CDT [...] Peng M.D. LAB BLOOD ADD-ON Final Result [facility] [address] [place] [address], [facility] [place] [address] [place] [address] * (ABNORMAL) Albumin, Random, Urine (07/16/2021 1:22 [...] CDT Humberto Peng M.D. LAB URINE ORDERABLES Final Res ult [facility] [address] [place] [address], [facility] in [place] [address] [place] [phone] * S-TSH (Thyroid-Stimulating Hormone - Sensitive) (11/22/2018) EXT TSH 1.27 Blood (Blood, Venous) Ordering Provider Vanessa Helms LAB BLOOD ADD-ON Final Result * (ABNORMAL) Cologuard (07/21/2017 2:00 AM CDT) Result Positive (A) Not Applicable 07/28/2017 6:30 PM CDT [facility] Comment: A positive result can indicate the [...] can be accessed at the following location: www.Travolver/results. Additional description of the Cologuard test process, warnings and precautions can be found at [email or web address].com. Rx Only. Stool 07/21/2017 2:00 AM CDT 07/22/2017 1:13 PM CDT Humberto Peng M.D. LAB BODY FLUIDS AND STOOLS ORD ERABLES Final Result [facility] [address] [place] [phone] from Last 3 Months or Most Recently Relevant to Health Maintenance Insurance [facility] [place] [address] Care Teams Emergency Telecommunications Dispatcher Relationship Specialty Start Date End Date Humberto Peng M.D. [address] [place] [phone] PCP - General 08/08/16
--- OUTSIDE RECORDS SUMMARY | 2024-01-08 14:36 | XMS_ITS | Encounter Summary ---
Author Organization [facility] Address [address] [place] [address] Care Team Providers Care Windsmith Name Role Phone Humberto Peng M.D. Primary Care Provider [phone] Encounter Details Date Type Department Care Team (Late st Contact Info) Description 12/10/2023 Orders Only Department of Urology in [place], [place] [address] [place] [phone] Zulay Murphy, MPAS, P.A.-C. [address] [place] [phone] Social History Tobacco Use Types Packs/Day Years Used Date Smoking Tobacco: Never Smokeless Tobacco: Never Alcohol Use Standard Drinks/Week Comments No 0 (1 standard drink = 0.6 oz pur e alcohol) [facility] Utilities Answer Date Recorded In the past 12 months has [employer], gas, oil, or water [email or web address] threatened to shut off services in your [...] How often do you attend chur or muslim services? More than 4 times per year 02/25/2022 Do you belong to any clubs o r organizations such as yarsanism groups, unions, fraternal or athletic groups, or [...] Answer Date Recorded PHQ-2 Score 0 03/04/2022 [facility] of Occupat ional Health - Occupational Stress [...] your living situation today? I have a [facility] place to live 08/30/2023 Education Answer Date Recorded What is the highest level of school you have completed or the highest degree you have received? Some college, no degree 06/24/2020 Comments No Sex and Gender Information Value Date Recorded Sex Assigned at Female 06/04/2018 7:39 PM CDT Legal Sex Female 7:48 AM PORCELAIN TURNER Gender Identity Female 06/04/2018 7:39 PM CDT Sexual Orientation Straight 06/04/2018 7: 39 PM CDT documented as of this encounter Plan of Treatment Not on file documented as of this encounter Visit Diagnoses Not on filedocumented in this encounter Care Teams Windsmith Relationship Specialty Start Date End Date Humberto Peng M.D. ALEXANDRA: [id number] [address] [place] [phone] PCP - General 08/08/16 documented as of this encounter
--- OUTSIDE RECORDS SUMMARY | 2024-01-08 14:36 | XMS_ITS | Encounter Summary ---
Author Organization [facility] Address [address] [place] [address] Care Team Providers Care Graduate Recruiter Name Role Phone Humberto Peng M.D. Primary Care Provider [phone] Reason for Visit * Reason Onset Date Comments Communication 09/24/2023 Blood thinners a nd Cysto Encounter Details Date Type Department Care Team (Latest Contact Info) Description 09/24/2023 Clinical Communication Department of Urology in [place], [place] [address] [place] [address] [phone] Zulay Murphy, MPAS, P.A.-C. [address] [place] [phone] Communication (Blood thinners and Cysto) Social History Tobacco Use Types Packs/Day Years Used Date Smoking Tobacco: Never Smokeless Tobacco: Never Alcohol Use Standard Drinks/Week Comments No 0 (1 standard drink = 0.6 oz pur e alcohol) [facility] Utilities Answer Date Recorded In the [...] How often do you attend chur or synagogue services? More than 4 times per year 02/25/2022 Do you belong to any clubs o r organizations such as faith groups, unions, fraternal or athletic groups, or [...] Answer Date Recorded PHQ-2 Score 0 03/04/2022 [facility] [place] of Occupat ional Health - Occupational Stress [...] your living situation today? I have a [facility] place to live 08/30/2023 Education Answer Date Recorded What is the highest level of school you have completed or the highest degree you have received? 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 ALEXANDRA: [id number] [address] [place] [address] [place] [phone] PCP - General 08/08/16 documented as of this encounter
--- OUTSIDE RECORDS SUMMARY | 2024-01-08 14:36 | XMS_ITS | Encounter Summary ---
Author Organization [facility] Address [address] [place] [address] Care Team Providers Care Knot Saw Operator Name Role Phone Humberto Peng M.D. Primary Care Provider [phone] Reason for Visit * Reason Comments Med Refill Encounter Details Date Type Department Care Team (Late st Contact Info) Description 12/12/2023 Refill Department of Family Medicine, [facility], in [place], [place] [address] [place] [phone] Humberto Peng M.D. [address] [place] [phone] Med Refill Social History Tobacco Use Types Packs/Day Years Used Date Smoking Tobacco: Never Smokeless Tobacco: Never Alcohol Use Standard Drinks/Week Comments No 0 (1 standard drink = 0.6 oz pur e alcohol) [facility] Utilities Answer Date Recorded In the past 12 months has e [employer], gas, oil, or water [employer] threatened to shut off services in your [...] often do you attend chur ch or samaritan services? More than 4 times per year [...] Answer Date Recorded PHQ-2 Score 0 03/04/2022 [facility] of Occupat ional Health - [...] your living situation today? I have a [facility] place to live 08/30/2023 Education Answer Date Recorded What is the highest level of school you have completed or the highest degree you have received? Some college, no degree 06/24/2020 Comments No Sex and Gender Information Value Date Recorded Sex Assigned at Female 06/04/2018 7:39 PM CDT Legal Sex Female 7:48 AM MEN'S CUSTOM HAIR PIECE CONSULTANT Gender Identity Female 06/04/2018 7:39 PM CDT Sexual Orientation Straight 06/04/2018 7: 39 PM CDT documented as of this encounter Miscellaneous Notes * Telephone Encounter - Gretchen Gupta - 12/14/2023 9:[address] Peng refused refill request 12/04/23. 'S CUSTOM HAIR PIECE CONSULTANT documented in this encounter Plan of Treatment Not on file documented as of this encounter Visit Diagnoses Not on filedocumented in this encounter Care Teams Knot Saw Operator Relationship Specialty Start Date End Date Humberto Peng M.D. [address] [place] [phone] PCP - General 08/08/16 documented as of this encounter
--- OUTSIDE RECORDS SUMMARY | 2024-01-08 14:36 | XMS_ITS | Encounter Summary ---
Author Organization [facility] Address [address] [place] [address] Care Team Providers Care Press Tender Star Signal Name Role Phone Humberto Peng M.D. Primary Care Provider [phone] Encounter Details Date Type Department Care Team (Late st Contact Info) Description 10/13/2023 Orders Only [facility] Humberto Peng M.D. [address] [place] [phone] Diabetes Mellitus Type 2 Peripheral Neuropathy (HCC); Monitoring For Therapeutic Drug Therapy Social History Tobacco Use Types Packs/Day Years Used Date Smoking Tobacco: Never Smokeless Tobacco: Never Alcohol Use Standard Drinks/Week Comments No 0 (1 standard drink = 0.6 oz pur e alcohol) [facility] Utilities Answer Date Recorded In the past 12 months has [facility] [employer], gas, oil, or water [employer] threatened to shut off services in your [...] How often do you attend chur or gnosticist services? More than 4 times per year 02/25/2022 Do you belong to any clubs o r organizations such as denominational groups, unions, fraternal or athletic groups, or [...] Answer Date Recorded PHQ-2 Score 0 03/04/2022 [facility] of Occupat ional Health - [...] your living situation today? I have a [facility] place to live 08/30/2023 Education Answer Date Recorded What is the highest level of school you have completed or the highest degree you have received? Some college, no degree 06/24/2020 Comments No Sex and Gender Information Value Date Recorded Sex Assigned at Female 06/04/2018 7:39 PM CDT Legal Sex Female 7:48 AM COMMISSIONS MANAGER Gender Identity Female 06/04/2018 7:39 PM CDT Sexual Orientation Straight 06/04/2018 7: 39 PM CDT documented as of this encounter Plan of Treatment Scheduled Orders Name Type Priority Associated Diagnoses Orde r Schedule Albumin, Random, Urine Lab Routine Diabetes Mellitus Type 2 Peripheral Neuropathy (HCC) Expected: 10/27/2023, Expires: 04/10/2024 Basic Metabolic Panel Lab Routine Monitoring For Therapeutic Drug Therapy Expected: 10/27/2023, Expires: 04/10/2024 Hemoglobin A1c Lab Routine Diabetes Mellitus Type 2 Peripheral Neuropathy (HCC) Expected: 10/27/2023, Expires: 04/10/2024 documented as of this encounter Visit Diagnoses Diagnosis Diabetes Mellitus Type 2 Peripheral Neuropathy (HCC) Monitoring For Therapeutic Drug Therapy documented in this encounter Care Teams Press Tender Star Signal Relationship Specialty Start Date End Date Humberto Peng M.D. [address] [place] [phone] PCP - General 08/08/16 documented as of this encounter
--- OUTSIDE RECORDS SUMMARY | 2024-01-08 14:36 | XMS_ITS | Encounter Summary ---
Author Organization [facility] Address [address] [place] [address] Care Team Providers Care Physicist Astrophysics Name Role Phone Humberto Peng M.D. Primary Care Provider [phone] Reason for Visit * Reason Comments Med Refill Encounter Details Date Type Department Care Team (Late st Contact Info) Description 12/04/2023 Refill Department of Urology in [place], [place] [address] [place] [phone] Jax Mcintrye M.D. [address] [place] [phone] Med Refill Social History Tobacco Use Types Packs/Day Years Used Date Smoking Tobacco: Never Smokeless Tobacco: Never Alcohol Use Standard Drinks/Week Comments No 0 (1 standard drink = 0.6 oz pur e alcohol) [facility] Utilities Answer Date Recorded In the past 12 months has [employer], gas, oil, or water [employer] threatened to shut off services in your [...] often do you attend chur ch or episcopal services? More than 4 times per year 02/25/2022 Do you belong to any clubs o r organizations such as gnosticist groups, unions, fraternal or athletic groups, or [...] Answer Date Recorded PHQ-2 Score 0 03/04/2022 [facility] of Occupat ional Health - Occupational [...] your living situation today? I have a [facility] place to live 08/30/2023 Education Answer Date Recorded What is the highest level of school you have completed or the highest degree you have received? Some college, no degree 06/24/2020 Comments No Sex and Gender Information Value Date Recorded Sex Assigned at Female 06/04/2018 7:39 PM CDT Legal Sex Female 7:48 AM RECYCLING SORTER Gender Identity Female 06/04/2018 7:39 PM CDT Sexual Orientation Straight 06/04/2018 7: 39 PM CDT documented as of this encounter Plan of Treatment Not on file documented as of this encounter Visit Diagnoses Not on filedocumented in this encounter Care Teams Physicist Astrophysics Relationship Specialty Start Date End Date Humberto Peng M.D. [address] [place] [phone] PCP - General 08/08/16 documented as of this encounter
--- OUTSIDE RECORDS SUMMARY | 2024-01-08 14:36 | XMS_ITS | Encounter Summary ---
Author Organization [facility] Address [address] [place] [address] Care Team Providers Care Line Mechanic Name Role Phone Humberto Peng M.D. Primary Care Provider [phone] Encounter Details Date Type Department Care Team (Late st Contact Info) Description 10/16/2023 2:10 PM CDT Ancillary Procedure Department of Urology Social History Tobacco Use Types Packs/Day Years Used Date Smoking Tobacco: Never Smokeless Tobacco: Never Alcohol Use Standard Drinks/Week Comments No 0 (1 standard drink = 0.6 oz pur e alcohol) [facility] Utilities Answer Date Recorded In the [...] often do you attend chur ch or lutheran services? 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 Gender Identity Female 06/04/2018 7:39 PM CDT Sexual Orientation Straight 06/04/2018 7: 39 PM CDT documented as of this encounter Plan of Treatment Not on file documented as of this encounter Procedures Procedure Name Priority Date/Time Associated Diagnosis Comments UROLOGY IMAGE EXAM Routine 10/16/2023 2: 10 PM CDT documented in this encounter Results * Urology Image Exam-Urology Image Exam [...] IMAGING PROCE DURES Final Result [facility] NA documented in this encounter Visit Diagnoses Not on filedocumented in this encounter Care Teams Line Mechanic Relationship Specialty Start Date End Date Humberto Peng M.D. [address] [place] [phone] PCP - General 08/08/16 documented as of this encounter
--- OUTSIDE RECORDS SUMMARY | 2024-01-08 14:36 | XMS_ITS | Encounter Summary ---
Author Organization [facility] Address [address] [place] [address] Care Team Providers Care Manager Risk Name Role Phone Humberto Peng M.D. Primary Care Provider [phone] Reason for Referral * Outpatient (Routine) - Authorized Specialty Diagnoses / Procedures Referred By Contac t Referred To Contact Urology Zulay Murphy MPAS, P.A.-CXena [address] [place] [phone] Phone: tel: fax: [facility] Region Referral ID Status Reason Start Date Expiration Date V isits Requested Visits Authorized [id number] Authorized 12/18/2023 06/18/2025 1 1 ER HELPER Reason for Visit * Outpatient (Routine) - Closed Specialty Diagnoses / Procedures Referred By Contac t Referred To Contact Urology Jax Mcintyre M.D. [address] [place] [address] Phone: tel: [facility] Region Referral ID Status Reason Start Date Expiration Date Visits Re quested Visits Authorized [id number] Closed 10/16/2023 04/16/2025 1 1 Encounter Details Date Type Department Care Team (Late st Contact Info) Description 12/18/2023 1:30 PM TAPPER HELPER Office Visit Department of Urology in [address] [phone] Zulay Murphy, [facility], P.[facility].-C. [address] [phone] Urinary Urge Incontinence (Primary Dx) Discharge Disposition: Home or Self Care Social History Tobacco Use Types Packs/Day Years Used Date Smoking Tobacco: Never Smokeless Tobacco: Never Tobacco Cessation:Counseling Given: Not Answered Alcohol Use Standard Drinks/Week Comments No 0 (1 standard drink = 0.6 oz pur e alcohol) [facility] [employer]osa[employer] Answer Date Recorded In the past 12 months has e [employer], gas, oil, or water [employer] threatened to shut off services in your [...] often do you attend chur ch or tenriism services? More than 4 times per year 02/25/2022 Do you belong to any clubs o r organizations such as gnosticism groups, unions, fraternal or athletic groups, or [...] Answer Date Recorded PHQ-2 Score 0 03/04/2022 [facility] of Occupat ional Health - Occupational Stress [...] Answer Date Recorded Dental: Regular Dentist Yes 12/31/20 22 Employment Answer Date Recorded Employment status Retired [...] PM CDT Legal Sex Female 7:48 AM TAPPER HELPER Gender Identity Female 06/04/2018 7:39 PM CDT Sexual Orientation Straight 06/04/2018 7: 39 PM CDT documented as of this encounter Progress Notes * Cecy Davis - 12/18/2023 1:30 PM CST Bladder Scan Documentation Void prior to Scan: YES Bladder Distention: absent Patient states need to void: YES Position during scan: supine Bladder Scan Volume: na Post Void Residual: 26ml Was Uroflow used: YES If yes, complex uroflowmetry was completed using calibrated electronic equipment utilized. ER HELPER * Zulay Murphy MPAS, P.AXena-C. - 12/18/2023 1:30 PM CST SUBJECTIVE CHIEF COMPLAINT/REASON FOR VISIT Face to Face, uro clinic UUI HISTORY OF PRESENT ILLNESS Pleasant 78-year-old with refractory urge incontinence. Using mirabegron 25 mg daily. Previously was on trospium but had unpleasant side effects, and was recommended discontinue. Gemtesa cause diarrhea. Mirabegron helpful, but still incomplete as far as controlling her urgency frequency and incontinence. She was using a brief overnight, wakes wet leaking on the way to the restroom. Multiple pads and briefs during the day. No diuretic therapy. No UTI symptoms She was avoiding dietary irritants and doing timed voiding. Low PVR of 26 mL. She has a history of stress urinary incontinence, had a TVT with continued leakage following, 1009 she had Macroplastique would had significant urge incontinence following. She has trialed several different anticholinergics, Detrol, enablex, trospium. REVIEW OF SYSTEMS Per HPI. Pain 0/10 OBJECTIVE VITAL SIGNS There were no vitals taken for this visit. PHYSICAL EXAMINATION General: Overall well-appearing, no acute distress. Skin: No raised areas, rashes or lesions to areas I inspected. Eyes: No scleral icterus, normal conjunctivae. Respiratory: Normal respiratory effort. Musculoskeletal: Walks with a steady gait, without assistance. Psychiatric: Appropriate affect. Neurological: Alert and oriented x4. DIAGNOSTICS Uroflow: Patient voided 53 mL over 31.8 seconds with a peak of 3.1 average of 1.7 and a PVR of 26 mL via ultrasound Waveform: Flattened obstructive prolonged [address] - Complex Uroflowmetry, calibrated electronic equipment utilized ASSESSMENT / PLAN ASSESSMENT/PLAN #1 Refractory urinary urge incontinence She will continue her behavioral management of timed voiding every 2 hours avoidance of dietary bladder irritants. Continue mirabegron 25 mg daily we did consider increasing to 50 mg she would like to wait a few months before considering We again discussed third line options sacral neuromodulation InterStim and Botox she was provided patient education materials, would consider this in the future, wishes to get through the winter before deciding on any procedure therapy will follow up in 6 months and discuss again. PATIENT EDUCATION Ready to learn, no apparent learning barriers were identified; learning preferences include listening. Explained diagnosis and treatment plan; patient expressed understanding of the content. ER HELPER documented in this encounter Plan of Treatment Scheduled Referrals Name Type Priority Associated Diagnoses Orde r Schedule Urology office visit (clinic) Outpatient Referral Routine Expected: 06/16/2024, Expires: 03/19/2025 documented as of this encounter Visit Diagnoses Diagnosis Urinary Urge Incontinence- Primary documented in this encounter Care Teams Manager Risk Relationship Specialty Start Date End Date Humberto Peng M.D. [address] [place] [phone] PCP - General 08/08/16 documented as of this encounter
--- OUTSIDE RECORDS SUMMARY | 2024-01-08 14:36 | XMS_ITS | Encounter Summary ---
Author Organization [facility] Address [address] [place] [address] Care Team Providers Care Water And Sewer Systems Superintendent Name Role Phone Humberto Peng M.D. Primary Care Provider [phone] Reason for Visit * Reason Comments Med Refill Encounter Details Date Type Department Care Team (Late st Contact Info) Description 10/18/2023 Refill Department of Family Medicine, [facility], in [place], [place] [address] [place] [address] Humberto Peng M.D. [address] [place] [phone] Med Refill Social History Tobacco Use Types Packs/Day Years Used Date Smoking Tobacco: Never Smokeless Tobacco: Never Alcohol Use Standard Drinks/Week Comments No 0 (1 standard drink = 0.6 oz pur e alcohol) [facility] Utilities Answer Date Recorded In the past 12 months has e [employer], gas, oil, or water [employer] threatened to shut off services in your [...] often do you attend chur ch or faith services? More than 4 times per year 02/25/2022 Do you belong to any clubs o r organizations such as temple groups, unions, fraternal or athletic groups, or [...] Answer Date Recorded PHQ-2 Score 0 03/04/2022 [facility] of Occupat ional Health - Occupational [...] your living situation today? I have a [facility] place to live 08/30/2023 Education Answer Date Recorded What is the highest level of school you have completed or the highest degree you have received? Some college, no degree 06/24/2020 Comments No Sex and Gender Information Value Date Recorded Sex Assigned at Female 06/04/2018 7:39 PM CDT Legal Sex Female 7:48 AM TRAIN STATION AGENT Gender Identity Female 06/04/2018 7:39 PM CDT Sexual Orientation Straight 06/04/2018 7: 39 PM CDT documented as of this encounter Miscellaneous Notes * Telephone Encounter - Humberto Peng M.D. - 10/20/2023 5:03 PM CDT RX approved documented in this encounter Plan of Treatment Not on file documented as of this encounter Visit Diagnoses Not on filedocumented in this encounter Care Teams Water And Sewer Systems Superintendent Relationship Specialty Start Date End Date Humberto Peng M.D. [address] [place] [phone] PCP - General 08/08/16 documented as of this encounter
--- OUTSIDE RECORDS SUMMARY | 2024-01-08 14:36 | XMS_ITS | Encounter Summary ---
Author Organization [facility] Address [address] [place] [address] Care Team Providers Care Asbestos Brake Lining Finisher Name Role Phone Humberto Peng M.D. Primary Care Provider [phone] Reason for Visit * Reason Onset Date Comments 12/17 Urology visit 12/08/2023 Encounter Details Date Type Department Care Team (Latest Contact Info) Description 12/08/2023 Clinical Communication Department of Urology in [address] [phone] Zulay Murphy, [facility], [facility].-C. [address], [place] [address] 12/17 Urology visit Social History Tobacco Use Types Packs/Day Years Used Date Smoking Tobacco: Never Smokeless Tobacco: Never Alcohol Use Standard Drinks/Week Comments No 0 (1 standard drink = 0.6 oz pur e alcohol) [facility] Utilities Answer Date Recorded In the past [...] often do you attend chur ch or rastafari services? More than 4 times per year [...] Answer Date Recorded PHQ-2 Score 0 03/04/2022 [facility] of Occupat ional Health - [...] your living situation today? I have a [facility] place to live 08/30/2023 Education Answer Date Recorded What is the highest level of school you have completed or the highest degree you have received? Some college, no degree 06/24/2020 Comments No Sex and Gender Information Value Date Recorded Sex Assigned at Female 06/04/2018 7:39 PM CDT Legal Sex Female 7:48 AM TOOL AND DIE DESIGNER Gender Identity Female 06/04/2018 7:39 PM CDT Sexual Orientation Straight 06/04/2018 7: 39 PM CDT documented as of this encounter Plan of Treatment Not on file documented as of this encounter Visit Diagnoses Not on filedocumented in this encounter Care Teams Asbestos Brake Lining Finisher Relationship Specialty Start Date End Date Humberto Peng [facility]. [facility] [place] [phone] PCP - General 08/08/16 documented as of this encounter
--- OUTSIDE RECORDS SUMMARY | 2024-01-08 14:36 | XMS_ITS | Encounter Summary ---
Author Organization [facility] Address [address] [place] [address] Care Team Providers Care Rig Mechanic Name Role Phone Humberto Peng M.D. Primary Care Provider [phone] Reason for Visit * Reason Comments Med Refill Encounter Details Date Type Department Care Team (Late st Contact Info) Description 12/04/2023 Refill Department of Family Medicine, [facility], in [place], [place] [address] [place] [address] Humberto Peng M.D. [address] [place] [phone] Med Refill Social History Tobacco Use Types Packs/Day Years Used Date Smoking Tobacco: Never Smokeless Tobacco: Never Alcohol Use Standard Drinks/Week Comments No 0 (1 standard drink = 0.6 oz pur e alcohol) [facility] Utilities Answer Date Recorded In the past 12 months has e [employer], gas, oil, or water [employer] threatened to shut off services in your [...] often do you attend chur ch or taoism services? More than 4 times per year 02/25/2022 Do you belong to any clubs o r organizations such as yarsani groups, unions, fraternal or athletic groups, or [...] Answer Date Recorded PHQ-2 Score 0 03/04/2022 [facility] of Occupat ional Health - Occupational Stress [...] PM CDT Legal Sex Female 7:48 AM INSPECTOR AND UNLOADER Gender Identity Female 06/04/2018 7:39 PM CDT Sexual Orientation Straight 06/04/2018 7: 39 PM CDT documented as of this encounter Plan of Treatment Not on file documented as of this encounter Visit Diagnoses Not on filedocumented in this encounter Care Teams Rig Mechanic Relationship Specialty Start Date End Date Humberto Peng M.D. [address] [place] [phone] PCP - General 08/08/16 documented as of this encounter
--- OUTSIDE RECORDS SUMMARY | 2024-01-08 14:36 | XMS_ITS ---
Author Organization [facility] Address [address] [place] [address] Care Team Providers Care Neon Tube Bender Name Role Phone Unavailable Unavailable Unavailable Surgery Details Not on file Complications Check Surgery Details section. Procedure Estimated Blood Loss Check Surgery Details section. Procedure Findings Check Surgery Details section. Procedure Specimens Taken Check Surgery Details section.
--- OUTSIDE RECORDS SUMMARY | 2024-01-08 14:36 | XMS_ITS | Encounter Summary ---
Author Organization [facility] Address [address] [place] [address] Care Team Providers Care Door Liner Name Role Phone Humberto Peng M.D. Primary Care Provider [phone] Reason for Visit * Reason Comments Med Refill Encounter Details Date Type Department Care Team (Late st Contact Info) Description 11/11/2023 Refill Department of Urology in [place], [place] [address] [place] [phone] Jax Mcintyre M.D. [address] [place] [phone] Med Refill Social History Tobacco Use Types Packs/Day Years Used Date Smoking Tobacco: Never Smokeless Tobacco: Never Alcohol Use Standard Drinks/Week Comments No 0 (1 standard drink = 0.6 oz pur e alcohol) [facility] Utilities Answer Date Recorded In the past 12 months has [employer], gas, oil, or water [employer] threatened to shut off services in your [...] often do you attend chur ch or mormon services? More than 4 times per year 02/25/2022 Do you belong to any clubs o r organizations such as restoration groups, unions, fraternal or athletic groups, or [...] Answer Date Recorded PHQ-2 Score 0 03/04/2022 [facility] [place] [facility] of Occupat ional Health - [...] your living situation today? I have a [facility] place to live 08/30/2023 Education Answer Date Recorded What is the highest level of school you have completed or the highest degree you have received? Some college, no degree 06/24/2020 Comments No Sex and Gender Information Value Date Recorded Sex Assigned at Female 06/04/2018 7:39 PM CDT Legal Sex Female 7:48 AM PROJECT PORTFOLIO ANALYST Gender Identity Female 06/04/2018 7:39 PM CDT Sexual Orientation Straight 06/04/2018 7: 39 PM CDT documented as of this encounter Plan of Treatment Not on file documented as of this encounter Visit Diagnoses Not on filedocumented in this encounter Care Teams Door Liner Relationship Specialty Start Date End Date Humberto Peng M.D. [address] [place] [phone] PCP - General 08/08/16 documented as of this encounter
--- OUTSIDE RECORDS SUMMARY | 2024-01-08 14:36 | XMS_ITS | Encounter Summary ---
Author Organization [facility] Address [address] [place] [address] Care Team Providers Care Manufacturing Business Analyst Name Role Phone Humberto Peng M.D. Primary Care Provider [phone] Reason for Referral * Outpatient (Routine) - Closed Specialty Diagnoses / Procedures Referred By Tiffanie houston Referred To Contact Urology Jax Mcintyre M.D. [address], [place] [address] Phone: tel: fax: [facility] Referral ID Status Reason Start Date Expiration Date Visits Re quested Visits Authorized [id number] Closed 10/16/2023 04/16/2025 1 1 Reason for Visit * Outpatient (Routine) - Closed Specialty Diagnoses / Procedures Referred By Tiffanie houston Referred To Contact Diagnoses Urinary Urge Incontinence Procedures Cystoscopy (specific provider) Zulay Murphy MPAS P.AXena-CXena [address], [place] [address] Phone: tel: fax: Zulay Murphy MPAS P.A.-CXena [address], [place] [address] Phone: tel: fax: Referral ID Status Reason Start Date Expiration Date Visits Re quested Visits Authorized [id number] Closed 09/03/2023 09/02/2024 1 1 Encounter Details Date Type Department Care Team (Latest Contact Info) Description 10/16/2023 2:30 PM CDT Procedure visit Department of Urology in [place], [place] [address] [place] [phone] Jax Mcintyre M.D. [address] [place] [address] Urinary Urge Incontinence Discharge Disposition: Home or Self Care Social History Tobacco Use Types Packs/Day Years Used Date Smoking Tobacco: Never Smokeless Tobacco: Never Alcohol Use Standard Drinks/Week Comments No 0 (1 standard drink = 0.6 oz pur e alcohol) [facility] [employer]ities Answer Date Recorded In the past 12 months has [employer], gas, oil, or water [employer] threatened to shut off services in your [...] week 02/25/2022 How often do you attend [facility] or rastafarian services? More than 4 times per year 02/25/2022 Do you belong to any clubs o r organizations such as adventism groups, unions, fraternal or athletic groups, or [...] Answer Date Recorded PHQ-2 Score 0 03/04/2022 [facility] of Occupat ional Health - [...] PM CDT Legal Sex Female 7:48 AM BESSEMER CONVERTER OPERATOR Gender Identity Female 06/04/2018 7:39 PM CDT Sexual Orientation Straight 06/04/2018 7: 39 PM CDT documented as of this encounter Last Filed Vital Signs Vital Sign Reading Time Taken Comments Blood Pressure 158/74 10/16/2023 2:28 PM CDT Pulse 96 10/16/2023 2:28 PM CDT Temperature 36.5 C (97.7 F) 10/16/2023 2:28 PM CDT Respiratory Rate - - Oxygen Saturation - - Inhaled Oxygen Concentration - - Weight - - Height - - Body Mass Index - - documented in this encounter Procedure Notes * Jax Mcintyre M.D. - 10/16/2023 2:30 PM CDT CHIEF COMPLAINT / REASON FOR VISIT Cystoscopy. HISTORY OF PRESENT ILLNESS INDICATION: History of urinary incontinence as previously outlined. See prior chart notes. Up until fairly recently she had been taking Sanctura 20 mg 3 times daily. A few weeks ago this waslowered to 20 mg twice daily. She is still leaking. She describes urge incontinence, not stress incontinence. INSTRUMENT: Flexible cystoscope. ANESTHESIA: 2% aqueous lidocaine jelly. PROCEDURE: During this procedure the universal protocol was utilized. The patient's identity was confirmed by no less than two patient identifiers, correct procedure was verified, correct site was verified and marked as applicable and a final pause was completed. Verbal consent was given. The patient was taken to the cystoscopy suite and placed in the dorsal lithotomy position. The genitalia were prepped and draped sterilely. The urethra was anesthetized with 2% aqueous lidocaine jelly. FINDINGS: Pelvic: Normal external genitalia. Urethrocele is absent. Cystocele is absent. No pelvic masses. Normal adnexa. Vaginal atrophy is noted. Meatus: Normal position, normal appearance and normal caliber. There is not a urethral caruncle. Urethra: unremarkable. Bladder Neck: Normal. Bladder: Residual urine Small (75 - 200 ml). Ureteral Orifices: Singular bilaterally, normal position on the trigone, slit- like in configurationwith clear efflux of urine noted bilaterally. Trabeculation: mild. Tumors: No tumors, exophytic lesions, foreign bodies or calculi. The procedure was well tolerated by the patient. Normal sensation of filling. Afterwards a uroflow was attempted, however her stream was too slow totrigger off the flow. Initial postvoid residual was approximately 240 mL. She voided a second time bladder scan residual was closer to 246 ml. She was discharged from the office in satisfactory condition. Post-cystoscopy instructions were reviewed with her. IMPRESSION: 1. Urge urinary incontinence 2. Incomplete bladder emptying, possibly iatrogenic PLAN: 1. In the short term I would like to have her decrease the trospium an to 20 mg once daily. 2. I have written prescriptions for both Virabegron 75 mg and mirabegron 25 mg. She is instructed to get whichever one is less expensive. When she starts one of these medications the trospium should be discontinued entirely. 3. Return to clinic in approximately four weeks to monitor clinical progress. In the event that sheis happy, and her bladder is emptying well with one of these medications we would simply continue with the medication. In the event she is not emptying well, or not clinically improved in terms of her incontinence I would give serious consideration towards proceeding with neuromodulation. We discussed neuromodulation in the form of sacral nerve stimulation. This has the potential benefit of improving both her urgency, urge incontinence as well as her incomplete bladder emptying. Jax Mcintyre M.D. 10/16/23 4:03 PM CDT documented in this encounter Plan of Treatment Scheduled Referrals Name Type Priority Associated Diagnoses Orde r Schedule Urology office visit (clinic) General Outpatient Referral Routine Expected: 11/15/2023, Expires: 01/14/2025 documented as of this encounter Visit Diagnoses Diagnosis Urinary Urge Incontinence documented in this encounter Care Teams Manufacturing Business Analyst Relationship Specialty Start Date End Date Humberto Peng M.D. [address] [place] [phone] PCP - General 08/08/16 documented as of this encounter
--- OUTSIDE RECORDS SUMMARY | 2024-01-08 14:37 | XMS_ITS | Encounter Summary ---
Author Organization [facility] Address [address] [place] [address] Care Team Providers Care Wastewater Superintendent Name Role Phone Dudley House MD Primary Care Provider Frankie Gaspar MD Unavailable Unavailable Augusta De La Cruz DPM Unavailable Kyle Morris MD Unavailable Ned Birmingham MD Unavailable Sony Perez MD Unavailable [phone] Matt Grover MD Unavailable [phone] Albert Brownlee MD Unavailable Humberto Peng MD Primary Care Provider [phone] James Jasso DO Unavailable [phone] Rajat Urban MD Unavailable Unavailable Thuy Coto PA-C Unavailable [phone] James Stevens DPM Unavailable [phone] Teresa Ferrer-C Unavailable [phone] Encounter Details Date Type Department Care Team (Late st Contact Info) Description 11/23/2008 MyC Medical Advice [facility] in [place] [facility] [address] [place] [address] Adriane [place] [address] Social History Tobacco Use Types Packs/Day Years Used Date Smoking Tobacco: Never Alcohol Use Standard Drinks/Week Comments No 0 (1 standard drink = 0.6 oz pur e alcohol) Comments No Sex and Gender Information Value Date Recorded Sex Assigned at Not on file Legal Sex Female 3:49 AM DIRECTOR OF STUDENT SERVICES Gender Identity Not on file Sexual Orientation Straight 06/26/2018 6: 53 PM CDT Occupation Industry Job Start Date Job End Date Not on file Not on file Not on file Not on file documented as of this encounter Plan of Treatment Not on file documented as of this encounter Visit Diagnoses Not on filedocumented in this encounter Care Teams Wastewater Superintendent Relationship Specialty Start Date End Date Dudley House MD [address] [place] [address] PCP - General 03/23/07 09/02/10 Frankie Gaspar MD PCP - Obstetrics/Gynecology 03/03/00 07/23/11 Augusta De La Cruz DPM PCP - Podiatry 09/26/05 Kyle Morris MD PCP - Ophthalmology 02/17/06 Ned Birmingham MD XXX NO INFO FOUND XXX [place] [id number] PCP - Surgery 10/25/08 09/27/09 Sony Perez MD XXX NO INFO FOUND XXX [place] [id number] PCP - ENT 03/19/07 12/08/17 Matt Grover MD [address] [place] [address] [address] [place] [address] PCP - Urology 12/22/08 Albert Brwonlee MD [address] [place] [address] PCP - Surgery Surgery 09/28/09 11/02/12 Humberto Peng MD [facility] [place] [address] [place] [address] PCP - General Family Practice 09/03/10 James Jasso DO [facility] [place] [address] [place] [address] PCP - Obstetrics/Gynecology beam doffer 07/24/11 Rajat Urban MD [facility] [place] [address] [place] [address] PCP - Orthopaedics Orthopedics 12/02/11 12/08/17 Thuy Coto PA-C [facility] [place] [address] [place] [address] PCP - Surgery Physician Graphic Design Intern 11/03/12 James Stevens DPM [id number] [facility] [address] [place], [place] [address] Assigned Musculoskeletal Provider 04/25/20 10/25/21 Teresa Ferrer PA-C [address] [place], [place] [address] Physician Graphic Design Intern Urology 02/20/23 documented as of this encounter
--- OUTSIDE RECORDS SUMMARY | 2024-01-08 14:37 | XMS_ITS | Encounter Summary ---
Author Organization [facility] Address [address] [place] [address] Care Team Providers Care [employer] Law Clerk Name Role Phone Dudley House MD Primary Care Provider [phone] Frankie Gaspar MD Unavailable Unavailable Augusta De La Cruz DPM Unavailable [phone] Kyle Morris MD Unavailable [phone] Sony Perez MD Unavailable [phone] Matt Grover MD Unavailable [phone] Albert Brownlee MD Unavailable [phone] Encounter Details Date Type Department Care Team (Late st Contact Info) Description 11/22/2009 10:00 AM CDT [facility] in [address] [address] Albert Brownlee MD [address] [place] [address] Social History Tobacco Use Types Packs/Day Years Used Date Smoking Tobacco: Never Smokeless Tobacco: Never Alcohol Use Standard Drinks/Week Comments No 0 (1 standard drink = 0.6 oz pur e alcohol) Comments No Sex and Gender Information Value Date Recorded Sex Assigned at Not on file Legal Sex Female 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 Brownlee. FOREST PRODUCTS TEACHER: Mily Vega. SECOND TIRE BLADDER MAKER: MELISA Jean. ANESTHESIA: Local MAC. PROCEDURE AND [...] passed a guidewire and placed a 7 Ivorian dilating sheath. When passing the catheter again at the level of this bifurcation in an upper thigh region the catheter could not be negotiated through this nor could a small guidewire. I made the decision to treat this short segment of this anterior branch of the greater saphenous vein. This area was infiltrated with tumescent anesthesia and with a 7 Ivorian closureFAST I treated three segments for a [...] tolerated the procedure well. Albert Brownlee M.D. B/dac cc: documented in this encounter Plan of Treatment Not on file documented as of this encounter Visit Diagnoses Not on filedocumented in this encounter Care Teams [employer] Law Clerk Relationship Specialty Start Date End Date Dudley House MD [address] [place] [address] PCP - General 03/23/07 09/02/10 Frankie Gaspar MD PCP - Obstetrics/Gynecology 03/03/0007/22 Augusta De La Cruz DPM PCP - Podiatry 09/26/05 Kyle Morris MD PCP - Ophthalmology 02/17/06 Sony Perez MD PCP - ENT 03/19/07 12/08/17 Matt Grover MD [address] [facility] [address] [place] [address] PCP - Urology 12/22/08 Albert Brownlee MD [address] [place] [address] PCP - Surgery Surgery 09/28/09 11/02/12 documented as of this encounter
--- OUTSIDE RECORDS SUMMARY | 2024-01-08 14:37 | XMS_ITS | Encounter Summary ---
Author Organization [facility] Address [address] [place] [address] Care Team Providers Care Cotton Candy Maker Name Role Phone Dudley House MD Primary Care Provider Frankie Gaspar MD Unavailable Unavailable Augusta De La Cruz DPM Unavailable Kyle Morris MD Unavailable Ned Birmingham MD Unavailable [phone] Sony Perez MD Unavailable [phone] Encounter Details Date Type Department Care Team (Late st Contact Info) Description 11/17/2008 8:45 AM CDT [facility] in [address] [address] Adriane Stern MD XXX RETIRED [place], [place] [id number] Postop Check (Primary Dx) Social History Tobacco Use Types Packs/Day Years Used Date Smoking Tobacco: Never Smokeless Tobacco: Never Alcohol Use Standard Drinks/Week Comments No 0 (1 standard drink = 0.6 oz pur e alcohol) Comments No Sex and Gender Information Value Date Recorded Sex Assigned at Not on file 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 Gender Identity Not on file Sexual Orientation [...] surgery documented in this encounter Care Teams Cotton Candy Maker Relationship Specialty Start Date End Date Dudley House MD [address] [place] [address] PCP - General 03/23/07 09/02/10 Frankie Gaspar MD PCP - Obstetrics/Gynecology 03/03/0007/22 Augusta De La Cruz DPM PCP - Podiatry 09/26/05 Kyle Morris MD PCP - Ophthalmology 02/17/06 Ned Birmingham MD XXX NO INFO FOUND XXX [place] [id number] PCP - Surgery 10/25/08 09/27/09 Sony Perez MD XXX NO INFO FOUND XXX [place] [id number] PCP - ENT 03/19/07 12/08/17 documented as of this encounter
--- OUTSIDE RECORDS SUMMARY | 2024-01-08 14:37 | XMS_ITS | Encounter Summary ---
Author Organization [facility] Address [address] [place] [address] Care Team Providers Care Wheat Cleaner Name Role Phone Dudley House MD Primary Care Provider [phone] Frankie Gaspar MD Unavailable Unavailable Augusta De La Cruz DPM Unavailable [phone] Kyle Morris MD Unavailable [phone] Ned Birmingham MD Unavailable Sony Perez MD Unavailable [phone] Encounter Details Date Type Department Care Team (Late st Contact Info) Description 10/27/2008 10:12 AM CDT [facility] in [address] [id number] Ned Birmingham MD [place] [address] Social History Tobacco Use Types Packs/Day Years Used Date Smoking Tobacco: Never Smokeless Tobacco: Never Alcohol Use Standard Drinks/Week Comments No 0 (1 standard drink = 0.6 oz pur e alcohol) Comments No Sex and Gender Information Value Date Recorded Sex Assigned at Not on file 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 Gender Identity Not on file Sexual Orientation Straight 06/26/2018 6: 53 PM CDT Occupation Industry Job Start Date Job End Date Not on file Not on file Not on file Not on file documented as of this encounter Plan of Treatment Not on file documented as of this encounter Visit Diagnoses Not on filedocumented in this encounter Care Teams Wheat Cleaner Relationship Specialty Start Date End Date Dudley House MD [address] [place] [address] PCP - General 03/23/07 09/02/10 Frankie Gaspar MD PCP - Obstetrics/Gynecology 03/03/0007/22 Augusta De La Cruz DPM PCP - Podiatry 09/26/05 Kyle Morris MD PCP - Ophthalmology 02/17/06 Ned Birmingham MD XXX [place] [address] PCP - Surgery 10/25/08 09/27/09 Sony Perez MD XXX [place] [address] PCP - ENT 03/19/07 12/08/17 documented as of this encounter
--- OUTSIDE RECORDS SUMMARY | 2024-01-08 14:37 | XMS_ITS | Encounter Summary ---
Author Organization [facility] Address [address] [place] [address] Care Team Providers Care Shaper Setter Name Role Phone Dudley House MD Primary Care Provider [phone] Frankie Gaspar MD Unavailable Unavailable Augusta De La Cruz DPM Unavailable [phone] Kyle Morris MD Unavailable [phone] Sony Perez MD Unavailable [phone] Matt Grover MD Unavailable [phone] Albert Brownlee MD Unavailable [phone] Encounter Details Date Type Department Care Team (Late st Contact Info) Description 08/29/2010 9:00 AM CDT [facility] in [address] [address] Humberto Peng MD [address] [place] [address] Social History Tobacco Use Types Packs/Day Years Used Date Smoking Tobacco: Never Smokeless Tobacco: Never Alcohol Use Standard Drinks/Week Comments No 0 (1 standard drink = 0.6 oz pur e alcohol) Comments No Sex and Gender Information Value Date Recorded Sex Assigned at Not on file 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 Gender Identity Not on file Sexual Orientation Straight 06/26/2018 6: 53 PM CDT Occupation Industry Job Start Date Job End Date Not on file Not on file Not on file Not on file documented as of this encounter Plan of Treatment Not on file documented as of this encounter Visit Diagnoses Not on filedocumented in this encounter Care Teams Shaper Setter Relationship Specialty Start Date End Date Dudley House MD [address] [place] [address] PCP - General 03/23/07 09/02/10 Frankie Gaspar MD PCP - Obstetrics/Gynecology 03/03/0007/22 Augusta De La Cruz DPM PCP - Podiatry 09/26/05 Kyle Morris MD PCP - Ophthalmology 02/17/06 Sony Perez MD PCP - ENT 03/19/07 12/08/17 Matt Grover MD [address] [facility] [address] [place] [address] PCP - Urology 12/22/08 Albert Brownlee MD [address] [place] [address] PCP - Surgery Surgery 09/28/09 11/02/12 documented as of this encounter
--- OUTSIDE RECORDS SUMMARY | 2024-01-08 14:37 | XMS_ITS | Clinical Summary ---
Author Organization [facility] Address [address] [place] [address] Care Team Providers Care Data Solutions Architect Name Role Phone Augusta De La Cruz Suzanne DPM Unavailable [phone] Kyle Morris MD Unavailable [phone] Matt Grover MD Unavailable GinetteHumberto MD Primary Care Provider James Jasso DO Unavailable [phone] Thuy CotoC Unavailable [phone] Teresa Ferrer-C Unavailable Allergies Active Allergy Reactions Criticality Noted Date Comments Aspirin GI Disturbance Upset Stomach Latex Other (See Comments) 10/02/2014 Nsaids Hives (Tolectin) Sulfa Antibiotics 05/15/2003 Pt. Unsure of reaction. States nothing serious. Medications ORDER FOR DMEIndications:PAT (obstructive sleep apnea) overnight oximetry with CPAP 1 Device 1 07/20/19 10 Active ORDER FOR DMEIndications:PAT (obstructive sleep apnea) At Bedtime. CPAP supplies and mask 1 Device 1 05/07/19 11 Active Cyanocobalamin (VITAMIN B 12 PO) Take 1,000 tablets by mouth daily. Active ORDER FOR DMEIndications:PAT (obstructive sleep apnea) Replacement CPAP supplies as needed: mask, headgear, humidifier chamber, cushions, pillows, tubing, filters, water chamber. ANA MARÍA: 99 months 1 each 0 03/25/19 13 Active COMPRESSION STOCKINGSIndications: Varicose veins of lower extremities with other complications See Admin Instructions. knee high 15-20 cm water. Up to 15 a year 2 each 15 06/04/19 13 Active lovastatin (MEVACOR) 20 MG tabletIndications:Mix ed hyperlipidemia Take 1 tablet (20 mg) by mouth daily (with dinner) 90 tablet 3 10/30/19 13 Active trospium (SANCTURA) 20 MG tabletIndications:Urg ency of urination Take 1 tablet (20 mg) by mouth 3 times daily (before meals) May take 1 additional tablet daily as needed. 270 tablet 3 10/30/19 13 Active Elastic Bandages & Supports (MEDICAL COMPRESSION STOCKINGS) MISCIndications:Varic ose veins of lower extremities with other complications 1 Package daily Wear 20-30 mm Hg knee high Juzo compression stockings daily and remove at night. 2 each 0 12/04/19 13 Active gabapentin (NEURONTIN) 400 MG capsuleIndications:Un specified cause of encephalitis, myelitis, and encephalomyelitis Take 3 capsules (1,200 mg) by mouth 3 times daily For neuropathic pain in legs 270 capsule 3 03/31/19 14 Active lisinopril-hydrochlor othiazide (PRINZIDE,ZESTORETIC) 10-12.5 MG per tabletIndications:Uns pecified essential hypertension Take 1 tablet by mouth daily 90 tablet 3 03/31/19 14 Active clopidogrel (PLAVIX) 75 MG tabletIndications:Acu te, but ill-defined, cerebrovascular disease,Mixed hyperlipidemia Take 1 tablet (75 mg) by mouth daily 90 tablet 3 03/31/19 14 Active LANsoprazole (PREVACID) 30 MG capsuleIndications:Es ophageal reflux,Unspecified hypothyroidism Take 1 capsule (30 mg) by mouth 2 times daily 180 capsule 3 03/31/19 14 Active levothyroxine (SYNTHROID) 88 MCG tabletIndications:Uns pecified hypothyroidism,Esopha geal reflux Take 1 tablet (88 mcg) by mouth daily 90 tablet 3 03/31/19 14 Active Additional Information Patient taking differently: 100 mcgOral DAILY, Reported on 02/27/2016 OXYCODONE HCL PO Take 5 mg by mouth every 4 hours as needed Active WARFARIN SODIUM PO Take 4 mg by mouth daily Active solifenacin (VESICARE) 5 MG tabletIndications:Mix ed incontinence urge and stress (male)(female) Take 1 tablet (5 mg) by mouth daily 30 tablet 1 02/26/19 17 Active Active Problems Problem Noted Date Diagnosed Date Morbid obesity 04/19/2020 Hyperglycemia 07/25/2010 Varicose veins of lower extremities with ulcer 0 09/28/2009 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 Provider to review Degeneration of lumbar or lumbosacral interverte bral disc 05/14/2007 Overview (05/14/2007): 05/13/2007- MRI reviewed patient declines ortho referral at present time Systemic lupus erythematosus 01/29/2007 Overview (03/30/2007): 03/26/2007- work up at [facility] for lupus. Adivised her to repeat KOBE and NEIL in 3 mnth or sooner. Also no evidence of Sjorgens Transient cerebral ischemia 09/24/2004 Overview (11/09/2014): Problem list name updated by automated process. Provider to review Hypothyroidism 12/15/2003 Overview (11/09/2014): 05/13/2007- on 88 mcg of Synthroid stable Problem list name updated by automated process. Provider to review Essential hypertension 04/06/2003 Overview (11/09/2014): 05/2007- stable on Lisinopril and HCTZ Problem list name updated by automated process. Provider to review Esophageal reflux 11/05/2001 Overview (05/14/2007): 05/13/2007-EGD in January of 2007, repeat in 3 years Encephalitis, myelitis, and encephalomyelitis Overview (11/09/2014): 2002 at [place] on MRI scans that subsequently improved. Problem list name updated by automated process. Provider to review Resolved Problems Problem Noted Date Diagnosed Date Resolved Date Muscle weakness (generalized) 11/20/2005 05/12/2008 Overview (02/09/2007): MRI of lumbar spine from Jan only [...] Heart Disease Paternal Grandfather age 73 of [place] Neurologic Disorder Sister 4 Multiple scl erosis [...] School Help Needed Not on file 11/02 Comments No Sex and Gender Information Value Date Recorded Sex Assigned at Not on file Legal Sex Female 3:49 AM PLANNING ASSISTANT Gender Identity Not on file Sexual Orientation Straight 06/26/2018 6: 53 PM CDT Occupation Industry Job Start Date Job End Date Not on file Not on file Not on file Not on file Last Filed Vital Signs Vital Sign Reading Time Taken Comments Blood Pressure 138/68 04/19/2020 1:38 PM PLANNING ASSISTANT Pulse 88 03/31/2013 9:37 AM PLANNING ASSISTANT Temperature 36.1 C (96.9 F) 04/07/2012 4:12 PM PLANNING ASSISTANT Respiratory Rate 20 12/25/2005 8:00 AM PLANNING ASSISTANT Oxygen Saturation 96% 06/15/2008 2:21 PM CDT Inhaled Oxygen Concentration - - Weight 103.7 kg (228 lb 9.9 oz) 10/29/2012 8:27 AM CDT Height 162.6 cm (5' 4) 04/19/2020 1:38 PM PLANNING ASSISTANT Body Mass Index 40.24 06/03/2012 8:14 AM CDT Plan of Treatment Health Maintenance Due Date Last Done Comments ADVANCE CARE PLANNING 1945 ANNUAL REVIEW OF HM ORDERS 1943 CT COLONOGRAPHY 1943 DIABETIC FOOT EXAM 1943 FIT 1943 FLEX SIG 1943 sDNA (Cologuard) 1943 ZOSTER IMMUNIZATION (1 of 2) 12/05/1993 FALL RISK ASSESSMENT 12/05/2008 MEDICARE ANNUAL WELLNESS VISIT 10/12/2009 10/12/2008, 12/11/2006, 07/20/2003, Additional history exists Pneumococcal Vaccine: 65+ Years (2 of 2 - PCV) 07/19/2010 07/19/2009, 05/14/2007 DEXA 10/13/2011 10/12/2008, 10/10, 06/19/2000 EYE EXAM 09/23/2013 09/23/2012, 08/05/2010, 12/14/2008, Additional history exists COLONOSCOPY 10/31/2014 10/31/2004, 11/17/1991 COLORECTAL CANCER SCREENING 10/31/2014 RSV VACCINE (1 - 1-dose 75+ series) 12/05/2018 MICROALBUMIN 07/05/2020 07/06/2019 A1C 05/27/2022 02/26/2022, 12/10, 12/23/2019, Additional history exists PHQ-2 (once per calendar year) 2023 BMP 02/26/2023 02/26/2022, 12/10, 12/23/2019, Additional history exists LIPID 02/26/2023 02/26/2022, 12/10, 12/23/2019, Additional history exists TSH W/FREE T4 REFLEX 02/26/2023 02/26/2022, 12/26/2020, 12/23/2019, Additional history exists COVID-19 Vaccine ( season) 2023 11/25/2022, 11/27/2021, 06/29/2021, Additional history exists INFLUENZA VACCINE (#1) 2023 , 11/26/2021, 11/27/2020, Additional history exists DTAP/TDAP/TD IMMUNIZATION (2 - Td or Tdap) 05/17/2025 05/18/2015, 04/24/2011, 04/24/2011, Additional history exists MAMMO SCREENING Discontinued 10/28/2022, 08/2021, 07/17/2020, Additional history exists HPV IMMUNIZATION Aged Out No longer e ligible based on patient's age to complete this topic MENINGITIS IMMUNIZATION Aged Out No l onger eligible based on patient's age to complete this topic RSV MONOCLONAL ANTIBODY Aged Out No l onger eligible based on patient's age to complete this topic Procedures Procedure Name Priority Date/Time Associated Diagnosis Comments TSH Routine 02/26/2022 11:23 AM PLANNING ASSISTANT Diabetic neuropathy (H) Hypothyroidism, adult Hypertension Diabetic polyneuropathy (H) Hyperlipidemia LIPID PROFILE Routine 02/26/2022 11:23 AM PLANNING ASSISTANT Diabetic neuropathy (H) Hypothyroidism, adult Hypertension Diabetic polyneuropathy (H) Hyperlipidemia BASIC METABOLIC PANEL Routine 02/26/2022 11:23 AM PLANNING ASSISTANT Diabetic neuropathy (H) Hypothyroidism, adult Hypertension Diabetic polyneuropathy (H) Hyperlipidemia HEMOGLOBIN A1C Routine 02/26/2022 11:23 AM PLANNING ASSISTANT Diabetic neuropathy (H) Hypothyroidism, adult Hypertension Diabetic polyneuropathy (H) Hyperlipidemia ALBUMIN RANDOM URINE QUANTITATIVE Routine 07/06/2019 9:51 AM CDT Diabetic neuropathy, type II diabetes mellitus (H) Hypothyroidism, adult Essential hypertension MAMMOGRAM - HIM SCAN Routine 07/10/2013 HC DEXA BONE DENSITY, >=1 SITE, AXIAL SKELETON Routine 10/12/2008 10:52 AM CDT Osteopenia [facility] COLONOSCOPY THRU STOMA, DIAGNOSTIC Routine 10/31/2004 Screening Mal Neop-Colon from Last 3 Months or Most Recently Relevant to Health Maintenance Results * TSH (02/26/2022 11:23 AM PLANNING ASSISTANT) TSH 2.31 0.30 - 4.20 uIU/mL 02/26/2022 5:49 PM PLANNING ASSISTANT [facility] Blood BLOOD SPECIMEN / Unknown Venipuncture / Unknown 02/26/2022 11:23 AM PLANNING ASSISTANT 02/26/2022 11:23 AM PLANNING ASSISTANT us Humberto Peng MD LAB - BLOOD ORDERABLES Final Res ult [facility] [address] [facility], [address] [place] [address], [facility] [phone] * Lipid Profile (02/26/2022 11:23 AM PLANNING ASSISTANT) Cholesterol 168 <200 mg/dL 02/26/2022 5:49 PM PLANNING ASSISTANT [facility] Triglycerides 110 <150 mg/dL 02/26/2022 5:49 PM PLANNING ASSISTANT [facility] Direct Measure HDL 71 >=50 mg/dL 2022 5:49 PM PLANNING ASSISTANT [facility] LDL Cholesterol Calculated 75 <=100 mg/dL 02/26/2022 5:49 PM PLANNING ASSISTANT [facility] Non HDL Cholesterol 97 <130 mg/dL 02/26/2022 5:49 PM PLANNING ASSISTANT [facility] Blood BLOOD SPECIMEN / Unknown Venipuncture / Unknown 02/26/2022 11:23 AM PLANNING ASSISTANT 02/26/2022 11:23 AM PLANNING ASSISTANT Narrative [facility] - 02/26/2022 5:49 PM PLANNING ASSISTANT Cholesterol Desirable: <200 mg/dL Triglycerides Normal: Less than 150 mg/dL Borderline High: 150-199 mg/dL High: 200-499 mg/dL Very High: Greater than or equal to 500 mg/dL Direct Measure HDL Female: Greater than or equal to 50 mg/dL Male: Greater than or equal to 40 mg/dL LDL Cholesterol Desirable: <100mg/dL Above Desirable: 100-129 mg/dL Borderline High: 130-159 mg/dL High: 160-189 mg/dL Very High: >= 190 mg/dL Non HDL Cholesterol Desirable: 130 mg/dL Above Desirable: 130-159 mg/dL Borderline High: 160-189 mg/dL High: 190-219 mg/dL Very High: Greater than or equal to 220 mg/dL Humberto Peng MD LAB - BLOOD ORDERABLES Final Res ult [facility] [address] [facility], [address] [place] [address], [place] [phone] * (ABNORMAL) Hemoglobin A1c (02/26/2022 11:23 AM PLANNING ASSISTANT) Hemoglobin A1C 6.5(H) 0.0 - 5.6 % 02/26/2022 11:46 AM PLANNING ASSISTANT [facility] Comment: Normal <5.7% Prediabetes 5.7-6.4% Diabetes 6.5% or higher Note: Adopted from ADA consensus guidelines. Blood BLOOD SPECIMEN / Unknown Venipuncture / Unknown 02/26/2022 11:23 AM PLANNING ASSISTANT 02/26/2022 11:23 AM PLANNING ASSISTANT Humberto Peng MD LAB - BLOOD ORDERABLES Final Res ult [facility] [address] (no room number, 1st floor of clinic) [place] [address], [place] [phone] * (ABNORMAL) Basic metabolic panel (02/26/2022 11:23 AM PLANNING ASSISTANT) Sodium 143 136 - 145 mmol/L 02/26/2022 5:49 PM PLANNING ASSISTANT [facility] Potassium 4.3 3.4 - 5.3 mmol/L 02/26/2022 5:49 PM PLANNING ASSISTANT [facility] Chloride 105 98 - 107 mmol/L 02/26/2022 5:49 PM PLANNING ASSISTANT [facility] Carbon Dioxide (CO2) 25 22 - 29 mmol/L 02/26/2022 5:49 PM PLANNING ASSISTANT [facility] Anion Gap 13 7 - 15 mmol/L 02/26/2022 5:49 PM PLANNING ASSISTANT [facility] Urea Nitrogen 19.2 8.0 - 23.0 mg/dL 02/26/2022 5:49 PM PLANNING ASSISTANT [facility] Creatinine 0.84 0.51 - 0.95 mg/dL 02/26/2022 5:49 PM PLANNING ASSISTANT [facility] Calcium 9.5 8.8 - 10.2 mg/dL 02/26/2022 5:49 PM PLANNING ASSISTANT [facility] Glucose 109(H) 70 - 99 mg/dL 02/26/2022 5:49 PM PLANNING ASSISTANT [facility] GFR Estimate 71 >60 mL/min/1.7 3m2 02/26/2022 5:49 PM PLANNING ASSISTANT [facility] Comment:Effective January 102020 eGFRcr in adults is calculated using the 2020 CKD-EPI creatinine equation which includes age and gender (Diane et al., NEJM, DOI: 10.1056/FYXIzr0953187) Blood BLOOD SPECIMEN / Unknown Venipuncture / Unknown 02/26/2022 11:23 AM PLANNING ASSISTANT 02/26/2022 11:23 AM PLANNING ASSISTANT us Humberto Peng MD LAB - BLOOD ORDERABLES Final Res ult [facility] [address] [facility], [address] [place] [address], [facility] [phone] * Albumin Random Urine Quantitative with Creat Ratio (07/06/2019 9:51 AM CDT) Creatinine Urine 36 mg/dL 07/06/2019 1:50 PM CDT [facility] Albumin Urine mg/L <5 mg/L 07/06/2019 2:07 PM CDT [facility] Albumin Urine mg/g Cr Unable to calculate due to low value 0 - 25 mg/g Cr 07/06/2019 2:07 PM CDT [facility] Urine specimen (specimen) 07/06/2019 9:51 AM CDT 07/06/2019 9:52 AM CDT us Humberto Peng MD LAB - URINE ORDERABLES Final Res ult [facility] [address] [place] [address] * Mammogram - HIM Scan (07/10/2013) Anatomical Region Laterality Modality Other Narrative 07/10/2013 [facility] RECORDS 10/02/14-04/15/99 us Provider Outside IMG MAMMOGRAPHY ORDERABLES Leticia l Result * DEXA,BONE DENSITY,AXIAL SKELETON (10/12/2008 10:52 AM CDT) Anatomical Region Laterality Modality Other 10/12/2008 10:5 2 AM CDT Impressions 10/12/2008 4:39 PM CDT DEXA BONE MINERAL DENSITY SCAN October 12, 2008 10:52 AM INDICATION: Hyperthyroidism. TECHNIQUE: The lumbar spine and hips were scanned with DEXA technique performed using a Confovis scanner. DEXA results are reported according to [...] with associated lower risk of insufficiency fracture. us Dudley House MD SPECIAL IMAGING STUDIES Edited * COLONOSCOPY (10/31/2004) us Albert Figueroa MD PROCEDURES Final Result [facility] [place] [address] from Last 3 Months or Most Recently Relevant to Health Maintenance Insurance [facility] MEDICARE ADVANTAGE Care Teams Data Solutions Architect Relationship Specialty Start Date End Date Augusta De La Cruz DPM PCP - Podiatry 09/26/05 Kyle Morris MD PCP - Ophthalmology 02/17/06 Matt Grover MD [address] [place] [address] PCP - Urology 12/22/08 Humberto Peng MD [facility] [place] [address] [place] [address] PCP - General Family Practice 09/03/10 James Jasso DO [facility] [place] [address] [place] [address] PCP - Obstetrics/Gynecology fire department 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
--- OUTSIDE RECORDS SUMMARY | 2024-01-08 14:37 | XMS_ITS | Encounter Summary ---
Author Organization [facility] Address [address] [place] [address] Care Team Providers Care Hot Air Furnace Installer Repairer Name Role Phone Dudley House MD Primary Care Provider Frankie Gaspar MD Unavailable Unavailable Augusta De La Cruz DPM Unavailable [phone] Kyle Morris MD Unavailable [phone] Sony Perez MD Unavailable [phone] Matt Grover MD Unavailable [phone] Albert Brownlee MD Unavailable [phone] Encounter Details Date Type Department Care Team (Late st Contact Info) Description 11/26/2009 2:[address] 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 Gender Identity Not on file Sexual Orientation Straight 06/26/2018 6: 53 PM CDT Occupation Industry Job Start Date Job End Date Not on file Not on file Not on file Not on file documented as of this encounter Plan of Treatment Not on file documented as of this encounter Visit Diagnoses Not on filedocumented in this encounter Care Teams Hot Air Furnace Installer Repairer Relationship Specialty Start Date End Date Dudley House MD [address] [place] [address] PCP - General 03/23/07 09/02/10 Frankie Gaspar MD PCP - Obstetrics/Gynecology 03/03/0007/22 Augusta De La Cruz DPM PCP - Podiatry 09/26/05 Kyle Morris MD PCP - Ophthalmology 02/17/06 Sony Perez MD PCP - ENT 03/19/07 12/08/17 Matt Grover MD [address] [facility] [address] [place] [address] PCP - Urology 12/22/08 Albert Brownlee MD [address] [place] [address] PCP - Surgery Surgery 09/28/09 11/02/12 documented as of this encounter
--- OUTSIDE RECORDS SUMMARY | 2024-01-08 14:37 | XMS_ITS | Encounter Summary ---
Author Organization [facility] Address [address] [place] [address] Care Team Providers Care Outdoor Adventure Leader Name Role Phone Dudley House MD Primary Care Provider Frankie Gaspar MD Unavailable Unavailable Augusta De La Cruz DPM Unavailable [phone] Kyle Morris MD Unavailable Ned Birmingham MD Unavailable Sony Perez MD Unavailable [phone] Matt Grvoer MD Unavailable Albret Brownlee MD Unavailable Humberto Peng MD Primary Care Provider [phone] James Jasso DO Unavailable Rajat Urban MD Unavailable Unavailable Thuy CotoC Unavailable [phone] James Stevens DPM Unavailable Teresa FerrerC Unavailable Encounter Details Date Type Department Care Team (Late st Contact Info) Description 11/17/2008 [facility] in [place] Inpatient Dept [address] [place] [address] Frw, Inpatient Provider Bladder Pain (Primary Dx) Social History Tobacco Use Types Packs/Day Years Used Date Smoking Tobacco: Never Smokeless Tobacco: Never Alcohol Use Standard Drinks/Week Comments No 0 (1 standard drink = 0.6 oz pur e alcohol) Comments No Sex and Gender Information Value Date Recorded Sex Assigned at Not on file Legal Sex Female 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 Gender Identity Not on file Sexual Orientation [...] system documented in this encounter Care Teams Outdoor Adventure Leader Relationship Specialty Start Date End Date Dudley House MD [address] [place] [address] PCP - General 03/23/07 09/02/10 Frankie Gaspar MD PCP - Obstetrics/Gynecology 03/03/00 07/23/11 Augusta De La Cruz DPM PCP - Podiatry 09/26/05 Kyle Morris MD PCP - Ophthalmology 02/17/06 Ned Birmingham MD XXX [place] [address] PCP - Surgery 10/25/08 09/27/09 Sony Perez MD XXX [place] [address] PCP - ENT 03/19/07 12/08/17 Matt Grover MD [address] [place] [address] [address] [place] [address] PCP - Urology 12/22/08 Albert Brownlee MD [address] [place] [address] PCP - Surgery Surgery 09/28/09 11/02/12 Humberto Peng MD [facility] [place] [address] [place] [address] PCP - General Family Practice 09/03/10 James Jasso DO [facility] [place] [address] [place] [address] PCP - Obstetrics/Gynecology air defense specialist 07/24/11 Rajat Urban MD [facility] [place] [address] [place] [address] PCP - Orthopaedics Orthopedics 12/02/11 12/08/17 Thuy Coto PA-C [facility] [place] [address] [place] [address] PCP - Surgery Physician Supervisory Lifeguard 11/03/12 James Stevens DPM [id number] [facility] [address] [place] [address] Assigned Musculoskeletal Provider 04/25/20 10/25/21 Teresa Ferrer PA-C [address] [place] [address] Physician Supervisory Lifeguard Urology 02/20/23 documented as of this encounter
--- OUTSIDE RECORDS SUMMARY | 2024-01-08 14:37 | XMS_ITS | Encounter Summary ---
Author Organization [facility] Address [address] [place] [address] Care Team Providers Care Air Traffic Supervisor Name Role Phone Dudley House MD Primary Care Provider Frankie Gaspar MD Unavailable Unavailable Augusta De La Cruz DPM Unavailable [phone] Kyle Morris MD Unavailable Ned Birmingham MD Unavailable Sony Perez MD Unavailable [phone] Matt Grover MD Unavailable Albert Brownlee MD Unavailable Humberto Peng MD Primary Care Provider James Jasso DO Unavailable [phone] Rajat Urban MD Unavailable Unavailable Thuy Coto PARickyC Unavailable [phone] James Stevens DPM Unavailable Teresa FerrerC Unavailable Encounter Details Date Type Department Care Team (Late st Contact Info) Description 07/27/2009 [facility] Medical Advice [facility] in [place] Internal Medicine [address] [place] [address] Dudley House MD [address] [place] [address] Social History Tobacco Use Types Packs/Day Years Used Date Smoking Tobacco: Never Alcohol Use Standard Drinks/Week Comments No 0 (1 standard drink = 0.6 oz pur e alcohol) Comments No Sex and Gender Information Value Date Recorded Sex Assigned at Not on file 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 Gender Identity Not on file Sexual Orientation Straight 06/26/2018 6: 53 PM CDT Occupation Industry Job Start Date Job End Date Not on file Not on file Not on file Not on file documented as of this encounter Plan of Treatment Not on file documented as of this encounter Visit Diagnoses Not on filedocumented in this encounter Care Teams Air Traffic Supervisor Relationship Specialty Start Date End Date Dudley House MD [address] [place] [id number] PCP - General 03/23/07 09/02/10 Frankie Gaspar MD PCP - Obstetrics/Gynecology 03/03/00 07/23/11 Augusta De La Cruz DPM PCP - Podiatry 09/26/05 Kyle Morris MD PCP - Ophthalmology 02/17/06 Ned Birmingham MD XXX NO INFO FOUND XXX [place] [address] PCP - Surgery 10/25/08 09/27/09 Sony Perez MD XXX NO INFO FOUND XXX [place] [address] PCP - ENT 03/19/07 12/08/17 Matt Grover MD [address] [facility] [address] [place] [address] PCP - Urology 12/22/08 Albert Brownlee MD [address] [place] [address] PCP - Surgery Surgery 09/28/09 11/02/12 Humberto Peng MD [facility] [place] [address] [place] [address] PCP - General Family Practice 09/03/10 James Jasso DO [facility] [place] [address] [place] [address] PCP - Obstetrics/Gynecology apparel manager 07/24/11 Rajat Urban MD [facility] [place] [address] [place] [address] PCP - Orthopaedics Orthopedics 12/02/11 12/08/17 Thuy Coto PA-C [facility] [place] [address] [place] [address] PCP - Surgery Physician Manager Talent 11/03/12 [place] [id number] [facility] [address] [place] [address] Assigned Musculoskeletal Provider 04/25/20 10/25/21 Teresa Ferrer PA-C [address] [place] [address] Physician Manager Talent Urology 02/20/23 documented as of this encounter
--- OUTSIDE RECORDS SUMMARY | 2024-01-08 14:37 | XMS_ITS | Referral Summary ---
Author Organization [facility] Address [address] [place] [address] Care Team Providers Care Community Health Nurse Staff Name Role Phone Augusta De La Cruz Suzanne DPM Unavailable Kyle Morris MD Unavailable [phone] Matt Grover MD Unavailable GinetteHumberto MD Primary Care Provider [phone] James Jasso DO Unavailable [phone] Thuy CotoC Unavailable [phone] Teresa Ferrer-C Unavailable Allergies Active Allergy Reactions [...] myelitis, and encephalomyelitis Overview (11/09/2014): 2002 at [place] on MRI scans that subsequently improved. [...] on file Legal Sex Female 3:49 AM TOURISM RADIO PRESENTER Gender Identity Not on file Sexual Orientation Straight 06/26/2018 6: 53 PM CDT Occupation Industry Job Start Date Job End Date Not on file Not on file Not on file Not on file Last Filed Vital Signs Vital Sign Reading Time Taken Comments Blood Pressure 138/68 04/19/2020 1:38 PM TOURISM RADIO PRESENTER Pulse 88 03/31/2013 9:37 AM TOURISM RADIO PRESENTER Temperature 36.1 C (96.9 F) 04/07/2012 4:12 PM TOURISM RADIO PRESENTER Respiratory Rate 20 12/25/2005 8:00 AM TOURISM RADIO PRESENTER Oxygen Saturation 96% 06/15/2008 2:21 PM CDT Inhaled Oxygen Concentration - - Weight 103.7 kg (228 lb 9.9 oz) 10/29/2012 8:27 AM CDT Height 162.6 cm (5' 4) 04/19/2020 1:38 PM TOURISM RADIO PRESENTER Body Mass Index 40.24 06/03/2012 8:14 AM CDT Plan of Treatment Not on file Procedures Procedure Name Priority Date/Time Associated Diagnosis Comments TSH Routine 02/26/2022 11:23 AM TOURISM RADIO PRESENTER Diabetic neuropathy (H) Hypothyroidism, adult Hypertension Diabetic polyneuropathy (H) Hyperlipidemia LIPID PROFILE Routine 02/26/2022 11:23 AM TOURISM RADIO PRESENTER Diabetic neuropathy (H) Hypothyroidism, adult Hypertension Diabetic polyneuropathy (H) Hyperlipidemia BASIC METABOLIC PANEL Routine 02/26/2022 11:23 AM TOURISM RADIO PRESENTER Diabetic neuropathy (H) Hypothyroidism, adult Hypertension Diabetic polyneuropathy (H) Hyperlipidemia HEMOGLOBIN A1C Routine 02/26/2022 11:23 AM TOURISM RADIO PRESENTER Diabetic neuropathy (H) Hypothyroidism, adult Hypertension Diabetic [...] Maintenance Results * TSH (02/26/2022 11:23 AM TOURISM RADIO PRESENTER) TSH 2.31 0.30 - 4.20 uIU/mL 02/26/2022 5:49 PM TOURISM RADIO PRESENTER [facility] Blood BLOOD SPECIMEN / Unknown Venipuncture / Unknown 02/26/2022 11:23 AM TOURISM RADIO PRESENTER 02/26/2022 11:23 AM TOURISM RADIO PRESENTER us Humberto Peng MD LAB - BLOOD ORDERABLES Final Res ult [facility] [address] [facility], [address] [place] [address], [facility] [phone] * Lipid Profile (02/26/2022 11:23 AM TOURISM RADIO PRESENTER) Cholesterol 168 <200 mg/dL 02/26/2022 5:49 PM TOURISM RADIO PRESENTER [facility] Triglycerides 110 <150 mg/dL 02/26/2022 5:49 PM TOURISM RADIO PRESENTER [facility] Direct Measure HDL 71 >=50 mg/dL 2022 5:49 PM TOURISM RADIO PRESENTER [facility] LDL Cholesterol Calculated 75 <=100 mg/dL 02/26/2022 5:49 PM TOURISM RADIO PRESENTER [facility] Non HDL Cholesterol 97 <130 mg/dL 02/26/2022 5:49 PM TOURISM RADIO PRESENTER [facility] Blood BLOOD SPECIMEN / Unknown Venipuncture / Unknown 02/26/2022 11:23 AM TOURISM RADIO PRESENTER 02/26/2022 11:23 AM TOURISM RADIO PRESENTER Narrative [facility] - 02/26/2022 5:49 PM TOURISM RADIO PRESENTER Cholesterol Desirable: <200 mg/dL Triglycerides Normal: Less [...] Greater than or equal to 220 mg/dL us Humberto Peng MD LAB - BLOOD ORDERABLES Final Res ult [facility] [address] [facility], [address] [place] [address], [facility] [phone] * (ABNORMAL) Hemoglobin A1c (02/26/2022 11:23 AM TOURISM RADIO PRESENTER) Hemoglobin A1C 6.5(H) 0.0 - 5.6 % 02/26/2022 11:46 AM TOURISM RADIO PRESENTER [facility] Comment: Normal <5.7% Prediabetes 5.7-6.4% Diabetes 6.5% or higher Note: Adopted from ADA consensus guidelines. Blood BLOOD SPECIMEN / Unknown Venipuncture / Unknown 02/26/2022 11:23 AM TOURISM RADIO PRESENTER 02/26/2022 11:23 AM TOURISM RADIO PRESENTER us Humberto Peng MD LAB - BLOOD ORDERABLES Final Res ult [facility]AT[facility] [address] [facility] Lab (no room number, 1st floor of clinic) [place] [address], [facility] [phone] * (ABNORMAL) Basic metabolic panel (02/26/2022 11:23 AM TOURISM RADIO PRESENTER) Sodium 143 136 - 145 mmol/L 02/26/2022 5:49 PM TOURISM RADIO PRESENTER [facility] Potassium 4.3 3.4 - 5.3 mmol/L 02/26/2022 5:49 PM TOURISM RADIO PRESENTER [facility] Chloride 105 98 - 107 mmol/L 02/26/2022 5:49 PM TOURISM RADIO PRESENTER [facility] Carbon Dioxide (CO2) 25 22 - 29 mmol/L 02/26/2022 5:49 PM TOURISM RADIO PRESENTER [facility] Anion Gap 13 7 - 15 mmol/L 02/26/2022 5:49 PM TOURISM RADIO PRESENTER [facility] Urea Nitrogen 19.2 8.0 - 23.0 mg/dL 02/26/2022 5:49 PM TOURISM RADIO PRESENTER [facility] Creatinine 0.84 0.51 - 0.95 mg/dL 02/26/2022 5:49 PM TOURISM RADIO PRESENTER [facility] Calcium 9.5 8.8 - 10.2 mg/dL 02/26/2022 5:49 PM TOURISM RADIO PRESENTER [facility] Glucose 109(H) 70 - 99 mg/dL 02/26/2022 5:49 PM TOURISM RADIO PRESENTER [facility] GFR Estimate 71 >60 mL/min/1.7 3m2 02/26/2022 5:49 PM TOURISM RADIO PRESENTER [facility] Comment:Effective January 102020 eGFRcr in adults is calculated using the 2020 CKD-EPI creatinine equation which includes age and gender (Diane et al., NEJM, DOI: 10.1056/TZUOmu7531671) Blood BLOOD SPECIMEN / Unknown Venipuncture / Unknown 02/26/2022 11:23 AM TOURISM RADIO PRESENTER 02/26/2022 11:23 AM TOURISM RADIO PRESENTER us Humberto Peng MD LAB - BLOOD ORDERABLES Final Res ult U [facility] [address] [facility], [address] [address], [facility] [phone] * Albumin Random Urine Quantitative with Creat Ratio (07/06/2019 9:51 AM CDT) Creatinine Urine 36 mg/dL 07/06/2019 1:50 PM CDT [facility] Albumin Urine mg/L <5 mg/L 07/06/2019 2:07 PM CDT [facility] Albumin Urine mg/g Cr Unable to calculate due to low value 0 - 25 mg/g Cr 07/06/2019 2:07 PM CDT [facility] Urine specimen (specimen) 07/06/2019 9:51 AM CDT 07/06/2019 9:52 AM CDT us Humberto Peng MD LAB - URINE ORDERABLES Final Res ult [facility] [address] [place] [address] * Mammogram - HIM Scan (07/10/2013) Anatomical Region Laterality Modality Other Narrative 07/10/2013 [facility] TRANSFERRED RECORDS 10/02/14-04/15/99 us Provider Outside IMG MAMMOGRAPHY ORDERABLES Leticia l Result * DEXA,BONE DENSITY,AXIAL SKELETON (10/12/2008 10:52 AM CDT) Anatomical Region Laterality Modality Other 10/12/2008 10:5 2 AM CDT Impressions 10/12/2008 4:39 PM CDT DEXA BONE MINERAL DENSITY SCAN October 12, 2008 10:52 AM INDICATION: Hyperthyroidism. TECHNIQUE: The lumbar spine and hips were scanned with DEXA technique performed using a Novomer scanner. DEXA results are reported according to [...] us Albert Figueroa MD PROCEDURES Final Result Performing Organization Address City/State/[facility] Co de Phone Number [place] JACKELYN [place] [facility] [place] [address] from Last 3 Months or Most Recently Relevant to Health Maintenance Insurance [address] [place] [address] [facility] MEDICARE ADVANTAGE Care Teams Community Health Nurse Staff Relationship Specialty Start Date End Date Augusta De La Cruz DPM PCP - Podiatry 09/26/05 Kyle Morris MD PCP - Ophthalmology 02/17/06 Matt Grover MD [address] [place] [address] [address] [place], [place] [address] PCP - Urology 12/22/08 Humberto Peng MD [facility] [place] [address] [place] [address] PCP - General Family Practice 09/03/10 James Jasso DO [facility] [place] [address] [place] [address] PCP - Obstetrics/Gynecology truck supervisor 07/24/11 Thuy Coto PA-C [facility] [place] [address] [place] [address] PCP - Surgery Physician Administrative Volunteer 11/03/12 Teresa Ferrer PA-C [address] [address] Physician Administrative Volunteer Urology 02/20/23
--- OUTSIDE RECORDS SUMMARY | 2024-01-08 14:37 | XMS_ITS | Encounter Summary ---
Author Organization [facility] Address [address] [place] [address] Care Team Providers Care Director Security Management Name Role Phone Dudley House MD Primary Care Provider [phone] Frankie Gaspar MD Unavailable Unavailable Augusta De La Cruz DPM Unavailable [phone] Kyle Morris MD Unavailable [phone] Ned Birmingham MD Unavailable [phone] Sony Perez MD Unavailable [phone] Matt Grover MD Unavailable Albert Brownlee MD Unavailable Humberto Peng MD Primary Care Provider [phone] James Jasso DO Unavailable [phone] Rajat Urban MD Unavailable Unavailable Thuy Coto PARickyC Unavailable [phone] James Stevens DPM Unavailable [phone] Teresa FerrerC Unavailable [phone] Reason for Visit * Reason Onset Date Comments Patient Inquiry 07/23/2009 Encounter Details Date Type Department Care Team (Late st Contact Info) Description 07/23/2009 MyC Medical Advice [facility] [place] Internal Medicine [address] [place] [address] Dudley House MD [address] [place] [address] Patient Inquiry Social History Tobacco Use Types Packs/Day Years Used Date Smoking Tobacco: Never Alcohol Use Standard Drinks/Week Comments No 0 (1 standard drink = 0.6 oz pur e alcohol) Comments No Sex and Gender Information Value Date Recorded Sex Assigned at Not on file Legal Sex Female 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 Gender Identity Not on file Sexual Orientation Straight 06/26/2018 6: 53 PM CDT Occupation Industry Job Start Date Job End Date Not on file Not on file Not on file Not on file documented as of this encounter Plan of Treatment Not on file documented as of this encounter Visit Diagnoses Not on filedocumented in this encounter Care Teams Director Security Management Relationship Specialty Start Date End Date Dudley House MD [address] [place] [address] PCP - General 03/23/07 09/02/10 Frankie Gaspar MD PCP - Obstetrics/Gynecology 03/03/00 07/23/11 Augusta De La Cruz DPM PCP - Podiatry 09/26/05 Kyle Morris MD PCP - Ophthalmology 02/17/06 Ned Birmingham MD XXX NO INFO FOUND XXX [place] [id number] PCP - Surgery 10/25/08 09/27/09 Sony Perez MD XXX NO INFO FOUND XXX [place] [id number] PCP - ENT 03/19/07 12/08/17 Matt Grover MD [address] [facility] [address] [place] [address] PCP - Urology 12/22/08 Albert Brownlee MD [address] [place] [address] PCP - Surgery Surgery 09/28/09 11/02/12 Humberto Peng MD [facility] [place] [address] [place] [address] PCP - General Family Practice 09/03/10 James Jasso DO [facility] [place] [address] [place] [address] PCP - Obstetrics/Gynecology marine farmer 07/24/11 Rajat Urban MD [facility] [place] [address] [place] [address] PCP - Orthopaedics Orthopedics 12/02/11 12/08/17 Thuy Coto PA-C [facility] [place] [address] [place] [address] PCP - Surgery Physician Director Medical Safety 11/03/12 James Stevens DPM [address] [facility] [address] [place], [place] [id number] Assigned Musculoskeletal Provider 04/25/20 10/25/21 Teresa Ferrer PA-C [address] [address] Physician Director Medical Safety Urology 02/20/23 documented as of this encounter
--- OUTSIDE RECORDS SUMMARY | 2024-01-08 14:37 | XMS_ITS | Encounter Summary ---
Author Organization [facility] Address [address] [place] [address] Care Team Providers Care Check Grader Name Role Phone Dudley House MD Primary Care Provider Frankie Gaspar MD Unavailable Unavailable Augusta De La Cruz DPM Unavailable [phone] Kyle Morris MD Unavailable [phone] Ned Birmingham MD Unavailable Mike Villareal DO Unavailable [phone] Sony Perez MD Unavailable [phone] Matt Grover MD Unavailable Albetr Brownlee MD Unavailable Humberto Peng MD Primary Care Provider [phone] James Jasso DO Unavailable [phone] Rajat Urban MD Unavailable Unavailable Thuy CotoC Unavailable [phone] James Stevens DPM Unavailable Teresa FerrerC Unavailable [phone] Encounter Details Date Type Department Care Team (Late st Contact Info) Description 10/12/2008 MyC Medical Advice [facility] in [place] Internal Medicine [address] [place] [id number] Dudley House MD [address] [place] [address] Social History Tobacco Use Types Packs/Day Years Used Date Smoking Tobacco: Never Alcohol Use Standard Drinks/Week Comments No 0 (1 standard drink = 0.6 oz pur e alcohol) Comments No Sex and Gender Information Value Date Recorded Sex Assigned at Not on file Legal Sex Female 3:49 AM 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 Gender Identity Not on file Sexual Orientation Straight 06/26/2018 6: 53 PM CDT Occupation Industry Job Start Date Job End Date Not on file Not on file Not on file Not on file documented as of this encounter Plan of Treatment Not on file documented as of this encounter Visit Diagnoses Not on filedocumented in this encounter Care Teams Check Grader Relationship Specialty Start Date End Date Dudley House MD [address] [place] [address] PCP - General 03/23/07 09/02/10 Frankie Gaspar MD PCP - Obstetrics/Gynecology 03/03/00 07/23/11 Augusta De La Cruz DPM PCP - Podiatry 09/26/05 Kyle Morris MD PCP - Ophthalmology 02/17/06 Ned Birmingham MD XXX NO INFO FOUND XXX [place] [id number] PCP - Surgery 10/25/08 09/27/09 Mike Villareal DO [facility] [address] [place] [address] PCP - Surgery 08/03/06 10/24/08 Sony Perez MD [facility] [address] [place] [address] PCP - ENT 03/19/07 12/08/17 Matt Grover MD [address] [place] [address] [address] [place] [address] PCP - Urology 12/22/08 Albert Brownlee MD [address] [place] [address] PCP - Surgery Surgery 09/28/09 11/02/12 Humberto Peng MD [facility] [place] [address] [place] [address] PCP - General Family Practice 09/03/10 James Jasso DO [facility] [place] [address] [place] [address] PCP - Obstetrics/Gynecology surveillance technician 07/24/11 Rajat Urban MD [facility] [place] [address] [place] [address] PCP - Orthopaedics Orthopedics 12/02/11 12/08/17 Thuy Coto PA-C [facility] [place] [address] [place] [address] PCP - Surgery Physician Automatic Drill Operator 11/03/12 James Stevens DPM [id number] [place] [address] [place] [id number] Assigned Musculoskeletal Provider 04/25/20 10/25/21 Teresa Ferrer PA-C [address] [facility] [address] [place], [place] [id number] Physician Automatic Drill Operator Urology 02/20/23 documented as of this encounter
--- OUTSIDE RECORDS SUMMARY | 2024-01-08 14:37 | XMS_ITS | Encounter Summary ---
Author Organization [facility] Address [address] [place] [address] Care Team Providers Care Procedure Rn Name Role Phone Dudley House MD Primary Care Provider Frankie Gaspar MD Unavailable Unavailable Augusta De La Cruz DPM Unavailable [phone] Kyle Morris MD Unavailable [phone] Sony Perez MD Unavailable [phone] Matt Grover MD Unavailable Albert Brownlee MD Unavailable Humberto Peng MD Primary Care Provider [phone] James Jasso DO Unavailable [phone] Rajat Urban MD Unavailable Unavailable Thuy Coto PA-C Unavailable [phone] James Stevens DPM Unavailable [phone] Teresa Ferrer-C Unavailable Reason for Visit * Reason Onset Date Comments MyChart Communication 03/05/2010 Medication concerns Encounter Details Date Type Department Care Team (Late st Contact Info) Description 03/05/2010 MyC Medical Advice [facility] [place] Internal Medicine [address] [place] [address] Dudley House MD [address] [place] [address] MyChart Communication (Medication concerns) Social History Tobacco Use Types Packs/Day Years Used Date Smoking Tobacco: Never Alcohol Use Standard Drinks/Week Comments No 0 (1 standard drink = 0.6 oz pur e alcohol) Comments No Sex and Gender Information Value Date Recorded Sex Assigned at Not on file 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 Gender Identity Not on file Sexual Orientation Straight 06/26/2018 6: 53 PM CDT Occupation Industry Job Start Date Job End Date Not on file Not on file Not on file Not on file documented as of this encounter Plan of Treatment Not on file documented as of this encounter Visit Diagnoses Not on filedocumented in this encounter Care Teams Procedure Rn Relationship Specialty Start Date End Date Dudley House MD [address] [place] [address] PCP - General 03/23/07 09/02/10 Frankie Gaspar MD PCP - Obstetrics/Gynecology 03/03/00 07/23/11 Augusta De La Cruz DPM PCP - Podiatry 09/26/05 Kyle Morris MD PCP - Ophthalmology 02/17/06 Sony Perez MD PCP - ENT 03/19/07 12/08/17 Matt Grover MD [address] [place] [address] PCP - Urology 12/22/08 Albert Brownlee MD [address] [place] [address] [place] [address] PCP - Surgery Surgery 09/28/09 11/02/[address] [facility] [place] [address] [place] [address] PCP - General Family Practice 09/03/[address] [facility] [place] [address] [place] [address] PCP - Obstetrics/Gynecology labor arbitrator 07/24/11 Rajat Urban MD [facility] [place] [address] [place] [address] PCP - Orthopaedics Orthopedics 12/02/11 12/08/17 Thuy Coto PA-C [facility] [place] [address] [place] [address] PCP - Surgery Physician Director Of Undergraduate Admissions 11/03/12 James Stevens DPM [address] [facility] [address] [place] [address] Assigned Musculoskeletal Provider 04/25/20 10/25/21 Teresa Ferrer PA-C [address] [place] [address] [place], [place] [address] Physician Director Of Undergraduate Admissions Urology 02/20/23 documented as of this encounter
--- OUTSIDE RECORDS SUMMARY | 2024-01-08 14:37 | XMS_ITS | Encounter Summary ---
Author Organization [facility] Address [address] [place] [address] Care Team Providers Care Production Superintendent Name Role Phone Dudley House MD Primary Care Provider Frankie Gaspar MD Unavailable Unavailable Augusta De La Cruz DPM Unavailable [phone] Kyle Morris MD Unavailable Ned Birmingham MD Unavailable [phone] Sony Perez MD Unavailable [phone] Encounter Details Date Type Department Care Team (Late st Contact Info) Description 11/19/2008 11:05 AM CDT [facility] in [address] [address] James Chapin MD [address] [place], [place] [address] Social History Tobacco Use Types Packs/Day Years Used Date Smoking Tobacco: Never Smokeless Tobacco: Never Alcohol Use Standard Drinks/Week Comments No 0 (1 standard drink = 0.6 oz pur e alcohol) Comments No Sex and Gender Information Value Date Recorded Sex Assigned at Not on file 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 Gender Identity Not on file Sexual Orientation [...] on filedocumented in this encounter Care Teams Production Superintendent Relationship Specialty Start Date End Date Dudley House MD [address] [place] [address] PCP - General 03/23/07 09/02/10 Frankie Gaspar MD PCP - Obstetrics/Gynecology 03/03/0007/22 Augusta De La Cruz DPM PCP - Podiatry 09/26/05 Kyle Morris MD PCP - Ophthalmology 02/17/06 Ned Birmingham MD XXX NO INFO FOUND XXX [place] [id number] PCP - Surgery 10/25/08 09/27/09 Sony Perez MD XXX NO INFO FOUND XXX [place] [id number] PCP - ENT 03/19/07 12/08/17 documented as of this encounter
--- OUTSIDE RECORDS SUMMARY | 2024-01-08 14:37 | XMS_ITS | Encounter Summary ---
Author Organization [facility] Address [address] [place] [address] Care Team Providers Care Cryptoanalysis Teacher Name Role Phone Dudley House MD Primary Care Provider [phone] Frankei Gaspar MD Unavailable Unavailable Augusta De La Cruz DPM Unavailable [phone] Kyle Morris MD Unavailable [phone] Mike Villareal DO Unavailable [phone] Sony Perez MD Unavailable [phone] Encounter Details Date Type Department Care Team (Late st Contact Info) Description 10/20/2008 8:45 AM CDT [facility] in [address] [address] Dudley House MD [address] [place] [address] Social History Tobacco Use Types Packs/Day Years Used Date Smoking Tobacco: Never Smokeless Tobacco: Never Alcohol Use Standard Drinks/Week Comments No 0 (1 standard drink = 0.6 oz pur e alcohol) Comments No Sex and Gender Information Value Date Recorded Sex Assigned at Not on file 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 Gender Identity Not on file Sexual Orientation Straight 06/26/2018 6: 53 PM CDT Occupation Industry Job Start Date Job End Date Not on file Not on file Not on file Not on file documented as of this encounter Plan of Treatment Not on file documented as of this encounter Visit Diagnoses Not on filedocumented in this encounter Care Teams Cryptoanalysis Teacher Relationship Specialty Start Date End Date Dudley House MD [address] [place] [address] PCP - General 03/23/07 09/02/10 Frankie Gaspar MD PCP - Obstetrics/Gynecology 03/03/0007/22 Augusta De La Cruz DPM PCP - Podiatry 09/26/05 Kyle Morris MD PCP - Ophthalmology 02/17/06 Mike Villareal DO [facility] [address] [place] [address] PCP - Surgery 08/03/06 10/24/08 Sony Perez MD [facility] [address] [place] [address] PCP - ENT 03/19/07 12/08/17 documented as of this encounter
--- OUTSIDE RECORDS SUMMARY | 2024-01-08 14:37 | XMS_ITS | Encounter Summary ---
Author Organization [place] Address [address] [place] [address] Care Team Providers Care Home Economics Extension Worker Name Role Phone Dudley House MD Primary Care Provider [phone] Frankie Gaspar MD Unavailable Unavailable Augusta De La Cruz DPM Unavailable [phone] Kyle Morris MD Unavailable Sony Perez MD Unavailable [phone] Matt Grover MD Unavailable Albert Brownlee MD Unavailable [phone] GinetteHumberto bowser MD Primary Care Provider [phone] James Jasso DO Unavailable [phone] Rajat Urban MD Unavailable Unavailable Thuy Coto PARickyC Unavailable [phone] James Stevens DPM Unavailable Teresa FerrerC Unavailable Encounter Details Date Type Department Care Team (Late st Contact Info) Description 02/15/2010 MyC Medical Advice [facility] in [place] Internal Medicine [address] [place] [address] Dudley House MD [address] [place] [address] Social History Tobacco Use Types Packs/Day Years Used Date Smoking Tobacco: Never Alcohol Use Standard Drinks/Week Comments No 0 (1 standard drink = 0.6 oz pur e alcohol) Comments No Sex and Gender Information Value Date Recorded Sex Assigned at Not on file 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 Gender Identity Not on file Sexual Orientation Straight 06/26/2018 6: 53 PM CDT Occupation Industry Job Start Date Job End Date Not on file Not on file Not on file Not on file documented as of this encounter Plan of Treatment Not on file documented as of this encounter Visit Diagnoses Not on filedocumented in this encounter Care Teams Home Economics Extension Worker Relationship Specialty Start Date End Date Dudley House MD [address] [place] [address] PCP - General 03/23/07 09/02/10 Frankie Gaspar MD PCP - Obstetrics/Gynecology 03/03/00 07/23/11 Augusta De La Cruz DPM PCP - Podiatry 09/26/05 Kyle Morris MD PCP - Ophthalmology 02/17/06 oSny Perez MD PCP - ENT 03/19/07 12/08/17 Matt Grover MD 420 [facility] [address] [place], [place] [address] PCP - Urology 12/22/08 Albert Brownlee MD [address] [place] [address] PCP - Surgery Surgery 09/28/09 11/02/12 Humberto Peng MD [facility] [place] [address] [place] [address] PCP - General Family Practice 09/03/10 James Jasso DO [facility] [place] [address] [place] [address] PCP - Obstetrics/Gynecology cable splicer 07/24/11 Rajat Urban MD [facility] [place] [address] [place] [address] PCP - Orthopaedics Orthopedics 12/02/11 12/08/17 Thuy Coto PA-C [facility] [place] [address] [place] [address] PCP - Surgery Physician Medical Records Technician 11/03/12 James Stevens DPM [address] [facility] [address] [place] [address] Assigned Musculoskeletal Provider 04/25/20 10/25/21 Teresa Ferrer PA-C [address] [address] Physician Medical Records Technician Urology 02/20/23 documented as of this encounter
--- OUTSIDE RECORDS SUMMARY | 2024-01-08 14:37 | XMS_ITS | Encounter Summary ---
Author Organization [place] Address [address] [place] [address] Care Team Providers Care Rod Cup Filler Name Role Phone Dudley House MD Primary Care Provider Frankie Gaspar MD Unavailable Unavailable Augusta De La Cruz DPM Unavailable Kyle Morris MD Unavailable [phone] Ned Birmingham MD Unavailable Sony Perez MD Unavailable [phone] Encounter Details Date Type Department Care Team (Late st Contact Info) Description 11/22/2008 5:[address] [facility] in [address] [address] Adriane Stern MD XXX RETIRED XXX [place], [place] [id number] Social History Tobacco Use Types Packs/Day Years Used Date Smoking Tobacco: Never Smokeless Tobacco: Never Alcohol Use Standard Drinks/Week Comments No 0 (1 standard drink = 0.6 oz pur e alcohol) Comments No Sex and Gender Information Value Date Recorded Sex Assigned at Not on file Legal Sex Female 3:49 AM RN AMBULATORY Gender Identity Not on file Sexual Orientation Straight 06/26/2018 6: 53 PM CDT Occupation Industry Job Start Date Job End Date Not on file Not on file Not on file Not on file documented as of this encounter Plan of Treatment Not on file documented as of this encounter Visit Diagnoses Not on filedocumented in this encounter Care Teams Rod Cup Filler Relationship Specialty Start Date End Date Dudley House MD [address] [place] [address] PCP - General 03/23/07 09/02/10 Frankie Gaspar MD PCP - Obstetrics/Gynecology 03/03/0007/22 Augusta De La Cruz DPM PCP - Podiatry 09/26/05 Kyle Morris MD PCP - Ophthalmology 02/17/06 Ned Birmingham MD XXX NO INFO FOUND [place] [id number] PCP - Surgery 10/25/08 09/27/09 Sony Perez MD XXX NO INFO FOUND XXX [place] [id number] PCP - ENT 03/19/07 12/08/17 documented as of this encounter
--- OUTSIDE RECORDS SUMMARY | 2024-01-08 14:37 | XMS_ITS | Encounter Summary ---
Author Organization [place] Address [address] [place] [address] Care Team Providers Care Life Sciences Manager Name Role Phone Dudley House MD Primary Care Provider Frankie Gaspar MD Unavailable Unavailable Augusta De La Cruz DPM Unavailable [phone] Kyle Morris MD Unavailable [phone] Sony Perez MD Unavailable [phone] Matt Grover MD Unavailable [phone] Albert Brownlee MD Unavailable [phone] Encounter Details Date Type Department Care Team (Late st Contact Info) Description 01/17/2010 8:26 AM [facility] in [address] [address] Albert Brownlee MD [address] [place] [address] Social History Tobacco Use Types Packs/Day Years Used Date Smoking Tobacco: Never Smokeless Tobacco: Never Alcohol Use Standard Drinks/Week Comments No 0 (1 standard drink = 0.6 oz pur e alcohol) Comments No Sex and Gender Information Value Date Recorded Sex Assigned at Not on file Legal Sex Female 3:49 AM [facility] Gender Identity Not on file Sexual Orientation Straight 06/26/2018 6: 53 PM CDT Occupation Industry Job Start Date Job End Date Not on file Not on file Not on file Not on file documented as of this encounter Plan of Treatment Not on file documented as of this encounter Visit Diagnoses Not on filedocumented in this encounter Care Teams Life Sciences Manager Relationship Specialty Start Date End Date Dudley House MD [address] [place] [address] PCP - General 03/23/07 09/02/10 Frankie Gaspar MD PCP - Obstetrics/Gynecology 03/03/0007/22 Augusta De La Cruz DPM PCP - Podiatry 09/26/05 Kyle Morris MD PCP - Ophthalmology 02/17/06 Sony Perez MD PCP - ENT 03/19/07 12/08/17 Matt Grover MD 420 [facility] [address] [place] [address] PCP - Urology 12/22/08 Albert Brownlee MD [address] [place] [address] PCP - Surgery Surgery 09/28/09 11/02/12 documented as of this encounter
--- OUTSIDE RECORDS SUMMARY | 2024-01-08 14:37 | XMS_ITS | Encounter Summary ---
Author Organization [facility] Address [address] [place] [address] Care Team Providers Care Hydroblaster Name Role Phone Dudley House MD Primary Care Provider Frankie Gaspar MD Unavailable Unavailable Augusta De La Cruz DPM Unavailable [phone] Kyle Morris MD Unavailable [phone] Sony Perez MD Unavailable [phone] Matt Grover MD Unavailable Albert Brownlee MD Unavailable [phone] Humberto Peng MD Primary Care Provider [phone] James Jasso DO Unavailable [phone] Rajat Urban MD Unavailable Unavailable Thuy Coto PARickyC Unavailable [phone] James Stevens DPM Unavailable Teresa FerrerC Unavailable Reason for Visit * Reason Onset Date Comments Refill Request 06/03/2010 Encounter Details Date Type Department Care Team (Late st Contact Info) Description 06/03/2010 MyC Refill [facility] in [place] Internal Medicine [address] [place] [address] Dudley House MD [address] [place] [address] Refill Request Social History Tobacco Use Types Packs/Day Years Used Date Smoking Tobacco: Never Alcohol Use Standard Drinks/Week Comments No 0 (1 standard drink = 0.6 oz pur e alcohol) Comments No Sex and Gender Information Value Date Recorded Sex Assigned at Not on file 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 This can be sent to them directly at the Sleep [facility] here at [facility]. documented in this encounter Plan of Treatment Not on file documented as of this encounter Visit Diagnoses Diagnosis PAT (obstructive sleep apnea)- Primary Obstructive sleep apnea (adult) (pediatric) documented in this encounter Care Teams Hydroblaster Relationship Specialty Start Date End Date Dudley House MD [address] [place] [address] PCP - General 03/23/07 09/02/10 Frankie Gaspar MD PCP - Obstetrics/Gynecology 03/03/00 07/23/11 Augusta De La Cruz DPM PCP - Podiatry 09/26/05 Kyle Morris MD PCP - Ophthalmology 02/17/06 Sony Perez MD PCP - ENT 03/19/07 12/08/17 Matt Grover MD 420 [facility] [address] [place] [address] PCP - Urology 12/22/08 Albert Brownlee MD [address] [place] [address] PCP - Surgery Surgery 09/28/09 11/02/12 Humberto Peng MD [address] [address] PCP - General Family Practice 09/03/10 James Jasso DO [facility] [place] [address] [place] [address] PCP - Obstetrics/Gynecology fountain dispenser 07/24/11 Rajat Urban MD [facility] [place] [address] [facility] [address] [place] [address] PCP - Orthopaedics Orthopedics 12/02/11 12/08/17 Thuy Coto PA-C [facility] [address] [facility] [address] [place] [address] PCP - Surgery Physician Java Web User Interface Developer 11/03/12 James Stevens DPM [id number] [facility] [address] [place], [place] [id number] Assigned Musculoskeletal Provider 04/25/20 10/25/21 Teresa Ferrer PA-C [address] [facility] [address] [place], [place] [address] Physician Java Web User Interface Developer Urology 02/20/23 documented as of this encounter
--- OUTSIDE RECORDS SUMMARY | 2024-01-08 14:37 | XMS_ITS | Encounter Summary ---
Author Organization [place] Address [address] [place] [address] Care Team Providers Care Acute Care Clinical Nurse Specialist Name Role Phone Dudley House MD Primary Care Provider [phone] Frankie Gaspar MD Unavailable Unavailable Augusta De La Cruz DPM Unavailable [phone] Kyle Morris MD Unavailable [phone] Ned Birmingham MD Unavailable Sony Perez MD Unavailable [phone] Matt Grover MD Unavailable Albert Brownlee MD Unavailable [phone] Humberto Peng MD Primary Care Provider James Jasso DO Unavailable [phone] Rajat Urban MD Unavailable Unavailable Thuy Coto PARickyC Unavailable [phone] James Stevens DPM Unavailable Teresa FerrerC Unavailable Encounter Details Date Type Department Care Team (Late st Contact Info) Description 07/26/2009 MyC Medical Advice [facility] in [place] Internal Medicine [address] [place] [address] Dudley House MD [address] [place] [address] Social History Tobacco Use Types Packs/Day Years Used Date Smoking Tobacco: Never Alcohol Use Standard Drinks/Week Comments No 0 (1 standard drink = 0.6 oz pur e alcohol) Comments No Sex and Gender Information Value Date Recorded Sex Assigned at Not on file Legal 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 Female 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 Gender Identity Not on file Sexual Orientation Straight 06/26/2018 6: 53 PM CDT Occupation Industry Job Start Date Job End Date Not on file Not on file Not on file Not on file documented as of this encounter Plan of Treatment Not on file documented as of this encounter Visit Diagnoses Not on filedocumented in this encounter Care Teams Acute Care Clinical Nurse Specialist Relationship Specialty Start Date End Date Dudley House MD [address] [place] [address] PCP - General 03/23/07 09/02/10 Frankie Gaspar MD PCP - Obstetrics/Gynecology 03/03/00 07/23/11 Augusta De La Cruz DPM PCP - Podiatry 09/26/05 Kyle Morris MD PCP - Ophthalmology 02/17/06 Ned Birmingham MD XXX NO INFO FOUND XXX [place] [id number] PCP - Surgery 10/25/08 09/27/09 Sony Perez MD XXX NO INFO FOUND XXX [place] [id number] PCP - ENT 03/19/07 12/08/17 Matt Grover MD 420 [facility] [address] [place] [address] PCP - Urology 12/22/08 Albert Brownlee MD [address] [place] [address] PCP - Surgery Surgery 09/28/09 11/02/12 Humberto Peng MD [facility] [place] [address] [place] [address] PCP - General Family Practice 09/03/10 James Jasso DO [facility] [place] [address] [place] [address] PCP - Obstetrics/Gynecology centura technical lead senior developer 07/24/11 Rajat Urban MD [facility] [place] [address] [place] [address] PCP - Orthopaedics Orthopedics 12/02/11 12/08/17 Thuy Coto PA-C [facility] [place] [address] [place] [address] PCP - Surgery Physician Waste Examiner 11/03/12 James Stevens DPM [address] [facility] [address] [place] [address] Assigned Musculoskeletal Provider 04/25/20 10/25/21 Teresa Ferrer PA-C [address] [place] [address] Physician Waste Examiner Urology 02/20/23 documented as of this encounter
--- OUTSIDE RECORDS SUMMARY | 2024-01-08 14:37 | XMS_ITS | Encounter Summary ---
Author Organization [place] Address [address] [place] [address] Care Team Providers Care Fountain Waitress/Waiter Name Role Phone Dudley House MD Primary Care Provider Frankie Gaspar MD Unavailable Unavailable Augusta De La Cruz DPM Unavailable [phone] Kyle Morris MD Unavailable [phone] Sony Perez MD Unavailable [phone] Matt Grover MD Unavailable [phone] Albert Brownlee MD Unavailable [phone] Encounter Details Date Type Department Care Team (Late st Contact Info) Description 10/03/2009 12:21 PM CDT [facility] in [address] [address] Albert Brownlee MD [address] [place] [address] Social History Tobacco Use Types Packs/Day Years Used Date Smoking Tobacco: Never Smokeless Tobacco: Never Alcohol Use Standard Drinks/Week Comments No 0 (1 standard drink = 0.6 oz pur e alcohol) Comments No Sex and Gender Information Value Date Recorded Sex Assigned at Not on file 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 Gender Identity Not on file Sexual Orientation Straight 06/26/2018 6: 53 PM CDT Occupation Industry Job Start Date Job End Date Not on file Not on file Not on file Not on file documented as of this encounter Plan of Treatment Not on file documented as of this encounter Visit Diagnoses Not on filedocumented in this encounter Care Teams Fountain Waitress/Waiter Relationship Specialty Start Date End Date Dudley House MD [address] [place] [address] PCP - General 03/23/07 09/02/10 Frankie Gaspar MD PCP - Obstetrics/Gynecology 03/03/0007/22 Augusta De La Cruz DPM PCP - Podiatry 09/26/05 Kyle Morris MD PCP - Ophthalmology 02/17/06 Sony Perez MD PCP - ENT 03/19/07 12/08/17 Matt Grover MD 420 [facility] [address] [place] [address] PCP - Urology 12/22/08 Albert Brownlee MD [address] [place] [address] PCP - Surgery Surgery 09/28/09 11/02/12 documented as of this encounter
--- OUTSIDE RECORDS SUMMARY | 2024-01-08 14:37 | XMS_ITS | Encounter Summary ---
Author Organization [facility] Address [address] [place] [address] Care Team Providers Care Washing Machine Striper Name Role Phone Dudley House MD Primary Care Provider [phone] Frankie Gaspar MD Unavailable Unavailable Augusta De La Cruz DPM Unavailable [phone] Kyle Morris MD Unavailable [phone] Mike Villareal DO Unavailable [phone] Sony Perez MD Unavailable [phone] Encounter Details Date Type Department Care Team (Late st Contact Info) Description 10/12/2008 9:41 AM CDT [facility] in [address] [address] Dudley House MD [address] [place] [address] Social History Tobacco Use Types Packs/Day Years Used Date Smoking Tobacco: Never Smokeless Tobacco: Never Alcohol Use Standard Drinks/Week Comments No 0 (1 standard drink = 0.6 oz pur e alcohol) Comments No Sex and Gender Information Value Date Recorded Sex Assigned at Not on file 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 Gender Identity Not on file Sexual Orientation Straight 06/26/2018 6: 53 PM CDT Occupation Industry Job Start Date Job End Date Not on file Not on file Not on file Not on file documented as of this encounter Plan of Treatment Not on file documented as of this encounter Visit Diagnoses Not on filedocumented in this encounter Care Teams Washing Machine Striper Relationship Specialty Start Date End Date Dudley House MD [address] [place] [address] PCP - General 03/23/07 09/02/10 Frankie Gaspar MD PCP - Obstetrics/Gynecology 03/03/0007/22 Augusta De La Cruz DPM PCP - Podiatry 09/26/05 Kyle Morris MD PCP - Ophthalmology 02/17/06 Mike Villareal DO [facility] [address] [place] [address] PCP - Surgery 08/03/06 10/24/08 Sony Perez MD [facility] [address] [place] [address] PCP - ENT 03/19/07 12/08/17 documented as of this encounter
--- OUTSIDE RECORDS SUMMARY | 2024-01-08 14:37 | XMS_ITS | Encounter Summary ---
Author Organization [place] Address [address] [place] [address] Care Team Providers Care Screen Cutter And Trimmer Name Role Phone Dudley House MD Primary Care Provider [phone] Frankie Gaspar MD Unavailable Unavailable Augusta De La CruzM Unavailable [phone] Kyle Morris MD Unavailable Ned Birmingham MD Unavailable Sony Perez MD Unavailable [phone] Matt Grover MD Unavailable [phone] Albert Brownlee MD Unavailable [phone] Humberto Peng MD Primary Care Provider [phone] James Jasso DO Unavailable [phone] Rajat Urban MD Unavailable Unavailable Thuy CotoC Unavailable [phone] James Stevens DPM Unavailable Teresa FerrerC Unavailable [phone] Encounter Details Date Type Department Care Team (Late st Contact Info) Description 07/05/2009 MyC Medical Advice [facility] [place] Podiatry [address] [place] [address] Augusta De La Cruz, DPM [facility] [address] [place] [address] Social History Tobacco Use Types Packs/Day Years Used Date Smoking Tobacco: Never Alcohol Use Standard Drinks/Week Comments No 0 (1 standard drink = 0.6 oz pur e alcohol) Comments No Sex and Gender Information Value Date Recorded Sex Assigned at Not on file 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 Gender Identity Not on file Sexual Orientation Straight 06/26/2018 6: 53 PM CDT Occupation Industry Job Start Date Job End Date Not on file Not on file Not on file Not on file documented as of this encounter Plan of Treatment Not on file documented as of this encounter Visit Diagnoses Not on filedocumented in this encounter Care Teams Screen Cutter And Trimmer Relationship Specialty Start Date End Date Dudley House MD [address] [place] [address] PCP - General 03/23/07 09/02/10 Frankie Gaspar MD PCP - Obstetrics/Gynecology 03/03/00 07/23/11 Augusta De La Cruz DPM PCP - Podiatry 09/26/05 Kyle Morris MD PCP - Ophthalmology 02/17/06 Ned Birmingham MD XXX NO INFO FOUND XXX [place] [place] [address] PCP - Surgery 10/25/08 09/27/09 Sony Perez MD XXX NO INFO FOUND XXX [address] [place] [address] PCP - ENT 03/19/07 12/08/17 Matt Grover MD 420 [facility] [address] [place] [address] PCP - Urology 12/22/08 Albert Brownlee MD [address] [place] [address] PCP - Surgery Surgery 09/28/09 11/02/12 Humberto Peng MD [facility] [place] [address] [place] [address] PCP - General Family Practice 09/03/10 James Jasso DO [facility] [place] [address] [place] [address] PCP - Obstetrics/Gynecology airline station agent 07/24/11 Rajat Urban MD [facility] [place] [address] [place] [address] PCP - Orthopaedics Orthopedics 12/02/11 12/08/17 Thuy Coto PA-C [facility] [place] [address] [place] [address] PCP - Surgery Physician Textile Converter 11/03/12 James Stevens DPM [address] [facility] [address] [place] [address] Assigned Musculoskeletal Provider 04/25/20 10/25/21 Teresa Ferrer PA-C [address] [place], [place] [address] Physician Textile Converter Urology 02/20/23 documented as of this encounter
--- OUTSIDE RECORDS SUMMARY | 2024-01-08 14:37 | XMS_ITS | Encounter Summary ---
Author Organization [place] Address [address] [place] [address]. [place] [address] Care Team Providers Care Wood Products Manufacturer Name Role Phone Dudley House MD Primary Care Provider [phone] Frankie Gaspar MD Unavailable Unavailable Augusta De La Cruz DPM Unavailable [phone] Kyle Morris MD Unavailable [phone] Ned Birmingham MD Unavailable [phone] Sony Perez MD Unavailable [phone] Matt Grover MD Unavailable Encounter Details Date Type Department Care Team (Late st Contact Info) Description 05/15/2009 8:30 AM CDT [facility] in [address] [address] Dudley House MD [address] [place] [address] Social History Tobacco Use Types Packs/Day Years Used Date Smoking Tobacco: Never Smokeless Tobacco: Never Alcohol Use Standard Drinks/Week Comments No 0 (1 standard drink = 0.6 oz pur e alcohol) Comments No Sex and Gender Information Value Date Recorded Sex Assigned at Not on file 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 Gender Identity Not on file Sexual Orientation Straight 06/26/2018 6: 53 PM CDT Occupation Industry Job Start Date Job End Date Not on file Not on file Not on file Not on file documented as of this encounter Plan of Treatment Not on file documented as of this encounter Visit Diagnoses Not on filedocumented in this encounter Care Teams Wood Products Manufacturer Relationship Specialty Start Date End Date Dudley House MD [address] [place] [address] PCP - General 03/23/07 09/02/10 Frankie Gaspar MD PCP - Obstetrics/Gynecology 03/03/0007/22 Augusta De La Cruz DPM PCP - Podiatry 09/26/05 Kyle Morris MD PCP - Ophthalmology 02/17/06 Ned Birmingham MD [place] [address] PCP - Surgery 10/25/08 09/27/09 Sony Perez MD [place] [address] PCP - ENT 03/19/07 12/08/17 Matt Grover MD 420 [facility] [address] [place] [address] PCP - Urology 12/22/08 documented as of this encounter
--- OUTSIDE RECORDS SUMMARY | 2024-01-08 14:37 | XMS_ITS | Encounter Summary ---
Author Organization [place] Address [address] [place] [address] Care Team Providers Care Timing Adjuster Name Role Phone Dudley House MD Primary Care Provider Frankie Gaspar MD Unavailable Unavailable Augusta De La Cruz DPM Unavailable [phone] Kyle Morris MD Unavailable Ned Birmingham MD Unavailable [phone] Sony Perez MD Unavailable [phone] Matt Grover MD Unavailable Albert Brownlee MD Unavailable Humberto Peng MD Primary Care Provider [phone] James Jasso DO Unavailable + [phone] Rajat Urban MD Unavailable Unavailable Thuy Coto PA-C Unavailable [phone] James Stevens DPM Unavailable [phone] Teresa Ferrer-C Unavailable Reason for Visit * Reason Onset Date Comments MyChart Communication 10/27/2008 DEXA resul ts Encounter Details Date Type Department Care Team (Late st Contact Info) Description 10/27/2008 MyC Medical Advice [facility] in [place] Internal Medicine [address] [place] [address] Dudley House MD [address] [place] [address] MyChart Communication (DEXA results) Social History Tobacco Use Types Packs/Day Years Used Date Smoking Tobacco: Never Alcohol Use Standard Drinks/Week Comments No 0 (1 standard drink = 0.6 oz pur e alcohol) Comments No Sex and Gender Information Value Date Recorded Sex Assigned at Not on file 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 Gender Identity Not on file Sexual Orientation Straight 06/26/2018 6: 53 PM CDT Occupation Industry Job Start Date Job End Date Not on file Not on file Not on file Not on file documented as of this encounter Plan of Treatment Not on file documented as of this encounter Visit Diagnoses Not on filedocumented in this encounter Care Teams Timing Adjuster Relationship Specialty Start Date End Date Dudley House MD [address] [place] [address] PCP - General 03/23/07 09/02/10 Frankie Gaspar MD PCP - Obstetrics/Gynecology 03/03/00 07/23/11 Augusta De La Cruz DPM PCP - Podiatry 09/26/05 Kyle Morris MD PCP - Ophthalmology 02/17/06 Ned Birmingham MD XXX NO INFO FOUND XXX [place] [address] PCP - Surgery 10/25/08 09/27/09 Sony Perez MD XXX NO INFO FOUND XXX [place] [address] PCP - ENT 03/19/07 12/08/17 Matt Grover MD [address] [place] [address] PCP - Urology 12/22/08 Albert Brownlee MD [address] [place] [address] PCP - Surgery Surgery 09/28/09 11/02/12 Humberto Peng MD [facility] [place] [address] [place] [address] PCP - General Family Practice 09/03/10 James Jasso DO [facility] [place] [address] [place] [address] PCP - Obstetrics/Gynecology pharmacist intern 07/24/11 Rajat Urban MD [facility] [place] [address] [place] [address] PCP - Orthopaedics Orthopedics 12/02/11 12/08/17 Thuy Coto PA-C [facility] [place] [address] [place] [address] PCP - Surgery Physician Peeled Potato Inspector 11/03/12 James Stevens DPM [address] [facility] [place] [address] [place] [address] Assigned Musculoskeletal Provider 04/25/20 10/25/21 Teresa Ferrer PA-C [address] [address] Physician Peeled Potato Inspector Urology 02/20/23 documented as of this encounter
--- OUTSIDE RECORDS SUMMARY | 2024-01-08 14:38 | XMS_ITS | Encounter Summary ---
Author Organization [place] Address [address] [place] [address] Care Team Providers Care Golf Tournament Consultant Name Role Phone Dudley House MD Primary Care Provider [phone] Albert Figueroa MD Primary Care Provider [phone] Frankie Gaspar MD Unavailable Unavailable Augusta De La Cruz DPM Unavailable [phone] Kyle Morris MD Unavailable [phone] Ned Birmingham MD Unavailable Mike Villareal DO Unavailable [phone] Sony Perez MD Unavailable [phone] Matt Grover MD Unavailable [phone] Albert Brownlee MD Unavailable [phone] GinetteHumberto bowser MD Primary Care Provider [phone] James Jasso DO Unavailable [phone] Rajat Urban MD Unavailable Unavailable Thuy CotoC Unavailable + [phone] James Stevens DPM Unavailable [phone] Teresa Ferrer PA-C Unavailable [phone] Encounter Details Date Type Department Care Team (Late st Contact Info) Description 03/18/2006 MyC Medical Advice [facility] in [place] Medical Records [address] [place] [address] Elvin Allred Social History Tobacco Use Types Packs/Day Years Used Date Smoking Tobacco: Never Alcohol Use Standard Drinks/Week Comments No 0 (1 standard drink = 0.6 oz pur e alcohol) Comments No Sex and Gender Information Value Date Recorded Sex Assigned at Not on file 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 Gender Identity Not on file Sexual Orientation Straight 06/26/2018 6: 53 PM CDT documented as of this encounter Plan of Treatment Not on file documented as of this encounter Visit Diagnoses Not on filedocumented in this encounter Care Teams Golf Tournament Consultant Relationship Specialty Start Date End Date Dudley House MD [address] [place] [address] PCP - General 03/23/07 09/02/10 Albert Figueroa MD [facility] [address] [facility] [address] [place] [address] PCP - General 10/30/03 03/22/07 Frankie Gaspar MD PCP - Obstetrics/Gynecology 03/03/00 07/23/11 Augusta De La Cruz DPM PCP - Podiatry 09/26/05 Kyle Morris MD PCP - Ophthalmology 02/17/06 Ned [place] MD XXX [place] [address] PCP - Surgery 10/25/08 09/27/09 Mike Villareal DO [facility] [address] [place] [address] PCP - Surgery 08/03/06 10/24/08 Sony Perez MD [facility] [address] [place] [address] PCP - ENT 03/19/07 12/08/17 Matt Grover MD [address] [place] [address] [address] [place] [address] PCP - Urology 12/22/08 Albert Brownlee MD [address] [place] [address] PCP - Surgery Surgery 09/28/09 11/02/12 Humberto Peng MD [facility] [place] [address] [place] [address] PCP - General Family Practice 09/03/10 James Jasso DO [facility] [place] [address] [place] [address] PCP - Obstetrics/Gynecology high voltage electrician 07/24/11 Rajat Urban MD [facility] [place] [address] [place] [address] PCP - Orthopaedics Orthopedics 12/02/11 12/08/17 Thuy Coto PA-C [facility] [place] [address] [place] [address] PCP - Surgery Physician Mobile Game Engineer 11/03/12 James Stevens DPM [address] [facility] [address] [place] [address] Assigned Musculoskeletal Provider 04/25/20 10/25/21 Teresa Ferrer PA-C [address] [facility] [address] [place] [address] Physician Mobile Game Engineer Urology 02/20/23 documented as of this encounter
--- OUTSIDE RECORDS SUMMARY | 2024-01-08 14:38 | XMS_ITS | Encounter Summary ---
Author Organization [place] Address [address] [place] [address] Care Team Providers Care Rehab Nursing Tech Name Role Phone Dudley House MD Primary Care Provider [phone] Albert Figueroa MD Primary Care Provider [phone] Frankie Gaspar MD Unavailable Unavailable Augusta De La Cruz DPM Unavailable [phone] Kyle Morris MD Unavailable [phone] Ned [place] MD Unavailable Mike Villareal DO Unavailable [phone] Sony Perez MD Unavailable [phone] Matt Grover MD Unavailable [phone] Albert Brownlee MD Unavailable [phone] GinetteHumberto bowser MD Primary Care Provider [phone] James Jasso DO Unavailable [phone] Rajat Urban MD Unavailable Unavailable Thuy CotoC Unavailable + [phone] James Stevens DPM Unavailable [phone] Teresa Ferrer PA-C Unavailable Reason for Visit * Reason Onset Date Comments Patient Request 03/22/2007 Encounter Details Date Type Department Care Team (Late st Contact Info) Description 03/22/2007 MyC Medical Advice [facility] [place] Internal Medicine [address] [place] [address] Dudley House MD [address] [place] [address] Patient Request Social History Tobacco Use Types Packs/Day Years Used Date Smoking Tobacco: Never Alcohol Use Standard Drinks/Week Comments No 0 (1 standard drink = 0.6 oz pur e alcohol) Comments No Sex and Gender Information Value Date Recorded Sex Assigned at Not on file 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 Gender Identity Not on file Sexual Orientation Straight 06/26/2018 6: 53 PM CDT Occupation Industry Job Start Date Job End Date Not on file Not on file Not on file Not on file documented as of this encounter Miscellaneous Notes * Telephone Encounter - Megan Gurrola - 03/22/2007 4:51 PM CST See [employer] message NER/SCHEDULER documented in this encounter Plan of Treatment Not on file documented as of this encounter Visit Diagnoses Not on filedocumented in this encounter Care Teams Rehab Nursing Tech Relationship Specialty Start Date End Date Dudley House MD [address] [place] [address] PCP - General 03/23/07 09/02/10 Albert Figueroa MD [facility] [address] [place] [address] PCP - General 10/30/03 03/22/07 Frankie Gaspar MD PCP - Obstetrics/Gynecology 03/03/00 07/23/11 Augusta De La Cruz, DPM PCP - Podiatry 09/26/05 Kyle Morris MD PCP - Ophthalmology 02/17/06 Ned [place] MD XXX [place] [address] PCP - Surgery 10/25/08 09/27/09 Mike Villareal DO [facility] [address] [place], [place] [address] PCP - Surgery 08/03/06 10/24/08 Sony Perez MD [facility] [address] [place] [address] PCP - ENT 03/19/07 12/08/17 Matt Grover MD [address] [facility] [address] [place] [address] PCP - Urology 12/22/08 Albert Brownlee MD [address] [place] [address] PCP - Surgery Surgery 09/28/09 11/02/12 Humberto Peng MD [facility] [place] [address] [place] [address] PCP - General Family Practice 09/03/10 James Jasso DO [facility] [place] [address] [place] [address] PCP - Obstetrics/Gynecology assistant mechanic 07/24/11 Rajat Urban MD [facility] [place] [address] [place] [address] PCP - Orthopaedics Orthopedics 12/02/11 12/08/17 Thuy Coto PA-C [facility] [place] [address] [place] [address] PCP - Surgery Physician Swinging Cut Off Saw Operator 11/03/12 James Stevens DPM [address] [facility] [address] [place] [address] Assigned Musculoskeletal Provider 04/25/20 10/25/21 Teresa Ferrer PA-C [address] [address] Physician Swinging Cut Off Saw Operator Urology 02/20/23 documented as of this encounter
--- OUTSIDE RECORDS SUMMARY | 2024-01-08 14:38 | XMS_ITS | Encounter Summary ---
Author Organization [place] Address [address] [place] [address] Care Team Providers Care Almond Blancher Operator Name Role Phone Dudley House MD Primary Care Provider Albert Figueroa MD Primary Care Provider [phone] Frankie Gaspar MD Unavailable Unavailable Augusta De La Cruz DPM Unavailable [phone] Kyle Morris MD Unavailable Ned Birmingham MD Unavailable [phone] Mike Villareal DO Unavailable [phone] Sony Perez MD Unavailable [phone] Matt Grover MD Unavailable [phone] Albert Brownlee MD Unavailable [phone] GinetteHumberto bowser MD Primary Care Provider [phone] James Jasso DO Unavailable [phone] Rajat Urban MD Unavailable Unavailable Thuy CotoC Unavailable + [phone] James Stevens DPM Unavailable [phone] Teresa Ferrer PA-C Unavailable Encounter Details Date Type Department Care Team (Late st Contact Info) Description 06/15/2006 MyC Medical Advice [facility] in [place] Internal Medicine [address] [place] [phone] Albert Figueroa MD [address] [address] Social History Tobacco Use Types Packs/Day Years Used Date Smoking Tobacco: Never Alcohol Use Standard Drinks/Week Comments No 0 (1 standard drink = 0.6 oz pur e alcohol) Comments No Sex and Gender Information Value Date Recorded Sex Assigned at Not on file 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 Gender Identity Not on file Sexual Orientation Straight 06/26/2018 6: 53 PM CDT documented as of this encounter Plan of Treatment Not on file documented as of this encounter Visit Diagnoses Not on filedocumented in this encounter Care Teams Almond Blancher Operator Relationship Specialty Start Date End Date Dudley House MD [address] [place] [address] PCP - General 03/23/07 09/02/10 Albert Figueroa MD [address] [address] PCP - General 10/30/03 03/22/07 Frankie Gaspar MD PCP - Obstetrics/Gynecology 03/03/00 07/23/11 Augusta De La Cruz DPM PCP - Podiatry 09/26/05 Kyle Morris MD PCP - Ophthalmology 02/17/06 Ned [place] MD XXX [place] [address] PCP - Surgery 10/25/08 09/27/09 Mike Villareal DO [facility] [address] [place], [place] [address] PCP - Surgery 08/03/06 10/24/08 Sony Perez MD [facility] [address] [place] [address] PCP - ENT 03/19/07 12/08/17 Matt Grover MD [address] [place] [address] PCP - Urology 12/22/08 Albert Brownlee MD [address] [place] [id number] PCP - Surgery Surgery 09/28/09 11/02/12 Humberto Peng MD [facility] [place] [address] [place] [address] PCP - General Family Practice 09/03/10 James Jasso DO [facility] [place] [address] [place] [address] PCP - Obstetrics/Gynecology insurance counselor 07/24/11 Rajat Urban MD [facility] [place] [address] [place] [address] PCP - Orthopaedics Orthopedics 12/02/11 12/08/17 Thuy Coto PA-C [facility] [place] [address] [place] [address] PCP - Surgery Physician Neonatal Surgeon 11/03/12 James Stevens DPM [address] [facility] [address] [place], [place] [address] Assigned Musculoskeletal Provider 04/25/20 10/25/21 Teresa Ferrer PA-C [address] [address] Physician Neonatal Surgeon Urology 02/20/23 documented as of this encounter
--- OUTSIDE RECORDS SUMMARY | 2024-01-08 14:38 | XMS_ITS | Encounter Summary ---
Author Organization [place] Address [address] [place] [address] Care Team Providers Care Client Experience Specialist Name Role Phone Dudley House MD Primary Care Provider [phone] Albert Figueroa MD Primary Care Provider [phone] Fraknie Gaspar MD Unavailable Unavailable Augusta De La Cruz DPM Unavailable [phone] Kyle Morris MD Unavailable [phone] Ned Birmingham MD Unavailable [phone] Mike Villareal DO Unavailable [phone] Sony Perez MD Unavailable [phone] Matt Grover MD Unavailable [phone] Albert Brownlee MD Unavailable [phone] GinetteHumberto bowser MD Primary Care Provider [phone] James Jasso DO Unavailable [phone] Rajat Urban MD Unavailable Unavailable Thuy CotoC Unavailable [phone] James Stevens DPM Unavailable [phone] Teresa Ferrer PA-C Unavailable Encounter Details Date Type Department Care Team (Late st Contact Info) Description 02/09/[address] 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 Gender Identity Not on file Sexual Orientation Straight 06/26/2018 6: 53 PM CDT Occupation Industry Job Start Date Job End Date Not on file Not on file Not on file Not on file documented as of this encounter Plan of Treatment Not on file documented as of this encounter Visit Diagnoses Not on filedocumented in this encounter Care Teams Client Experience Specialist Relationship Specialty Start Date End Date Dudley House MD [address] [place] [address] PCP - General 03/23/07 09/02/10 Albert Figueroa MD [facility] [address] [facility] [address] [place] [address] PCP - General 10/30/03 03/22/07 Frankie Gaspar MD PCP - Obstetrics/Gynecology 03/03/00 07/23/11 Augusta De La Cruz DPM PCP - Podiatry 09/26/05 Kyle Morris MD PCP - Ophthalmology 02/17/06 Ned Birmingham MD XXX [place] [address] PCP - Surgery 10/25/08 09/27/09 Mike Villareal DO [facility] [address] [place] [address] PCP - Surgery 08/03/06 10/24/08 Sony Perez MD [facility] [address] [place] [address] PCP - ENT 03/19/07 12/08/17 Matt Grover MD [address] [place] [address] PCP - Urology 12/22/08 Albert Brownlee MD [address] [place] [address] PCP - Surgery Surgery 09/28/09 11/02/12 Humberto Peng MD [facility] [place] [address] [place] [address] PCP - General Family Practice 09/03/10 James Jasso DO [facility] [place] [address] [place] [address] PCP - Obstetrics/Gynecology emblem drawer in 07/24/11 Rajat Urban MD [facility] [place] [address] [place] [address] PCP - Orthopaedics Orthopedics 12/02/11 12/08/17 Thuy Coto PA-C [facility] [place] [address] [place] [address] PCP - Surgery Physician Child Care Provider 11/03/12 James Stevens DPM [address] [facility] [address] [place], [place] [address] Assigned Musculoskeletal Provider 04/25/20 10/25/21 Teresa Ferrer PA-C [address] [place], [place] [address] Physician Child Care Provider Urology 02/20/23 documented as of this encounter
--- OUTSIDE RECORDS SUMMARY | 2024-01-08 14:38 | XMS_ITS | Encounter Summary ---
Author Organization [place] Address [address] [place] [address] Care Team Providers Care Grip Name Role Phone Dudley House MD Primary Care Provider [phone] Albert Figueroa MD Primary Care Provider [phone] Frankie Gaspar MD Unavailable Unavailable Augusta De La Cruz DPM Unavailable [phone] Kyle Morris MD Unavailable [phone] Ned Birmingham MD Unavailable Mike Villareal DO Unavailable [phone] Sony Perez MD Unavailable [phone] Matt Grover MD Unavailable [phone] Albert Brownlee MD Unavailable [phone] GinetteHumberto bowser MD Primary Care Provider [phone] James Jasso DO Unavailable [phone] Rajat Urban MD Unavailable Unavailable Thuy CotoC Unavailable + [phone] James Stevens DPM Unavailable [phone] Teresa Ferrer PA-C Unavailable Encounter Details Date Type Department Care Team (Late st Contact Info) Description 09/30/2006 [facility] [place] Inpatient Dept [address] [address] Frw, Inpatient Provider Social History Tobacco Use Types Packs/Day Years Used Date Smoking Tobacco: Never Smokeless Tobacco: Never Alcohol Use Standard Drinks/Week Comments No 0 (1 standard drink = 0.6 oz pur e alcohol) Comments No Sex and Gender Information Value Date Recorded Sex Assigned at Not on file 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 A compressive furniture arranger stocking was then placed over the lower leg and a second one over the thigh. The lower leg compressive furniture arranger was reinforced with a Coban wrap. The patient tolerated the procedure well and was returned to the post anesthetic recovery room in stable condition. Mike Villareal Jr., D.O. Ajay/ha cc: documented in this encounter Plan of Treatment Not on file documented as of this encounter Visit Diagnoses Not on filedocumented in this encounter Care Teams Grip Relationship Specialty Start Date End Date Dudley House MD [address] [place] [address] PCP - General 03/23/07 09/02/10 Albert Figueroa MD [facility] [address] [facility] [address] [place] [address] PCP - General 10/30/03 03/22/07 Frankie Gaspar MD PCP - Obstetrics/Gynecology 03/03/00 07/23/11 Augusta De La Cruz DPM PCP - Podiatry 09/26/05 Kyle Morris MD PCP - Ophthalmology 02/17/06 Ned [place] MD XXX NO INFO FOUND [place] [address] PCP - Surgery 10/25/08 09/27/09 Mike Villareal DO [facility] [address] [place], [place] [address] PCP - Surgery 08/03/06 10/24/08 Sony Perez MD [facility] [address] [place] [address] PCP - ENT 03/19/07 12/08/17 Matt Grover MD [address] [facility] [address] [place] [address] PCP - Urology 12/22/08 Albert Brownlee MD [address] [place] [address] PCP - Surgery Surgery 09/28/09 11/02/[address] [facility] [place] [address] [place] [address] PCP - General Family Practice 09/03/[address] [facility] [place] [address] [place] [address] PCP - Obstetrics/Gynecology mold sheet cleaner 07/24/[address] [facility] [place] [address] [place] [address] PCP - Orthopaedics Orthopedics 12/02/11 12/08/17 Thuy Coto PA-C [facility] [place] [address] [place] [address] PCP - Surgery Physician Trailer Mechanic 11/03/12 James Stevens DPM [address] [facility] [address] [place] [address] Assigned Musculoskeletal Provider 04/25/20 10/25/21 Teresa Ferrer PA-C [address] [address] Physician Trailer Mechanic Urology 02/20/23 documented as of this encounter
--- OUTSIDE RECORDS SUMMARY | 2024-01-08 14:38 | XMS_ITS | Encounter Summary ---
Author Organization [facility] Address [address] [place] [address] Care Team Providers Care Emergency Doctor Name Role Phone Dudley House MD Primary Care Provider [phone] Albert Figueroa MD Primary Care Provider [phone] Frankie Gaspar MD Unavailable Unavailable Augusta De La Cruz DPM Unavailable [phone] Kyle Morris MD Unavailable +[phone] Ned Birmingham MD Unavailable +[phone] Mike Villareal DO Unavailable [phone] Sony Perez MD Unavailable [phone] Matt Grover MD Unavailable [phone] Albert Brownlee MD Unavailable +[phone] GinetteHumberto bowser MD Primary Care Provider [phone] James Jasso DO Unavailable [phone] Rajat Urban MD Unavailable Unavailable Thuy Ctoo PARickyC Unavailable + [phone] James Stevens DPM Unavailable [phone] Teresa Ferrer PA-C Unavailable Reason for Visit * Reason Onset Date Comments Medication Request 03/27/2006 Encounter Details Date Type Department Care Team (Late st Contact Info) Description 03/27/2006 MyC Medical Advice [facility] in [place] Medical Records [address] [id number] Elvin Allred Medication Request Social History Tobacco Use Types Packs/Day Years Used Date Smoking Tobacco: Never Alcohol Use Standard Drinks/Week Comments No 0 (1 standard drink = 0.6 oz pur e alcohol) Comments No Sex and Gender Information Value Date Recorded Sex Assigned at Not on file 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 Gender Identity Not on file Sexual Orientation Straight 06/26/2018 6: 53 PM CDT documented as of this encounter Plan of Treatment Not on file documented as of this encounter Visit Diagnoses Not on filedocumented in this encounter Care Teams Emergency Doctor Relationship Specialty Start Date End Date Dudley House MD [address] [place] [address] PCP - General 03/23/07 09/02/10 Albert Figueroa MD [facility] [address] [place] [address] PCP - General 10/30/03 03/22/07 Frankie Gaspar MD PCP - Obstetrics/Gynecology 03/03/00 07/23/11 Augusta De La Cruz DPM PCP - Podiatry 09/26/05 Kyle Morris MD PCP - Ophthalmology 02/17/06 Ned Birmingham MD XXX NO INFO FOUND XXX [place] [address] PCP - Surgery 10/25/08 09/27/09 Mike Villareal DO [facility]3] [address] [facility] [place] [address] PCP - Surgery 08/03/06 10/24/08 Sony Perez MD [facility]3] [address] [facility] [place] [address] PCP - ENT 03/19/07 12/08/17 Matt Grover MD [address] [place] [address] [address] [place], [place] [address] PCP - Urology 12/22/08 Albert Brownlee MD [address] [place] [address] PCP - Surgery Surgery 09/28/09 11/02/12 Humberto Peng MD [facility] [place] [address] [place] [address] PCP - General Family Practice 09/03/10 James Jasso DO [facility] [place] [address] [place] [address] PCP - Obstetrics/Gynecology skein bleacher 07/24/11 Rajat Urban MD [facility] [place] [address] [place] [address] PCP - Orthopaedics Orthopedics 12/02/11 12/08/17 Thuy Coto PA-C [facility] [place] [address] [place] [address] PCP - Surgery Physician Clinical Resource Manager 11/03/12 [place] [address] [facility] [address] [place] [address] Assigned Musculoskeletal Provider 04/25/20 10/25/21 Teresa Ferrer PA-C [address] [id number] Physician Clinical Resource Manager Urology 02/20/23 documented as of this encounter
--- OUTSIDE RECORDS SUMMARY | 2024-01-08 14:38 | XMS_ITS | Encounter Summary ---
Author Organization [facility] Address [address] [place] [address] Care Team Providers Care Manager Fashion Name Role Phone Dudley House MD Primary Care Provider Albert Figueroa MD Primary Care Provider [phone] Frankie Gaspar MD Unavailable Unavailable Augusta De La Cruz DPM Unavailable [phone] Kyle Morris MD Unavailable [phone] Ned Birmingham MD Unavailable Mike Villareal DO Unavailable [phone] Sony Perez MD Unavailable [phone] Matt Grover MD Unavailable [phone] Albert Brownlee MD Unavailable [phone] GinetteHumberto bowser MD Primary Care Provider [phone] James Jasso DO Unavailable [phone] Rajat Urban MD Unavailable Unavailable Thuy CotoC Unavailable + [phone] James Stevens DPM Unavailable [phone] Teresa Ferrer PA-C Unavailable Encounter Details Date Type Department Care Team (Late st Contact Info) Description 12/17/2006 MyC Medical Advice [facility] in [place] Internal Medicine [address] [place] [address] Dudley House MD [address] [place] [address] Social History Tobacco Use Types Packs/Day Years Used Date Smoking Tobacco: Never Alcohol Use Standard Drinks/Week Comments No 0 (1 standard drink = 0.6 oz pur e alcohol) Comments No Sex and Gender Information Value Date Recorded Sex Assigned at Not on file 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 Gender Identity Not on file Sexual Orientation Straight 06/26/2018 6: 53 PM CDT Occupation Industry Job Start Date Job End Date Not on file Not on file Not on file Not on file documented as of this encounter Plan of Treatment Not on file documented as of this encounter Visit Diagnoses Not on filedocumented in this encounter Care Teams Manager Fashion Relationship Specialty Start Date End Date Dudley House MD [address] [place] [address] PCP - General 03/23/07 09/02/10 Albert Figueroa MD [facility] [address] [facility] [address] [place] [address] PCP - General 10/30/03 03/22/07 Frankie Gaspar MD PCP - Obstetrics/Gynecology 03/03/00 07/23/11 Augusta De La Cruz DPM PCP - Podiatry 09/26/05 Kyle Morris MD PCP - Ophthalmology 02/17/06 Ned Birmingham MD XXX [place] [address] PCP - Surgery 10/25/08 09/27/09 Mike Villareal DO [facility] [address] [place] [address] PCP - Surgery 08/03/06 10/24/08 Sony Perez MD [facility] [address] [place] [address] PCP - ENT 03/19/07 12/08/17 Matt Grover MD [address] [place] [address] PCP - Urology 12/22/08 Albert Brownlee MD [address] [place] [address] PCP - Surgery Surgery 09/28/09 11/02/12 Humberto Peng MD [facility] [place] [address] [place] [address] PCP - General Family Practice 09/03/10 James Jasso DO [facility] [place] [address] [place] [address] PCP - Obstetrics/Gynecology collection administrator 07/24/11 Rajat Urban MD [facility] [place] [address] [place] [address] PCP - Orthopaedics Orthopedics 12/02/11 12/08/17 Thuy Coto PA-C [facility] [place] [address] [place] [address] PCP - Surgery Physician Ring Conductor 11/03/12 [place] [address] [facility] [address] [place], [place] [id number] Assigned Musculoskeletal Provider 04/25/20 10/25/21 Teresa Ferrer PA-C [address] [place], [place] [address] Physician Ring Conductor Urology 02/20/23 documented as of this encounter
--- OUTSIDE RECORDS SUMMARY | 2024-01-08 14:38 | XMS_ITS | Encounter Summary ---
Author Organization [facility] Address [address] [place] [address] Care Team Providers Care Tap Grinder Name Role Phone Dudley House MD Primary Care Provider Albert Figueroa MD Primary Care Provider [phone] Frankie Gaspar MD Unavailable Unavailable Augusta De La Cruz DPM Unavailable [phone] Kyle Morris MD Unavailable Ned Birmingham MD Unavailable Mike Villareal DO Unavailable [phone] Sony Perez MD Unavailable [phone] Matt Grover MD Unavailable [phone] Albert Brownlee MD Unavailable [phone] GinetteHumberto bowser MD Primary Care Provider [phone] James Jasso DO Unavailable [phone] Rajat Urban MD Unavailable Unavailable Thuy CotoC Unavailable + [phone] James Stevens DPM Unavailable [phone] Teresa Ferrer PA-C Unavailable Encounter Details Date Type Department Care Team (Late st Contact Info) Description 04/03/2006 MyC Medical Advice [facility] in [place] Medical Records [address] [place] [address] Elvin Allred Social History Tobacco Use Types Packs/Day Years Used Date Smoking Tobacco: Never Alcohol Use Standard Drinks/Week Comments No 0 (1 standard drink = 0.6 oz pur e alcohol) Comments No Sex and Gender Information Value Date Recorded Sex Assigned at Not on file 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 Gender Identity Not on file Sexual Orientation Straight 06/26/2018 6: 53 PM CDT documented as of this encounter Plan of Treatment Not on file documented as of this encounter Visit Diagnoses Not on filedocumented in this encounter Care Teams Tap Grinder Relationship Specialty Start Date End Date Dudley House MD [address] [place] [address] PCP - General 03/23/07 09/02/10 Albert Figueroa MD [facility] [address] [facility] [address] [place] [address] PCP - General 10/30/03 03/22/07 Frankie Gaspar MD PCP - Obstetrics/Gynecology 03/03/00 07/23/11 Augusta De La Cruz DPM PCP - Podiatry 09/26/05 Kyle Morris MD PCP - Ophthalmology 02/17/06 Ned Birmingham MD XXX [place] [address] PCP - Surgery 10/25/08 09/27/09 Mike Villareal DO [facility] [address] [place] [address] PCP - Surgery 08/03/06 10/24/08 Sony Perez MD [facility] [address] [place] [address] PCP - ENT 03/19/07 12/08/17 Matt Grover MD [address] [place] [address] [address] [place] [address] PCP - Urology 12/22/08 Albert Brownlee MD [address] [place] [address] PCP - Surgery Surgery 09/28/09 11/02/12 Humberto Peng MD [facility] [place] [address] [place] [address] PCP - General Family Practice 09/03/10 James Jasso DO [facility] [place] [address] [place] [address] PCP - Obstetrics/Gynecology clinical cytogenetics director 07/24/11 Rajat Urban MD [facility] [place] [address] [place] [address] PCP - Orthopaedics Orthopedics 12/02/11 12/08/17 Thuy Coto PA-C [facility] [place] [address] [place] [address] PCP - Surgery Physician Rubber Goods Assembler 11/03/12 James [place]PM [address] [facility] [address] [place] [address] Assigned Musculoskeletal Provider 04/25/20 10/25/21 Teresa Ferrer PA-C [address] [facility] [address] [place] [address] Physician Rubber Goods Assembler Urology 02/20/23 documented as of this encounter
--- OUTSIDE RECORDS SUMMARY | 2024-01-08 14:38 | XMS_ITS | Encounter Summary ---
Author Organization [facility] Address [address] [place] [address] Care Team Providers Care Needle Polisher Name Role Phone Dudley House MD Primary Care Provider Frankie Gaspar MD Unavailable Unavailable Augusta De La Cruz DPM Unavailable [phone] Kyle Morris MD Unavailable Ned Birmingham MD Unavailable Mike Villareal DO Unavailable [phone] Sony Perez MD Unavailable [phone] Matt Grover MD Unavailable Albert Brownlee MD Unavailable [phone] Humberto Peng MD Primary Care Provider [phone] James Jasso DO Unavailable [phone] Rajat Urban MD Unavailable Unavailable Thuy CotoC Unavailable [phone] James Stevens DPM Unavailable [phone] Teresa FerrerC Unavailable [phone] Encounter Details Date Type Department Care Team (Late st Contact Info) Description 12/31/2007 MyC Medical Advice [facility] [place] Internal Medicine [address] [place] [id number] Dudley House MD [address] [place] [address] Social History Tobacco Use Types Packs/Day Years Used Date Smoking Tobacco: Never Alcohol Use Standard Drinks/Week Comments No 0 (1 standard drink = 0.6 oz pur e alcohol) Comments No Sex and Gender Information Value Date Recorded Sex Assigned at Not on file 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 Gender Identity Not on file Sexual Orientation Straight 06/26/2018 6: 53 PM CDT Occupation Industry Job Start Date Job End Date Not on file Not on file Not on file Not on file documented as of this encounter Plan of Treatment Not on file documented as of this encounter Visit Diagnoses Not on filedocumented in this encounter Care Teams Needle Polisher Relationship Specialty Start Date End Date Dudley House MD [address] [place] [address] PCP - General 03/23/07 09/02/10 Frankie Gaspar MD PCP - Obstetrics/Gynecology 03/03/00 07/23/11 Augusta De La Cruz DPM PCP - Podiatry 09/26/05 Kyle Morris MD PCP - Ophthalmology 02/17/06 Ned Birmingham MD XXX NO INFO FOUND XXX [place] [address] PCP - Surgery 10/25/08 09/27/09 Mike Villareal DO [facility] [address] [place] [address] PCP - Surgery 08/03/06 10/24/08 Sony Perez MD [facility] [address] [place] [address] PCP - ENT 03/19/07 12/08/17 Matt Grover MD [address] [place] [address] [address] [place] [address] PCP - Urology 12/22/08 Albert Brownlee MD [address] [place] [address] PCP - Surgery Surgery 09/28/09 11/02/12 Humberto Peng MD [facility] [place] [address] [place] [address] PCP - General Family Practice 09/03/10 James Jasso DO [facility] [place] [address] [place] [address] PCP - Obstetrics/Gynecology tender coordinator 07/24/11 Rajat Urban MD [facility] [place] [address] [place] [address] PCP - Orthopaedics Orthopedics 12/02/11 12/08/17 Thuy Coto PA-C [facility] [place] [address] [place] [address] PCP - Surgery Physician Floor Covering Installer 11/03/12 James Stevens DPM [id number] [place] [address] [place] [id number] Assigned Musculoskeletal Provider 04/25/20 10/25/21 Teresa Ferrer PA-C [address] [facility] [address] [place], [place] [address] Physician Floor Covering Installer Urology 02/20/23 documented as of this encounter
--- OUTSIDE RECORDS SUMMARY | 2024-01-08 14:38 | XMS_ITS | Encounter Summary ---
Author Organization [facility] Address [address] [place] [address] Care Team Providers Care Animal Humane Agent Supervisor Name Role Phone Dudley House MD Primary Care Provider Albert Figueroa MD Primary Care Provider [phone] Frankie Gaspar MD Unavailable Unavailable Augusta De La Cruz DPM Unavailable [phone] Kyle Morris MD Unavailable [phone] Ned Birmingham MD Unavailable Mike Villareal DO Unavailable [phone] Sony Perez MD Unavailable [phone] Matt Grover MD Unavailable [phone] Albert Brownlee MD Unavailable [phone] GinetteHumberto bowser MD Primary Care Provider [phone] James Jasso DO Unavailable [phone] Rajat Urban MD Unavailable Unavailable Thuy CotoC Unavailable + [phone] James Stevens DPM Unavailable [phone] Teresa Ferrer PA-C Unavailable Encounter Details Date Type Department Care Team (Late st Contact Info) Description 12/17/2006 MyC Medical Advice [facility] in [place] Internal Medicine [address] [place] [address] Dudley House MD [address] [place] [address] Social History Tobacco Use Types Packs/Day Years Used Date Smoking Tobacco: Never Alcohol Use Standard Drinks/Week Comments No 0 (1 standard drink = 0.6 oz pur e alcohol) Comments No Sex and Gender Information Value Date Recorded Sex Assigned at Not on file 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 Gender Identity Not on file Sexual Orientation Straight 06/26/2018 6: 53 PM CDT Occupation Industry Job Start Date Job End Date Not on file Not on file Not on file Not on file documented as of this encounter Plan of Treatment Not on file documented as of this encounter Visit Diagnoses Not on filedocumented in this encounter Care Teams Animal Humane Agent Supervisor Relationship Specialty Start Date End Date Dudley House MD [address] [place] [address] PCP - General 03/23/07 09/02/10 Albert Figueroa MD [facility] [address] [facility] [address] [place] [address] PCP - General 10/30/03 03/22/07 Frankie Gaspar MD PCP - Obstetrics/Gynecology 03/03/00 07/23/11 Augusta De La Cruz DPM PCP - Podiatry 09/26/05 Kyle Morris MD PCP - Ophthalmology 02/17/06 Ned Birmingham MD XXX [place] [address] PCP - Surgery 10/25/08 09/27/09 Mike Villareal DO [facility] [address] [place] [address] PCP - Surgery 08/03/06 10/24/08 Sony Perez MD [facility] [address] [place] [address] PCP - ENT 03/19/07 12/08/17 Matt Grover MD [address] [place] [address] PCP - Urology 12/22/08 Albert Brownlee MD [address] [place] [address] PCP - Surgery Surgery 09/28/09 11/02/12 Humberto Peng MD [facility] [place] [address] [place] [address] PCP - General Family Practice 09/03/10 James Jasso DO [facility] [place] [address] [place] [address] PCP - Obstetrics/Gynecology slasher operator 07/24/11 Rajat Urban MD [facility] [place] [address] [place] [address] PCP - Orthopaedics Orthopedics 12/02/11 12/08/17 Thuy Coto PA-C [facility] [place] [address] [place] [address] PCP - Surgery Physician Active Directory Systems Administrator 11/03/12 [place] [address] [facility] [address] [place], [place] [address] Assigned Musculoskeletal Provider 04/25/20 10/25/21 Teresa Ferrer PA-C [address] [place], [place] [address] Physician Active Directory Systems Administrator Urology 02/20/23 documented as of this encounter
--- OUTSIDE RECORDS SUMMARY | 2024-01-08 14:38 | XMS_ITS | Encounter Summary ---
Author Organization [facility] Address [address] [place] [address] Care Team Providers Care Credit Review Manager Name Role Phone Dudley House MD Primary Care Provider Frankie Gaspar MD Unavailable Unavailable Augusta De La Cruz DPM Unavailable [phone] Kyle Morris MD Unavailable [phone] Ned Birmingham MD Unavailable Mike Villareal DO Unavailable [phone] Sony Perez MD Unavailable [phone] Matt Grover MD Unavailable Albert Brownlee MD Unavailable [phone] Humberto Peng MD Primary Care Provider [phone] James Jasso DO Unavailable [phone] Rajat Urban MD Unavailable Unavailable Thuy Coto PARickyC Unavailable [phone] James Stevens DPM Unavailable +[phone] Teresa FerrerC Unavailable [phone] Reason for Visit * Reason Onset Date Comments MyChart Communication 06/28/2007 symptoms Encounter Details Date Type Department Care Team (Late st Contact Info) Description 06/28/2007 MyC Medical Advice [facility] [place] Podiatry [address] [place] [id number] Augusta De La Cruz DPM [facility] [place] [address] [place] [address] MyChart Communication (symptoms) Social History Tobacco Use Types Packs/Day Years Used Date Smoking Tobacco: Never Alcohol Use Standard Drinks/Week Comments No 0 (1 standard drink = 0.6 oz pur e alcohol) Comments No Sex and Gender Information Value Date Recorded Sex Assigned at Not on file 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 Gender Identity Not on file Sexual Orientation Straight 06/26/2018 6: 53 PM CDT Occupation Industry Job Start Date Job End Date Not on file Not on file Not on file Not on file documented as of this encounter Plan of Treatment Not on file documented as of this encounter Visit Diagnoses Not on filedocumented in this encounter Care Teams Credit Review Manager Relationship Specialty Start Date End Date Dudley House MD [address] [place] [address] PCP - General 03/23/07 09/02/10 Frankie Gaspar MD PCP - Obstetrics/Gynecology 03/03/00 07/23/11 Augusta De La Cruz DPM PCP - Podiatry 09/26/05 Kyle Morris MD PCP - Ophthalmology 02/17/06 Ned Birmingham MD XXX NO INFO FOUND XXX [place] [address] PCP - Surgery 10/25/08 09/27/09 Mike Villareal DO [facility] [address] [place] [address] PCP - Surgery 08/03/06 10/24/08 Sony Perez MD [facility] [address] [place] [address] PCP - ENT 03/19/07 12/08/17 Matt Grover MD [address] [facility] [address] [place] [address] PCP - Urology 12/22/08 Albert Brownlee MD [address] [place] [address] PCP - Surgery Surgery 09/28/09 11/02/12 Humberto Peng MD [facility] [place] [address] [place] [address] PCP - General Family Practice 09/03/10 James Jasso DO [facility] [place] [address] [place] [address] PCP - Obstetrics/Gynecology making machine catcher 07/24/11 Rajat Urban MD [facility] [place] [address] [place] [address] PCP - Orthopaedics Orthopedics 12/02/11 12/08/17 Thuy Coto PA-C [facility] [place] [address] [place] [address] PCP - Surgery Physician Label Fuser Tender 11/03/12 James Stevens DPM [id number] [facility] [address] [place] [address] Assigned Musculoskeletal Provider 04/25/20 10/25/21 Teresa Ferrer PA-C [address] [address] Physician Label Fuser Tender Urology 02/20/23 documented as of this encounter
--- OUTSIDE RECORDS SUMMARY | 2024-01-08 14:38 | XMS_ITS | Encounter Summary ---
Author Organization [place] Address [address] [place] [address] Care Team Providers Care Auto Former Machine Operator Name Role Phone Dudley House MD Primary Care Provider [phone] Albert Figueroa MD Primary Care Provider [phone] Frankie Gaspar MD Unavailable Unavailable Augusta De La Cruz DPM Unavailable +[phone] Kyle Morris MD Unavailable Ned Birmingham MD Unavailable Mike Villareal DO Unavailable [phone] Sony Perez MD Unavailable [phone] Matt Grover MD Unavailable [phone] Albert Brownlee MD Unavailable [phone] GinetteHumberto bowser MD Primary Care Provider [phone] James Jasso DO Unavailable [phone] Rajat Urban MD Unavailable Unavailable Thuy CotoC Unavailable + [phone] James Stevens DPM Unavailable [phone] Teresa Ferrer PA-C Unavailable Encounter Details Date Type Department Care Team (Late st Contact Info) Description 12/16/2006 MyC Medical Advice [facility] [place] Internal Medicine [address] [place] [address] Dudley House MD [address] [place] [address] Social History Tobacco Use Types Packs/Day Years Used Date Smoking Tobacco: Never Alcohol Use Standard Drinks/Week Comments No 0 (1 standard drink = 0.6 oz pur e alcohol) Comments No Sex and Gender Information Value Date Recorded Sex Assigned at Not on file 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 [address] [facility] [address] [place] [address] PCP - General 10/30/03 03/22/07 Frankie Gaspar MD PCP - Obstetrics/Gynecology 03/03/00 07/23/11 Augusta De La Cruz DPM PCP - Podiatry 09/26/05 Kyle Morris MD PCP - Ophthalmology 02/17/06 Ned Birmingham MD [place] [address] PCP - Surgery 10/25/08 09/27/09 Mike Villareal DO [facility] [address] [place] [address] PCP - Surgery 08/03/06 10/24/08 Sony Perez MD [facility] [address] [place] [address] PCP - ENT 03/19/07 12/08/17 Matt Grover MD [address] [place] [address] PCP - Urology 12/22/08 Albert Brownlee MD [address] [place] [address] PCP - Surgery Surgery 09/28/09 11/02/12 Humberto Peng MD [facility] [place] [address] [place] [address] PCP - General Family Practice 09/03/10 James Jasso DO [facility] [place] [address] [place] [address] PCP - Obstetrics/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 07/24/11 Rajat Urban MD [facility] [place] [address] [place] [address] PCP - Orthopaedics Orthopedics 12/02/11 12/08/17 Thuy Coto PA-C [facility] [place] [address] [place] [address] PCP - Surgery Physician E Commerce Specialist 11/03/12 James Stevens DPM [address] [facility] [address] [place], [place] [id number] Assigned Musculoskeletal Provider 04/25/20 10/25/21 Teresa Ferrer PA-C [address] [place], [place] [address] Physician E Commerce Specialist Urology 02/20/23 documented as of this encounter
--- OUTSIDE RECORDS SUMMARY | 2024-01-08 14:38 | XMS_ITS | Encounter Summary ---
Author Organization [place] Address [address] [place] [address] Care Team Providers Care Mixing Tumbler Operator Name Role Phone Dudley House MD Primary Care Provider [phone] Frankie Gaspar MD Unavailable Unavailable Augusta De La Cruz DPM Unavailable +[phone] Kyle Morris MD Unavailable Mike Villareal DO Unavailable [phone] Sony Perez MD Unavailable [phone] Encounter Details Date Type Department Care Team (Late st Contact Info) Description 07/25/2008 9:53 AM CDT [facility] in [address] [address] Dudley House MD [address] [place] [address] Social History Tobacco Use Types Packs/Day Years Used Date Smoking Tobacco: Never Smokeless Tobacco: Never Alcohol Use Standard Drinks/Week Comments No 0 (1 standard drink = 0.6 oz pur e alcohol) Comments No Sex and Gender Information Value Date Recorded Sex Assigned at Not on file 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 Gender Identity Not on file Sexual Orientation Straight 06/26/2018 6: 53 PM CDT Occupation Industry Job Start Date Job End Date Not on file Not on file Not on file Not on file documented as of this encounter Plan of Treatment Not on file documented as of this encounter Visit Diagnoses Not on filedocumented in this encounter Care Teams Mixing Tumbler Operator Relationship Specialty Start Date End Date Dudley House MD [address] [place] [address] PCP - General 03/23/07 09/02/10 Frankie Gaspar MD PCP - Obstetrics/Gynecology 03/03/0007/22 Augusta De La Cruz DPM PCP - Podiatry 09/26/05 Kyle Morris MD PCP - Ophthalmology 02/17/06 Mike Villareal DO [facility] [address] [place] [address] PCP - Surgery 08/03/06 10/24/08 Sony Perez MD [facility] [address] [place] [address] PCP - ENT 03/19/07 12/08/17 documented as of this encounter
--- OUTSIDE RECORDS SUMMARY | 2024-01-08 14:38 | XMS_ITS | Encounter Summary ---
Author Organization [place] Address [address] [place] [address] Care Team Providers Care Trade Specialist Name Role Phone Dudley House MD Primary Care Provider [phone] Albert Figueroa MD Primary Care Provider [phone] Frankie Gaspar MD Unavailable Unavailable Augusta De La Cruz DPM Unavailable [phone] Kyle Morris MD Unavailable [phone] Ned Birmingham MD Unavailable [phone] Mike Villareal DO Unavailable [phone] Sony Perez MD Unavailable [phone] Matt Grover MD Unavailable [phone] Albert Brownlee MD Unavailable [phone] GinetteHumberto bowser MD Primary Care Provider [phone] James Jasso DO Unavailable [phone] Rajat Urban MD Unavailable Unavailable Thuy Coto PARickyC Unavailable + [phone] James Stevens DPM Unavailable [phone] Teresa FerrerC Unavailable [phone] Reason for Visit * Reason Onset Date Comments MyChart Communication 03/15/2007 question r egarding need for appt Encounter Details Date Type Department Care Team (Latest Contact Info) Description 03/15/2007 MyC Medical Advice [facility] [place] Ophthalmology [address] [place] [address] Kyle Morris MD [facility] [address] [place] [address] MyChart Communication (question regarding ... 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 Gender Identity Not on file Sexual Orientation Straight 06/26/2018 6: 53 PM CDT Occupation Industry Job Start Date Job End Date Not on file Not on file Not on file Not on file documented as of this encounter Plan of Treatment Not on file documented as of this encounter Visit Diagnoses Not on filedocumented in this encounter Care Teams Trade Specialist Relationship Specialty Start Date End Date Dudley House MD [address] [place] [address] PCP - General 03/23/07 09/02/10 Albert Figueroa MD [facility] [address] [facility] [address] [place] [address] PCP - General 10/30/03 03/22/07 Frankie Gaspar MD PCP - Obstetrics/Gynecology 03/03/00 07/23/11 Augusta De La Cruz DPM PCP - Podiatry 09/26/05 Kyle Morris MD PCP - Ophthalmology 02/17/06 Ned Birmingham MD XXX [place] [address] PCP - Surgery 10/25/08 09/27/09 Mike Villareal DO [facility] [address] [place] [address] PCP - Surgery 08/03/06 10/24/08 Sony Perez MD [facility] [address] [place] [address] PCP - ENT 03/19/07 12/08/17 Matt Grover MD [address] [place] [address] PCP - Urology 12/22/08 Albert Brownlee MD [address] [place] [address] PCP - Surgery Surgery 09/28/09 11/02/12 Humberto Peng MD [facility] [place] [address] [place] [address] PCP - General Family Practice 09/03/10 James Jasso DO [facility] [place] [address] [place] [address] PCP - Obstetrics/Gynecology lining 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
--- OUTSIDE RECORDS SUMMARY | 2024-01-08 14:38 | XMS_ITS | Encounter Summary ---
Author Organization [place] Address [address] [place] [address] Care Team Providers Care Wire Dropper Name Role Phone Dudley House MD Primary Care Provider [phone] Albert Figueroa MD Primary Care Provider [phone] Frankie Gaspar MD Unavailable Unavailable Augusta De La Cruz DPM Unavailable [phone] Kyle Morris MD Unavailable Ned Birmingham MD Unavailable [phone] Mike Villareal DO Unavailable [phone] Sony Perez MD Unavailable [phone] Matt Grover MD Unavailable [phone] Albert Brownlee MD Unavailable [phone] GinetteHumberto bowser MD Primary Care Provider [phone] James Jasso DO Unavailable [phone] Rajat Urban MD Unavailable Unavailable Thuy CotoC Unavailable + [phone] James Stevens DPM Unavailable [phone] Teresa Ferrer PA-C Unavailable Encounter Details Date Type Department Care Team (Late st Contact Info) Description 05/12/2006 MyC Medical Advice [facility] in [place] Medical Records [address] [place] [address] Elvin Allred Social History Tobacco Use Types Packs/Day Years Used Date Smoking Tobacco: Never Alcohol Use Standard Drinks/Week Comments No 0 (1 standard drink = 0.6 oz pur e alcohol) Comments No Sex and Gender Information Value Date Recorded Sex Assigned at Not on file 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 Gender Identity Not on file Sexual Orientation Straight 06/26/2018 6: 53 PM CDT documented as of this encounter Plan of Treatment Not on file documented as of this encounter Visit Diagnoses Not on filedocumented in this encounter Care Teams Wire Dropper Relationship Specialty Start Date End Date Dudley House MD [address] [place] [address] PCP - General 03/23/07 09/02/10 Albert Figueroa MD [facility] [address] [facility] [address] [place] [address] PCP - General 10/30/03 03/22/07 Frankie Gaspar MD PCP - Obstetrics/Gynecology 03/03/00 07/23/11 Augusta De La Cruz DPM PCP - Podiatry 09/26/05 Kyle Morris MD PCP - Ophthalmology 02/17/06 Ned Birmingham MD XXX [place] [address] PCP - Surgery 10/25/08 09/27/09 Mike Villareal DO [facility] [address] [place] [address] PCP - Surgery 08/03/06 10/24/08 Sony Perez MD [facility] [address] [place] [address] PCP - ENT 03/19/07 12/08/17 Matt Grover MD [address] [place] [address] [address] [place] [address] PCP - Urology 12/22/08 Albert Brownlee MD [address] [place] [address] PCP - Surgery Surgery 09/28/09 11/02/12 Humberto Peng MD [facility] [place] [address] [place] [address] PCP - General Family Practice 09/03/10 James Jasso DO [facility] [place] [address] [place] [address] 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
--- OUTSIDE RECORDS SUMMARY | 2024-01-08 14:38 | XMS_ITS | Encounter Summary ---
Author Organization [place] Address [address] [place] [address] Care Team Providers Care Jig Builder Helper Name Role Phone Dudley House MD Primary Care Provider Frankie Gaspar MD Unavailable Unavailable Augusta De La Cruz DPM Unavailable [phone] Kyle Morris MD Unavailable Ned Birmingham MD Unavailable Mike Villareal DO Unavailable [phone] Sony Perez MD Unavailable [phone] Matt Grover MD Unavailable Albert Brownlee MD Unavailable [phone] Humberto Peng MD Primary Care Provider [phone] James Jasso DO Unavailable [phone] Rajat Urban MD Unavailable Unavailable Thuy Coto PARickyC Unavailable [phone] James Stevens DPM Unavailable [phone] Teresa FerrerC Unavailable Reason for Referral * Specialty Diagnoses / Procedures Referred By Contac t Referred To Contact Diagnoses Excessive somnolence disorder Dudley House MD [address] [place] [address] Phone: tel: fax: Referral ID Status Reason Start Date Expiration Date Visits Re quested Visits Authorized Scheduling Instructions Sleep Lab will contact you by phone to arrange sleep study. Comments [facility] SLEEP DISORDERS LAB SLEEP STUDY PRESCRIPTION Allergies: Aspirin, Nsaids and Sulfa drugs Polysomnography for: excessive daytime sleepiness FULL NIGHT CPAP/BIPAP titration I give permission for sleep lab to leave message on voice mail or answering machine when scheduling. initals ___ Fax number if needed: [phone] * * * * * * * * * * NOTE FOR CHECK OUT: Sleep Lab will contact patient to arrange sleep study. * * * * * * * * * * Fax number if needed: [phone] * * * * * * * * * * NOTE FOR CHECK OUT: Sleep Lab will contact patient to arrange study. * * * * * * * * * * Reason for Visit * Reason Onset Date Comments MyChart Communication 05/22/2008 sleep stud y question Encounter Details Date Type Department Care Team (Late st Contact Info) Description 05/12/2008 MyC Medical Advice [facility] in [place] Internal Medicine [address] [place] [address] Dudley House MD [address] [place] [address] MyChart Communication (sleep study question) Social History Tobacco Use Types Packs/Day Years Used Date Smoking Tobacco: Never Alcohol Use Standard Drinks/Week Comments No 0 (1 standard drink = 0.6 oz pur e alcohol) Comments No Sex and Gender Information Value Date Recorded Sex Assigned at Not on file 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 documented in this encounter Plan of Treatment Pending Results Name Type Priority Associated Diagnoses Date /Time CONSULT TO SLEEP LAB (RW) Referral Routine Excessive Somnolence Disorder 05/22/2008 documented as of this encounter Procedures Procedure Name Priority Date/Time Associated Diagnosis Comments [facility]EP [facility] ([facility]) REFERRAL Routine 05/22/2008 Excessive Somnolence Disorder documented in this encounter Visit Diagnoses Diagnosis Excessive somnolence disorder- Primary Hypersomnia, unspecified documented in this encounter Care Teams Jig Builder Helper Relationship Specialty Start Date End Date Dudley House MD [address] [place] [address] PCP - General 03/23/07 09/02/10 Frankie Gaspar MD PCP - Obstetrics/Gynecology 03/03/00 07/23/11 Augusta De La Cruz DPM PCP - Podiatry 09/26/05 Kyle Morris MD PCP - Ophthalmology 02/17/06 Ned Birmingham MD XXX [place] [address] PCP - Surgery 10/25/08 09/27/09 Mike Villareal DO [facility] [address] [place], [place] [address] PCP - Surgery 08/03/06 10/24/08 Sony Perez MD [facility] [address] [place], [place] [address] PCP - ENT 03/19/07 12/08/17 Matt Grover MD [address] [place] [address] PCP - Urology 12/22/08 Albert Brownlee MD [address] [place] [address] PCP - Surgery Surgery 09/28/09 11/02/12 Humberto Peng MD [facility] [place] [address] [place] [address] PCP - General Family Practice 09/03/10 James Jasso DO [facility] [place] [address] [place] [address] PCP - Obstetrics/Gynecology policy service coordinator 07/24/11 Rajat Urban MD [facility] [place] [address] [place] [address] PCP - Orthopaedics Orthopedics 12/02/11 12/08/17 Thuy Coto PA-C [facility] [place] [address] [place] [address] PCP - Surgery Physician Mechanical Operator 11/03/12 James Stevens DPM [address] [facility] [address] [place] [address] Assigned Musculoskeletal Provider 04/25/20 10/25/21 Teresa Ferrer PA-C [address] [address] Physician Mechanical Operator Urology 02/20/23 documented as of this encounter
--- OUTSIDE RECORDS SUMMARY | 2024-01-08 14:38 | XMS_ITS | Encounter Summary ---
Author Organization [place] Address [address] [place] [address] Care Team Providers Care Nuclear Fuel Processing Technician Name Role Phone Dudley House MD Primary Care Provider [phone] Albert Figueroa MD Primary Care Provider [phone] Frankie Gaspar MD Unavailable Unavailable Augusta De La Cruz DPM Unavailable [phone] Kyle Morris MD Unavailable Ned Birmingham MD Unavailable [phone] Mike Villareal DO Unavailable [phone] Sony Perez MD Unavailable [phone] Matt Grover MD Unavailable [phone] Albert Brownlee MD Unavailable [phone] GinetteHumberto bowser MD Primary Care Provider [phone] James Jasso DO Unavailable [phone] Rajat Urban MD Unavailable Unavailable Thuy Coto PARickyC Unavailable + [phone] James Stevens DPM Unavailable [phone] Teresa Ferrer PA-C Unavailable Reason for Visit * Reason Onset Date Comments MyChart Communication 05/26/2006 Left eye Encounter Details Date Type Department Care Team (Late st Contact Info) Description 05/26/2006 MyC Medical Advice [facility] in [place] Medical Records [address] [address] Elvin Allred Communication (Left eye) Social History Tobacco Use Types Packs/Day Years Used Date Smoking Tobacco: Never Alcohol Use Standard Drinks/Week Comments No 0 (1 standard drink = 0.6 oz pur e alcohol) Comments No Sex and Gender Information Value Date Recorded Sex Assigned at Not on file 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 Gender Identity Not on file Sexual Orientation Straight 06/26/2018 6: 53 PM CDT documented as of this encounter Plan of Treatment Not on file documented as of this encounter Visit Diagnoses Not on filedocumented in this encounter Care Teams Nuclear Fuel Processing Technician Relationship Specialty Start Date End Date Dudley House MD [address] [place] [address] PCP - General 03/23/07 09/02/10 Albert Figueroa MD [facility] [address] [place] [address] PCP - General 10/30/03 03/22/07 Frankie Gaspar MD PCP - Obstetrics/Gynecology 03/03/00 07/23/11 Augusta De La Cruz DPM PCP - Podiatry 09/26/05 Kyle Morris MD PCP - Ophthalmology 02/17/06 Ned Birmingham MD XXX NO INFO FOUND XXX [place] [address] PCP - Surgery 10/25/08 09/27/09 Mike Villareal DO [facility] [address] [place] [address] PCP - Surgery 08/03/06 10/24/08 Sony Perez MD [facility] [address] [place] [address] PCP - ENT 03/19/07 12/08/17 Matt Grover MD [address] [place] [address] [address] [place], [place] [address] PCP - Urology 12/22/08 Albert Brownlee MD [address] [place] [address] PCP - Surgery Surgery 09/28/09 11/02/12 Humberto Peng MD [facility] [place] [address] [place] [address] PCP - General Family Practice 09/03/[address] [facility] [place] [address] [place] [address] PCP - Obstetrics/Gynecology proof sorter 07/24/[address] [facility] [place] [address] [place] [address] PCP - Orthopaedics Orthopedics 12/02/11 12/08/17 Thuy Coto PA-C [facility] [place] [address] [place] [address] PCP - Surgery Physician Speech Writer 11/03/12 James [place] [address] [facility] [address] [place] [address] Assigned Musculoskeletal Provider 04/25/20 10/25/21 Teresa Ferrer PA-C [address] [id number] Physician Speech Writer Urology 02/20/23 documented as of this encounter
--- OUTSIDE RECORDS SUMMARY | 2024-01-08 14:38 | XMS_ITS | Encounter Summary ---
Author Organization [place] Address [address] [place] [address] Care Team Providers Care Major Sales Associate Name Role Phone Dudley House MD Primary Care Provider Albert Figueroa MD Primary Care Provider [phone] Frankie Gaspar MD Unavailable Unavailable Augusta De La Cruz DPM Unavailable [phone] Kyle Morris MD Unavailable [phone] Ned Birmingham MD Unavailable Mike Villareal DO Unavailable [phone] Sony Perez MD Unavailable [phone] Matt Grover MD Unavailable [phone] Albert Brownlee MD Unavailable [phone] GinetteHumberto bowsre MD Primary Care Provider [phone] James Jasso DO Unavailable [phone] Rajat Urban MD Unavailable Unavailable Thuy CotoC Unavailable + [phone] James Stevens DPM Unavailable +[phone] Teresa Ferrer PA-C Unavailable Encounter Details Date Type Department Care Team (Late st Contact Info) Description 12/16/2006 MyC Medical Advice [facility] in [place] Internal Medicine [address] [place] [address] Dudley House MD [address] [place] [address] Social History Tobacco Use Types Packs/Day Years Used Date Smoking Tobacco: Never Alcohol Use Standard Drinks/Week Comments No 0 (1 standard drink = 0.6 oz pur e alcohol) Comments No Sex and Gender Information Value Date Recorded Sex Assigned at Not on file 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 Gender Identity Not on file Sexual Orientation Straight 06/26/2018 6: 53 PM CDT Occupation Industry Job Start Date Job End Date Not on file Not on file Not on file Not on file documented as of this encounter Plan of Treatment Not on file documented as of this encounter Visit Diagnoses Not on filedocumented in this encounter Care Teams Major Sales Associate Relationship Specialty Start Date End Date Dudley House MD [address] [place] [address] PCP - General 03/23/07 09/02/10 Albert Figueroa MD [facility] [address] [facility] [address] [place] [address] PCP - General 10/30/03 03/22/07 Frankie Gaspar MD PCP - Obstetrics/Gynecology 03/03/00 07/23/11 Augusta De La Cruz DPM PCP - Podiatry 09/26/05 Kyle Morris MD PCP - Ophthalmology 02/17/06 Ned Birmingham MD XXX [place] [address] PCP - Surgery 10/25/08 09/27/09 Mike Villareal DO [facility] [address] [place] [address] PCP - Surgery 08/03/06 10/24/08 Sony Perez MD [facility] [address] [place] [address] PCP - ENT 03/19/07 12/08/17 Matt Grover MD [address] [place] [address] PCP - Urology 12/22/08 Albert Brownlee MD [address] [place] [address] PCP - Surgery Surgery 09/28/09 11/02/12 Humberto Peng MD [facility] [place] [address] [place] [address] PCP - General Family Practice 09/03/10 James Jasso DO [facility] [place] [address] [place] [address] PCP - Obstetrics/Gynecology pipeline dispatch 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
--- OUTSIDE RECORDS SUMMARY | 2024-01-08 14:38 | XMS_ITS | Encounter Summary ---
Author Organization [place] Address [address] [place] [address] Care Team Providers Care Top Precipitator Operator Helper Name Role Phone Dudley House MD Primary Care Provider [phone] Albert Figueroa MD Primary Care Provider [phone] Frankie Gaspar MD Unavailable Unavailable Augusta De La Cruz DPM Unavailable [phone] Kyle Morris MD Unavailable [phone] Ned Birmingham MD Unavailable Mike Villareal DO Unavailable [phone] Sony Perez MD Unavailable [phone] Matt Grover MD Unavailable [phone] Albert Brownlee MD Unavailable [phone] GinetteHumberto bowser MD Primary Care Provider [phone] James Jasso DO Unavailable [phone] Rajat Urban MD Unavailable Unavailable Thuy Coto PARickyC Unavailable + [phone] James Stevens DPM Unavailable [phone] Teresa Ferrer PA-C Unavailable Reason for Visit * Reason Onset Date Comments MyChart Communication 12/29/2006 Encounter Details Date Type Department Care Team (Latest Contact Info) Description 12/29/2006 MyC Medical Advice [facility] in [place] DISPATCH MACHINE RUNNER [address] [place] [phone] [facility] Social History Tobacco Use Types Packs/Day Years Used Date Smoking Tobacco: Never Alcohol Use Standard Drinks/Week Comments No 0 (1 standard drink = 0.6 oz pur e alcohol) Comments No Sex and Gender Information Value Date Recorded Sex Assigned at Not on file 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 Gender Identity Not on file Sexual Orientation Straight 06/26/2018 6: 53 PM CDT Occupation Industry Job Start Date Job End Date Not on file Not on file Not on file Not on file documented as of this encounter Plan of Treatment Not on file documented as of this encounter Visit Diagnoses Not on filedocumented in this encounter Care Teams Top Precipitator Operator Helper Relationship Specialty Start Date End Date Dudley House MD [address] [place] [address] PCP - General 03/23/07 09/02/10 Albert Figueroa MD [facility] [address] [place] [address] PCP - General 10/30/03 03/22/07 Frankie Gaspar MD PCP - Obstetrics/Gynecology 03/03/00 07/23/11 Augusta De La Cruz DPM PCP - Podiatry 09/26/05 Kyle Morris MD PCP - Ophthalmology 02/17/06 Ned Birmingham MD XXX [place] [address] PCP - Surgery 10/25/08 09/27/09 Mike Villareal DO [facility] [address] [place], [place] [address] PCP - Surgery 08/03/06 10/24/08 Sony Perez MD [facility] [address] [place] [address] PCP - ENT 03/19/07 12/08/17 Matt Grover MD [address] [place] [address] PCP - Urology 12/22/08 Albert Brownlee MD [address] [place] [address] PCP - Surgery Surgery 09/28/09 11/02/12 Humberto Peng MD [facility] [place] [address] [place] [address] PCP - General Family Practice 09/03/10 James Jasso DO [facility] [place] [address] [place] [address] PCP - Obstetrics/Gynecology is architect 07/24/11 Rajat Urban MD [facility] [place] [address] [place] [address] PCP - Orthopaedics Orthopedics 12/02/11 12/08/17 Thuy Coto PA-C [facility] [place] [address] [place] [address] PCP - Surgery Physician Electrical Project Manager 11/03/12 James Stevens DPM [address] [facility] [address] [place], [place] [address] Assigned Musculoskeletal Provider 04/25/20 10/25/21 Teresa Ferrer PA-C [address] [place] [address] Physician Electrical Project Manager Urology 02/20/23 documented as of this encounter
--- OUTSIDE RECORDS SUMMARY | 2024-01-08 14:38 | XMS_ITS | Encounter Summary ---
Author Organization [place] Address [address] [place] [address] Care Team Providers Care Gate Watch Name Role Phone Dudley House MD Primary Care Provider [phone] Frankie Gaspar MD Unavailable Unavailable Augusta De La Cruz DPM Unavailable [phone] Kyle Morris MD Unavailable [phone] Mike Villareal DO Unavailable [phone] Sony Perez MD Unavailable [phone] Encounter Details Date Type Department Care Team (Late st Contact Info) Description 08/04/2008 9:00 PM CDT [facility] in [address] [address] Dudley House MD [address] [place] [address] Social History Tobacco Use Types Packs/Day Years Used Date Smoking Tobacco: Never Smokeless Tobacco: Never Alcohol Use Standard Drinks/Week Comments No 0 (1 standard drink = 0.6 oz pur e alcohol) Comments No Sex and Gender Information Value Date Recorded Sex Assigned at Not on file Legal Sex Female 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 Gender Identity Not on file Sexual Orientation Straight 06/26/2018 6: 53 PM CDT Occupation Industry Job Start Date Job End Date Not on file Not on file Not on file Not on file documented as of this encounter Plan of Treatment Not on file documented as of this encounter Visit Diagnoses Not on filedocumented in this encounter Care Teams Gate Watch Relationship Specialty Start Date End Date Dudley House MD [address] [place] [address] PCP - General 03/23/07 09/02/10 Frankie Gaspar MD PCP - Obstetrics/Gynecology 03/03/0007/22 Augusta De La Cruz DPM PCP - Podiatry 09/26/05 Kyle Morris MD PCP - Ophthalmology 02/17/06 Mike Villareal DO [facility] [address] [place] [address] PCP - Surgery 08/03/06 10/24/08 Sony Perez MD [facility] [address] [place] [address] PCP - ENT 03/19/07 12/08/17 documented as of this encounter
--- OUTSIDE RECORDS SUMMARY | 2024-01-08 14:38 | XMS_ITS | Encounter Summary ---
Author Organization [place] Address [address] [place] [address] Care Team Providers Care Steam Table Attendant Name Role Phone Dudley House MD Primary Care Provider [phone] Albert Figueroa MD Primary Care Provider [phone] Frankie Gaspar MD Unavailable Unavailable Augusta De La Cruz DPM Unavailable [phone] Kyle Morris MD Unavailable Ned Birmingham MD Unavailable Mike Villareal DO Unavailable [phone] Sony Perez MD Unavailable [phone] Matt Grover MD Unavailable [phone] Albert Brownlee MD Unavailable [phone] GinetteHumberto bowser MD Primary Care Provider [phone] James Jasso DO Unavailable [phone] Rajat Urban MD Unavailable Unavailable Thuy CotoC Unavailable + [phone] James Stevens DPM Unavailable [phone] Teresa Ferrer PA-C Unavailable [phone] Encounter Details Date Type Department Care Team (Late st Contact Info) Description 07/17/2006 MyC Medical Advice [facility] in [place] Internal Medicine [address] [place] [address] Albert Figueroa MD [address] [address] Social History Tobacco Use Types Packs/Day Years Used Date Smoking Tobacco: Never Alcohol Use Standard Drinks/Week Comments No 0 (1 standard drink = 0.6 oz pur e alcohol) Comments No Sex and Gender Information Value Date Recorded Sex Assigned at Not on file 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 Gender Identity Not on file Sexual Orientation Straight 06/26/2018 6: 53 PM CDT documented as of this encounter Plan of Treatment Not on file documented as of this encounter Visit Diagnoses Not on filedocumented in this encounter Care Teams Steam Table Attendant Relationship Specialty Start Date End Date Dudley House MD [address] [place] [address] PCP - General 03/23/07 09/02/10 Albert Figueroa MD [address] [address] PCP - General 10/30/03 03/22/07 Frankie Gaspar MD PCP - Obstetrics/Gynecology 03/03/00 07/23/11 Augusta De La Cruz DPM PCP - Podiatry 09/26/05 Kyle Morris MD PCP - Ophthalmology 02/17/06 Ned Birmingham MD [place] [address] PCP - Surgery 10/25/08 09/27/[address] [facility] [address] [place], [place] [address] PCP - Surgery 08/03/06 10/24/[address] [facility] [address] [place] [address] PCP - ENT 03/19/07 12/08/17 Matt Grover MD [address] [place] [address] PCP - Urology 12/22/08 Albert Brownlee MD [address] [place] [id number] PCP - Surgery Surgery 09/28/09 11/02/12 Humberto Peng MD [facility] [place] [address] [place] [address] PCP - General Family Practice 09/03/10 James Jasso DO [facility] [place] [address] [place] [address] PCP - Obstetrics/Gynecology laboratory phlebotomist 07/24/11 Rajat Urban MD [facility] [place] [address] [place] [address] PCP - Orthopaedics Orthopedics 12/02/11 12/08/17 Thuy Coto PA-C [facility] [place] [address] [place] [address] PCP - Surgery Physician Analytical Chemistry Teacher 11/03/12 James Stevens DPM [address] [facility] [address] [place], [place] [address] Assigned Musculoskeletal Provider 04/25/20 10/25/21 Teresa Ferrer PA-C [address] [address] Physician Analytical Chemistry Teacher Urology 02/20/23 documented as of this encounter
--- OUTSIDE RECORDS SUMMARY | 2024-01-08 14:38 | XMS_ITS | Encounter Summary ---
Author Organization [place] Address [address] [place] [address] Care Team Providers Care Charge Weigher Name Role Phone Dudley House MD Primary Care Provider Albert Figueroa MD Primary Care Provider [phone] Frankie Gaspar MD Unavailable Unavailable Augusta De La Cruz DPM Unavailable [phone] Kyle Morris MD Unavailable Ned [place] MD Unavailable Mike Villareal DO Unavailable [phone] Sony Perez MD Unavailable [phone] Matt Grover MD Unavailable [phone] Albert Brownlee MD Unavailable [phone] GinetteHumberto bowser MD Primary Care Provider [phone] James Jasso DO Unavailable [phone] Rajat Urban MD Unavailable Unavailable Thuy CotoC Unavailable + [phone] James Stevens DPM Unavailable [phone] Teresa Ferrer PA-C Unavailable Encounter Details Date Type Department Care Team (Late st Contact Info) Description 01/13/2007 MyC Medical Advice [facility] [place] CAUL PULLER [address] [place] [address] Nicole Peraza MD [facility] [address] [place] [address] Social History Tobacco Use Types Packs/Day Years Used Date Smoking Tobacco: Never Alcohol Use Standard Drinks/Week Comments No 0 (1 standard drink = 0.6 oz pur e alcohol) Comments No Sex and Gender Information Value Date Recorded Sex Assigned at Not on file 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 Gender Identity Not on file Sexual Orientation Straight 06/26/2018 6: 53 PM CDT Occupation Industry Job Start Date Job End Date Not on file Not on file Not on file Not on file documented as of this encounter Plan of Treatment Not on file documented as of this encounter Visit Diagnoses Not on filedocumented in this encounter Care Teams Charge Weigher Relationship Specialty Start Date End Date Dudley House MD [address] [place] [address] PCP - General 03/23/07 09/02/10 Albert Figueroa MD [facility] [address] [facility] [address] [place] [address] PCP - General 10/30/03 03/22/07 Frankie Gaspar MD PCP - Obstetrics/Gynecology 03/03/00 07/23/11 Augusta De La Cruz DPM PCP - Podiatry 09/26/05 Kyle Morris MD PCP - Ophthalmology 02/17/06 Ned Birmingham MD XXX [place] [address] PCP - Surgery 10/25/08 09/27/09 Mike Villareal DO [facility] [address] [place] [address] PCP - Surgery 08/03/06 10/24/08 Sony Perez MD [facility] [address] [place] [address] PCP - ENT 03/19/07 12/08/17 Matt Grover MD [address] [place] [address] [address] [place] [address] PCP - Urology 12/22/08 Albert Brownlee MD [address] [place] [address] PCP - Surgery Surgery 09/28/09 11/02/12 Humberto Peng MD [facility] [place] [address] [place] [address] PCP - General Family Practice 09/03/10 James Jasso DO [facility] [place] [address] [place] [address] PCP - Obstetrics/Gynecology corrugated sheet material sheeter 07/24/11 Rajat Urban MD [facility] [place] [address] [place] [address] PCP - Orthopaedics Orthopedics 12/02/11 12/08/17 Thuy Coto PA-C [facility] [place] [address] [place] [address] PCP - Surgery Physician Certified Neurodiagnostic Technologist 11/03/12 James [place] [address] [facility] [address] [place] [address] Assigned Musculoskeletal Provider 04/25/20 10/25/21 Teresa Ferrer PA-C [address] [place] [address] Physician Certified Neurodiagnostic Technologist Urology 02/20/23 documented as of this encounter
--- OUTSIDE RECORDS SUMMARY | 2024-01-08 14:38 | XMS_ITS | Encounter Summary ---
Author Organization [place] Address [address] [place] [address] Care Team Providers Care Linter Tender Name Role Phone Dudley House MD Primary Care Provider [phone] Albert Figueroa MD Primary Care Provider [phone] Frankie Gaspar MD Unavailable Unavailable Augutsa De LaC ruz DPM Unavailable +[phone] Kyle Morris MD Unavailable Ned [place] MD Unavailable [phone] Mike Villareal DO Unavailable [phone] Sony Perez MD Unavailable [phone] Matt Grover MD Unavailable [phone] Albert Brownlee MD Unavailable [phone] GinetteHumberto bowser MD Primary Care Provider [phone] James Jasso DO Unavailable [phone] Rajat Urban MD Unavailable Unavailable Thuy CotoC Unavailable + [phone] James Stevens DPM Unavailable [phone] Teresa Ferrer PA-C Unavailable Encounter Details Date Type Department Care Team (Late st Contact Info) Description 10/13/2006 MyC Medical Advice [facility] in [place] Podiatry [address] [place] [phone] Augusta De La Cruz DPM [facility] [address] [place] [address] Social History Tobacco Use Types Packs/Day Years Used Date Smoking Tobacco: Never Alcohol Use Standard Drinks/Week Comments No 0 (1 standard drink = 0.6 oz pur e alcohol) Comments No Sex and Gender Information Value Date Recorded Sex Assigned at Not on file 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 Gender Identity Not on file Sexual Orientation Straight 06/26/2018 6: 53 PM CDT documented as of this encounter Plan of Treatment Not on file documented as of this encounter Visit Diagnoses Not on filedocumented in this encounter Care Teams Linter Tender Relationship Specialty Start Date End Date Dudley House MD [address] [place] [address] PCP - General 03/23/07 09/02/10 Albert Figueroa MD [place] [id number] [facility] [address] [place] [address] PCP - General 10/30/03 03/22/07 Frankie Gaspar MD PCP - Obstetrics/Gynecology 03/03/00 07/23/11 Augusta De La Cruz DPM PCP - Podiatry 09/26/05 Kyle Morris MD PCP - Ophthalmology 02/17/06 Ned [place] MD XXX [place] [address] PCP - Surgery 10/25/08 09/27/09 Mike Villareal DO [facility] [address] [place] [address] PCP - Surgery 08/03/06 10/24/08 Sony Perez MD [facility] [address] [place] [address] PCP - ENT 03/19/07 12/08/17 Matt Grover MD [address] [place] [address] PCP - Urology 12/22/08 Albert Brownlee MD [address] [place] [address] PCP - Surgery Surgery 09/28/09 11/02/12 Humberto Peng MD [facility] [place] [address] [place] [address] PCP - General Family Practice 09/03/10 James Jasso DO [facility] [place] [address] [place] [address] PCP - Obstetrics/Gynecology customer service technician 07/24/11 Rajat Urban MD [facility] [place] [address] [place] [address] PCP - Orthopaedics Orthopedics 12/02/11 12/08/17 Thuy Coto PA-C [facility] [place] [address] [place] [address] PCP - Surgery Physician Cashier Self Service Gasoline 11/03/12 James Stevens DPM [address] [facility] [address] [place], [place] [address] Assigned Musculoskeletal Provider 04/25/20 10/25/21 Teresa Ferrer PA-C [address] [facility] [address] [place], [place] [address] Physician Cashier Self Service Gasoline Urology 02/20/23 documented as of this encounter
--- OUTSIDE RECORDS SUMMARY | 2024-01-08 14:38 | XMS_ITS | Encounter Summary ---
Author Organization [place] Address [address] [place] [address] Care Team Providers Care Pan Puller Name Role Phone Dudley House MD Primary Care Provider Frankie Gaspar MD Unavailable Unavailable Augusta De La Cruz DPM Unavailable [phone] Kyle Morris MD Unavailable Ned [place] MD Unavailable Mike Villareal DO Unavailable [phone] Sony Perez MD Unavailable [phone] Matt Grover MD Unavailable Albert Brownlee MD Unavailable Humberto Peng MD Primary Care Provider [phone] James Jasso DO Unavailable [phone] Rajat Urban MD Unavailable Unavailable Thuy Coto PARickyC Unavailable [phone] James Stevens DPM Unavailable [phone] Teresa FerrerC Unavailable Encounter Details Date Type Department Care Team (Late st Contact Info) Description 01/05/2008 MyC Medical Advice [facility] in [place] Internal Medicine [address] [place] [address] Dudley House MD [address] [place] [address] Social History Tobacco Use Types Packs/Day Years Used Date Smoking Tobacco: Never Alcohol Use Standard Drinks/Week Comments No 0 (1 standard drink = 0.6 oz pur e alcohol) Comments No Sex and Gender Information Value Date Recorded Sex Assigned at Not on file 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 Gender Identity Not on file Sexual Orientation Straight 06/26/2018 6: 53 PM CDT Occupation Industry Job Start Date Job End Date Not on file Not on file Not on file Not on file documented as of this encounter Plan of Treatment Not on file documented as of this encounter Visit Diagnoses Not on filedocumented in this encounter Care Teams Pan Puller Relationship Specialty Start Date End Date Dudley House MD [address] [place] [address] PCP - General 03/23/07 09/02/10 Frankie Gaspar MD PCP - Obstetrics/Gynecology 03/03/00 07/23/11 Augusta De La Cruz DPM PCP - Podiatry 09/26/05 Kyle Morris MD PCP - Ophthalmology 02/17/06 Ned [place] MD XXX NO INFO FOUND XXX [place] [address] PCP - Surgery 10/25/08 09/27/09 Mike Villareal DO [facility] [address] [place] [address] PCP - Surgery 08/03/06 10/24/08 Sony Perez MD [facility] [address] [place] [address] PCP - ENT 03/19/07 12/08/17 Matt Grover MD [address] [place] [address] [address] [place] [address] PCP - Urology 12/22/08 Albert Brownlee MD [address] [place] [address] PCP - Surgery Surgery 09/28/09 11/02/12 Humberto Peng MD [facility] [place] [address] [place] [address] PCP - General Family Practice 09/03/10 James Jasso DO [facility] [place] [address] [place] [address] PCP - Obstetrics/Gynecology vp public relations 07/24/11 Rajat Urban MD [facility] [place] [address] [place] [address] PCP - Orthopaedics Orthopedics 12/02/11 12/08/17 Thuy Coto PA-C [facility] [place] [address] [place] [address] PCP - Surgery Physician Director Of Residence Life 11/03/12 James Stevens DPM [id number] [place] [address] [place] [id number] Assigned Musculoskeletal Provider 04/25/20 10/25/21 Teresa Ferrer PA-C [address] [facility] [address] [place], [place] [id number] Physician Director Of Residence Life Urology 02/20/23 documented as of this encounter
--- OUTSIDE RECORDS SUMMARY | 2024-01-08 14:38 | XMS_ITS | Encounter Summary ---
Author Organization [facility] Address [address] [place] [address] Care Team Providers Care Manuscript Reader Name Role Phone Dudley House MD Primary Care Provider Frankie Gaspar MD Unavailable Unavailable Augusta De La Cruz DPM Unavailable [phone] Kyle Morris MD Unavailable Ned Birmingham MD Unavailable Mike Villareal DO Unavailable [phone] Sony Perez MD Unavailable [phone] Matt Grover MD Unavailable [phone] Albert Brownlee MD Unavailable [phone] Humberto Peng MD Primary Care Provider [phone] James Jasso DO Unavailable [phone] Rajat Urban MD Unavailable Unavailable Thuy CotoC Unavailable [phone] James Stevens DPM Unavailable Teresa FerrerC Unavailable [phone] Encounter Details Date Type Department Care Team (Late st Contact Info) Description 08/15/2008 MyC Medical Advice [facility] in [place] Internal Medicine [address] [place] [id number] Dudley House MD [address] [place] [address] Social History Tobacco Use Types Packs/Day Years Used Date Smoking Tobacco: Never Alcohol Use Standard Drinks/Week Comments No 0 (1 standard drink = 0.6 oz pur e alcohol) Comments No Sex and Gender Information Value Date Recorded Sex Assigned at Not on file 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 Gender Identity Not on file Sexual Orientation Straight 06/26/2018 6: 53 PM CDT Occupation Industry Job Start Date Job End Date Not on file Not on file Not on file Not on file documented as of this encounter Plan of Treatment Not on file documented as of this encounter Visit Diagnoses Not on filedocumented in this encounter Care Teams Manuscript Reader Relationship Specialty Start Date End Date Dudley House MD [address] [place] [address] PCP - General 03/23/07 09/02/10 Frankie Gaspar MD PCP - Obstetrics/Gynecology 03/03/00 07/23/11 Augusta De La Cruz DPM PCP - Podiatry 09/26/05 Kyle Morris MD PCP - Ophthalmology 02/17/06 Ned Birmingham MD XXX NO INFO FOUND XXX [place] [address] PCP - Surgery 10/25/08 09/27/09 Mike Villareal DO [facility] [address] [place] [address] PCP - Surgery 08/03/06 10/24/08 Sony Perez MD [facility] [address] [place] [address] PCP - ENT 03/19/07 12/08/17 Matt Grover MD [address] [place] [address] [address] [place] [address] PCP - Urology 12/22/08 Albert Brownlee MD [address] [place] [address] PCP - Surgery Surgery 09/28/09 11/02/12 Humberto Peng MD [facility] [place] [address] [place] [address] PCP - General Family Practice 09/03/10 James Jasso DO [facility] [place] [address] [place] [address] PCP - Obstetrics/Gynecology elevator pilot 07/24/11 Rajat Urban MD [facility] [place] [address] [place] [address] PCP - Orthopaedics Orthopedics 12/02/11 12/08/17 Thuy Coto PA-C [facility] [place] [address] [place] [address] PCP - Surgery Physician Seasonal Warehouse Associate 11/03/12 James Stevens DPM [id number] [place] [address] [place] [id number] Assigned Musculoskeletal Provider 04/25/20 10/25/21 Teresa Ferrer PA-C [address] [facility] [address] [place], [place] [id number] Physician Seasonal Warehouse Associate Urology 02/20/23 documented as of this encounter
--- OUTSIDE RECORDS SUMMARY | 2024-01-08 14:38 | XMS_ITS | Encounter Summary ---
Author Organization [facility] Address [address] [place] [address] Care Team Providers Care Statistical Engineer Name Role Phone Dudley House MD Primary Care Provider Albert Figueroa MD Primary Care Provider [phone] Frankie Gaspar MD Unavailable Unavailable Augusta De La Cruz DPM Unavailable [phone] Kyle Morris MD Unavailable [phone] Ned Birmingham MD Unavailable Mike Villareal DO Unavailable [phone] Sony Perez MD Unavailable [phone] Matt Grover MD Unavailable [phone] Albert Brownlee MD Unavailable [phone] GinetteHumberto bowser MD Primary Care Provider [phone] James Jasso DO Unavailable [phone] Rajat Urban MD Unavailable Unavailable Thuy Coto PARickyC Unavailable + [phone] James Stevens DPM Unavailable [phone] Teresa Ferrer PA-C Unavailable Reason for Visit * Reason Onset Date Comments MyChart Communication 06/18/2006 right eye Encounter Details Date Type Department Care Team (Latest Contact Info) Description 06/17/2006 MyC Medical Advice [facility] in [place] Ophthalmology [address] [place] [phone] Kyle Morris MD [facility] [address] [facility] [address] [place] [address] MyChart Communication (right eye) Social History Tobacco Use Types Packs/Day Years Used Date Smoking Tobacco: Never Alcohol Use Standard Drinks/Week Comments No 0 (1 standard drink = 0.6 oz pur e alcohol) Comments No Sex and Gender Information Value Date Recorded Sex Assigned at Not on file 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 Gender Identity Not on file Sexual Orientation Straight 06/26/2018 6: 53 PM CDT documented as of this encounter Plan of Treatment Not on file documented as of this encounter Visit Diagnoses Not on filedocumented in this encounter Care Teams Statistical Engineer Relationship Specialty Start Date End Date Dudley House MD [address] [place] [address] PCP - General 03/23/07 09/02/10 Albert Figueroa MD [facility] [address] [place] [address] PCP - General 10/30/03 03/22/07 Frankie Gaspar MD PCP - Obstetrics/Gynecology 03/03/00 07/23/11 Augusta De La Cruz DPM PCP - Podiatry 09/26/05 Kyle Morris MD PCP - Ophthalmology 02/17/06 Ned Birmingham MD XXX [place] [address] PCP - Surgery 10/25/08 09/27/09 Mike Villareal DO [facility] [address] [place] [address] PCP - Surgery 08/03/06 10/24/08 Sony Perez MD [facility] [address] [place] [address] PCP - ENT 03/19/07 12/08/17 Matt Grover MD [address] [facility] [address] [place], [place] [address] PCP - Urology 12/22/08 Albert Brownlee MD [address] [place] [address] PCP - Surgery Surgery 09/28/09 11/02/12 Humberto Peng MD [facility] [place] [address] [place] [address] PCP - General Family Practice 09/03/10 James Jasso DO [facility] [place] [address] [place] [address] PCP - Obstetrics/Gynecology director process 07/24/11 Rajat Urban MD [facility] [place] [address] [place] [address] PCP - Orthopaedics Orthopedics 12/02/11 12/08/17 Thuy Coto PA-C [facility] [address] [facility] [address] [place] [address] PCP - Surgery Physician Director Chemistry 11/03/12 James Stevens DPM [address] [facility] [address] [place], [place] [id number] Assigned Musculoskeletal Provider 04/25/20 10/25/21 Teresa Ferrer PA-C [address] [place], [place] [id number] Physician Director Chemistry Urology 02/20/23 documented as of this encounter
--- OUTSIDE RECORDS SUMMARY | 2024-01-08 14:38 | XMS_ITS | Encounter Summary ---
Author Organization [facility] Address [address] [place] [address] Care Team Providers Care Sql Server Consultant Name Role Phone Dudley House MD Primary Care Provider Albert Figueroa MD Primary Care Provider [phone] Frankie Gaspar MD Unavailable Unavailable Augusta De La Cruz DPM Unavailable [phone] Kyle Morris MD Unavailable [phone] Ned Birmingham MD Unavailable Mike Villareal DO Unavailable [phone] Sony Perez MD Unavailable [phone] Matt Grover MD Unavailable Albert Brownlee MD Unavailable [phone] GinetteHumberto bowser MD Primary Care Provider [phone] James Jasso DO Unavailable [phone] Rajat Urban MD Unavailable Unavailable Thuy CotoC Unavailable [phone] James Stevens DPM Unavailable [phone] Teresa Ferrer PA-C Unavailable Encounter Details Date Type Department Care Team (Late st Contact Info) Description 02/09/2007 MyC Medical Advice [facility] [place] Internal Medicine [address] [place] [address] Dudley House MD [address] [place] [address] Social History Tobacco Use Types Packs/Day Years Used Date Smoking Tobacco: Never Alcohol Use Standard Drinks/Week Comments No 0 (1 standard drink = 0.6 oz pur e alcohol) Comments No Sex and Gender Information Value Date Recorded Sex Assigned at Not on file 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 [address] [facility] [address] [place] [address] PCP - General 10/30/03 03/22/07 Frankie Gaspar MD PCP - Obstetrics/Gynecology 03/03/00 07/23/11 Augusta De La Cruz DPM PCP - Podiatry 09/26/05 Kyle Morris MD PCP - Ophthalmology 02/17/06 Ned Birmingham MD XXX [place] [address] PCP - Surgery 10/25/08 09/27/09 Mike Villareal DO [facility] [address] [place] [address] PCP - Surgery 08/03/06 10/24/08 Sony Perez MD [facility] [address] [place] [address] PCP - ENT 03/19/07 12/08/17 Matt Grover MD [address] [place] [address] PCP - Urology 12/22/08 Albert Brownlee MD [address] [place] [address] PCP - Surgery Surgery 09/28/09 11/02/12 Humberto Peng MD [facility] [place] [address] [place] [address] PCP - General Family Practice 09/03/10 James Jasso DO [facility] [place] [address] [place] [address] PCP - Obstetrics/Gynecology environmental science program director 07/24/11 Rajat Urban MD [facility] [place] [address] [place] [address] PCP - Orthopaedics Orthopedics 12/02/11 12/08/17 Thuy Coto PA-C [facility] [place] [address] [place] [address] PCP - Surgery Physician Director Financial Systems 11/03/12 James Stevens DPM [address] [facility] [address] [place], [place] [id number] Assigned Musculoskeletal Provider 04/25/20 10/25/21 Teresa Ferrer PA-C [address] [place], [place] [address] Physician Director Financial Systems Urology 02/20/23 documented as of this encounter
--- OUTSIDE RECORDS SUMMARY | 2024-01-08 14:38 | XMS_ITS | Encounter Summary ---
Author Organization [facility] Address [address] [place] [address] Care Team Providers Care Client Delivery Specialist Name Role Phone Dudley House MD Primary Care Provider Albert Figueroa MD Primary Care Provider [phone] Frankie Gaspar MD Unavailable Unavailable Augusta De La Cruz DPM Unavailable [phone] Kyle Morris MD Unavailable [phone] Ned Birmingham MD Unavailable Mike Villareal DO Unavailable [phone] Sony Perez MD Unavailable [phone] Matt Grover MD Unavailable [phone] Albert Brownlee MD Unavailable [phone] GinetteHumberto bowser MD Primary Care Provider [phone] James Jasso DO Unavailable [phone] Rajat Urban MD Unavailable Unavailable Thuy Coto PARickyC Unavailable + [phone] James Stevens DPM Unavailable [phone] Teresa FerrerC Unavailable Reason for Visit * Reason Onset Date Comments MyChart Communication 04/24/2006 Dental wor k/medication question Encounter Details Date Type Department Care Team (Late st Contact Info) Description 04/24/2006 MyC Medical Advice [facility] in [place] Medical Records [address] [phone] Elvin Allred Communication (Dental work/medicat... 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 Gender Identity Not on file Sexual Orientation Straight 06/26/2018 6: 53 PM CDT documented as of this encounter Plan of Treatment Not on file documented as of this encounter Visit Diagnoses Not on filedocumented in this encounter Care Teams Client Delivery Specialist Relationship Specialty Start Date End Date Dudley House MD [address] [place] [address] PCP - General 03/23/07 09/02/10 Albert Figueroa MD [facility] [place] [address] [place] [address] PCP - General 10/30/03 03/22/07 Frankie Gaspar MD PCP - Obstetrics/Gynecology 03/03/00 07/23/11 Augusta De La Cruz DPM PCP - Podiatry 09/26/05 Kyle Morris MD PCP - Ophthalmology 02/17/06 Ned Birmingham MD XXX NO INFO FOUND XXX [place] [address] PCP - Surgery 10/25/08 09/27/[address] [facility] [address] [place] [address] PCP - Surgery 08/03/06 10/24/[address] [facility] [address] [place] [address] PCP - ENT 03/19/07 12/08/17 Matt Grover MD [address] [place] [address] PCP - Urology 12/22/08 Albert Brownlee MD [address] [place] [address] PCP - Surgery Surgery 09/28/09 11/02/12 Humberto Peng MD [facility] [place] [address] [place] [address] PCP - General Family Practice 09/03/[address] [facility] [place] [address] [place] [address] PCP - Obstetrics/Gynecology bar attendant 07/24/[address] [facility] [place] [address] [place] [address], [place] [address] PCP - Orthopaedics Orthopedics 12/02/11 12/08/17 Thuy Coto PA-C [facility] [place] [address] [place] [address] PCP - Surgery Physician Alterations Tailor 11/03/12 James Stevens DPM [address] [facility] [address] [place] [address] Assigned Musculoskeletal Provider 04/25/20 10/25/21 Teresa Ferrer PA-C [address] [address] Physician Alterations Tailor Urology 02/20/23 documented as of this encounter
--- OUTSIDE RECORDS SUMMARY | 2024-01-08 14:39 | XMS_ITS | Encounter Summary ---
Author Organization [facility] Address [address] [place] [address] Care Team Providers Care Activities Volunteer Name Role Phone Dudley House MD Primary Care Provider Albert Figueroa MD Primary Care Provider [phone] Frankie Gaspar MD Unavailable Unavailable Augusta De La Cruz DPM Unavailable [phone] Kyle Morris MD Unavailable [phone] Kayode Brambila OD Unavailable [phone] Ned Birmingham MD Unavailable Mike Villareal DO Unavailable [phone] Sony Perez MD Unavailable [phone] Matt Grover MD Unavailable [phone] Albert Brownlee MD Unavailable [phone] GinetteHumberto bowser MD Primary Care Provider [phone] James Jasso DO Unavailable [phone] Rajat Urban MD Unavailable Unavailable Thuy CotoC Unavailable [phone] James Stevens DPM Unavailable [phone] Teresa Ferrer PA-C Unavailable [phone] Encounter Details Date Type Department Care Team (Late st Contact Info) Description 10/01/2005 Telephone [facility] in [place] SEPHORA OPERATIONS CONSULTANT [address] [address] Frankie Gaspar MD Social History Tobacco Use Types Packs/Day Years Used Date Smoking Tobacco: Never Alcohol Use Standard Drinks/Week Comments No 0 (1 standard drink = 0.6 oz pur e alcohol) Comments No Sex and Gender Information Value Date Recorded Sex Assigned at Not on file 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 She can be reached today at [phone] or C: [phone] documented in this encounter Plan of Treatment Not on file documented as of this encounter Visit Diagnoses Not on filedocumented in this encounter Care Teams Activities Volunteer Relationship Specialty Start Date End Date Dudley House MD [address] [place] [phone] PCP - General 03/23/07 09/02/10 Albert Figueroa MD [facility] [address] [place] [address] PCP - General 10/30/03 03/22/07 Frankie Gaspar MD PCP - Obstetrics/Gynecology 03/03/00 07/23/11 Augusta De La Cruz DPM PCP - Podiatry 09/26/05 Kyle Morris MD PCP - Ophthalmology 02/17/06 Kayode Brambila OD [facility] [address] [place] [address] PCP - Ophthalmology 03/03/00 02/16/06 Ned Birmingham MD [place] [address] PCP - Surgery 10/25/08 09/27/09 Mike Villareal DO [facility] [address] [place] [address] PCP - Surgery 08/03/06 10/24/08 Sony Perez MD [facility] [address] [place] [address] PCP - ENT 03/19/07 12/08/17 Matt Grover MD [address] [facility] [address] [place] [address] PCP - Urology 12/22/08 Albert Brownlee MD [address] [place] [address] PCP - Surgery Surgery 09/28/09 11/02/12 Humberto Peng MD [facility] [place] [address] [place] [address] PCP - General Family Practice 09/03/10 James Jasso DO [facility] [place] [address] [place] [address] PCP - Obstetrics/Gynecology supervisor wall mirror department 07/24/11 Rajat Urban MD [facility] [place] [address] [place] [address] PCP - Orthopaedics Orthopedics 12/02/11 12/08/17 Thuy Coto PA-C [facility] [place] [address] [place] [address] PCP - Surgery Physician Systems Software Engineer 11/03/12 James Stevens DPM [address] [facility] [address] [place] [address] Assigned Musculoskeletal Provider 04/25/20 10/25/21 Teresa Ferrer PA-C [address] [address] Physician Systems Software Engineer Urology 02/20/23 documented as of this encounter
--- OUTSIDE RECORDS SUMMARY | 2024-01-08 14:39 | XMS_ITS | Encounter Summary ---
Author Organization [facility] Address [address] [place] [address] Care Team Providers Care Flexographic Press Plate Setter Name Role Phone Dudley House MD Primary Care Provider Albert Figueroa MD Primary Care Provider Frankie Gaspar MD Unavailable Unavailable Augusta De La Cruz DPM Unavailable [phone] Frw, None Unavailable Unavailable Kyle Morris MD Unavailable Kayode Brambila OD Unavailable Ned Birmingham MD Unavailable Mike Villareal DO Unavailable [phone] Sony Perez MD Unavailable [phone] Matt Grover MD Unavailable [phone] Albert Brownlee MD Unavailable GinetteHumberto bowser MD Primary Care Provider [phone] James Jasso DO Unavailable [phone] Rajat Urban MD Unavailable Unavailable Thuy Coto PARickyC Unavailable [phone] James Stevens DPM Unavailable [phone] Teresa FerrerC Unavailable Reason for Visit * Reason Onset Date Comments Medication Question 05/05/2005 see mychart message Encounter Details Date Type Department Care Team (Late st Contact Info) Description 05/05/2005 MyC Medical Advice [facility] in [place] Medical Records [address] [place] [address] Elvin Allred Medication Question (see mychart message) Social History Tobacco Use Types Packs/Day Years Used Date Smoking Tobacco: Never Alcohol Use Standard Drinks/Week Comments No 0 (1 standard drink = 0.6 oz pur e alcohol) Comments No Sex and Gender Information Value Date Recorded Sex Assigned at Not on file 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 Gender Identity Not on file Sexual Orientation Straight 06/26/2018 6: 53 PM CDT documented as of this encounter Plan of Treatment Not on file documented as of this encounter Visit Diagnoses Not on filedocumented in this encounter Care Teams Flexographic Press Plate Setter Relationship Specialty Start Date End Date Dudley House MD [address] [place] [address] PCP - General 03/23/07 09/02/10 Albert Figueroa MD [place] [address] [facility] [address] [place] [address] PCP - General 10/30/03 03/22/07 Frankie Gaspar MD PCP - Obstetrics/Gynecology 03/03/00 07/23/11 Augusta De La Cruz DPM PCP - Podiatry 09/26/05 Frw, None PCP - Podiatry 09/26/04 09/25/05 Kyle Morris MD PCP - Ophthalmology 02/17/06 Kayode Brambila OD [facility] [place] [address] [place] [address] PCP - Ophthalmology 03/03/00 02/16/06 Ned Birmingham MD XXX NO INFO FOUND XXX [place] [address] PCP - Surgery 10/25/08 09/27/09 Mike Villareal DO [facility] [address] [facility] [place] [id number] PCP - Surgery 08/03/06 10/24/08 Sony Perez MD [facility] [address] [facility] [place] [address] PCP - ENT 03/19/07 12/08/17 Matt Grover MD [address] [facility] [address] [place] [address] PCP - Urology 12/22/08 Albert Brownlee MD [address] [place] [address] PCP - Surgery Surgery 09/28/09 11/02/12 Humberto Peng MD [facility] [place] [address] [place] [address] PCP - General Family Practice 09/03/10 James Jasso DO [facility] [place] [address] [place] [address] PCP - Obstetrics/Gynecology hospice executive director 07/24/11 Rajat Urban MD [facility] [place] [address] [place] [address] PCP - Orthopaedics Orthopedics 12/02/11 12/08/17 Thuy Coto PA-C [facility] [place] [address] [facility] [address] [place] [address] PCP - Surgery Physician Erp Consultant 11/03/12 James Stevens DPM [address] [facility] [address] [place], [place] [id number] Assigned Musculoskeletal Provider 04/25/20 10/25/21 Teresa Ferrer PA-C [address] [facility] [address] [place], [place] [address] Physician Erp Consultant Urology 02/20/23 documented as of this encounter
--- OUTSIDE RECORDS SUMMARY | 2024-01-08 14:39 | XMS_ITS | Encounter Summary ---
Author Organization [place] Address [address] [place] [address] Care Team Providers Care Tile Power Shear Operator Name Role Phone Dudley House MD Primary Care Provider Albert Figueroa MD Primary Care Provider [phone] Frankie Gaspar MD Unavailable Unavailable Augusta De La Cruz DPM Unavailable [phone] Kyle Morris MD Unavailable [phone] Kayode Brambila OD Unavailable [phone] Ned Birmingham MD Unavailable [phone] Mike Villareal DO Unavailable [phone] Sony Perez MD Unavailable [phone] Matt Grover MD Unavailable [phone] Albert Brownlee MD Unavailable [phone] GinetteHumberto bowser MD Primary Care Provider [phone] James Jasso DO Unavailable [phone] Rajat Urban MD Unavailable Unavailable Thuy CotoC Unavailable [phone] James Stevens DPM Unavailable [phone] Teresa Ferrer PA-C Unavailable Encounter Details Date Type Department Care Team (Late st Contact Info) Description 12/31/2005 [facility] [place] Inpatient Dept [address] [place] [address] Frw, Inpatient Provider Social History Tobacco Use Types Packs/Day Years Used Date Smoking Tobacco: Never Smokeless Tobacco: Never Alcohol Use Standard Drinks/Week Comments No 0 (1 standard drink = 0.6 oz pur e alcohol) Comments No Sex and Gender Information Value Date Recorded Sex Assigned at Not on file 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 An WILSON PCIOL model [id number] with a power of 26.0 diopters was [...] left the operating room in satisfactory condition. Analia Evans/irma cc: CTOR OF MARKETING documented in this encounter Plan of Treatment Not on file documented as of this encounter Visit Diagnoses Not on filedocumented in this encounter Care Teams Tile Power Shear Operator Relationship Specialty Start Date End Date Dudley House MD [address] [place] [address] PCP - General 03/23/07 09/02/10 Albert Figueroa MD [address] [address] PCP - General 10/30/03 03/22/07 Frankie Gaspar MD PCP - Obstetrics/Gynecology 03/03/00 07/23/11 Augusta De La Cruz DPM PCP - Podiatry 09/26/05 Kyle Morris MD PCP - Ophthalmology 02/17/06 Kayode Brambila OD [facility] [place] [address] [place] [address] PCP - Ophthalmology 03/03/00 02/16/06 Ned Birmingham MD XXX [place] [address] PCP - Surgery 10/25/08 09/27/[address] [facility] [address] [place], [place] [address] PCP - Surgery 08/03/06 10/24/[address] [facility] [address] [place] [address] PCP - ENT 03/19/07 12/08/17 Matt Grover MD [address] [place] [address] PCP - Urology 12/22/08 Albert Brownlee MD [address] [place] [address] PCP - Surgery Surgery 09/28/09 11/02/12 Humberto Peng MD [facility] [place] [address] [place] [address] PCP - General Family Practice 09/03/10 James Jasso DO [facility] [place] [address] [place] [address] PCP - Obstetrics/Gynecology celluloid trimmer 07/24/11 Rajat Urban MD [facility] [place] [address] [facility] [address] [place] [address] PCP - Orthopaedics Orthopedics 12/02/11 12/08/17 Thuy Coto PA-C [facility] [place] [address] [place] [address] PCP - Surgery Physician Telephonic Case Manager 11/03/12 James Stevens DPM [address] [facility] [address] [place], [place] [address] Assigned Musculoskeletal Provider 04/25/20 10/25/21 Teresa Ferrer PA-C [address] [facility] [address] [place], [place] [address] Physician Telephonic Case Manager Urology 02/20/23 documented as of this encounter
--- OUTSIDE RECORDS SUMMARY | 2024-01-08 14:39 | XMS_ITS | Encounter Summary ---
Author Organization [place] Address [address] [place] [address] Care Team Providers Care Carton And Can Supply Supervisor Name Role Phone Dudley House MD Primary Care Provider Albert Figueroa MD Primary Care Provider [phone] Frankie Gaspar MD Unavailable Unavailable Augusta De La Cruz DPM Unavailable [phone] Kyle Morris MD Unavailable +[phone] Kayode Brambila OD Unavailable [phone] Ned Birmingham MD Unavailable Mike Villareal DO Unavailable [phone] Sony Perez MD Unavailable [phone] Matt Grover MD Unavailable [phone] Albert Brownlee MD Unavailable [phone] GinetteHumberto bowser MD Primary Care Provider [phone] James Jasso DO Unavailable [phone] Rajat Urban MD Unavailable Unavailable Thuy CotoC Unavailable [phone] James Stevens DPM Unavailable [phone] Teresa Ferrer PA-C Unavailable Encounter Details Date Type Department Care Team (Late st Contact Info) Description 10/24/2005 MyC Medical Advice [facility] in [place] Medical Records [address] [place] [address] Elvin Allred Social History Tobacco Use Types Packs/Day Years Used Date Smoking Tobacco: Never Alcohol Use Standard Drinks/Week Comments No 0 (1 standard drink = 0.6 oz pur e alcohol) Comments No Sex and Gender Information Value Date Recorded Sex Assigned at Not on file 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 Gender Identity Not on file Sexual Orientation Straight 06/26/2018 6: 53 PM CDT documented as of this encounter Plan of Treatment Not on file documented as of this encounter Visit Diagnoses Not on filedocumented in this encounter Care Teams Carton And Can Supply Supervisor Relationship Specialty Start Date End Date Dudley House MD [address] [place] [address] PCP - General 03/23/07 09/02/10 Albert Figueroa MD [facility] [place] [address] [place] [address] PCP - General 10/30/03 03/22/07 Frankie Gaspar MD PCP - Obstetrics/Gynecology 03/03/00 07/23/11 Augusta De La Cruz DPM PCP - Podiatry 09/26/05 Kyle Morris MD PCP - Ophthalmology 02/17/06 Kayode Brambila OD [facility] [place] [address] [place] [address] PCP - Ophthalmology 03/03/00 02/16/06 Ned Birmingham MD XXX NO [place] [address] PCP - Surgery 10/25/08 09/27/09 Mike Villareal DO [facility] [address] [place] [address] PCP - Surgery 08/03/06 10/24/08 Sony Perez MD [facility] [address] [place] [address] PCP - ENT 03/19/07 12/08/17 Matt Grover MD [address] [place] [address] [address] [place], [place] [address] PCP - Urology 12/22/08 Albert Brownlee MD [address] [place] [address] PCP - Surgery Surgery 09/28/09 11/02/12 Humberto Peng MD [facility] [place] [address] [place] [address] PCP - General Family Practice 09/03/10 James Jasso DO [facility] [place] [address] [place] [address] PCP - Obstetrics/Gynecology rn tele 07/24/11 Rajat Urban MD [facility] [place] [address] [place] [address] PCP - Orthopaedics Orthopedics 12/02/11 12/08/17 Thuy Coto PA-C [facility] [place] [address] [place] [address] PCP - Surgery Physician Manager Concrete 11/03/12 James Stevens DPM [address] [facility] [address] [place], [place] [address] Assigned Musculoskeletal Provider 04/25/20 10/25/21 Teresa Ferrer PA-C [address] [place] [address] Physician Manager Concrete Urology 02/20/23 documented as of this encounter
--- OUTSIDE RECORDS SUMMARY | 2024-01-08 14:39 | XMS_ITS | Encounter Summary ---
Author Organization [place] Address [address] [place] [address] Care Team Providers Care Consumer Safety Officer Name Role Phone Dudley House MD Primary Care Provider Albert Figueroa MD Primary Care Provider Frankie Gaspar MD Unavailable Unavailable Augusta De La Cruz DPM Unavailable Frw, None Unavailable Unavailable Kyle Morris MD Unavailable [phone] Kayode Brambila OD Unavailable [phone] Ned Birmingham MD Unavailable [phone] Mike Villareal DO Unavailable [phone] Sony Perez MD Unavailable [phone] Matt Grover MD Unavailable Albert Brownlee MD Unavailable [phone] GinetteHumberto bowser MD Primary Care Provider [phone] James Jasso DO Unavailable [phone] Rajat Urban MD Unavailable Unavailable Thuy Coto PARickyC Unavailable [phone] James Stevens DPM Unavailable [phone] Teresa FerrerC Unavailable Reason for Visit * Reason Onset Date Comments Medication Question 03/20/2005 see mychart message Encounter Details Date Type Department Care Team (Late st Contact Info) Description 03/20/2005 MyC Medical Advice [facility] [place] Medical Records [address] [address] Elvin Allred Medication Question (see mychart message) Social History Tobacco Use Types Packs/Day Years Used Date Smoking Tobacco: Never Alcohol Use Standard Drinks/Week Comments No 0 (1 standard drink = 0.6 oz pur e alcohol) Comments No Sex and Gender Information Value Date Recorded Sex Assigned at Not on file 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 Gender Identity Not on file Sexual Orientation Straight 06/26/2018 6: 53 PM CDT documented as of this encounter Plan of Treatment Not on file documented as of this encounter Visit Diagnoses Not on filedocumented in this encounter Care Teams Consumer Safety Officer Relationship Specialty Start Date End Date Dudley House MD [address] [place] [address] PCP - General 03/23/07 09/02/10 Albert Figueroa MD [place] [address] [facility] [address] [place] [address] PCP - General 10/30/03 03/22/07 Frankie Gaspar MD PCP - Obstetrics/Gynecology 03/03/00 07/23/11 Augusta De La Cruz DPM PCP - Podiatry 09/26/05 Frw, None PCP - Podiatry 09/26/04 09/25/05 Kyle Morris MD PCP - Ophthalmology 02/17/06 Kayode Brambila OD [facility] [place] [address] [place] [address] PCP - Ophthalmology 03/03/00 02/16/06 Ned Birmingham MD XXX NO INFO FOUND XXX [place] [address] PCP - Surgery 10/25/08 09/27/[address] [facility] [address] [facility] [place] [address] PCP - Surgery 08/03/06 10/24/[address] [facility] [address] [facility] [place] [address] PCP - ENT 03/19/07 12/08/17 Matt Grover MD [address] [facility] [address] [place] [address] PCP - Urology 12/22/08 Albert Brownlee MD [address] [place] [address] PCP - Surgery Surgery 09/28/09 11/02/12 Humberto Peng MD [facility] [place] [address] [place] [address] PCP - General Family Practice 09/03/10 James Jasso DO [facility] [place] [address] [place] [address] PCP - Obstetrics/Gynecology mine deputy 07/24/11 Rajat Urban MD [facility] [place] [address] [place] [address] PCP - Orthopaedics Orthopedics 12/02/11 12/08/17 Thuy Coto PA-C [facility] [place] [address] [facility] [address] [place] [address] PCP - Surgery Physician Biotechnologist 11/03/12 James Stevens DPM [address] [facility] [address] [place], [place] [id number] Assigned Musculoskeletal Provider 04/25/20 10/25/21 Teresa Ferrer PA-C [address] [facility] [address] [place], [place] [address] Physician Biotechnologist Urology 02/20/23 documented as of this encounter
--- OUTSIDE RECORDS SUMMARY | 2024-01-08 14:39 | XMS_ITS | Encounter Summary ---
Author Organization [place] Address [address] [place] [address] Care Team Providers Care Bite Block Maker Name Role Phone Dudley House MD Primary Care Provider Albert Figueroa MD Primary Care Provider Frankie Gaspar MD Unavailable Unavailable Augusta De La Cruz DPM Unavailable Frw, None Unavailable Unavailable Kyle Morris MD Unavailable [phone] Kayode Brambila OD Unavailable [phone] Ned Birmingham MD Unavailable [phone] Mike Villareal DO Unavailable [phone] Sony Perez MD Unavailable [phone] Matt Grover MD Unavailable Albert Brownlee MD Unavailable GinetteHumberto bowser MD Primary Care Provider [phone] James Jasso DO Unavailable Rajat Urban MD Unavailable Unavailable Thuy CotoC Unavailable James Stevens DPM Unavailable [phone] Teresa Ferrer PA-C Unavailable Encounter Details Date Type Department Care Team (Late st Contact Info) Description 08/05/2005 [facility] [place] SOCIAL SECURITY BENEFITS INTERVIEWER [address] [place] [id number] Frankie Gaspar MD Social History Tobacco Use Types Packs/Day Years Used Date Smoking Tobacco: Never Smokeless Tobacco: Never Alcohol Use Standard Drinks/Week Comments No 0 (1 standard drink = 0.6 oz pur e alcohol) Comments No Sex and Gender Information Value Date Recorded Sex Assigned at Not on file 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 Gender Identity Not on file Sexual Orientation Straight 06/26/2018 6: 53 PM CDT Occupation Industry Job Start Date Job End Date Not on file Not on file Not on file Not on file documented as of this encounter Plan of Treatment Not on file documented as of this encounter Visit Diagnoses Not on filedocumented in this encounter Care Teams Bite Block Maker Relationship Specialty Start Date End Date Dudley House MD [address] [place] [address] PCP - General 03/23/07 09/02/10 Albert Figueroa MD [place] [address] [facility] [address] [place] [address] PCP - General 10/30/03 03/22/07 Frankie Gaspar MD PCP - Obstetrics/Gynecology 03/03/00 07/23/11 Augusta De La Cruz DPM PCP - Podiatry 09/26/05 Frw, None PCP - Podiatry 09/26/04 09/25/05 Kyle Morris MD PCP - Ophthalmology 02/17/06 Kayode Brambila OD [facility] [place] [address] [place] [address] PCP - Ophthalmology 03/03/00 02/16/06 Ned Birmingham MD XXX NO INFO FOUND XXX [place] [address] PCP - Surgery 10/25/08 09/27/09 Mike Villareal DO [facility] [address] [facility] [place] [address] PCP - Surgery 08/03/06 10/24/08 Sony Perez MD [facility] [address] [facility] [place] [address] PCP - ENT 03/19/07 12/08/17 Matt Grover MD [address] [facility] [address] [place] [address] PCP - Urology 12/22/08 Albert Brownlee MD [address] [place] [address] PCP - Surgery Surgery 09/28/09 11/02/12 Humberto Peng MD [facility] [place] [address] [place] [address] PCP - General Family Practice 09/03/10 James Jasso DO [facility] [place] [address] [place] [address] PCP - Obstetrics/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 07/24/11 Rajat Urban MD [facility] [place] [address] [place] [address] PCP - Orthopaedics Orthopedics 12/02/11 12/08/17 Thuy Coto PA-C [facility] [place] [address] [place] [address] PCP - Surgery Physician Coat Feller 11/03/12 James Stevens DPM [address] [facility] [address] [place], [place] [id number] Assigned Musculoskeletal Provider 04/25/20 10/25/21 Teresa Ferrer PA-C [address] [facility] [address] [place], [place] [address] Physician Coat Feller Urology 02/20/23 documented as of this encounter
--- OUTSIDE RECORDS SUMMARY | 2024-01-08 14:39 | XMS_ITS | Encounter Summary ---
Author Organization [place] Address [address] [place] [address] Care Team Providers Care Scada Engineer Name Role Phone Dudley House MD Primary Care Provider [phone] Albert Figueroa MD Primary Care Provider [phone] Frankie Gaspar MD Unavailable Unavailable Augusta De La Cruz DPM Unavailable [phone] Kyle Morris MD Unavailable [phone] Kayode Brambila OD Unavailable [phone] Ned Birmingham MD Unavailable Mike Villareal DO Unavailable [phone] Sony Perez MD Unavailable Matt Grover MD Unavailable [phone] Albert Brownlee MD Unavailable [phone] GinetteHumberto bowser MD Primary Care Provider [phone] Jaems Jasso DO Unavailable [phone] Rajat Urban MD Unavailable Unavailable Thuy Coto PARickyC Unavailable [phone] James Stevens DPM Unavailable [phone] Teresa Ferrer PA-C Unavailable [phone] Reason for Visit * Reason Onset Date Comments Triage 01/05/2006 Encounter Details Date Type Department Care Team (Late st Contact Info) Description 01/05/2006 MyC Medical Advice [facility] in [place] Medical Records [address] [phone] Brianlaurence Elvin Triage Social History Tobacco Use Types Packs/Day Years Used Date Smoking Tobacco: Never Alcohol Use Standard Drinks/Week Comments No 0 (1 standard drink = 0.6 oz pur e alcohol) Comments No Sex and Gender Information Value Date Recorded Sex Assigned at Not on file 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 Gender Identity Not on file Sexual Orientation Straight 06/26/2018 6: 53 PM CDT documented as of this encounter Plan of Treatment Not on file documented as of this encounter Visit Diagnoses Not on filedocumented in this encounter Care Teams Scada Engineer Relationship Specialty Start Date End Date Dudley House MD [address] [place] [address] PCP - General 03/23/07 09/02/10 Albert Figueroa MD [facility] [address] [facility] [address] [place] [address] PCP - General 10/30/03 03/22/07 Frankie Gaspar MD PCP - Obstetrics/Gynecology 03/03/00 07/23/11 Augusta De La Cruz DPM PCP - Podiatry 09/26/05 Kyle Morris MD PCP - Ophthalmology 02/17/06 Kayode Brambila OD [facility] [place] [address] [place] [address] PCP - Ophthalmology 03/03/00 02/16/06 Ned Birmingham MD XXX [place] [address] PCP - Surgery 10/25/08 09/27/09 Mike Villareal DO [facility] [address] [place], [place] [address] PCP - Surgery 08/03/06 10/24/08 Sony Perez MD [facility] [address] [place] [address] PCP - ENT 03/19/07 12/08/17 Matt Grover MD [address] [place] [address] PCP - Urology 12/22/08 Albert Brownlee MD [address] [place] [address] PCP - Surgery Surgery 09/28/09 11/02/12 Humberto Peng MD [facility] [place] [address] [place] [address] PCP - General Family Practice 09/03/10 James Jasso DO [facility] [place] [address] [place] [address] PCP - Obstetrics/Gynecology compliance testing analyst 07/24/11 Rajat Urban MD [facility] [place] [address] [place] [address] PCP - Orthopaedics Orthopedics 12/02/11 12/08/17 Thuy Coto PA-C [facility] [place] [address] [place] [address] PCP - Surgery Physician Accounts Payable Manager 11/03/12 [place] DPM [address] [facility] [address] [place], [place] [address] Assigned Musculoskeletal Provider 04/25/20 10/25/21 Teresa Ferrer PA-C [address] [place], [place] [address] Physician Accounts Payable Manager Urology 02/20/23 documented as of this encounter
--- OUTSIDE RECORDS SUMMARY | 2024-01-08 14:39 | XMS_ITS | Encounter Summary ---
Author Organization [place] Address [address] [place] [address] Care Team Providers Care Pest Controller Name Role Phone Dudley House MD Primary Care Provider [phone] Albert Figueroa MD Primary Care Provider Frankie Gaspar MD Unavailable Unavailable Augusta De La Cruz DPM Unavailable Frw, None Unavailable Unavailable Kyle Morris MD Unavailable [phone] Kayode Brambila OD Unavailable Ned Birmingham MD Unavailable Mike Villareal DO Unavailable [phone] Sony Perez MD Unavailable [phone] Matt Grover MD Unavailable [phone] Albert Brownlee MD Unavailable GinetteHumberto bowser MD Primary Care Provider [phone] Jaems Jasso DO Unavailable [phone] Rajat Urban MD Unavailable Unavailable Thuy Coto PARickyC Unavailable [phone] James Stevens DPM Unavailable Teresa FerrerC Unavailable [phone] Reason for Visit * Reason Onset Date Comments MyChart Communication 08/18/2005 would like to return to work Encounter Details Date Type Department Care Team (Late st Contact Info) Description 08/18/2005 MyC Medical Advice [facility] [place] Medical Records [address] [place] [address] KishantElvin MyChart Communication (would like to retur... 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 Gender Identity Not on file Sexual Orientation Straight 06/26/2018 6: 53 PM CDT documented as of this encounter Plan of Treatment Not on file documented as of this encounter Visit Diagnoses Not on filedocumented in this encounter Care Teams Pest Controller Relationship Specialty Start Date End Date Dudley House MD [address] [place] [address] PCP - General 03/23/07 09/02/10 Albert Figueroa MD [facility] [address] [facility] [address] [place] [address] PCP - General 10/30/03 03/22/07 Frankie Gaspar MD PCP - Obstetrics/Gynecology 03/03/00 07/23/11 Augusta De La Cruz DPM PCP - Podiatry 09/26/05 Frw, None PCP - Podiatry 09/26/04 09/25/05 Kyle Morris MD PCP - Ophthalmology 02/17/06 Kayode Brambila OD [facility] [place] [address] [place] [address] PCP - Ophthalmology 03/03/00 02/16/06 Ned Birmingham MD XXX NO [place] [address] PCP - Surgery 10/25/08 09/27/[address] [facility] [address] [place], [place] [address] PCP - Surgery 08/03/06 10/24/[address] 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 07/24/11 Rajat Urban MD [facility] [address] [place] [address] PCP - Orthopaedics Orthopedics 12/02/11 12/08/17 Thuy Coto PA-C [facility] [address] [facility] [address] [place] [address] PCP - Surgery Physician Plastic Jig And Fixture Builder 11/03/12 James Stevens DPM [address] [facility] [address] [place] [address] Assigned Musculoskeletal Provider 04/25/20 10/25/21 Teresa Ferrer PA-C [address] [id number] Physician Plastic Jig And Fixture Builder Urology 02/20/23 documented as of this encounter
--- OUTSIDE RECORDS SUMMARY | 2024-01-08 14:39 | XMS_ITS | Encounter Summary ---
Author Organization [place] Address [address] [place] [address] Care Team Providers Care Residential Leasing Agent Name Role Phone Dudley House MD Primary Care Provider Albert Figureoa MD Primary Care Provider [phone] Frankie Gaspar MD Unavailable Unavailable Augusta De La Cruz DPM Unavailable [phone] Kyle Morris MD Unavailable Kayode Brambila OD Unavailable [phone] Ned Birmingham MD Unavailable Mike Villareal DO Unavailable [phone] Sony Perez MD Unavailable [phone] Matt Grover MD Unavailable [phone] Albert Brownlee MD Unavailable [phone] GinetteHumberto bowser MD Primary Care Provider [phone] Jamse Jasso DO Unavailable [phone] Rajat Urban MD Unavailable Unavailable Thuy CotoC Unavailable [phone] James Stevens DPM Unavailable [phone] Teresa Ferrer PA-C Unavailable Encounter Details Date Type Department Care Team (Late st Contact Info) Description 11/04/2005 MyC Medical Advice [facility] [place] Medical Records [address] [place] [phone] Elvin Allred Social History Tobacco Use Types Packs/Day Years Used Date Smoking Tobacco: Never Alcohol Use Standard Drinks/Week Comments No 0 (1 standard drink = 0.6 oz pur e alcohol) Comments No Sex and Gender Information Value Date Recorded Sex Assigned at Not on file 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 Gaspar documented in this encounter Plan of Treatment Not on file documented as of this encounter Visit Diagnoses Not on filedocumented in this encounter Care Teams Residential Leasing Agent Relationship Specialty Start Date End Date Dudley House MD [address] [place] [address] PCP - General 03/23/07 09/02/10 Albert Figueroa MD [facility] [address] [facility] [address] [place] [address] PCP - General 10/30/03 03/22/07 Frankie Gaspar MD PCP - Obstetrics/Gynecology 03/03/00 07/23/11 Augusta De La Cruz DPM PCP - Podiatry 09/26/05 Kyle Morris MD PCP - Ophthalmology 02/17/06 Kayode Brambila OD [facility] [place] [address] [place] [address] PCP - Ophthalmology 03/03/00 02/16/06 Ned Birmingham MD XXX NO INFO FOUND [place] [address] PCP - Surgery 10/25/08 09/27/09 Mike Villareal DO [facility] [address] [place], [place] [address] PCP - Surgery 08/03/06 10/24/08 Sony Perez MD [facility] [address] [place] [address] PCP - ENT 03/19/07 12/08/17 Matt Grover MD [address] [place] [address] PCP - Urology 12/22/08 Albert Brownlee MD [address] [place] [address] PCP - Surgery Surgery 09/28/09 11/02/12 Humberto Peng MD [facility] [place] [address] [place] [address] PCP - General Family Practice 09/03/10 James Jasso DO [facility] [place] [address] [place] [address] PCP - Obstetrics/Gynecology scrape gatherer 07/24/11 Rajat Urban MD [facility] [address] [facility] [address] [place] [address] PCP - Orthopaedics Orthopedics 12/02/11 12/08/17 Thuy Coto PA-C [facility] [place] [facility] [address] [place] [address] PCP - Surgery Physician Ed Transporter 11/03/12 James Stevens DPM [address] [facility] [address] [place] [address] Assigned Musculoskeletal Provider 04/25/20 10/25/21 Teresa Ferrer PA-C [address] [facility] [address] [place] [address] Physician Ed Transporter Urology 02/20/23 documented as of this encounter
--- OUTSIDE RECORDS SUMMARY | 2024-01-08 14:39 | XMS_ITS | Encounter Summary ---
Author Organization [place] Address [address] [place] [address] Care Team Providers Care Top Coater Name Role Phone Dudley House MD Primary Care Provider [phone] Albert Figueroa MD Primary Care Provider [phone] Frankie Gaspar MD Unavailable Unavailable Augusta De La Cruz DPM Unavailable Frw, None Unavailable Unavailable Kyle Morris MD Unavailable Kayode Brambila OD Unavailable [phone] Ned Birmingham MD Unavailable Mike Villareal DO Unavailable [phone] Sony Perez MD Unavailable [phone] Matt Grover MD Unavailable Albert Brownlee MD Unavailable GinetteHumberto bowser MD Primary Care Provider [phone] James Jasso DO Unavailable Rajat Urban MD Unavailable Unavailable Thuy CotoC Unavailable James Stevens DPM Unavailable [phone] Teresa Ferrer PA-C Unavailable Encounter Details Date Type Department Care Team (Late st Contact Info) Description 04/22/2005 MyC Medical Advice [facility] [place] Medical Records [address] [place] [phone] Elvin Allred Social History Tobacco Use Types Packs/Day Years Used Date Smoking Tobacco: Never Alcohol Use Standard Drinks/Week Comments No 0 (1 standard drink = 0.6 oz pur e alcohol) Comments No Sex and Gender Information Value Date Recorded Sex Assigned at Not on file 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 Gender Identity Not on file Sexual Orientation Straight 06/26/2018 6: 53 PM CDT documented as of this encounter Plan of Treatment Not on file documented as of this encounter Visit Diagnoses Not on filedocumented in this encounter Care Teams Top Coater Relationship Specialty Start Date End Date Dudley House MD [address] [place] [address] PCP - General 03/23/07 09/02/10 Albert Figueroa MD [facility] [place] [address] [place] [address] PCP - General 10/30/03 03/22/07 Frankie Gaspar MD PCP - Obstetrics/Gynecology 03/03/00 07/23/11 Augusta De La Cruz DPM PCP - Podiatry 09/26/05 Frw, None PCP - Podiatry 09/26/04 09/25/05 Kyle Morris MD PCP - Ophthalmology 02/17/06 Kayode Brambila OD [facility] [place] [address] [place] [address] PCP - Ophthalmology 03/03/00 02/16/06 Ned Birmingham MD XXX NO INFO [place] [address] PCP - Surgery 10/25/08 09/27/09 Mike Villareal DO [facility] [address] [place] [address] PCP - Surgery 08/03/06 10/24/08 Sony Perez MD [facility] [address] [place] [address] PCP - ENT 03/19/07 12/08/17 Matt Grover MD [address] [place] [address] PCP - Urology 12/22/08 Albert Brownlee MD [address] [place] [address] PCP - Surgery Surgery 09/28/09 11/02/12 Humberto Peng MD [facility] [place] [address] [place] [address] PCP - General Family Practice 09/03/10 James Jasso DO [facility] [place] [address] [place] [address] PCP - Obstetrics/Gynecology death clearance coordinator 07/24/11 Rajat Urban MD [facility] [address] [place] [address] PCP - Orthopaedics Orthopedics 12/02/11 12/08/17 Thuy Coto PA-C [facility] [place] [address] [place] [address] PCP - Surgery Physician Patron Attendant 11/03/12 James Stevens DPM [address] [facility] [address] [place], [place] [address] Assigned Musculoskeletal Provider 04/25/20 10/25/21 Teresa Ferrer PA-C [address] [place] [address] Physician Patron Attendant Urology 02/20/23 documented as of this encounter
--- OUTSIDE RECORDS SUMMARY | 2024-01-08 14:39 | XMS_ITS | Encounter Summary ---
Author Organization [place] Address [address] [place] [address] Care Team Providers Care Speaker Wirer Name Role Phone Dudley House MD Primary Care Provider Albert Figueroa MD Primary Care Provider [phone] Frankie Gaspar MD Unavailable Unavailable Augusta De La Cruz DPM Unavailable [phone] Kyle Morris MD Unavailable [phone] Kayode Brambila OD Unavailable [phone] Ned Birmingham MD Unavailable [phone] Mike Villareal DO Unavailable [phone] Sony Perez MD Unavailable [phone] Matt Grover MD Unavailable [phone] Albert Brownlee MD Unavailable [phone] GinetteHumberto bowser MD Primary Care Provider [phone] James Jasso DO Unavailable [phone] Rajat Urban MD Unavailable Unavailable Thuy Coto PARickyC Unavailable [phone] James Stevens DPM Unavailable [phone] Teresa Ferrer PA-C Unavailable Reason for Visit * Reason Onset Date Comments Call Back 01/22/2006 lab test results Encounter Details Date Type Department Care Team (Late st Contact Info) Description 01/21/[address] 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 Gender Identity Not on file Sexual Orientation Straight 06/26/2018 6: 53 PM CDT documented as of this encounter Miscellaneous Notes * Telephone Encounter - Bud Adriane - 01/22/2006 9:36 AM CST Pt has question about recent lab test I do not see that letter has been sent test done 01-19 DEVELOPER documented in this encounter Plan of Treatment Not on file documented as of this encounter Visit Diagnoses Not on filedocumented in this encounter Care Teams Speaker Wirer Relationship Specialty Start Date End Date Dudley House MD [address] [place] [address] PCP - General 03/23/07 09/02/10 Albert Figueroa MD [facility] [address] [facility] [address] [place] [address] PCP - General 10/30/03 03/22/07 Frankie Gaspar MD PCP - Obstetrics/Gynecology 03/03/00 07/23/11 Augusta De La Cruz DPM PCP - Podiatry 09/26/05 Kyle Morris MD PCP - Ophthalmology 02/17/[address] [facility] [place] [address] [place] [address] PCP - Ophthalmology 03/03/00 02/16/06 Ned Birmingham MD [place] [address] PCP - Surgery 10/25/08 09/27/09 Mike Villareal DO [facility] [address] [place] [address] PCP - Surgery 08/03/06 10/24/08 Sony Perez MD [facility] [address] [place] [address] PCP - ENT 03/19/07 12/08/17 Matt Grover MD [address] [facility] [address] [place] [address] PCP - Urology 12/22/08 Albert Brownlee MD [address] [place] [address] PCP - Surgery Surgery 09/28/09 11/02/[address] [facility] [place] [address] [place] [address] PCP - General Family Practice 09/03/[address] [facility] [place] [address] [place] [address] PCP - Obstetrics/Gynecology parking meter attendant 07/24/[address] [facility] [place] [address] [place] [address] PCP - Orthopaedics Orthopedics 12/02/11 12/08/[address] Th[address] C[address] PA-C [facility] [place] [address] [place] [address] PCP - Surgery Physician Vial Gauger 11/03/12 James Stevens DPM [address] [facility] [address] [place], [place] [address] Assigned Musculoskeletal Provider 04/25/20 10/25/21 Teresa Ferrer PA-C [address] [facility] [address] [place], [place] [address] Physician Vial Gauger Urology 02/20/23 documented as of this encounter
--- OUTSIDE RECORDS SUMMARY | 2024-01-08 14:39 | XMS_ITS | Encounter Summary ---
Author Organization [place] Address [address] [place] [address] Care Team Providers Care Director Broadcast Name Role Phone Dudley House MD Primary Care Provider Albert Figueroa MD Primary Care Provider [phone] Frankie Gaspar MD Unavailable Unavailable Augusta De La Cruz DPM Unavailable Frw, None Unavailable Unavailable Kyle Morris MD Unavailable Kayode Brambila OD Unavailable [phone] Ned Birmingham MD Unavailable [phone] Mike Villareal DO Unavailable [phone] Sony Perez MD Unavailable [phone] Matt Grover MD Unavailable Albert Brownlee MD Unavailable GinetteHumberto bowser MD Primary Care Provider [phone] James Jasso DO Unavailable Rajat Urban MD Unavailable Unavailable Thuy CotoC Unavailable James Stevens DPM Unavailable [phone] Teresa Ferrer PA-C Unavailable Encounter Details Date Type Department Care Team (Late st Contact Info) Description 07/25/[address] 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 Gender Identity Not on file Sexual Orientation Straight 06/26/2018 6: 53 PM CDT documented as of this encounter Plan of Treatment Not on file documented as of this encounter Visit Diagnoses Not on filedocumented in this encounter Care Teams Director Broadcast Relationship Specialty Start Date End Date Dudley House MD [address] [place] [address] PCP - General 03/23/07 09/02/10 Albert Figueroa MD [address] [address] PCP - General 10/30/03 03/22/07 Frankie Gaspar MD PCP - Obstetrics/Gynecology 03/03/00 07/23/11 Augusta De La Cruz DPM PCP - Podiatry 09/26/05 Frw, None PCP - Podiatry 09/26/04 09/25/05 Kyle Morris MD PCP - Ophthalmology 02/17/06 Kayode Brambila OD [facility] [place] [address] [place] [address] PCP - Ophthalmology 03/03/00 02/16/06 Ned Birmingham MD XXX [place] [address] PCP - Surgery 10/25/08 09/27/[address] [facility] [address] [place], [place] [address] PCP - Surgery 08/03/06 10/24/[address] [facility] [address] [place] [address] PCP - ENT 03/19/07 12/08/17 Matt Grover MD [address] [place] [address] PCP - Urology 12/22/08 Albert Brownlee MD [address] [place] [address] PCP - Surgery Surgery 09/28/09 11/02/12 Humberto Peng MD [facility] [place] [address] [place] [address] PCP - General Family Practice 09/03/10 James Jasso DO [facility] [place] [address] [place] [address] PCP - Obstetrics/Gynecology application specialist 07/24/11 Rajat Urban MD [facility] [place] [address] [facility] [address] [place] [address] PCP - Orthopaedics Orthopedics 12/02/11 12/08/17 Thuy Coto PA-C [facility] [place] [address] [facility] [address] [place] [address] PCP - Surgery Physician Medical Records Tech 11/03/12 James Stevens DPM [address] [facility] [address] [place], [place] [address] Assigned Musculoskeletal Provider 04/25/20 10/25/21 Teresa Ferrer PA-C [address] [address] Physician Medical Records Tech Urology 02/20/23 documented as of this encounter
--- OUTSIDE RECORDS SUMMARY | 2024-01-08 14:39 | XMS_ITS | Encounter Summary ---
Author Organization [place] Address [address] [place] [address] Care Team Providers Care Server Security Administrator Name Role Phone Dudley House MD Primary Care Provider Albert Figueroa MD Primary Care Provider [phone] Frankie Gaspar MD Unavailable Unavailable Augusta De La Cruz DPM Unavailable [phone] Kyle Morris MD Unavailable [phone] Kayode Brambila OD Unavailable [phone] Ned Birmingham MD Unavailable [phone] Mike Villareal DO Unavailable [phone] Sony Perez MD Unavailable [phone] Matt Grover MD Unavailable [phone] Albert Brownlee MD Unavailable [phone] GinetteHumberto bowser MD Primary Care Provider [phone] James Jasso DO Unavailable [phone] Rajat Urban MD Unavailable Unavailable Thuy CotoC Unavailable [phone] James Stevens DPM Unavailable [phone] Teresa Ferrer PA-C Unavailable [phone] Reason for Visit * Reason Onset Date Comments Counseling 12/15/2005 Encounter Details Date Type Department Care Team (Late st Contact Info) Description 12/15/2005 MyC Medical Advice [facility] in [place] Medical Records [address] [place] [phone] Elvin Allred Counseling Social History Tobacco Use Types Packs/Day Years Used Date Smoking Tobacco: Never Alcohol Use Standard Drinks/Week Comments No 0 (1 standard drink = 0.6 oz pur e alcohol) Comments No Sex and Gender Information Value Date Recorded Sex Assigned at Not on file 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 Gender Identity Not on file Sexual Orientation Straight 06/26/2018 6: 53 PM CDT documented as of this encounter Plan of Treatment Not on file documented as of this encounter Visit Diagnoses Not on filedocumented in this encounter Care Teams Server Security Administrator Relationship Specialty Start Date End Date Dudley House MD [address] [place] [phone] PCP - General 03/23/07 09/02/10 Albert Figueroa MD [facility] [address] [facility] [address] [place] [address] PCP - General 10/30/03 03/22/07 Frankie Gaspar MD PCP - Obstetrics/Gynecology 03/03/00 07/23/11 Augusta De La Cruz DPM PCP - Podiatry 09/26/05 Kyle Morris MD PCP - Ophthalmology 02/17/06 Kayode Brambila OD [facility] [place] [address] [place] [address] PCP - Ophthalmology 03/03/00 02/16/06 Ned Birmingham MD XXX [place] [address] PCP - Surgery 10/25/08 09/27/09 Mike Villareal DO [facility] [address] [place], [place] [address] PCP - Surgery 08/03/06 10/24/08 Sony Perez MD [facility] [address] [place] [address] PCP - ENT 03/19/07 12/08/17 Matt Grover MD [address] [place] [address] PCP - Urology 12/22/08 Albert Brownlee MD [address] [place] [address] PCP - Surgery Surgery 09/28/09 11/02/12 Humberto Peng MD [facility] [place] [address] [place] [address] PCP - General Family Practice 09/03/10 James Jasso DO [facility] [place] [address] [place] [address] PCP - Obstetrics/Gynecology employment interviewer 07/24/11 Rajat Urban MD [facility] [place] [address] [place] [address] PCP - Orthopaedics Orthopedics 12/02/11 12/08/17 Thuy Coto PA-C [facility] [place] [address] [place] [address] PCP - Surgery Physician Manager Operating 11/03/12 James Stevens DPM [address] [facility] [address] [place], [place] [address] Assigned Musculoskeletal Provider 04/25/20 10/25/21 Teresa Ferrer PA-C [address] [place], [place] [address] Physician Manager Operating Urology 02/20/23 documented as of this encounter
--- OUTSIDE RECORDS SUMMARY | 2024-01-08 14:39 | XMS_ITS | Encounter Summary ---
Author Organization [place] Address [address] [place] [address] Care Team Providers Care Game Master Name Role Phone Dudley House MD Primary Care Provider Albert Figueroa MD Primary Care Provider [phone] Frankie Gaspar MD Unavailable Unavailable Augusta De La Cruz DPM Unavailable [phone] Kyle Morris MD Unavailable Kayode Brambila OD Unavailable [phone] Ned Birmingham MD Unavailable Mike Villareal DO Unavailable [phone] Sony Perez MD Unavailable [phone] Matt Grover MD Unavailable [phone] Albert Brownlee MD Unavailable [phone] GinetteHumberto bowser MD Primary Care Provider [phone] James Jasso DO Unavailable [phone] Rajat Urban MD Unavailable Unavailable Thuy CotoC Unavailable [phone] James Stevens DPM Unavailable [phone] Teresa Ferrer PA-C Unavailable Encounter Details Date Type Department Care Team (Late st Contact Info) Description 11/04/2005 MyC Medical Advice [facility] [place] Medical Records [address] [place] [phone] Elvin Allred Social History Tobacco Use Types Packs/Day Years Used Date Smoking Tobacco: Never Alcohol Use Standard Drinks/Week Comments No 0 (1 standard drink = 0.6 oz pur e alcohol) Comments No Sex and Gender Information Value Date Recorded Sex Assigned at Not on file Legal Sex Female 3:49 AM [employer] DEVELOPER Gender Identity Not on file Sexual Orientation Straight 06/26/2018 6: 53 PM CDT documented as of this encounter Plan of Treatment Not on file documented as of this encounter Visit Diagnoses Not on filedocumented in this encounter Care Teams Game Master Relationship Specialty Start Date End Date Dudley House MD [address] [place] [address] PCP - General 03/23/07 09/02/10 Albert Figueroa MD [facility] [place] [address] [place] [address] PCP - General 10/30/03 03/22/07 Frankie Gaspar MD PCP - Obstetrics/Gynecology 03/03/00 07/23/11 Augusta De La Cruz DPM PCP - Podiatry 09/26/05 Kyle Morris MD PCP - Ophthalmology 02/17/06 Kayode Brambila OD [facility] [place] [address] [place] [address] PCP - Ophthalmology 03/03/00 02/16/06 Ned Birmingham MD XXX [place] [address] PCP - Surgery 10/25/08 09/27/09 Mike Villareal DO [facility] [address] [place] [address] PCP - Surgery 08/03/06 10/24/08 Sony Perez MD [facility] [address] [place] [address] PCP - ENT 03/19/07 12/08/17 Matt Grover MD [address] [place] [address] [address] [place], [place] [address] PCP - Urology 12/22/08 Albert Brownlee MD [address] [place] [address] PCP - Surgery Surgery 09/28/09 11/02/12 Humberto Peng MD [facility] [place] [address] [place] [address] PCP - General Family Practice 09/03/10 James Jasso DO [facility] [place] [address] [place] [address] PCP - Obstetrics/Gynecology blacksmith helper 07/24/11 Rajat Urban MD [facility] [place] [address] [place] [address] PCP - Orthopaedics Orthopedics 12/02/11 12/08/17 Thuy Coto PA-C [facility] [place] [address] [place] [address] PCP - Surgery Physician Marine Engineering Consultant 11/03/12 James Stevens DPM [address] [facility] [address] [place], [place] [address] Assigned Musculoskeletal Provider 04/25/20 10/25/21 Teresa Ferrer PA-C [address] [place] [address] Physician Marine Engineering Consultant Urology 02/20/23 documented as of this encounter
--- OUTSIDE RECORDS SUMMARY | 2024-01-08 14:39 | XMS_ITS | Encounter Summary ---
Author Organization [facility] Address [address] [place] [address] Care Team Providers Care Tool Rental Technician Name Role Phone Dudley House MD Primary Care Provider [phone] Albert Figueroa MD Primary Care Provider [phone] Frankie Gaspar MD Unavailable Unavailable Augusta De La Cruz DPM Unavailable [phone] Kyle Morris MD Unavailable Kayode Brambila OD Unavailable [phone] Ned Birmingham MD Unavailable [phone] Mike Villareal DO Unavailable [phone] Sony Perez MD Unavailable [phone] Matt Grover MD Unavailable [phone] Albert Brownlee MD Unavailable [phone] GinetteHumberto bowser MD Primary Care Provider [phone] James Jasso DO Unavailable [phone] Rajat Urban MD Unavailable Unavailable Thuy CotoC Unavailable [phone] James Stevens DPM Unavailable [phone] Teresa Ferrer PA-C Unavailable Encounter Details Date Type Department Care Team (Late st Contact Info) Description 10/27/2005 MyC Medical Advice [facility] [place] Medical Records [address] [phone] Elvin Allred Social History Tobacco Use Types Packs/Day Years Used Date Smoking Tobacco: Never Alcohol Use Standard Drinks/Week Comments No 0 (1 standard drink = 0.6 oz pur e alcohol) Comments No Sex and Gender Information Value Date Recorded Sex Assigned at Not on file 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 Gender Identity Not on file Sexual Orientation Straight 06/26/2018 6: 53 PM CDT documented as of this encounter Miscellaneous Notes * Telephone Encounter - Frankie Gaspar - 10/28/2005 8:58 AM CDT Coming in at 16:45 today documented in this encounter Plan of Treatment Not on file documented as of this encounter Visit Diagnoses Not on filedocumented in this encounter Care Teams Tool Rental Technician Relationship Specialty Start Date End Date Dudley House MD [address] [place] [address] PCP - General 03/23/07 09/02/10 Albert Figueroa MD [facility] [address] [facility] [address] [place] [address] PCP - General 10/30/03 03/22/07 Frankie Gaspar MD PCP - Obstetrics/Gynecology 03/03/00 07/23/11 Augusta De La Cruz DPM PCP - Podiatry 09/26/05 Kyle Morris MD PCP - Ophthalmology 02/17/06 Kayode Brambila, OD [facility] [place] [address] [place] [address] PCP - Ophthalmology 03/03/00 02/16/06 Ned Birmingham MD XXX [place] [address] PCP - Surgery 10/25/08 09/27/09 Mike Villareal DO [facility] [address] [facility] [place], [place] [address] PCP - Surgery 08/03/06 10/24/08 Sony Perez MD [facility] [address] [facility] [place] [address] PCP - ENT 03/19/07 12/08/17 Matt Grover MD [address] [place] [address] PCP - Urology 12/22/08 Albert Brownlee MD [address] [place] [address] PCP - Surgery Surgery 09/28/09 11/02/12 Humberto Peng MD [facility] [place] [address] [place] [address] PCP - General Family Practice 09/03/10 James Jasso DO [facility] [place] [address] [place] [address] PCP - Obstetrics/Gynecology automotive parts manager 07/24/11 Rajat Urban MD [facility] [place] [address] [facility] [address] [place] [address] PCP - Orthopaedics Orthopedics 12/02/11 12/08/17 Thuy Coto PA-C [facility] [place] [address] [facility] [address] [place] [address] PCP - Surgery Physician Head Kiln Operator 11/03/12 James Stevens DPM [address] [facility] [address] [place], [place] [address] Assigned Musculoskeletal Provider 04/25/20 10/25/21 Teresa Ferrer PA-C [address] [address] Physician Head Kiln Operator Urology 02/20/23 documented as of this encounter
--- OUTSIDE RECORDS SUMMARY | 2024-01-08 14:39 | XMS_ITS | Encounter Summary ---
Author Organization [facility] Address [address] [place] [address] Care Team Providers Care Instructor Painting Name Role Phone Dudley House MD Primary Care Provider Albert Figueroa MD Primary Care Provider Frankie Gaspar MD Unavailable Unavailable Augusta De La Cruz DPM Unavailable Frw, None Unavailable Unavailable Kyle Morris MD Unavailable Kayode Brambila OD Unavailable Ned Birmingham MD Unavailable Mike Villareal DO Unavailable [phone] Sony Perez MD Unavailable [phone] Matt Grover MD Unavailable Albert Brownlee MD Unavailable GinetteHumberto bowser MD Primary Care Provider [phone] James Jasso DO Unavailable Rajat Urban MD Unavailable Unavailable Thuy CotoC Unavailable James Stevens DPM Unavailable [phone] Teresa Ferrer PA-C Unavailable Encounter Details Date Type Department Care Team (Late st Contact Info) Description 05/18/2005 MyC Medical Advice [facility] in [place] Medical Records [address] [place] [id number] Elvin Allred Social History Tobacco Use Types Packs/Day Years Used Date Smoking Tobacco: Never Alcohol Use Standard Drinks/Week Comments No 0 (1 standard drink = 0.6 oz pur e alcohol) Comments No Sex and Gender Information Value Date Recorded Sex Assigned at Not on file 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 Gender Identity Not on file Sexual Orientation Straight 06/26/2018 6: 53 PM CDT documented as of this encounter Plan of Treatment Not on file documented as of this encounter Visit Diagnoses Not on filedocumented in this encounter Care Teams Instructor Painting Relationship Specialty Start Date End Date Dudley House MD [address] [place] [address] PCP - General 03/23/07 09/02/10 Albert Figueroa MD [facility] [place] [address] [place] [address] PCP - General 10/30/03 03/22/07 Frankie Gaspar MD PCP - Obstetrics/Gynecology 03/03/00 07/23/11 Augusta De La Cruz DPM PCP - Podiatry 09/26/05 Frw, None PCP - Podiatry 09/26/04 09/25/05 Kyle Morris MD PCP - Ophthalmology 02/17/06 Kayode Brambila OD [facility] [place] [address] [place] [address] PCP - Ophthalmology 03/03/00 02/16/06 Ned Birmingham MD XXX NO [place] [address] PCP - Surgery 10/25/08 09/27/09 Mike Villareal DO [facility] [address] [place] [address] PCP - Surgery 08/03/06 10/24/08 Sony Perez MD [facility] [address] [place] [address] PCP - ENT 03/19/07 12/08/17 Matt Grover MD [address] [place] [address] PCP - Urology 12/22/08 Albert Brownlee MD [address] [place] [address] PCP - Surgery Surgery 09/28/09 11/02/12 Humberto Peng MD [facility] [place] [address] [place] [address] PCP - General Family Practice 09/03/10 James Jasso DO [facility] [place] [address] [place] [address] PCP - Obstetrics/Gynecology band teacher 07/24/11 Rajat Urban MD [facility] [address] [place] [address] PCP - Orthopaedics Orthopedics 12/02/11 12/08/17 Thuy Coto PA-C [facility] [place] [address] [place] [address] PCP - Surgery Physician Slag Wheeler 11/03/12 James Stevens DPM [address] [facility] [address] [place], [place] [address] Assigned Musculoskeletal Provider 04/25/20 10/25/21 Teresa Ferrer PA-C [address] [place] [address] Physician Slag Wheeler Urology 02/20/23 documented as of this encounter
--- OUTSIDE RECORDS SUMMARY | 2024-01-08 14:39 | XMS_ITS | Encounter Summary ---
Author Organization [facility] Address [address] [place] [address] Care Team Providers Care Superintendent Nonselling Name Role Phone Dudley House MD Primary Care Provider Albert Figueroa MD Primary Care Provider [phone] Frankie Gaspar MD Unavailable Unavailable Augusta De La Cruz DPM Unavailable [phone] Kyle Morris MD Unavailable Kayode Brambila OD Unavailable [phone] Ned Birmingham MD Unavailable [phone] Mike Villareal DO Unavailable [phone] Sony Perez MD Unavailable [phone] Matt Grover MD Unavailable [phone] Albert Brownlee MD Unavailable [phone] GinetteHumberto bowser MD Primary Care Provider [phone] James Jasso DO Unavailable [phone] Rajat Urban MD Unavailable Unavailable Thuy CotoC Unavailable [phone] James Stevens DPM Unavailable [phone] Teresa Ferrer PA-C Unavailable Encounter Details Date Type Department Care Team (Late st Contact Info) Description 11/06/2005 MyC Medical Advice [facility] in [place] Medical Records [address] [place] [phone] Elvin Allred Social History Tobacco Use Types Packs/Day Years Used Date Smoking Tobacco: Never Alcohol Use Standard Drinks/Week Comments No 0 (1 standard drink = 0.6 oz pur e alcohol) Comments No Sex and Gender Information Value Date Recorded Sex Assigned at Not on file 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 Gender Identity Not on file Sexual Orientation Straight 06/26/2018 6: 53 PM CDT documented as of this encounter Plan of Treatment Not on file documented as of this encounter Visit Diagnoses Not on filedocumented in this encounter Care Teams Superintendent Nonselling Relationship Specialty Start Date End Date Dudley House MD [address] [place] [address] PCP - General 03/23/07 09/02/10 Albert Figueroa MD [facility] [place] [address] [place] [address] PCP - General 10/30/03 03/22/07 Frankie Gaspar MD PCP - Obstetrics/Gynecology 03/03/00 07/23/11 Augusta De La Cruz DPM PCP - Podiatry 09/26/05 Kyle Morris MD PCP - Ophthalmology 02/17/06 Kayode Brambila OD [facility] [place] [address] [place] [address] PCP - Ophthalmology 03/03/00 02/16/06 Ned Birmingham MD XXX [place] [address] PCP - Surgery 10/25/08 09/27/09 Mike Villareal DO [facility] [address] [place] [address] PCP - Surgery 08/03/06 10/24/08 Sony Perez MD [facility] [address] [place] [address] PCP - ENT 03/19/07 12/08/17 Matt Grover MD [address] [place] [address] [address] [place], [place] [address] PCP - Urology 12/22/08 Albert Brownlee MD [address] [place] [address] PCP - Surgery Surgery 09/28/09 11/02/12 Humberto Peng MD [facility] [place] [address] [facility] [place] [address] PCP - General Family Practice 09/03/10 James Jasso DO [facility] [place] [address] [place] [address] PCP - Obstetrics/Gynecology director of cardiac rehabilitation 07/24/11 Rajat Urban MD [facility] [place] [address] [place] [address] PCP - Orthopaedics Orthopedics 12/02/11 12/08/17 Thuy Coto PA-C [facility] [place] [address] [place] [address] PCP - Surgery Physician Newspaper Carriers Supervisor 11/03/12 James Stevens DPM [address] [facility] [address] [place], [place] [address] Assigned Musculoskeletal Provider 04/25/20 10/25/21 Teresa Ferrer PA-C [address] [place] [address] Physician Newspaper Carriers Supervisor Urology 02/20/23 documented as of this encounter
--- OUTSIDE RECORDS SUMMARY | 2024-01-08 14:39 | XMS_ITS | Encounter Summary ---
Author Organization [facility] Address [address] [place] [address] Care Team Providers Care Producer Director Name Role Phone Dudley House MD Primary Care Provider [phone] Albert Figueroa MD Primary Care Provider Frankie Gaspar MD Unavailable Unavailable Augusta De La Cruz DPM Unavailable [phone] Frw, None Unavailable Unavailable Kyle Morris MD Unavailable Kayode Brambila OD Unavailable [phone] Ned Birmingham MD Unavailable Mike Villareal DO Unavailable [phone] Sony Perez MD Unavailable [phone] Matt Grover MD Unavailable Albert Brownlee MD Unavailable GinetteHumberto bowser MD Primary Care Provider [phone] James Jasso DO Unavailable [phone] Rajat Urban MD Unavailable Unavailable Thuy Coto PARickyC Unavailable [phone] James Stevens DPM Unavailable [phone] Teresa FerrerC Unavailable Reason for Visit * Reason Onset Date Comments MyChart Communication 07/28/2005 question a bout medical leave Encounter Details Date Type Department Care Team (Late st Contact Info) Description 07/28/2005 MyC Medical Advice [facility] in [place] Medical Records [address] [place] [address] KishantElvin MyChart Communication (question about medi... 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 Gender Identity Not on file Sexual Orientation Straight 06/26/2018 6: 53 PM CDT documented as of this encounter Plan of Treatment Not on file documented as of this encounter Visit Diagnoses Not on filedocumented in this encounter Care Teams Producer Director Relationship Specialty Start Date End Date Dudley House MD [address] [place] [address] PCP - General 03/23/07 09/02/10 Albert Figueroa MD [facility] [address] [facility] [address] [place] [address] PCP - General 10/30/03 03/22/07 Frankie Gaspar MD PCP - Obstetrics/Gynecology 03/03/00 07/23/11 Augusta De La Cruz DPM PCP - Podiatry 09/26/05 Frw, None PCP - Podiatry 09/26/04 09/25/05 Kyle Morris MD PCP - Ophthalmology 02/17/06 Kayode Brambila OD [facility] [place] [address] [place] [address] PCP - Ophthalmology 03/03/00 02/16/06 Ned Birmingham MD XXX NO [place] [address] PCP - Surgery 10/25/08 09/27/09 Mike Villareal DO [facility] [address] [place], [place] [address] PCP - Surgery 08/03/06 10/24/08 Sony Perez MD [facility] [address] [place] [address] PCP - ENT 03/19/07 12/08/17 Matt Grover MD [address] [facility] [address] [place] [address] PCP - Urology 12/22/08 Albert Brownlee MD [address] [place] [address] PCP - Surgery Surgery 09/28/09 11/02/12 Humberto Peng MD [facility] [place] [address] [place] [address] PCP - General Family Practice 09/03/10 James Jasso DO [facility] [place] [address] [place] [address] PCP - Obstetrics/Gynecology 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 and plastics 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
--- OUTSIDE RECORDS SUMMARY | 2024-01-08 14:39 | XMS_ITS | Encounter Summary ---
Author Organization [facility] Address [address] [place] [address] Care Team Providers Care Structural Analyst Name Role Phone Dudley House MD Primary Care Provider Albert Figueroa MD Primary Care Provider [phone] Frankie Gaspar MD Unavailable Unavailable Augusta De La Cruz DPM Unavailable [phone] Kyle Morris MD Unavailable [phone] Kayode Brambila OD Unavailable [phone] Ned Birmingham MD Unavailable Mike Villareal DO Unavailable [phone] Sony Perez MD Unavailable Matt Grover MD Unavailable [phone] Albert Brownlee MD Unavailable [phone] GinetteHumberto bowser MD Primary Care Provider [phone] James Jasso DO Unavailable [phone] Rajat Urban MD Unavailable Unavailable Thuy CotoC Unavailable [phone] James Stevens DPM Unavailable [phone] Teresa Ferrer PA-C Unavailable Encounter Details Date Type Department Care Team (Late st Contact Info) Description 12/10/2005 MyC Medical Advice [facility] [place] Medical Records [address] [place] [address] Elvin Allred Social History Tobacco Use Types Packs/Day Years Used Date Smoking Tobacco: Never Alcohol Use Standard Drinks/Week Comments No 0 (1 standard drink = 0.6 oz pur e alcohol) Comments No Sex and Gender Information Value Date Recorded Sex Assigned at Not on file 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 Gender Identity Not on file Sexual Orientation Straight 06/26/2018 6: 53 PM CDT documented as of this encounter Plan of Treatment Not on file documented as of this encounter Visit Diagnoses Not on filedocumented in this encounter Care Teams Structural Analyst Relationship Specialty Start Date End Date Dudley House MD [address] [place] [address] PCP - General 03/23/07 09/02/10 Albert Figueroa MD [facility] [place] [address] [place] [address] PCP - General 10/30/03 03/22/07 Frankie Gaspar MD PCP - Obstetrics/Gynecology 03/03/00 07/23/11 Augusta De La Cruz DPM PCP - Podiatry 09/26/05 Kyle Morris MD PCP - Ophthalmology 02/17/06 Kayode Brambila OD [facility] [place] [address] [place] [address] PCP - Ophthalmology 03/03/00 02/16/06 Ned Birmingham MD XXX [place] [address] PCP - Surgery 10/25/08 09/27/09 Mike Villareal DO [facility] [address] [place] [address] PCP - Surgery 08/03/06 10/24/08 Sony Perez MD [facility] [address] [place] [address] PCP - ENT 03/19/07 12/08/17 Matt Grover MD [address] [place] [address] [address] [place], [place] [address] PCP - Urology 12/22/08 Albert Brownlee MD [address] [place] [address] PCP - Surgery Surgery 09/28/09 11/02/12 Humberto Peng MD [facility] [place] [address] [place] [address] PCP - General Family Practice 09/03/10 James Jasso DO [facility] [place] [address] [place] [address] PCP - Obstetrics/Gynecology pest control 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 07/24/11 Rajat Urban MD [facility] [place] [address] [place] [address] PCP - Orthopaedics Orthopedics 12/02/11 12/08/17 Thuy Coto PA-C [facility] [place] [address] [place] [address] PCP - Surgery Physician Title Vehicle Service Attendant 11/03/12 James Stevens DPM [address] [facility] [address] [place], [place] [address] Assigned Musculoskeletal Provider 04/25/20 10/25/21 Teresa Ferrer PA-C [address] [place] [address] Physician Title Vehicle Service Attendant Urology 02/20/23 documented as of this encounter
--- OUTSIDE RECORDS SUMMARY | 2024-01-08 14:39 | XMS_ITS | Encounter Summary ---
Author Organization [facility] Address [address] [place] [address] Care Team Providers Care Music Video Producer Name Role Phone Dudley House MD Primary Care Provider [phone] Albert Figueroa MD Primary Care Provider [phone] Frankie Gaspar MD Unavailable Unavailable Augusta De La Cruz DPM Unavailable [phone] Kyle Morris MD Unavailable Kayode Brambila OD Unavailable [phone] Ned Birmingham MD Unavailable Mike Villareal DO Unavailable [phone] Sony Perez MD Unavailable [phone] Matt Grover MD Unavailable [phone] Albert Brownlee MD Unavailable [phone] GinetteHumberto bowser MD Primary Care Provider [phone] James Jasso DO Unavailable [phone] Rajat Urban MD Unavailable Unavailable Thuy CotoC Unavailable [phone] James Stevens DPM Unavailable [phone] Teresa Ferrer PA-C Unavailable Encounter Details Date Type Department Care Team (Late st Contact Info) Description 01/19/2006 [facility] [place] Inpatient Dept [address] [place] [address] Frw, Inpatient Provider Social History Tobacco Use Types Packs/Day Years Used Date Smoking Tobacco: Never Smokeless Tobacco: Never Alcohol Use Standard Drinks/Week Comments No 0 (1 standard drink = 0.6 oz pur e alcohol) Comments No Sex and Gender Information Value Date Recorded Sex Assigned at Not on file 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 An WILSON PCIOL model GU6725 with a power of 25.0 diopters was [...] diopters of corneal astigmatism. Analia Evans/zaida cc: RESSIVE CARE MANAGER documented in this encounter Plan of Treatment Not on file documented as of this encounter Visit Diagnoses Not on filedocumented in this encounter Care Teams Music Video Producer Relationship Specialty Start Date End Date Dudley House MD [address] [place] [address] PCP - General 03/23/07 09/02/10 Albert Figueroa MD [address] [address] PCP - General 10/30/03 03/22/07 Frankie Gaspar MD PCP - Obstetrics/Gynecology 03/03/00 07/23/11 Augusta De La Cruz DPM PCP - Podiatry 09/26/05 Kyle Morris MD PCP - Ophthalmology 02/17/06 Kayode Brambila OD [facility] [place] [address] [place] [address] PCP - Ophthalmology 03/03/00 02/16/06 Ned Birmingham MD XXX [place] [address] PCP - Surgery 10/25/08 09/27/09 Mike Villareal DO [facility] [address] [place] [address] PCP - Surgery 08/03/06 10/24/08 Sony Perez MD [facility] [address] [place] [address] PCP - ENT 03/19/07 12/08/17 Matt Grover MD [address] [place] [address] [address] [place] [address] PCP - Urology 12/22/08 Albert Brownlee MD [address] [place] [address] PCP - Surgery Surgery 09/28/09 11/02/12 Humberto Peng MD [facility] [place] [address] [place] [address] PCP - General Family Practice 09/03/10 James Jasso DO [facility] [place] [address] [place] [address] PCP - Obstetrics/Gynecology christmas tree grower 07/24/11 Rajat Urban MD [facility] [place] [address] [place] [address] PCP - Orthopaedics Orthopedics 12/02/11 12/08/17 Thuy Coto PA-C [facility] [place] [address] [place] [address] PCP - Surgery Physician Neurosurgical Physician Assistant 11/03/12 James Stevens DPM [address] [facility] [address] [place] [address] Assigned Musculoskeletal Provider 04/25/20 10/25/21 Teresa Ferrer PA-C [address] [place] [address] Physician Neurosurgical Physician Assistant Urology 02/20/23 documented as of this encounter
--- OUTSIDE RECORDS SUMMARY | 2024-01-08 14:39 | XMS_ITS | Encounter Summary ---
Author Organization [place] Address [address] [place] [address] Care Team Providers Care Rn Intern Name Role Phone Dudley House MD Primary Care Provider Albert Figueroa MD Primary Care Provider Frankie Gaspar MD Unavailable Unavailable Augusta De La Cruz DPM Unavailable Frw, None Unavailable Unavailable Kyle Morris MD Unavailable Kayode Brambila OD Unavailable [phone] Ned Birmingham MD Unavailable [phone] Mike Villareal DO Unavailable [phone] Sony Perez MD Unavailable [phone] Matt Grover MD Unavailable Albert Brownlee MD Unavailable GinetteHumberto bowser MD Primary Care Provider [phone] James Jasso DO Unavailable [phone] Rajat Urban MD Unavailable Unavailable Thuy Coto PARickyC Unavailable [phone] James Stevens DPM Unavailable [phone] Teresa FerrerC Unavailable [phone] Reason for Visit * Reason Onset Date Comments Call Back 08/06/2005 post-op question s Encounter Details Date Type Department Care Team (Late st Contact Info) Description 08/06/2005 Telephone [facility] in [place] 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 documented in this encounter Plan of Treatment Not on file documented as of this encounter Visit Diagnoses Not on filedocumented in this encounter Care Teams Rn Intern Relationship Specialty Start Date End Date Dudley House MD [address] [place] [id number] PCP - General 03/23/07 09/02/10 Albert Figueroa MD [facility] [place] [address] [place] [address] PCP - General 10/30/03 03/22/07 Frankie Gaspar MD PCP - Obstetrics/Gynecology 03/03/00 07/23/11 Augusta De La Cruz DPM PCP - Podiatry 09/26/05 Frw, None PCP - Podiatry 09/26/04 09/25/05 Kyle Morris MD PCP - Ophthalmology 02/17/06 Kayode Brambila OD [facility] [address] [place], [place] [address] PCP - Ophthalmology 03/03/00 02/16/06 Ned Birmingham MD [place] [address] PCP - Surgery 10/25/08 09/27/09 Mkie Villareal DO [facility] [address] [place], [place] [address] PCP - Surgery 08/03/06 10/24/08 Sony Perez MD [facility] [address] [place] [address] PCP - ENT 03/19/07 12/08/17 Matt Grover MD [address] [facility] [address] [place] [address] PCP - Urology 12/22/08 Albert Brownlee MD [address] [place] [address] PCP - Surgery Surgery 09/28/09 11/02/12 Humberto Peng MD [facility] [place] [address] [place] [address] PCP - General Family Practice 09/03/10 James Jasso DO [facility] [place] [address] [place] [address] PCP - Obstetrics/Gynecology bootmaker hand 07/24/11 Rajat Urban MD [facility] [place] [address] [place] [address] PCP - Orthopaedics Orthopedics 12/02/11 12/08/17 Thuy Coto PA-C [facility] [place] [address] [place] [address] PCP - Surgery Physician Junior Sales Assistant 11/03/12 Jmaes Stevens DPM [address] [facility] [address] [place] [address] Assigned Musculoskeletal Provider 04/25/20 10/25/21 Teresa Ferrer PA-C [address] [address] Physician Junior Sales Assistant Urology 02/20/23 documented as of this encounter
--- OUTSIDE RECORDS SUMMARY | 2024-01-08 14:39 | XMS_ITS | Encounter Summary ---
Author Organization [facility] Address [address] [place] [address] Care Team Providers Care Complaint Supervisor Name Role Phone Dudley House MD Primary Care Provider [phone] Albert Figueroa MD Primary Care Provider [phone] Frankie Gaspar MD Unavailable Unavailable Augusta De La Cruz DPM Unavailable [phone] Kyle Mroris MD Unavailable [phone] Kayode Brambila OD Unavailable [phone] Ned Birmingham MD Unavailable Mike Villareal DO Unavailable [phone] Sony Perez MD Unavailable Matt Grover MD Unavailable [phone] Albert Brownlee MD Unavailable [phone] GinetteHumberto bowser MD Primary Care Provider [phone] James Jasso DO Unavailable [phone] Rajat Urban MD Unavailable Unavailable Thuy CotoC Unavailable [phone] James Stevens DPM Unavailable [phone] Teresa Ferrer PA-C Unavailable Encounter Details Date Type Department Care Team (Late st Contact Info) Description 12/10/2005 MyC Medical Advice [facility] in [place] Medical Records [address] [place] [phone] Elvin Allred Social History Tobacco Use Types Packs/Day Years Used Date Smoking Tobacco: Never Alcohol Use Standard Drinks/Week Comments No 0 (1 standard drink = 0.6 oz pur e alcohol) Comments No Sex and Gender Information Value Date Recorded Sex Assigned at Not on file 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 Gender Identity Not on file Sexual Orientation Straight 06/26/2018 6: 53 PM CDT documented as of this encounter Miscellaneous Notes * Telephone Encounter - Bud Adriane - 12/10/2005 12:[address] Figueroa could you assist with this pt question thanks very much ENT MONITOR documented in this encounter Plan of Treatment Not on file documented as of this encounter Visit Diagnoses Not on filedocumented in this encounter Care Teams Complaint Supervisor Relationship Specialty Start Date End Date Dudley House MD [address] [place] [address] PCP - General 03/23/07 09/02/10 Albert Figueroa MD [facility] [address] [facility] [address] [place] [address] PCP - General 10/30/03 03/22/07 Frankie Gaspar MD PCP - Obstetrics/Gynecology 03/03/00 07/23/11 Augusta De La Cruz DPM PCP - Podiatry 09/26/05 Kyle Morris MD PCP - Ophthalmology 02/17/06 Kayode Brambila OD [facility] [place] [address] [place] [address] PCP - Ophthalmology 03/03/00 02/16/06 Ned Birmingham MD XXX [place] [address] PCP - Surgery 10/25/08 09/27/09 Mike Villareal DO [facility] [address] [facility] [place] [address] PCP - Surgery 08/03/06 10/24/08 Sony Perez MD [facility] [address] [facility] [place] [address] PCP - ENT 03/19/07 12/08/17 Matt Grover MD [address] [place] [address] PCP - Urology 12/22/08 Albert Brownlee MD [address] [place] [address] PCP - Surgery Surgery 09/28/09 11/02/12 Humberto Peng MD [facility] [place] [address] [place] [address] PCP - General Family Practice 09/03/10 James Jasso DO [facility] [place] [address] [place] [address] PCP - Obstetrics/Gynecology private branch exchange installer 07/24/11 Rajat Urban MD [facility] [address] [facility] [address] [place] [address] PCP - Orthopaedics Orthopedics 12/02/11 12/08/17 Thuy Coto PA-C [facility] 701 [facility] [address] [place] [address] PCP - Surgery Physician Band Tumbler 11/03/12 James Stevens DPM [address] [facility] [address] [place] [address] Assigned Musculoskeletal Provider 04/25/20 10/25/21 Teresa Ferrer PA-C [address] [address] Physician Band Tumbler Urology 02/20/23 documented as of this encounter
--- OUTSIDE RECORDS SUMMARY | 2024-01-08 14:39 | XMS_ITS | Encounter Summary ---
Author Organization [facility] Address [address] [place] [address] Care Team Providers Care Hydrodynamicist Name Role Phone Dudley House MD Primary Care Provider Albert Figueroa MD Primary Care Provider [phone] Frankie Gaspar MD Unavailable Unavailable Augusta De La Cruz DPM Unavailable [phone] Kyle Morris MD Unavailable [phone] Kayode Brambila OD Unavailable [phone] Ned Birmingham MD Unavailable [phone] Mike Villareal DO Unavailable [phone] Sony Perez MD Unavailable [phone] Matt Grover MD Unavailable [phone] Albert Brownlee MD Unavailable [phone] GinetteHumberto bowser MD Primary Care Provider [phone] James Jasso DO Unavailable [phone] Rajat Urban MD Unavailable Unavailable Thuy Coto PARickyC Unavailable [phone] James Stevens DPM Unavailable [phone] Teresa FerrerC Unavailable Reason for Visit * Reason Onset Date Comments Call Back 12/10/2005 return My chart ?? 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 Gender Identity Not on file Sexual Orientation Straight 06/26/2018 6: 53 PM CDT documented as of this encounter Miscellaneous Notes * Telephone Encounter - Adriane Farrell - 12/10/2005 12:[address] Gaspar pt has question and is getting back to you about use of Detrol LA pt is using My CHart NESS DEVELOPMENT DIRECTOR documented in this encounter Plan of Treatment Not on file documented as of this encounter Visit Diagnoses Not on filedocumented in this encounter Care Teams Hydrodynamicist Relationship Specialty Start Date End Date Dudley House MD [address] [place] [address] PCP - General 03/23/07 09/02/10 Albert Figueroa MD [facility] [address] [facility] [address] [place] [address] PCP - General 10/30/03 03/22/07 Frankie Gaspar MD PCP - Obstetrics/Gynecology 03/03/00 07/23/11 Augusta De La Cruz DPM PCP - Podiatry 09/26/05 Kyle Morris MD PCP - Ophthalmology 02/17/06 Kayode Brambila OD [facility] [place] [address] [place] [address] PCP - Ophthalmology 03/03/00 02/16/06 Ned Birmingham MD XXX NO [place] [address] PCP - Surgery 10/25/08 09/27/09 Mike Villareal DO [facility] [address] [place] [address] PCP - Surgery 08/03/06 10/24/08 Sony Perez MD [facility] [address] [facility] [place] [address] PCP - ENT 03/19/07 12/08/17 Matt Grover MD [address] [facility] [address] [place] [address] PCP - Urology 12/22/08 Albert Brownlee MD [address] [place] [address] PCP - Surgery Surgery 09/28/09 11/02/12 Humberto Peng MD [facility] [place] [address] [place] [address] PCP - General Family Practice 09/03/10 James Jasso DO [facility] [place] [address] [place] [address] PCP - Obstetrics/Gynecology rice field worker 07/24/11 Rajat Urban MD [facility] [place] [address] [place] [address] PCP - Orthopaedics Orthopedics 12/02/11 12/08/17 Thuy Coto PA-C [facility] [place] [address] [place] [address] PCP - Surgery Physician Applied Technologist 11/03/12 James Stevens DPM [address] [facility] [address] [place], [place] [address] Assigned Musculoskeletal Provider 04/25/20 10/25/21 Teresa Ferrer PA-C [address] [facility] [address] [place] [address] Physician Applied Technologist Urology 02/20/23 documented as of this encounter
--- OUTSIDE RECORDS SUMMARY | 2024-01-08 14:39 | XMS_ITS | Encounter Summary ---
Author Organization [place] Address [address] [place] [address] Care Team Providers Care Broke Beater Machine Operator Name Role Phone Dudley House MD Primary Care Provider [phone] Albert Figueroa MD Primary Care Provider [phone] Frankie Gaspar MD Unavailable Unavailable Augusta De La Cruz DPM Unavailable [phone] Kyle Morris MD Unavailable [phone] Ned Birmingham MD Unavailable Mike Villareal DO Unavailable [phone] Sony Perez MD Unavailable [phone] Matt Grover MD Unavailable [phone] Albert Brownlee MD Unavailable [phone] GinetteHumbreto bowser MD Primary Care Provider [phone] James Jasso DO Unavailable [phone] Rajat Urban MD Unavailable Unavailable Thuy CotoC Unavailable + [phone] James Stevens DPM Unavailable [phone] Teresa Ferrer PA-C Unavailable Encounter Details Date Type Department Care Team (Late st Contact Info) Description 03/16/2006 MyC Medical Advice [facility] in [place] Medical Records [address] [place] [address] Elvin Allred Social History Tobacco Use Types Packs/Day Years Used Date Smoking Tobacco: Never Alcohol Use Standard Drinks/Week Comments No 0 (1 standard drink = 0.6 oz pur e alcohol) Comments No Sex and Gender Information Value Date Recorded Sex Assigned at Not on file 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 [address] [facility] [address] [place] [address] PCP - General 10/30/03 03/22/07 Frankie Gaspar MD PCP - Obstetrics/Gynecology 03/03/00 07/23/11 Augusta De La Cruz DPM PCP - Podiatry 09/26/05 Kyle Morris MD PCP - Ophthalmology 02/17/06 Nde Birmingham MD XXX [place] [address] PCP - Surgery 10/25/08 09/27/09 Mike Villareal DO [facility] [address] [place] [address] PCP - Surgery 08/03/06 10/24/08 Sony Perez MD [facility] [address] [place] [address] PCP - ENT 03/19/07 12/08/17 Matt Grover MD [address] [place] [address] [address] [place] [address] PCP - Urology 12/22/08 Albert Brownlee MD [address] [place] [address] PCP - Surgery Surgery 09/28/09 11/02/[address] [facility] [place] [address] [place] [address] PCP - General Family Practice 09/03/10 James Jasso DO [facility] [place] [address] [place] [address] PCP - Obstetrics/Gynecology mold designer 07/24/[address] [facility] [place] [address] [place] [address] PCP - Orthopaedics Orthopedics 12/02/11 12/08/[address]uy C[address] PA-C [facility] [place] [address] [place] [address] PCP - Surgery Physician Enroute Controller 11/03/12 James Stevens DPM [address] [facility] [address] [place] [address] Assigned Musculoskeletal Provider 04/25/20 10/25/21 Teresa Ferrer PA-C [address] [facility] [address] [place] [address] Physician Enroute Controller Urology 02/20/23 documented as of this encounter
--- OUTSIDE RECORDS SUMMARY | 2024-01-08 14:39 | XMS_ITS | Encounter Summary ---
Author Organization [facility] Address [address] [place] [address] Care Team Providers Care Treating Engineer Name Role Phone Dudley House MD Primary Care Provider [phone] Albert Figueroa MD Primary Care Provider [phone] Frankie Gaspar MD Unavailable Unavailable Augusta De La Cruz DPM Unavailable Frw, None Unavailable Unavailable Kyle Morris MD Unavailable Kayode Brambila OD Unavailable Ned Birmingham MD Unavailable Mike Villarela DO Unavailable [phone] Sony Perez MD Unavailable [phone] Matt Grover MD Unavailable [phone] Albert Brownlee MD Unavailable GinetteHumberto bowser MD Primary Care Provider [phone] James Jasso DO Unavailable Rajat Urban MD Unavailable Unavailable Thuy CotoC Unavailable James Stevens DPM Unavailable [phone] Teresa Ferrer PA-C Unavailable [phone] Encounter Details Date Type Department Care Team (Late st Contact Info) Description 08/05/[address] 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 SURGEON: Frankie Gaspar M.D., Farmer Cash Grain: Juliano Elmore M.D. ANESTHESIA: General anesthesia. ESTIMATED [...] instrument counts were correct. Frankie Gaspar M.D. SNEHA/aleksander cc: documented in this encounter Plan of Treatment Not on file documented as of this encounter Visit Diagnoses Not on filedocumented in this encounter Care Teams Treating Engineer Relationship Specialty Start Date End Date Dudley House MD [address] [place] [address] PCP - General 03/23/07 09/02/10 Albert Figueroa MD [address] [address] PCP - General 10/30/03 03/22/07 Frankie Gaspar MD PCP - Obstetrics/Gynecology 03/03/00 07/23/11 Augusta De La Cruz DPM PCP - Podiatry 09/26/05 Frw, None PCP - Podiatry 09/26/04 09/25/05 Kyle Morris MD PCP - Ophthalmology 02/17/06 Kayode Brambila OD [facility] [place] [address] [place] [address] PCP - Ophthalmology 03/03/00 02/16/06 Ned Birmingham MD XXX [place] [address] PCP - Surgery 10/25/08 09/27/[address] [facility] [address] [place] [address] PCP - Surgery 08/03/06 10/24/[address] [facility] [address] [place] [address] PCP - ENT 03/19/07 12/08/17 Matt Grover MD [address] [place] [address] [address] [place] [address] PCP - Urology 12/22/08 Albert Brownlee MD [address] [place] [address] PCP - Surgery Surgery 09/28/09 11/02/12 Humberto Peng MD [facility] [place] [address] [place] [address] PCP - General Family Practice 09/03/10 James Jasso DO [facility] [place] [address] [place] [address] PCP - Obstetrics/Gynecology yard truck driver 07/24/11 Rajat Urban MD [facility] [place] [address] [place] [address] PCP - Orthopaedics Orthopedics 12/02/11 12/08/17 Thuy Coto PA-C [facility] [place] [address] [place] [address] PCP - Surgery Physician Farmer Cash Grain 11/03/12 James Stevens DPM [address] [facility] [address] [place], [place] [address] Assigned Musculoskeletal Provider 04/25/20 10/25/21 Teresa Ferrer PA-C [address] [place] [address] Physician Farmer Cash Grain Urology 02/20/23 documented as of this encounter
--- OUTSIDE RECORDS SUMMARY | 2024-01-08 14:40 | XMS_ITS | Encounter Summary ---
Author Organization [facility] Address [address] [place] [address] Care Team Providers Care Inside Sales Consultant Name Role Phone Dudley House MD Primary Care Provider Albert Figueroa MD Primary Care Provider Frankie Gaspar MD Unavailable Unavailable Augusta De La Cruz DPM Unavailable Frw, None Unavailable Unavailable Kyle Morris MD Unavailable [phone] Kayode Brambila OD Unavailable Ned Birmingham MD Unavailable Mike Villareal DO Unavailable [phone] Sony Perez MD Unavailable [phone] Matt Grover MD Unavailable [phone] Albert Brownlee MD Unavailable GinetteHumberto bowser MD Primary Care Provider [phone] James Jasso DO Unavailable Rajat Urban MD Unavailable Unavailable Thuy CotoC Unavailable James Stevens DPM Unavailable [phone] Teresa Ferrer PA-C Unavailable Encounter Details Date Type Department Care Team (Late st Contact Info) Description 11/11/[address] 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 Gender Identity Not on file Sexual Orientation Straight 06/26/2018 6: 53 PM CDT documented as of this encounter Plan of Treatment Not on file documented as of this encounter Visit Diagnoses Not on filedocumented in this encounter Care Teams Inside Sales Consultant Relationship Specialty Start Date End Date Dudley House MD [address] [place] [address] PCP - General 03/23/07 09/02/10 Albert Figueroa MD [facility] [place] [address] [place] [address] PCP - General 10/30/03 03/22/07 Frankie Gaspar MD PCP - Obstetrics/Gynecology 03/03/00 07/23/11 Augusta De La Cruz DPM PCP - Podiatry 09/26/05 Frw, None PCP - Podiatry 09/26/04 09/25/05 Kyle Morris MD PCP - Ophthalmology 02/17/06 Kayode Brambila OD [facility] [place] [address] [place] [address] PCP - Ophthalmology 03/03/00 02/16/06 Ned Birmingham MD XXX NO INFO [place] [address] PCP - Surgery 10/25/08 09/27/09 Mike Villareal DO [facility] [address] [place] [address] PCP - Surgery 08/03/06 10/24/08 Sony Perez MD [facility] [address] [place] [address] PCP - ENT 03/19/07 12/08/17 Matt Grover MD [address] [place] [address] PCP - Urology 12/22/08 Albert Brownlee MD [address] [place] [address] PCP - Surgery Surgery 09/28/09 11/02/12 Humberto Peng MD [facility] [place] [address] [place] [address] PCP - General Family Practice 09/03/10 James Jasso DO [facility] [place] [address] [place] [address] PCP - Obstetrics/Gynecology building supervisor 07/24/11 Rajat Urban MD [facility] [address] [place] [address] PCP - Orthopaedics Orthopedics 12/02/11 12/08/17 Thuy Coto PA-C [facility] [place] [address] [place] [address] PCP - Surgery Physician Alum Plant Operator 11/03/12 James Stevens DPM [address] [facility] [address] [place], [place] [address] Assigned Musculoskeletal Provider 04/25/20 10/25/21 Teresa Ferrer PA-C [address] [place] [address] Physician Alum Plant Operator Urology 02/20/23 documented as of this encounter
--- OUTSIDE RECORDS SUMMARY | 2024-01-08 14:40 | XMS_ITS | Encounter Summary ---
Author Organization [place] Address [address] [place] [address] Care Team Providers Care Coordinator Skill Training Program Name Role Phone Dudley House MD Primary Care Provider [phone] Albert Figueroa MD Primary Care Provider Frankie Gaspar MD Unavailable Unavailable Augusta De La Cruz DPM Unavailable Frw, None Unavailable Unavailable Megan Segal DPM Unavailable [phone] Kyle Morris MD Unavailable [phone] Kayode Brambila OD Unavailable Ned Birmingham MD Unavailable [phone] Mike Villareal DO Unavailable [phone] Sony Perez MD Unavailable [phone] Matt Grover MD Unavailable [phone] Albert Brownlee MD Unavailable [phone] GinetteHumberto bowser MD Primary Care Provider [phone] James Jasso DO Unavailable Rajat Urban MD Unavailable Unavailable Thuy Coto PA-C Unavailable [phone] James Stevens DPM Unavailable Teresa Ferrer-C Unavailable Encounter Details Date Type Department Care Team (Late st Contact Info) Description 09/20/2004 MyC Medical Advice [facility] in [place] Medical Records [address] [place] [address] Elvin Allred Social History Tobacco Use Types Packs/Day Years Used Date Smoking Tobacco: Never Alcohol Use Standard Drinks/Week Comments No 0 (1 standard drink = 0.6 oz pur e alcohol) Comments No Sex and Gender Information Value Date Recorded Sex Assigned at Not on file 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 [address] [place] [address] PCP - General 10/30/03 03/22/07 Frankie Gaspar MD PCP - Obstetrics/Gynecology 03/03/00 07/23/11 Augusta De La Cruz DPM PCP - Podiatry 09/26/05 Frw, None PCP - Podiatry 09/26/04 09/25/05 Megan Segal DPM [address] [place] [address] PCP - Podiatry 03/03/00 09/25/04 Kyle Morris MD [address] [place] [address] PCP - Ophthalmology 02/17/06 Kayode Brambila OD [facility] [place] [address] [place] [address] PCP - Ophthalmology 03/03/00 02/16/06 Ned Birmingham MD XXX [place] [address] PCP - Surgery 10/25/08 09/27/09 Mike Villareal DO [facility] [address] [place] [address] PCP - Surgery 08/03/06 10/24/08 Sony Perez MD [facility] [address] [place] [address] PCP - ENT 03/19/07 12/08/17 Matt Grover MD [address] [facility] [address] [place] [address] PCP - Urology 12/22/08 Albert Brownlee MD [address] [place] [address] PCP - Surgery Surgery 09/28/09 11/02/12 Humberto Peng MD [facility] [place] [address] [place] [address] PCP - General Family Practice 09/03/10 James Jasso DO [facility] [place] [address] [place] [address] PCP - Obstetrics/Gynecology explosive ordnance disposal specialist 07/24/11 Rajat Urban MD [facility] [place] [address] [place] [address] PCP - Orthopaedics Orthopedics 12/02/11 12/08/17 Thuy Coto PA-C [facility] [place] [address] [place] [address] PCP - Surgery Physician Sales Architect 11/03/12 James Stevens DPM [address] [facility] [address] [place], [place] [address] Assigned Musculoskeletal Provider 04/25/20 10/25/21 Teresa Ferrer PA-C [address] [place], [place] [address] Physician Sales Architect Urology 02/20/23 documented as of this encounter
--- OUTSIDE RECORDS SUMMARY | 2024-01-08 14:40 | XMS_ITS | Encounter Summary ---
Author Organization [place] Address [address] [place] [address] Care Team Providers Care C D Still Operator Name Role Phone Dudley House MD Primary Care Provider [phone] Albert Figueroa MD Primary Care Provider Frankie Gaspar MD Unavailable Unavailable Augusta De La Cruz DPM Unavailable [phone] Frw, None Unavailable Unavailable Megan Segal DPM Unavailable [phone] Kyle Morris MD Unavailable Kayode Brambila OD Unavailable [phone] Ned Birmingham MD Unavailable [phone] Mike Villareal DO Unavailable [phone] Sony Perez MD Unavailable [phone] Matt Grover MD Unavailable Albert Brownlee MD Unavailable GinetteHumberto bowser MD Primary Care Provider James Jasso DO Unavailable Rajat Urban MD Unavailable Unavailable Thuy Coto PA-C Unavailable [phone] James Stevens DPM Unavailable [phone] Teresa Ferrer-C Unavailable Encounter Details Date Type Department Care Team (Late st Contact Info) Description 09/18/2004 MyC Medical Advice [facility] [place] Medical Records [address] [place] [phone] Elvin Allred Social History Tobacco Use Types Packs/Day Years Used Date Smoking Tobacco: Never Alcohol Use Standard Drinks/Week Comments No 0 (1 standard drink = 0.6 oz pur e alcohol) Comments No Sex and Gender Information Value Date Recorded Sex Assigned at Not on file 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 Gender Identity Not on file Sexual Orientation Straight 06/26/2018 6: 53 PM CDT documented as of this encounter Plan of Treatment Not on file documented as of this encounter Visit Diagnoses Not on filedocumented in this encounter Care Teams C D Still Operator Relationship Specialty Start Date End Date Dudley House MD [address] [place] [phone] PCP - General 03/23/07 09/02/10 Albert Figueroa MD [facility] [address] [place] [address] PCP - General 10/30/03 03/22/07 Frankie Gaspar MD PCP - Obstetrics/Gynecology 03/03/00 07/23/11 Augusta De La Cruz DPM PCP - Podiatry 09/26/05 Frw, None PCP - Podiatry 09/26/04 09/25/05 Megan Segal DPM [address] [place] [address] PCP - Podiatry 03/03/00 09/25/04 Kyle Morris MD [address] [place] [address] PCP - Ophthalmology 02/17/06 Kayode Brambila OD [facility] [place] [address] [place] [address] PCP - Ophthalmology 03/03/00 02/16/06 Ned Birmingham MD [place] [address] PCP - Surgery 10/25/08 09/27/09 Mike Villareal DO [facility] [address] [place] [address] PCP - Surgery 08/03/06 10/24/08 Sony Perez MD [facility] [address] [place] [address] PCP - ENT 03/19/07 12/08/17 Matt Grover MD [address] [facility] [address] PCP - Urology 12/22/08 Albert Brownlee MD [address] [place] [address] PCP - Surgery Surgery 09/28/09 11/02/12 Humberto Peng MD [facility] [place] [address] [place] [address] PCP - General Family Practice 09/03/10 James Jasso DO [facility] [place] [address] [place] [address] PCP - Obstetrics/Gynecology employment educational coord 07/24/11 Rajat Urban MD [facility] [place] [address] [place] [address] PCP - Orthopaedics Orthopedics 12/02/11 12/08/17 Thuy Coto PA-C [facility] [place] [address] [place] [address] PCP - Surgery Physician Military Technician 11/03/12 James Stevens DPM [address] [facility] [address] [place], [place] [address] Assigned Musculoskeletal Provider 04/25/20 10/25/21 Teresa Ferrer PA-C [address] [place], [place] [address] Physician Military Technician Urology 02/20/23 documented as of this encounter
--- OUTSIDE RECORDS SUMMARY | 2024-01-08 14:40 | XMS_ITS | Encounter Summary ---
Author Organization [place] Address [address] [place] [address] Care Team Providers Care Plastic Parts Fabricator Name Role Phone Dudley House MD Primary Care Provider Albert Figueroa MD Primary Care Provider [phone] Frankie Gaspar MD Unavailable Unavailable Augusta De La Cruz DPM Unavailable [phone] Frw, None Unavailable Unavailable Kyle Morris MD Unavailable Kayode Brambila OD Unavailable [phone] Ned Birmingham MD Unavailable [phone] Mike Villareal DO Unavailable [phone] Sony Perez MD Unavailable [phone] Matt Grover MD Unavailable Albert Brownlee MD Unavailable [phone] GinetteHumberto bowser MD Primary Care Provider [phone] James Jasso DO Unavailable Rajat Urban MD Unavailable Unavailable Thuy CotoC Unavailable James Stevens DPM Unavailable [phone] Teresa Ferrer PA-C Unavailable Encounter Details Date Type Department Care Team (Late st Contact Info) Description 03/18/2005 MyC Refill [facility] [place] Internal Medicine [address] [place] [phone] Albert Figueroa MD [address] [address] Social History Tobacco Use Types Packs/Day Years Used Date Smoking Tobacco: Never Alcohol Use Standard Drinks/Week Comments No 0 (1 standard drink = 0.6 oz pur e alcohol) Comments No Sex and Gender Information Value Date Recorded Sex Assigned at Not on file 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 Gender Identity Not on file Sexual Orientation Straight 06/26/2018 6: 53 PM CDT documented as of this encounter Plan of Treatment Not on file documented as of this encounter Visit Diagnoses Not on filedocumented in this encounter Care Teams Plastic Parts Fabricator Relationship Specialty Start Date End Date Dudley House MD [address] [place] [address] PCP - General 03/23/07 09/02/10 Albert Figueroa MD [address] [address] PCP - General 10/30/03 03/22/07 Frankie Gaspar MD PCP - Obstetrics/Gynecology 03/03/00 07/23/11 Augusta De La Cruz DPM PCP - Podiatry 09/26/05 Frw, None PCP - Podiatry 09/26/04 09/25/05 Kyle Morris MD PCP - Ophthalmology 02/17/06 Kayode Brambila OD [facility] [place] [address] [place] [address] PCP - Ophthalmology 03/03/00 02/16/06 Ned Birmingham MD XXX [place] [address] PCP - Surgery 10/25/08 09/27/09 Mike Villareal DO [facility] [address] [place], [place] [address] PCP - Surgery 08/03/06 10/24/08 Sony Perez MD [facility] [address] [place] [address] PCP - ENT 03/19/07 12/08/17 Matt Grover MD [address] [place] [address] PCP - Urology 12/22/08 Albert Brownlee MD [address] [place] [address] PCP - Surgery Surgery 09/28/09 11/02/12 Humberto Peng MD [facility] [place] [address] [place] [address] PCP - General Family Practice 09/03/10 James Jasso DO [facility] [place] [address] [place] [address] PCP - Obstetrics/Gynecology tractor crane engineer 07/24/11 Rajat Urban MD [facility] [place] [address] [facility] [address] [place] [address] PCP - Orthopaedics Orthopedics 12/02/11 12/08/17 Thuy Coto PA-C [facility] [place] [address] [facility] [address] [place] [address] PCP - Surgery Physician Congregational Care Pastor 11/03/12 [place] [address] [facility] [address] [place], [place] [address] Assigned Musculoskeletal Provider 04/25/20 10/25/21 Teresa Ferrer PA-C [address] [address] Physician Congregational Care Pastor Urology 02/20/23 documented as of this encounter
--- OUTSIDE RECORDS SUMMARY | 2024-01-08 14:40 | XMS_ITS | Encounter Summary ---
Author Organization [place] Address [address] [place] [address] Care Team Providers Care Commercial Finance Analyst Name Role Phone Dudley House MD Primary Care Provider Albert Figueroa MD Primary Care Provider Frankie Gaspar MD Unavailable Unavailable Augusta De La Cruz DPM Unavailable Frw, None Unavailable Unavailable Kyle Morris MD Unavailable Kayode Brambila OD Unavailable Ned Birmingham MD Unavailable Mike Villareal DO Unavailable [phone] Sony Perez MD Unavailable [phone] Matt Grover MD Unavailable Albert Brownlee MD Unavailable [phone] GinetteHumberto bowser MD Primary Care Provider [phone] James Jasso DO Unavailable [phone] Rajat Urban MD Unavailable Unavailable Thuy Coto PARickyC Unavailable [phone] James Stevens DPM Unavailable [phone] Teresa FerrerC Unavailable Reason for Visit * Reason Onset Date Comments MyChart Communication 11/05/2004 questions regarding injections for scan Encounter Details Date Type Department Care Team (Late st Contact Info) Description 11/05/2004 MyC Medical Advice [facility] in [place] Medical Records [place] [address] Elvin Allred MyChart Communication (questions regarding... 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 Gender Identity Not on file Sexual Orientation [...] on filedocumented in this encounter Care Teams Commercial Finance Analyst Relationship Specialty Start Date End Date Dudley House MD [address] [place] [address] PCP - General 03/23/07 09/02/10 Albert Figueroa MD [facility] [address] [facility] [address] [place] [address] PCP - General 10/30/03 03/22/07 Frankie Gaspar MD PCP - Obstetrics/Gynecology 03/03/00 07/23/11 Augusta De La Cruz DPM PCP - Podiatry 09/26/05 Frw, None PCP - Podiatry 09/26/04 09/25/05 Kyle Morris MD PCP - Ophthalmology 02/17/06 Kayode Brambila OD [facility] [place] [address] [place] [address] PCP - Ophthalmology 03/03/00 02/16/06 Ned Birmingham MD [address] [place] [address] PCP - Surgery 10/25/08 09/27/09 Mike Villareal DO [facility] [address] [place] [address] PCP - Surgery 08/03/06 10/24/08 Sony Perez MD [facility] [address] [place] [address] PCP - ENT 03/19/07 12/08/17 Matt Grover MD [address] [facility] [address] [place] [address] PCP - Urology 12/22/08 Albert Brownlee MD [address] [place] [address] PCP - Surgery Surgery 09/28/09 11/02/12 Humberto Peng MD [facility] [place] [address] [place] [address] PCP - General Family Practice 09/03/10 James Jasso DO [facility] [place] [address] [place] [address] PCP - Obstetrics/Gynecology weatherization director 07/24/11 Rajat Urban MD [facility] [place] [address] [place] [address] PCP - Orthopaedics Orthopedics 12/02/11 12/08/17 Thuy Coto PA-C [facility] [address] [place] [address] PCP - Surgery Physician Senior Program Planner 11/03/12 James Stevens DPM [address] [facility] [address] [place], [place] [address] Assigned Musculoskeletal Provider 04/25/20 10/25/21 Teresa Ferrer PA-C [address] [facility] [address] [place] [address] Physician Senior Program Planner Urology 02/20/23 documented as of this encounter
--- OUTSIDE RECORDS SUMMARY | 2024-01-08 14:40 | XMS_ITS | Encounter Summary ---
Author Organization [place] Address [address] [place] [address] Care Team Providers Care Baling Machine Tender Name Role Phone Dudley House MD Primary Care Provider [phone] Albert Figueroa MD Primary Care Provider Frankie Gaspar MD Unavailable Unavailable Augusta De La Cruz DPM Unavailable Frw, None Unavailable Unavailable Kyle Morris MD Unavailable [phone] Kayode Brambila OD Unavailable Ned Birmingham MD Unavailable Mike Villareal DO Unavailable [phone] Sony Perez MD Unavailable [phone] Matt Grover MD Unavailable [phone] Albert Brownlee MD Unavailable GinetteHumberto bowser MD Primary Care Provider [phone] James Jasso DO Unavailable [phone] Rajat Urban MD Unavailable Unavailable Thuy Coto PARickyC Unavailable [phone] James Stevens DPM Unavailable [phone] Teresa FerrerC Unavailable Reason for Visit * Reason Onset Date Comments MyChart Communication 10/25/2004 plavix/sco pe Encounter Details Date Type Department Care Team (Late st Contact Info) Description 10/25/2004 MyC Medical Advice [facility] in [place] Medical Records [address] [place] [address] KishantElvin MyChart Communication (plavix/scope) Social History Tobacco Use Types Packs/Day Years Used Date Smoking Tobacco: Never Alcohol Use Standard Drinks/Week Comments No 0 (1 standard drink = 0.6 oz pur e alcohol) Comments No Sex and Gender Information Value Date Recorded Sex Assigned at Not on file 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 [address] [facility] [address] [place] [address] PCP - General 10/30/03 03/22/07 Frankie Gaspar MD PCP - Obstetrics/Gynecology 03/03/00 07/23/11 Augusta De La Cruz DPM PCP - Podiatry 09/26/05 Frw, None PCP - Podiatry 09/26/04 09/25/05 Kyle Morris MD PCP - Ophthalmology 02/17/06 Kayode Brambila OD [facility] [place] [address] [place] [address] PCP - Ophthalmology 03/03/00 02/16/06 Ned Birmingham MD [place] [address] PCP - Surgery 10/25/08 09/27/09 iMke Villareal DO [facility] [address] [place], [place] [address] PCP - Surgery 08/03/06 10/24/08 Sony Perez MD [facility] [address] [place] [address] PCP - ENT 03/19/07 12/08/17 Matt Grover MD [address] [facility] [address] [place] [address] PCP - Urology 12/22/08 Albert Brownlee MD [address] [place] [address] PCP - Surgery Surgery 09/28/09 11/02/12 Humberto Peng MD [facility] [place] [address] [place] [address] PCP - General Family Practice 09/03/10 James Jasso DO [facility] [place] [address] [place] [address] PCP - Obstetrics/Gynecology clutch rebuilder 07/24/11 Rajat Urban MD [facility] [place] [address] [place] [address] PCP - Orthopaedics Orthopedics 12/02/11 12/08/17 Thuy Coto PA-C [facility] [place] [address] [place] [address] PCP - Surgery Physician Combiner 11/03/12 James Stevens DPM [address] [facility] [address] [place], [place] [address] Assigned Musculoskeletal Provider 04/25/20 10/25/21 Teresa Ferrer PA-C [address] [place], [place] [address] Physician Combiner Urology 02/20/23 documented as of this encounter
--- OUTSIDE RECORDS SUMMARY | 2024-01-08 14:40 | XMS_ITS | Encounter Summary ---
Author Organization [place] Address [address] [place] [address] Care Team Providers Care Provider Service Representative Name Role Phone Dudley House MD Primary Care Provider Albert Figueroa MD Primary Care Provider Frankie Gaspar MD Unavailable Unavailable Augusat De La Cruz DPM Unavailable [phone] Frw, None Unavailable Unavailable Kyle Morris MD Unavailable Kayode Brambila OD Unavailable Ned Birmingham MD Unavailable Mike Villareal DO Unavailable [phone] Sony Perez MD Unavailable [phone] Matt Grover MD Unavailable Albert Brownlee MD Unavailable GinetteHumberto bowser MD Primary Care Provider [phone] James Jasso DO Unavailable Rajat Urban MD Unavailable Unavailable Thuy CotoC Unavailable James Stevens DPM Unavailable [phone] Teresa Ferrer PA-C Unavailable Encounter Details Date Type Department Care Team (Late st Contact Info) Description 01/31/2005 MyC Medical Advice [facility] [place] Internal Medicine [address] [place] [phone] Albert Figueroa MD [address] [address] Social History Tobacco Use Types Packs/Day Years Used Date Smoking Tobacco: Never Alcohol Use Standard Drinks/Week Comments No 0 (1 standard drink = 0.6 oz pur e alcohol) Comments No Sex and Gender Information Value Date Recorded Sex Assigned at Not on file 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 Gender Identity Not on file Sexual Orientation Straight 06/26/2018 6: 53 PM CDT documented as of this encounter Plan of Treatment Not on file documented as of this encounter Visit Diagnoses Not on filedocumented in this encounter Care Teams Provider Service Representative Relationship Specialty Start Date End Date Dudley House MD [address] [place] [address] PCP - General 03/23/07 09/02/10 Albert Figueroa MD [address] [address] PCP - General 10/30/03 03/22/07 Frankie Gaspar MD PCP - Obstetrics/Gynecology 03/03/00 07/23/11 Augusta De La Cruz DPM PCP - Podiatry 09/26/05 Frw, None PCP - Podiatry 09/26/04 09/25/05 Kyle Morris MD PCP - Ophthalmology 02/17/06 Kayode Brambila OD [facility] [place] [address] [place] [address] PCP - Ophthalmology 03/03/00 02/16/06 Ned Birmingham MD [address] [place] [address] PCP - Surgery 10/25/08 09/27/09 Mike Villareal DO [facility] [address] [place], [place] [address] PCP - Surgery 08/03/06 10/24/08 Sony Perez MD [facility] [address] [place] [address] PCP - ENT 03/19/07 12/08/17 Matt Grover MD [address] [place] [address] PCP - Urology 12/22/08 Albert Brownlee MD [address] [place] [address] PCP - Surgery Surgery 09/28/09 11/02/12 Humberto Peng MD [facility] [place] [address] [place] [address] PCP - General Family Practice 09/03/10 James Jasso DO [facility] [place] [address] [place] [address] PCP - Obstetrics/Gynecology hammerer tab 07/24/11 Rajat Urban MD [facility] [place] [address] [facility] [address] [place] [address] PCP - Orthopaedics Orthopedics 12/02/11 12/08/17 Thuy Coto PA-C [facility] [place] [address] [facility] [address] [place] [address] PCP - Surgery Physician Aircraft Instrument Mechanic 11/03/12 James Stevens DPM [address] [facility] [address] [place], [place] [address] Assigned Musculoskeletal Provider 04/25/20 10/25/21 Teresa Ferrer PA-C [address] [address] Physician Aircraft Instrument Mechanic Urology 02/20/23 documented as of this encounter
--- OUTSIDE RECORDS SUMMARY | 2024-01-08 14:40 | XMS_ITS | Encounter Summary ---
Author Organization [facility] Address [address] [place] [address] Care Team Providers Care Automotive Service Advisor Name Role Phone Dudley House MD Primary Care Provider [phone] Albert Figueroa MD Primary Care Provider [phone] Frankie Gaspar MD Unavailable Unavailable Augusta De La Cruz DPM Unavailable Frw, None Unavailable Unavailable Megan Segal DPM Unavailable [phone] Kyle Morris MD Unavailable Kayode Brambila OD Unavailable Ned Birmingham MD Unavailable [phone] Mike Villareal DO Unavailable Sony Perez MD Unavailable [phone] Matt Grover MD Unavailable Albert Brownlee MD Unavailable [phone] GinetteHumberto bowser MD Primary Care Provider James Jasso DO Unavailable Rajat Urban MD Unavailable Unavailable Thuy Coto PA-C Unavailable [phone] James Stevens DPM Unavailable Teresa Ferrer-C Unavailable Reason for Visit * Reason Onset Date Comments MyChart Communication 09/25/2004 questions regarding recent test and symptoms Encounter Details Date Type Department Care Team (Late st Contact Info) Description 09/24/2004 MyC Medical Advice [facility] [place] Medical Records [address] [id number] KishantElvin MyChart Communication (questions regarding... 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 Gender Identity Not on file Sexual Orientation Straight 06/26/2018 6: 53 PM CDT documented as of this encounter Miscellaneous Notes * Telephone Encounter - Martha Ross - 09/25/2004 9:02 AM CDT please address in pcp absence documented in this encounter Plan of Treatment Not on file documented as of this encounter Visit Diagnoses Not on filedocumented in this encounter Care Teams Automotive Service Advisor Relationship Specialty Start Date End Date Dudley House MD [address] [place] [address] PCP - General 03/23/07 09/02/10 Albert Figueroa MD [facility] [address] [place] [address] PCP - General 10/30/03 03/22/07 Frankie Gaspar MD PCP - Obstetrics/Gynecology 03/03/00 07/23/11 Augusta De La Cruz DPM PCP - Podiatry 09/26/05 Frw, None PCP - Podiatry 09/26/04 09/25/05 Megan Segal, DPM [address] [place] [address] PCP - Podiatry 03/03/00 09/25/04 Kyle Morris MD [address] [facility] [address] [place] [address] PCP - Ophthalmology 02/17/06 Kayode Brambila OD [facility] [place] [facility] [address] [place] [address] PCP - Ophthalmology 03/03/00 02/16/06 Ned Birmingham MD [place] [address] PCP - Surgery 10/25/08 09/27/09 Mike Villareal DO [facility] [address] [place] [address] PCP - Surgery 08/03/06 10/24/08 Sony Perez MD [facility] [address] [place] [address] PCP - ENT 03/19/07 12/08/17 Matt Grover MD [address] [facility] [address] [place] [address] PCP - Urology 12/22/08 Albert Brownlee MD [address] [place] [address] PCP - Surgery Surgery 09/28/09 11/02/12 Humberto Peng MD [facility] [place] [address] [place] [address] PCP - General Family Practice 09/03/10 James Jasso DO [facility] [place] [address] [place] [address] PCP - Obstetrics/Gynecology secondary spanish teacher 07/24/11 Rajat Urban MD [facility] [place] [address] [place] [address] PCP - Orthopaedics Orthopedics 12/02/11 12/08/17 Thuy Coto PA-C [facility] [place] [address] [place] [address] PCP - Surgery Physician Radio Installer 11/03/12 [place] [address] [facility] [address] [place] [address] Assigned Musculoskeletal Provider 04/25/20 10/25/21 Teresa Ferrer PA-C [address] [place] [address] Physician Radio Installer Urology 02/20/23 documented as of this encounter
--- OUTSIDE RECORDS SUMMARY | 2024-01-08 14:40 | XMS_ITS | Encounter Summary ---
Author Organization [facility] [place] Address [address] [place] [address] Care Team Providers Care Match Up Person Name Role Phone Dudley House MD Primary Care Provider Albert Figueroa MD Primary Care Provider Frankie Gaspar MD Unavailable Unavailable Augusta De La Cruz DPM Unavailable [phone] Frw, None Unavailable Unavailable Kyle Morris MD Unavailable Kayode Brambila OD Unavailable Ned Birmingham MD Unavailable Mike Villareal DO Unavailable [phone] Sony Perez MD Unavailable [phone] Matt Grover MD Unavailable Albert Brownlee MD Unavailable GinetteHumberto bowser MD Primary Care Provider [phone] James Jasso DO Unavailable [phone] Rajat Urban MD Unavailable Unavailable Thuy Coto PARickyC Unavailable [phone] James Stevens DPM Unavailable Teresa FerrerC Unavailable Reason for Visit * Reason Onset Date Comments MyChart Communication 11/13/2004 Encounter Details Date Type Department Care Team (Late st Contact Info) Description 11/11/[address] 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 Gender Identity Not on file Sexual Orientation Straight 06/26/2018 6: 53 PM CDT documented as of this encounter Plan of Treatment Not on file documented as of this encounter Visit Diagnoses Not on filedocumented in this encounter Care Teams Match Up Person Relationship Specialty Start Date End Date Dudley House MD [address] [place] [id number] PCP - General 03/23/07 09/02/10 Albert Figueroa MD [place] [address] [address] PCP - General 10/30/03 03/22/07 Frankie Gaspar MD PCP - Obstetrics/Gynecology 03/03/00 07/23/11 Augusta De La Cruz DPM PCP - Podiatry 09/26/05 Frw, None PCP - Podiatry 09/26/04 09/25/05 Kyle Morris MD PCP - Ophthalmology 02/17/06 Kayode Brambila OD [facility] [address] [place] [address] PCP - Ophthalmology 03/03/00 02/16/06 Ned Birmingham MD XXX [place] [address] PCP - Surgery 10/25/08 09/27/09 Mike Villareal DO [facility] [address] [place] [address] PCP - Surgery 08/03/06 10/24/08 Sony Perez MD [facility] [address] [place] [address] PCP - ENT 03/19/07 12/08/17 Matt Grover MD [address] [facility] [address] [place], [place] [address] PCP - Urology 12/22/08 Albert Brownlee MD [address] [place] [address] PCP - Surgery Surgery 09/28/09 11/02/12 Humberto Peng MD [facility] [place] [address] [place] [address] PCP - General Family Practice 09/03/10 James Jasso DO [facility] [place] [address] [place] [address] PCP - Obstetrics/Gynecology commercial plumber 07/24/11 Rajat Urban MD [facility] [place] [address] [place] [address] PCP - Orthopaedics Orthopedics 12/02/11 12/08/17 Thuy Coto PA-C [facility] [place] [address] [place] [address] PCP - Surgery Physician Hand Paint Mixer 11/03/12 James Stevens DPM [address] [facility] [address] [place], [place] [id number] Assigned Musculoskeletal Provider 04/25/20 10/25/21 eTresa Ferrer PA-C [address] [place], [place] [address] Physician Hand Paint Mixer Urology 02/20/23 documented as of this encounter
--- OUTSIDE RECORDS SUMMARY | 2024-01-08 14:40 | XMS_ITS | Encounter Summary ---
Author Organization [facility] Address [address] [place] [address] Care Team Providers Care Orthopedic Shoe Maker Name Role Phone Dudley House MD Primary Care Provider Albert Figueroa MD Primary Care Provider Frankie Gaspar MD Unavailable Unavailable Augusta De La Cruz DPM Unavailable Frw, None Unavailable Unavailable Kyle Morris MD Unavailable Kayode Brambila OD Unavailable Ned Birmingham MD Unavailable [phone] Mike Villareal DO Unavailable [phone] Sony Perez MD Unavailable [phone] Matt Grover MD Unavailable [phone] Albert Brownlee MD Unavailable GinetteHumberto bowser MD Primary Care Provider [phone] James Jasso DO Unavailable Rajat Urban MD Unavailable Unavailable Thuy CotoC Unavailable James Stevens DPM Unavailable [phone] Teresa Ferrer PA-C Unavailable Encounter Details Date Type Department Care Team (Late st Contact Info) Description 01/17/2005 MyC Medical Advice [facility] in [place] Internal Medicine [address] [place] [phone] Albret Figueroa MD [address] [address] Social History Tobacco Use Types Packs/Day Years Used Date Smoking Tobacco: Never Alcohol Use Standard Drinks/Week Comments No 0 (1 standard drink = 0.6 oz pur e alcohol) Comments No Sex and Gender Information Value Date Recorded Sex Assigned at Not on file 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 Gender Identity Not on file Sexual Orientation Straight 06/26/2018 6: 53 PM CDT documented as of this encounter Plan of Treatment Not on file documented as of this encounter Visit Diagnoses Not on filedocumented in this encounter Care Teams Orthopedic Shoe Maker Relationship Specialty Start Date End Date Dudley House MD [address] [place] [address] PCP - General 03/23/07 09/02/10 Albert Figueroa MD [address] [address] PCP - General 10/30/03 03/22/07 Frankie Gaspar MD PCP - Obstetrics/Gynecology 03/03/00 07/23/11 Augusta De La Cruz DPM PCP - Podiatry 09/26/05 Frw, None PCP - Podiatry 09/26/04 09/25/05 Kyle Morris MD PCP - Ophthalmology 02/17/06 Kayode Brambila OD [facility] [place] [address] [place] [address] PCP - Ophthalmology 03/03/00 02/16/06 Ned Birmingham MD XXX [place] [address] PCP - Surgery 10/25/08 09/27/09 Mike Villareal DO [facility] [address] [place], [place] [address] PCP - Surgery 08/03/06 10/24/08 Sony Perez MD [facility] [address] [place] [address] PCP - ENT 03/19/07 12/08/17 Matt Grover MD [address] [place] [address] PCP - Urology 12/22/08 Albert Brownlee MD [address] [place] [address] PCP - Surgery Surgery 09/28/09 11/02/12 Humberto Peng MD [facility] [place] [address] [place] [address] PCP - General Family Practice 09/03/10 James Jasso DO [facility] [place] [address] [place] [address] PCP - Obstetrics/Gynecology extended insurance clerk 07/24/11 Rajat Urban MD [facility] [place] [address] [facility] [address] [place] [address] PCP - Orthopaedics Orthopedics 12/02/11 12/08/17 Thuy Coto PA-C [facility] [place] [address] [facility] [address] [place] [address] PCP - Surgery Physician Room Maid 11/03/12 [place] [address] [facility] [address] [place], [place] [address] Assigned Musculoskeletal Provider 04/25/20 10/25/21 Teresa Ferrer PA-C [address] [address] Physician Room Maid Urology 02/20/23 documented as of this encounter
--- OUTSIDE RECORDS SUMMARY | 2024-01-08 14:40 | XMS_ITS | Encounter Summary ---
Author Organization [facility] Address [address] [place] [address] Care Team Providers Care Senior Embedded Software Engineer Name Role Phone Dudley House MD Primary Care Provider [phone] Albert Figueroa MD Primary Care Provider Frankie Gaspar MD Unavailable Unavailable Augusta De La Cruz DPM Unavailable Frw, None Unavailable Unavailable Megan Segal DPM Unavailable [phone] Kyle Morris MD Unavailable [phone] Kayode Brambila OD Unavailable Ned Birmingham MD Unavailable [phone] Mike Villareal DO Unavailable [phone] Sony Perez MD Unavailable [phone] Matt Grover MD Unavailable Albert Brownlee MD Unavailable GinetteHumberto bowser MD Primary Care Provider [phone] James Jasso DO Unavailable Rajat Urban MD Unavailable Unavailable Thuy Coto PA-C Unavailable [phone] James Stevens DPM Unavailable Teresa Ferrer-C Unavailable Encounter Details Date Type Department Care Team (Late st Contact Info) Description 09/18/2004 MyC Medical Advice [facility] in [place] Medical Records [address] [place] [phone] Elvin Allred Social History Tobacco Use Types Packs/Day Years Used Date Smoking Tobacco: Never Alcohol Use Standard Drinks/Week Comments No 0 (1 standard drink = 0.6 oz pur e alcohol) Comments No Sex and Gender Information Value Date Recorded Sex Assigned at Not on file 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 Gender Identity Not on file Sexual Orientation Straight 06/26/2018 6: 53 PM CDT documented as of this encounter Plan of Treatment Not on file documented as of this encounter Visit Diagnoses Not on filedocumented in this encounter Care Teams Senior Embedded Software Engineer Relationship Specialty Start Date End Date Dudley House MD [address] [place] [phone] PCP - General 03/23/07 09/02/10 Albert Figueroa MD [facility] [address] [place] [address] PCP - General 10/30/03 03/22/07 Frankie Gaspar MD PCP - Obstetrics/Gynecology 03/03/00 07/23/11 Augusta De La Cruz DPM PCP - Podiatry 09/26/05 Frw, None PCP - Podiatry 09/26/04 09/25/05 Megan Segal DPM [address] [place] [address] PCP - Podiatry 03/03/00 09/25/04 Kyle Morris MD [address] [place] [address] PCP - Ophthalmology 02/17/[address] [facility] [place] [address] [place] [address] PCP - Ophthalmology 03/03/00 02/16/06 Ned Birmingham MD XXX [place] [address] PCP - Surgery 10/25/08 09/27/09 Mike Villareal DO [facility] [address] [place] [address] PCP - Surgery 08/03/06 10/24/08 Sony Perez MD [facility] [address] [place] [address] PCP - ENT 03/19/07 12/08/17 Matt Grover MD [address] [facility] [address] [place] [address] PCP - Urology 12/22/08 Albert Brownlee MD [address] [place] [address] PCP - Surgery Surgery 09/28/09 11/02/[address] [facility] [place] [address] [place] [address] PCP - General Family Practice 09/03/[address] [facility] [place] [address] [place] [address] PCP - Obstetrics/Gynecology kiln firer helper 07/24/[address] [facility] [place] [address] [place] [address] PCP - Orthopaedics Orthopedics 12/02/11 12/08/[address]uy Coto PA-C [facility] [place] [address] [place] [address] PCP - Surgery Physician Attacher 11/03/12 [place] [address] [facility] [address] [place], [place] [address] Assigned Musculoskeletal Provider 04/25/20 10/25/21 Teresa Ferrer PA-C [address] [place], [place] [address] Physician Attacher Urology 02/20/23 documented as of this encounter
--- OUTSIDE RECORDS SUMMARY | 2024-01-08 14:40 | XMS_ITS | Encounter Summary ---
Author Organization [place] Address [address] [place] [address] Care Team Providers Care Sieve Grader Tender Name Role Phone Dudley House MD Primary Care Provider Albert Figueroa MD Primary Care Provider [phone] Ferny Neil MD Primary Care Provider Frankie Gaspar MD Unavailable Unavailable Augusta De La Cruz DPM Unavailable Frw, None Unavailable Unavailable Megan Segal DPM Unavailable [phone] Kyle Morris MD Unavailable Kayode Brambila OD Unavailable Ned Birmingham MD Unavailable Mike Villareal DO Unavailable [phone] Sony Perez MD Unavailable [phone] Matt Grover MD Unavailable [phone] Albert Brownlee MD Unavailable [phone] GinetteHumberto bowser MD Primary Care Provider [phone] James Jasso DO Unavailable Rajat Urban MD Unavailable Unavailable Thuy Coto PA-C Unavailable [phone] James Stevens DPM Unavailable [phone] Teresa Ferrer CIPRIANO Unavailable Reason for Visit * Reason Comments Abstract Encounter Details Date Type Department Care Team (Late st Contact Info) Description 06/03/2000 Abstract [facility] in [place] [phone] Dukey Rider, George Social History Tobacco Use Types Packs/Day Years Used Date Smoking Tobacco: Never Assessed Comments No Sex and Gender Information Value Date Recorded Sex Assigned at Not on file 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 IMPRESSION: Bronchitis. DISPOSITION: 1. Robitussin AC, 1 tsp q 4 prn cough. Increase humidity at home. 2. 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 If her symptoms persist she will call me in 2 to 3 weeks and we will have her see neurology again. Tomasz lala M.D./[facility] D: 03-17-00 T: 03-20-00 A bstracted by Ricardo lror on 06/03/2000 Pastora Lua 02-04-00PC [id number] TELEPHONE CALL: Phone message was left regarding nondisplaced left fourth metatarsal fracture that she is to use a la ce shoe with good padding and that it should heal over a 6 week period. Ferny Neil M.D./[facility] Abstracted by Ricardo still bstractor on 06/03/2000 Pastora Lua 01-30-00 [id number] S: The patient enters for follow-up. She continues to have some aching and numbness and tingling inher left leg. I have reviewed the ne urologist's note from the [facility] in May and June when she was [...] below the knee and the left foot. [id number], rapid alternatin g movements are normal. Strength [...] 01-30-00 T: 02-04-00 Abstracted by Keysha Martinez verification lead on 06/03/2000 Pastora Lua 01-13-00 [id number] Pastora is in today with complai nts [...] TSH Routine 02/21/1999 HCL GLUCOSE Routine 02/21/1999 [facility] UGI ENDOSCOPY, SIMPLE EXAM Routine 04/11/1998 [facility] COLONOSCOPY THRU STOMA, DIAGNOSTIC Routine 11/17/1991 documented in this encounter Results * A.M.A. HEPATIC PANEL (RW) (07/12/1999) Bilirubin Total 0.45 0.2 - 1.3 (adult)mg/ dl [facility] [place] [facility] Bilirubin Direct 0 0.0 - 0.3 (adult)mg/ dl [facility] [place] [facility] Alkaline Phosphatase 61 50 - 136 (Adult) u/l [facility] [place] [facility] ALT 33 0 - 65 U/L [facility] [place] [facility] AST 21 0 - 37 U/L [facility] [place] [facility] Protein Total 7.8 6.0 - 8.2 g/dl [facility] [place] [facility] Albumin 3.5 3.2 - 4.5 g/dL [facility] [place] [facility] us [facility] Final Result Performing Organization Address City/[facility]/ZIP Co de Phone Number [facility] [place] [facility] [place], [place] [address] * AMYLASE, SERUM (07/03/1999) Amylase 27 25 - 115 U/L [facility] [place] [facility] us T[facility]. [facility] Final Result Performing Organization Address [facility]/ZIP Co de Phone Number [facility] [place] [facility] [place], [place] [address] * A.M.A. BASIC METABOLIC PANEL (07/02/1999) Sodium 143 136 - 148 mmol/L [facility] [place] [facility] Potassium 4.3 3.5 - 5.2 mmol/L [facility] [place] [facility] Chloride 109 94 - 109 mmol/L [facility] [place] [facility] Carbon Dioxide 21.7 20 - 32 mmol/L [facility] [place] [facility] us [facility] Final Result Performing Organization Address City/[facility]/ZIP Co de Phone Number [facility] [place] [facility] [place], [place] [address] * PAP SMEAR (RW) (02/21/1999) PAP wnl [facility] [place] [facility] us [facility]. [facility] Final Result Performing Organization Address City/[facility]/ZIP Co de Phone Number [facility] [place] [address] * TSH (02/21/1999) TSH 1.67 0.34 - 4.82 IU/mL [facility] [place] [facility] us [facility] Final Result Performing Organization Address [facility]/RUST de Phone Number [facility] [place] [facility] [place], [place] [address] * (ABNORMAL) A.M.A. LIPID PANEL (02/21/1999) Cholesterol 247(A) 0 - 200 mg/dL [facility] [place] [facility] Triglycerides 165 0 - 200 mg/dL [facility] [place] [facility] HDL Cholesterol 76 35 - 80 mg/dL [facility] [place] [facility] LDL Cholesterol Calculated 138(A) 0 - 130 mg/dL [facility] [place] [facility] Cholesterol/HDL Ratio 3.3 0 - 5 [facility] [place] [facility] us T[facility]. [facility] Final Result Performing Organization Address [facility]/RUST de Phone Number [facility] [place] [facility] [place], [place] [address] * GLUCOSE (02/21/1999) Glucose 98 60 - 115 mg/dL [facility] [place] [facility] us [facility]. [facility] Final Result Performing Organization Address [facility]/RUST de Phone Number [facility] [place], [place] [address] * UPPER GI ENDOSCOPY,EXAM (04/11/1998) us K.J [facility] PROCEDURES Final Result Performing Organization Address [facility]/RUST de Phone Number [facility] [place] [facility] [place], [place] [address] * COLONOSCOPY (11/17/1991) us K.J [facility] PROCEDURES Final Result Performing Organization Address [facility] Co de Phone Number [facility] [place] [facility] [place], [place] [address] documented in this encounter Visit Diagnoses Not on filedocumented in this encounter Care Teams Sieve Grader Tender Relationship Specialty Start Date End Date Dudley House MD [address] [place] [address] PCP - General 03/23/07 09/02/10 Albert Figueroa MD [facility] [place] [address] [place] [address] PCP - General 10/30/03 03/22/07 Ferny Neil [place] [address] PCP - General 03/03/00 10/29/03 Frankie Gaspar MD PCP - Obstetrics/Gynecology 03/03/00 07/23/11 Augusta De La Cruz DPM PCP - Podiatry 09/26/05 Frw, None PCP - Podiatry 09/26/04 09/25/05 Megan Segal DPM [address] [place] [address] PCP - Podiatry 03/03/00 09/25/04 Kyle Morris MD [address] [place] [address] PCP - Ophthalmology 02/17/06 Kayode Brambila OD [facility] [place] [address] [place] [address] PCP - Ophthalmology 03/03/00 02/16/06 Ned Birmingham MD XXX [place] [address] PCP - Surgery 10/25/08 09/27/09 Mike Villareal DO [facility] [address] [place] [address] PCP - Surgery 08/03/06 10/24/08 Sony Perez MD [facility] [address] [place] [address] PCP - ENT 03/19/07 12/08/17 Matt Grover MD [address] [place] [address] [address] [place], [place] [address] PCP - Urology 12/22/08 Albert Brownlee MD [address] [place] [address] PCP - Surgery Surgery 09/28/09 11/02/12 Humberto Peng MD [facility] [place] [address] [place] [address] PCP - General Family Practice 09/03/10 James Jasso DO [facility] [place] [address] [place] [address] PCP - Obstetrics/Gynecology sueding machine operator 07/24/11 Rajat Urban MD [facility] [place] [address] [place] [address] PCP - Orthopaedics Orthopedics 12/02/11 12/08/17 Thuy Coto PA-C [facility] [place] [address] [place] [address] PCP - Surgery Physician Electric System Operator 11/03/12 James Stevens DPM [address] [facility] [address] [place] [address] Assigned Musculoskeletal Provider 04/25/20 10/25/21 Teresa Ferrer PA-C [address] [address] Physician Electric System Operator Urology 02/20/23 documented as of this encounter
--- OUTSIDE RECORDS SUMMARY | 2024-01-08 14:40 | XMS_ITS | Encounter Summary ---
Author Organization [place] Address [address] [place] [address] Care Team Providers Care Alterations Manager Name Role Phone Dudley House MD Primary Care Provider Albert Figueroa MD Primary Care Provider [phone] Frankie Gaspar MD Unavailable Unavailable Augusta De La Cruz DPM Unavailable Frw, None Unavailable Unavailable Megan Segal DPM Unavailable [phone] Kyle Morris MD Unavailable [phone] Kayode Brambila OD Unavailable [phone] Ned [place] MD Unavailable Mike Villareal DO Unavailable [phone] Sony Perez MD Unavailable [phone] Matt Grover MD Unavailable Albert Brownlee MD Unavailable GinetteHumberto bowser MD Primary Care Provider James Jasso DO Unavailable Rajat Urban MD Unavailable Unavailable Thuy Coto PA-C Unavailable [phone] James Stevens DPM Unavailable Teresa Ferrer-C Unavailable [phone] Encounter Details Date Type Department Care Team (Late st Contact Info) Description 09/24/2004 MyC Medical Advice [facility] in [place] Medical Records [place] [phone] Elvin Allred Social History Tobacco Use Types Packs/Day Years Used Date Smoking Tobacco: Never Alcohol Use Standard Drinks/Week Comments No 0 (1 standard drink = 0.6 oz pur e alcohol) Comments No Sex and Gender Information Value Date Recorded Sex Assigned at Not on file 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 Gender Identity Not on file Sexual Orientation [...] on filedocumented in this encounter Care Teams Alterations Manager Relationship Specialty Start Date End Date Dudley House MD [address] [place] [address] PCP - General 03/23/07 09/02/10 Albert Figueroa MD [facility] [address] [place] [address] PCP - General 10/30/03 03/22/07 Frankie Gaspar MD PCP - Obstetrics/Gynecology 03/03/00 07/23/11 Augusta De La Cruz DPM PCP - Podiatry 09/26/05 Frw, None PCP - Podiatry 09/26/04 09/25/05 Megan Segal, DPM [address] [place] [address] PCP - Podiatry 03/03/00 09/25/04 Kyle Morris MD [address] [place] [address] PCP - Ophthalmology 02/17/06 Kayode Brambila OD [facility] [place] [address] [facility] [address] [place] [address] PCP - Ophthalmology 03/03/00 02/16/06 Ned [place] MD [place] [address] PCP - Surgery 10/25/08 09/27/09 Mike Villareal DO [facility] [address] [place], [place] [address] PCP - Surgery 08/03/06 10/24/08 Sony Perez MD [facility] [address] [place] [address] PCP - ENT 03/19/07 12/08/17 Matt Grover MD [address] [facility] [address] [place] [address] PCP - Urology 12/22/08 Albert Brownlee MD [address] [place] [address] PCP - Surgery Surgery 09/28/09 11/02/12 Humberto Peng MD [facility] [place] [address] [place] [address] PCP - General Family Practice 09/03/10 James Jasso DO [facility] [place] [address] [place] [address] PCP - Obstetrics/Gynecology speech language assistant 07/24/11 Rajat Urban MD [facility] [place] [address] [place] [address] PCP - Orthopaedics Orthopedics 12/02/11 12/08/17 Thuy Coto PA-C [facility] [place] [address] [place] [address] PCP - Surgery Physician Water System Operator 11/03/12 James Stevens DPM [address] [facility] [address] [place], [place] [address] Assigned Musculoskeletal Provider 04/25/20 10/25/21 Teresa Ferrer PA-C [address] [place] [address] Physician Water System Operator Urology 02/20/23 documented as of this encounter
--- OUTSIDE RECORDS SUMMARY | 2024-01-08 14:40 | XMS_ITS | Encounter Summary ---
Author Organization [place] Address [address] [place] [address] Care Team Providers Care Shipfitters Supervisor Name Role Phone Dudley House MD Primary Care Provider Albert Figueroa MD Primary Care Provider Frankie Gaspar MD Unavailable Unavailable Augusta De La Cruz DPM Unavailable Frw, None Unavailable Unavailable Kyle Morris MD Unavailable [phone] Kayode Brambila OD Unavailable [phone] Ned Birmingham MD Unavailable [phone] Mike Villareal DO Unavailable [phone] Sony Perez MD Unavailable [phone] Matt Grover MD Unavailable [phone] Albert Brownlee MD Unavailable GinetteHumberto bowser MD Primary Care Provider [phone] James Jasso DO Unavailable [phone] Rajat Urban MD Unavailable Unavailable Thuy Coto PARickyC Unavailable [phone] James Stevens DPM Unavailable [phone] Teresa FerrerC Unavailable Reason for Visit * Reason Onset Date Comments Forms 10/02/2004 FMLA Encounter Details Date Type Department Care Team (Late st Contact Info) Description 10/02/2004 MyC Medical Advice [facility] in [place] Internal Medicine [address] [place] [phone] Albert Figueroa MD [facility] [address] [place], [place] [id number] Forms (FMLA) Social History Tobacco Use Types Packs/Day Years Used Date Smoking Tobacco: Never Alcohol Use Standard Drinks/Week Comments No 0 (1 standard drink = 0.6 oz pur e alcohol) Comments No Sex and Gender Information Value Date Recorded Sex Assigned at Not on file Legal Sex Female 3:[address] 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 Thank- you for using [employer]. Albert Figueroa MD documented in this encounter Plan of Treatment Not on file documented as of this encounter Visit Diagnoses Not on filedocumented in this encounter Care Teams Shipfitters Supervisor Relationship Specialty Start Date End Date Dudley House MD [address] [place] [address] PCP - General 03/23/07 09/02/10 Albert Figueroa MD [facility] [place] [address] [place] [address] PCP - General 10/30/03 03/22/07 Frankie Gaspar MD PCP - Obstetrics/Gynecology 03/03/00 07/23/11 Augusta De La Cruz DPM PCP - Podiatry 09/26/05 Frw, None PCP - Podiatry 09/26/04 09/25/05 Kyle Morris MD PCP - Ophthalmology 02/17/06 Kayode Brambila OD [facility] [address] [facility] [address] [place] [address] PCP - Ophthalmology 03/03/00 02/16/06 Ned [place] MD [place] [address] PCP - Surgery 10/25/08 09/27/09 Mike Villareal DO [facility] [address] [place] [address] PCP - Surgery 08/03/06 10/24/08 Sony Perez MD [facility] [address] [place] [address] PCP - ENT 03/19/07 12/08/17 Matt Grover MD [address] [place] [address] PCP - Urology 12/22/08 Albert Brownlee MD [address] [place] [address] PCP - Surgery Surgery 09/28/09 11/02/12 Humberto Peng MD [facility] [place] [address] [place] [address] PCP - General Family Practice 09/03/10 James Jasso DO [facility] [place] [address] [place] [address] PCP - Obstetrics/Gynecology parole agent 07/24/11 Rajat Urban MD [facility] [place] [address] [place] [address] PCP - Orthopaedics Orthopedics 12/02/11 12/08/17 Thuy Coto PA-C [facility] [place] [address] [place] [address] PCP - Surgery Physician Vinyl Installer 11/03/12 James Stevens DPM [address] [facility] [address] [place] [address] Assigned Musculoskeletal Provider 04/25/20 10/25/21 Teresa Ferrer PA-C [address] [place] [address] Physician Vinyl Installer Urology 02/20/23 documented as of this encounter
--- OUTSIDE RECORDS SUMMARY | 2024-01-08 14:40 | XMS_ITS | Encounter Summary ---
Author Organization [place] Address [address] [place] [address] Care Team Providers Care Spice Blender Name Role Phone Dudley House MD Primary Care Provider Albert Figueroa MD Primary Care Provider Frankie Gaspar MD Unavailable Unavailable Augusta De La Cruz DPM Unavailable [phone] Frw, None Unavailable Unavailable Kyle Morris MD Unavailable Kayode Brambila OD Unavailable [phone] Ned Birmingham MD Unavailable Mike Villareal DO Unavailable [phone] Sony Perez MD Unavailable [phone] Matt Grover MD Unavailable Albert Brownlee MD Unavailable GinetteHumberto bowser MD Primary Care Provider [phone] James Jasso DO Unavailable [phone] Rajat Urban MD Unavailable Unavailable Thuy Coto PARickyC Unavailable [phone] James Stevens DPM Unavailable [phone] Teresa FerrerC Unavailable Reason for Visit * Reason Onset Date Comments MyChart Communication 11/13/2004 Encounter Details Date Type Department Care Team (Late st Contact Info) Description 11/11/2004 MyC Medical Advice [facility] in [place] Medical Records [place] [phone] Elvin Allred MyChart Communication Social History Tobacco Use Types Packs/Day Years Used Date Smoking Tobacco: Never Alcohol Use Standard Drinks/Week Comments No 0 (1 standard drink = 0.6 oz pur e alcohol) Comments No Sex and Gender Information Value Date Recorded Sex Assigned at Not on file 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 Gender Identity Not on file Sexual Orientation Straight 06/26/2018 6: 53 PM CDT documented as of this encounter Plan of Treatment Not on file documented as of this encounter Visit Diagnoses Not on filedocumented in this encounter Care Teams Spice Blender Relationship Specialty Start Date End Date Dudley Houes MD [address] [place] [phone] PCP - General 03/23/07 09/02/10 Albert Figueroa MD [place] [address] [address] PCP - General 10/30/03 03/22/07 Frankie Gaspar MD PCP - Obstetrics/Gynecology 03/03/00 07/23/11 Augusta De La Cruz DPM PCP - Podiatry 09/26/05 Frw, None PCP - Podiatry 09/26/04 09/25/05 Kyle Morris MD PCP - Ophthalmology 02/17/06 Kayode Brambila OD [facility] [address] [place] [address] PCP - Ophthalmology 03/03/00 02/16/06 Ned [place] MD XXX [place] [address] PCP - Surgery 10/25/08 09/27/09 Mike Villareal DO [facility] [address] [place] [address] PCP - Surgery 08/03/06 10/24/08 Sony Perez MD [facility] [address] [place] [address] PCP - ENT 03/19/07 12/08/17 Matt Grover MD [address] [facility] [address] [place], [place] [address] PCP - Urology 12/22/08 Albert Brownlee MD [address] [place] [address] PCP - Surgery Surgery 09/28/09 11/02/12 Humberto Peng MD [facility] [place] [address] [place] [address] PCP - General Family Practice 09/03/10 James Jasso DO [facility] [place] [address] [place] [address] PCP - Obstetrics/Gynecology sanitary landfill operator 07/24/11 Rajat Urban MD [facility] [place] [address] [place] [address] PCP - Orthopaedics Orthopedics 12/02/11 12/08/17 Thuy Coto PA-C [facility] [place] [address] [place] [address] PCP - Surgery Physician Guard Museum 11/03/12 James Stevens DPM [address] [facility] [address] [place], [place] [address] Assigned Musculoskeletal Provider 04/25/20 10/25/21 Teresa Ferrer PA-C [address] [place], [place] [address] Physician Guard [employer] Urology 02/20/23 documented as of this encounter
--- OUTSIDE RECORDS SUMMARY | 2024-01-08 14:40 | XMS_ITS | Encounter Summary ---
Author Organization [facility] Address [address] [place] [address] Care Team Providers Care Cell Support Operator Name Role Phone Dudley House MD Primary Care Provider [phone] Albert Figueroa MD Primary Care Provider Frankie Gaspar MD Unavailable Unavailable Augusta De La Cruz DPM Unavailable [phone] Frw, None Unavailable Unavailable Kyle Morris MD Unavailable Kayode Brambila OD Unavailable Ned [place] MD Unavailable Mike Villareal DO Unavailable [phone] Sony Perez MD Unavailable [phone] Matt Grover MD Unavailable [phone] Albert Brownlee MD Unavailable [phone] GinetteHumberto bowser MD Primary Care Provider [phone] James Jasso DO Unavailable [phone] Rajat Urban MD Unavailable Unavailable Thuy Coto PARickyC Unavailable [phone] James Stevens DPM Unavailable Teresa eFrrerC Unavailable Reason for Visit * Reason Onset Date Comments MyChart Communication 03/17/2005 medication question Encounter Details Date Type Department Care Team (Late st Contact Info) Description 03/17/2005 MyC Medical Advice [facility] in [place] Medical Records [address] [place] [address] Elvin Allred MyChart Communication (medication question) Social History Tobacco Use Types Packs/Day Years Used Date Smoking Tobacco: Never Alcohol Use Standard Drinks/Week Comments No 0 (1 standard drink = 0.6 oz pur e alcohol) Comments No Sex and Gender Information Value Date Recorded Sex Assigned at Not on file 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 Gender Identity Not on file Sexual Orientation Straight 06/26/2018 6: 53 PM CDT documented as of this encounter Plan of Treatment Not on file documented as of this encounter Visit Diagnoses Not on filedocumented in this encounter Care Teams Cell Support Operator Relationship Specialty Start Date End Date Dudley House MD [address] [place] [phone] PCP - General 03/23/07 09/02/10 Albert Figueroa MD [address] [place] [address] PCP - General 10/30/03 03/22/07 Frankie Gaspar MD PCP - Obstetrics/Gynecology 03/03/00 07/23/11 Augusta eD La Cruz DPM PCP - Podiatry 09/26/05 Frw, None PCP - Podiatry 09/26/04 09/25/05 Kyle Morris MD PCP - Ophthalmology 02/17/06 Kayode Brambila OD [facility] [place] [address] [place] [address] PCP - Ophthalmology 03/03/00 02/16/06 Ned [place] MD XXX NO INFO FOUND XXX [place] [address] PCP - Surgery 10/25/08 09/27/09 Mike Villareal DO [facility] [address] [facility] [place] [address] PCP - Surgery 08/03/06 10/24/08 Sony Perez MD [facility] [address] [facility] [place] [address] PCP - ENT 03/19/07 12/08/17 Matt Grover MD [address] [facility] [address] [place] [address] PCP - Urology 12/22/08 Albert Brownlee MD [address] [place] [address] PCP - Surgery Surgery 09/28/09 11/02/12 Humberto Peng MD [facility] [place] [address] [place] [address] PCP - General Family Practice 09/03/10 James Jasso DO [facility] [place] [address] [place] [address] PCP - Obstetrics/Gynecology commercial photographer 07/24/11 Rajat Urban MD [facility] [place] [address] [facility] [address] [place] [address] PCP - Orthopaedics Orthopedics 12/02/11 12/08/17 Thuy Coto PA-C [facility] [place] [address] [facility] [address] [place] [address] PCP - Surgery Physician Forge Hand 11/03/12 James Stevens DPM [address] [facility] [address] [place], [place] [id number] Assigned Musculoskeletal Provider 04/25/20 10/25/21 Teresa Ferrer PA-C [address] [facility] [address] [place], [place] [address] Physician Forge Hand Urology 02/20/23 documented as of this encounter
--- OUTSIDE RECORDS SUMMARY | 2024-01-08 14:40 | XMS_ITS | Encounter Summary ---
Author Organization [place] Address [address] [place] [address] Care Team Providers Care Exterminator Helper Name Role Phone Dudley House MD Primary Care Provider Albert Figueroa MD Primary Care Provider Frankie Gaspar MD Unavailable Unavailable Augusta De La Cruz DPM Unavailable Frw, None Unavailable Unavailable Kyle Morris MD Unavailable [phone] Kayode Brambila OD Unavailable Ned [place] MD Unavailable [phone] Mike Villareal DO Unavailable [phone] Sony Perez MD Unavailable [phone] Matt Grover MD Unavailable Albert Brownlee MD Unavailable GinetteHumberto bowser MD Primary Care Provider [phone] James Jasso DO Unavailable Rajat Urban MD Unavailable Unavailable hTuy CotoC Unavailable James Stevens DPM Unavailable [phone] Teresa Ferrer PA-C Unavailable Encounter Details Date Type Department Care Team (Late st Contact Info) Description 10/01/2004 MyC Medical Advice [facility] in [place] Medical Records [address] [place] [phone] Elvin Allred Social History Tobacco Use Types Packs/Day Years Used Date Smoking Tobacco: Never Alcohol Use Standard Drinks/Week Comments No 0 (1 standard drink = 0.6 oz pur e alcohol) Comments No Sex and Gender Information Value Date Recorded Sex Assigned at Not on file 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 Gender Identity Not on file Sexual Orientation Straight 06/26/2018 6: 53 PM CDT documented as of this encounter Plan of Treatment Not on file documented as of this encounter Visit Diagnoses Not on filedocumented in this encounter Care Teams Exterminator Helper Relationship Specialty Start Date End Date Dudley House MD [address] [place] [address] PCP - General 03/23/07 09/02/10 Albert Figueroa MD [facility] [place] [address] [place] [address] PCP - General 10/30/03 03/22/07 Frankie Gaspar MD PCP - Obstetrics/Gynecology 03/03/00 07/23/11 Augusta De La Cruz DPM PCP - Podiatry 09/26/05 Frw, None PCP - Podiatry 09/26/04 09/25/05 Kyle Morris MD PCP - Ophthalmology 02/17/06 Kayode Brambila OD [facility] [place] [address] [place] [address] PCP - Ophthalmology 03/03/00 02/16/06 eNd [place] MD XXX NO INFO FOUND [place] [address] PCP - Surgery 10/25/08 09/27/09 Mike Villareal DO [facility] [address] [place] [address] PCP - Surgery 08/03/06 10/24/08 Sony Perez MD [facility] [address] [place] [address] PCP - ENT 03/19/07 12/08/17 Matt Grover MD [address] [place] [address] PCP - Urology 12/22/08 Albert Brownlee MD [address] [place] [address] PCP - Surgery Surgery 09/28/09 11/02/12 Humberto Peng MD [facility] [place] [address] [place] [address] PCP - General Family Practice 09/03/10 James Jasso DO [facility] [place] [address] [place] [address] PCP - Obstetrics/Gynecology primary teacher 07/24/11 Rajat Urban MD [facility] [address] [place] [address] PCP - Orthopaedics Orthopedics 12/02/11 12/08/17 Thuy Coto PA-C [facility] [place] [address] [place] [address] PCP - Surgery Physician Locomotive Firer 11/03/12 James Stevens DPM [address] [facility] [address] [place], [place] [address] Assigned Musculoskeletal Provider 04/25/20 10/25/21 Teresa Ferrer PA-C [address] [place] [address] Physician Locomotive Firer Urology 02/20/23 documented as of this encounter
--- OUTSIDE RECORDS SUMMARY | 2024-01-08 14:40 | XMS_ITS | Encounter Summary ---
Author Organization [facility] Address [address] [place] [address] Care Team Providers Care Fixing Machine Operator Name Role Phone Dudley House MD Primary Care Provider [phone] Albert Figueroa MD Primary Care Provider Frankie Gaspar MD Unavailable Unavailable Augusta De La Cruz DPM Unavailable Frw, None Unavailable Unavailable Kyle Morris MD Unavailable [phone] Kayode Brambila OD Unavailable [phone] Ned [place] MD Unavailable Mike Villareal DO Unavailable [phone] Sony Perez MD Unavailable [phone] Matt Grover MD Unavailable [phone] Albert Brownlee MD Unavailable [phone] GinetteHumberto bowser MD Primary Care Provider [phone] James Jasso DO Unavailable [phone] Rajat Urban MD Unavailable Unavailable Thuy Coto PARickyC Unavailable [phone] James Stevens DPM Unavailable [phone] Teresa FerrerC Unavailable Reason for Visit * Reason Onset Date Comments MyChart Communication 11/13/2004 Encounter Details Date Type Department Care Team (Late st Contact Info) Description 11/11/2004 MyC Medical Advice [facility] in [place] Medical Records [place] [address] Elvin Allred MyChart Communication Social History Tobacco Use Types Packs/Day Years Used Date Smoking Tobacco: Never Alcohol Use Standard Drinks/Week Comments No 0 (1 standard drink = 0.6 oz pur e alcohol) Comments No Sex and Gender Information Value Date Recorded Sex Assigned at Not on file 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 Gender Identity Not on file Sexual Orientation Straight 06/26/2018 6: 53 PM CDT documented as of this encounter Plan of Treatment Not on file documented as of this encounter Visit Diagnoses Not on filedocumented in this encounter Care Teams Fixing Machine Operator Relationship Specialty Start Date End Date Dudley House MD [address] [place] [phone] PCP - General 03/23/07 09/02/10 Albert Figueroa MD [place] [address] [address] PCP - General 10/30/03 03/22/07 Frankie Gaspar MD PCP - Obstetrics/Gynecology 03/03/00 07/23/11 Augusta De La Cruz DPM PCP - Podiatry 09/26/05 Frw, None PCP - Podiatry 09/26/04 09/25/05 Kyle Morris MD PCP - Ophthalmology 02/17/06 Kayode Brambila OD [facility] [address] [place] [address] PCP - Ophthalmology 03/03/00 02/16/06 Ned [place] MD XXX NO [place] [address] PCP - Surgery 10/25/08 09/27/09 Mike Villareal DO [facility] [address] [place] [address] PCP - Surgery 08/03/06 10/24/08 Sony Perez MD [facility] [address] [place] [address] PCP - ENT 03/19/07 12/08/17 Matt Grover MD [address] [facility] [address] [place], [place] [address] PCP - Urology 12/22/08 Albert Brownlee MD [address] [place] [address] PCP - Surgery Surgery 09/28/09 11/02/12 Humberto Peng MD [facility] [place] [address] [place] [address] PCP - General Family Practice 09/03/10 James Jasso DO [facility] [place] [address] [place] [address] PCP - Obstetrics/Gynecology asset protection assistant 07/24/11 Rajat Urban MD [facility] [place] [address] [place] [address] PCP - Orthopaedics Orthopedics 12/02/11 12/08/17 Thuy Coto PA-C [facility] [place] [address] [place] [address] PCP - Surgery Physician Final Inspector Motorcyles 11/03/12 James Stevens DPM [address] [facility] [address] [place], [place] [address] Assigned Musculoskeletal Provider 04/25/20 10/25/21 Teresa Ferrer PA-C [address] [place], [place] [address] Physician Final Inspector Motorcyles Urology 02/20/23 documented as of this encounter
--- OUTSIDE RECORDS SUMMARY | 2024-01-08 14:40 | XMS_ITS | Encounter Summary ---
Author Organization [facility] Address [address] [place] [address] Care Team Providers Care It Business Process Architect Name Role Phone Dudley House MD Primary Care Provider Albert Figueroa MD Primary Care Provider Frankie Gaspar MD Unavailable Unavailable Augusta De La Cruz DPM Unavailable Frw, None Unavailable Unavailable Megan Segal DPM Unavailable [phone] Kyle Morris MD Unavailable Kayode Brambila OD Unavailable Ned [place] MD Unavailable Mike Villareal DO Unavailable [phone] Sony Perez MD Unavailable [phone] Matt Grover MD Unavailable [phone] Albert Brownlee MD Unavailable [phone] GinetteHumberto bowser MD Primary Care Provider James Jasso DO Unavailable Rajat Urban MD Unavailable Unavailable Thuy Coto PA-C Unavailable [phone] James Stevens DPM Unavailable [phone] Teresa Ferrer-C Unavailable Encounter Details Date Type Department Care Team (Late st Contact Info) Description 09/18/2004 MyC Medical Advice [facility] in [place] Medical Records [address] [place] [address] Elvin Allred Social History Tobacco Use Types Packs/Day Years Used Date Smoking Tobacco: Never Alcohol Use Standard Drinks/Week Comments No 0 (1 standard drink = 0.6 oz pur e alcohol) Comments No Sex and Gender Information Value Date Recorded Sex Assigned at Not on file Legal Sex Female 3:49 AM CRT Gender Identity Not on file Sexual Orientation Straight 06/26/2018 6: 53 PM CDT documented as of this encounter Plan of Treatment Not on file documented as of this encounter Visit Diagnoses Not on filedocumented in this encounter Care Teams It Business Process Architect Relationship Specialty Start Date End Date Dudley House MD [address] [place] [address] PCP - General 03/23/07 09/02/10 Albert Figueroa MD [facility] [address] [place] [address] PCP - General 10/30/03 03/22/07 Frankie Gaspar MD PCP - Obstetrics/Gynecology 03/03/00 07/23/11 Augusta De La Cruz DPM PCP - Podiatry 09/26/05 Frw, None PCP - Podiatry 09/26/04 09/25/05 Megan Segal DPM [address] [place] [address] PCP - Podiatry 03/03/00 09/25/04 Kyle Morris MD [address] [place] [address] PCP - Ophthalmology 02/17/06 Kayode Brambila OD [facility] [place] [address] [place] [address] PCP - Ophthalmology 03/03/00 02/16/06 Ned [place] MD XXX [place] [address] PCP - Surgery 10/25/08 09/27/09 Mike Villareal DO [facility] [address] [place] [address] PCP - Surgery 08/03/06 10/24/08 Sony Perez MD [facility] [address] [place] [address] PCP - ENT 03/19/07 12/08/17 Matt Gorver MD [address] [facility] [address] [place] [address] PCP - Urology 12/22/08 Albert Brownlee MD [address] [place] [address] PCP - Surgery Surgery 09/28/09 11/02/12 Humberto Peng MD [facility] [place] [address] [place] [address] PCP - General Family Practice 09/03/10 James Jasso DO [facility] [place] [address] [place] [address] PCP - Obstetrics/Gynecology coating technician 07/24/11 Rajat Urban MD [facility] [place] [address] [place] [address] PCP - Orthopaedics Orthopedics 12/02/11 12/08/17 Thuy Coto PA-C [facility] [place] [address] [place] [address] PCP - Surgery Physician Operations Officer Trust Department 11/03/12 [place] [address] [facility] [address] [place], [place] [address] Assigned Musculoskeletal Provider 04/25/20 10/25/21 Teresa Ferrer PA-C [address] [place], [place] [address] Physician Operations Officer Trust Department Urology 02/20/23 documented as of this encounter
--- OUTSIDE RECORDS SUMMARY | 2024-01-08 14:40 | XMS_ITS | Encounter Summary ---
Author Organization [facility] Address [address] [place] [address] Care Team Providers Care Sped Teacher Name Role Phone Dudley House MD Primary Care Provider Albert Figueroa MD Primary Care Provider Frankie Gaspar MD Unavailable Unavailable Augusta De La Cruz DPM Unavailable [phone] Frw, None Unavailable Unavailable Kyle Morris MD Unavailable Kayode Brambila OD Unavailable [phone] Ned [place] MD Unavailable Mike Villareal DO Unavailable [phone] Sony Perez MD Unavailable [phone] Matt Grover MD Unavailable [phone] Albert Brownlee MD Unavailable [phone] GinetteHumberto bowser MD Primary Care Provider [phone] James Jasso DO Unavailable Rajat Urban MD Unavailable Unavailable Thuy CotoC Unavailable James Stevens DPM Unavailable [phone] Teresa Ferrer PA-C Unavailable Encounter Details Date Type Department Care Team (Late st Contact Info) Description 12/30/2004 MyC Medical Advice [facility] in [place] Medical Records [address] [place] [phone] Elvin Allred Social History Tobacco Use Types Packs/Day Years Used Date Smoking Tobacco: Never Alcohol Use Standard Drinks/Week Comments No 0 (1 standard drink = 0.6 oz pur e alcohol) Comments No Sex and Gender Information Value Date Recorded Sex Assigned at Not on file 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 Gender Identity Not on file Sexual Orientation Straight 06/26/2018 6: 53 PM CDT documented as of this encounter Plan of Treatment Not on file documented as of this encounter Visit Diagnoses Not on filedocumented in this encounter Care Teams Sped Teacher Relationship Specialty Start Date End Date Dudley House MD [address] [place] [address] PCP - General 03/23/07 09/02/10 Albert Figueroa MD [facility] [place] [address] [place] [address] PCP - General 10/30/03 03/22/07 Frankie Gaspar MD PCP - Obstetrics/Gynecology 03/03/00 07/23/11 Augusta De La Cruz DPM PCP - Podiatry 09/26/05 Frw, None PCP - Podiatry 09/26/04 09/25/05 Kyle Morris MD PCP - Ophthalmology 02/17/06 Kayode Brambila OD [facility] [place] [address] [place] [address] PCP - Ophthalmology 03/03/00 02/16/06 Ned [place] MD XXX NO INFO [place] [address] PCP - Surgery 10/25/08 09/27/09 Mike Villareal DO [facility] [address] [place] [address] PCP - Surgery 08/03/06 10/24/08 Sony Perez MD [facility] [address] [place] [address] PCP - ENT 03/19/07 12/08/17 Matt Grover MD [address] [place] [address] PCP - Urology 12/22/08 Albert Brownlee MD [address] [place] [address] PCP - Surgery Surgery 09/28/09 11/02/12 Humberto Peng MD [facility] [place] [address] [place] [address] PCP - General Family Practice 09/03/10 James Jasso DO [facility] [place] [address] [place] [address] PCP - Obstetrics/Gynecology hooker up 07/24/11 Rajat Urban MD [facility] [address] [place] [address] PCP - Orthopaedics Orthopedics 12/02/11 12/08/17 Thuy Coto PA-C [facility] [place] [address] [place] [address] PCP - Surgery Physician Iron Miner Blasting 11/03/12 James Stevens DPM [address] [facility] [address] [place], [place] [address] Assigned Musculoskeletal Provider 04/25/20 10/25/21 Teresa Ferrer PA-C [address] [place] [address] Physician Iron Miner Blasting Urology 02/20/23 documented as of this encounter
--- OUTSIDE RECORDS SUMMARY | 2024-01-08 14:40 | XMS_ITS | Encounter Summary ---
Author Organization [facility] Address [address] [place] [address] Care Team Providers Care Dobby Loom Chain Pegger Name Role Phone Dudley House MD Primary Care Provider Albert Figueroa MD Primary Care Provider Frankie Gaspar MD Unavailable Unavailable Augusta De La Cruz DPM Unavailable Frw, None Unavailable Unavailable Kyle Morris MD Unavailable [phone] Kayode Brambila OD Unavailable Ned [place] MD Unavailable Mike Villareal DO Unavailable [phone] Sony Perez MD Unavailable [phone] Matt Grover MD Unavailable Albert Brownlee MD Unavailable GinetteHumberto bowser MD Primary Care Provider [phone] James Jasso DO Unavailable Rajat Urban MD Unavailable Unavailable Thuy CotoC Unavailable James Stevens DPM Unavailable [phone] Teresa Ferrer PA-C Unavailable Encounter Details Date Type Department Care Team (Late st Contact Info) Description 01/01/2005 MyC Medical Advice [facility] in [place] Internal Medicine [address] [place] [phone] Albert Figueroa MD [address] [address] Social History Tobacco Use Types Packs/Day Years Used Date Smoking Tobacco: Never Alcohol Use Standard Drinks/Week Comments No 0 (1 standard drink = 0.6 oz pur e alcohol) Comments No Sex and Gender Information Value Date Recorded Sex Assigned at Not on file 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 Gender Identity Not on file Sexual Orientation Straight 06/26/2018 6: 53 PM CDT documented as of this encounter Plan of Treatment Not on file documented as of this encounter Visit Diagnoses Not on filedocumented in this encounter Care Teams Dobby Loom Chain Pegger Relationship Specialty Start Date End Date Dudley House MD [address] [place] [address] PCP - General 03/23/07 09/02/10 Albert Figueroa MD [address] [address] PCP - General 10/30/03 03/22/07 Frankie Gaspar MD PCP - Obstetrics/Gynecology 03/03/00 07/23/11 Augusta De La Cruz DPM PCP - Podiatry 09/26/05 Frw, None PCP - Podiatry 09/26/04 09/25/05 Kyle Morris MD PCP - Ophthalmology 02/17/06 Kayode Brambila OD [facility] [place] [address] [place] [address] PCP - Ophthalmology 03/03/00 02/16/06 Ned [place] MD XXX NO [place] [address] PCP - Surgery 10/25/08 09/27/09 Mike Villareal DO [facility] [address] [place], [place] [address] PCP - Surgery 08/03/06 10/24/08 Sony Perez MD [facility] [address] [place] [address] PCP - ENT 03/19/07 12/08/17 Matt Grover MD [address] [place] [address] PCP - Urology 12/22/08 Albert Brownlee MD [address] [place] [address] PCP - Surgery Surgery 09/28/09 11/02/12 Humberto Peng MD [facility] [place] [address] [place] [address] PCP - General Family Practice 09/03/10 James Jasso DO [facility] [place] [address] [place] [address] PCP - Obstetrics/Gynecology unloader 07/24/11 Rajat Urban MD [facility] [place] [address] [facility] [address] [place] [address] PCP - Orthopaedics Orthopedics 12/02/11 12/08/17 Thuy Coto PA-C [facility] [place] [address] [facility] [address] [place] [address] PCP - Surgery Physician Engineering Aid 11/03/12 James Stevens DPM [address] [facility] [address] [place], [place] [address] Assigned Musculoskeletal Provider 04/25/20 10/25/21 Teresa Ferrer PA-C [address] [address] Physician Engineering Aid Urology 02/20/23 documented as of this encounter
--- OUTSIDE RECORDS SUMMARY | 2024-01-08 14:40 | XMS_ITS | Encounter Summary ---
Author Organization [facility] Address [address] [place] [address] Care Team Providers Care [facility] Name Role Phone Dudley House MD Primary Care Provider [phone] Albert Figueroa MD Primary Care Provider Frankie Gaspar MD Unavailable Unavailable Augusta De La Cruz DPM Unavailable [phone] Frw, None Unavailable Unavailable Kyle Morris MD Unavailable Kayode Brambila OD Unavailable Ned Birmingham MD Unavailable [phone] Mike Villareal DO Unavailable [phone] Sony Perez MD Unavailable [phone] Matt Grover MD Unavailable Albert Brownlee MD Unavailable GinetteHumberto bowser MD Primary Care Provider [phone] James Jasso DO Unavailable Rajat Urban MD Unavailable Unavailable Thuy CotoC Unavailable James Stevens DPM Unavailable [phone] Teresa Ferrer PA-C Unavailable Encounter Details Date Type Department Care Team (Late st Contact Info) Description 01/31/2005 MyC Medical Advice [facility] [place] Internal Medicine [address] [place] [phone] Albert Figueroa MD [address] [address] Social History Tobacco Use Types Packs/Day Years Used Date Smoking Tobacco: Never Alcohol Use Standard Drinks/Week Comments No 0 (1 standard drink = 0.6 oz pur e alcohol) Comments No Sex and Gender Information Value Date Recorded Sex Assigned at Not on file 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 Gender Identity Not on file Sexual Orientation Straight 06/26/2018 6: 53 PM CDT documented as of this encounter Plan of Treatment Not on file documented as of this encounter Visit Diagnoses Not on filedocumented in this encounter Care Teams [facility] Relationship Specialty Start Date End Date Dudley House MD [address] [place] [id number] PCP - General 03/23/07 09/02/10 Albert Figueroa MD [address] [address] PCP - General 10/30/03 03/22/07 Frankie Gaspar MD PCP - Obstetrics/Gynecology 03/03/00 07/23/11 Augusta De La Cruz DPM PCP - Podiatry 09/26/05 Frw, None PCP - Podiatry 09/26/04 09/25/05 Kyle Morris MD PCP - Ophthalmology 02/17/06 Kayode Brambila OD [facility] [place] [address] [place] [address] PCP - Ophthalmology 03/03/00 02/16/06 Ned Birmingham MD XXX [place] [address] PCP - Surgery 10/25/08 09/27/09 Mike Villareal DO [facility] [address] [place], [place] [id number] PCP - Surgery 08/03/06 10/24/08 Sony Perez MD [facility] [address] [place] [address] PCP - ENT 03/19/07 12/08/17 Matt Grover MD [address] [place] [id number] PCP - Urology 12/22/08 Albert Brownlee MD [address] [place] [address] PCP - Surgery Surgery 09/28/09 11/02/12 Humberto Peng MD [facility] [place] [address] [place] [address] PCP - General Family Practice 09/03/10 James Jasso DO [facility] [place] [address] [place] [address] PCP - Obstetrics/Gynecology culinary specialist 07/24/11 Rajat Urban MD [facility] [place] [address] [facility] [address] [place] [address] PCP - Orthopaedics Orthopedics 12/02/11 12/08/17 Thuy Coto PA-C [facility] [place] [address] [facility] [facility] [address] [place] [address] PCP - Surgery Physician [employer]er 11/03/12 James Stevens DPM [id number] [facility] [address] [place], [place] [id number] Assigned Musculoskeletal Provider 04/25/20 10/25/21 Teresa Ferrer PA-C [address] [address] Physician [employer] Urology 02/20/23 documented as of this encounter
== END 2024-01-08 08:40 | disposition home or self-care (01) ==
LOC: NFLDREF 14:32
PROVIDERS: PCP Physician Assistant Medical; Referring Provider Physician Assistant Medical; Visit Provider Nurse Practitioner Family
DX: N39.0 Urinary tract infection, site not specified (principal); B35.6 Tinea cruris; R21 Rash and other nonspecific skin eruption
CPT/HCPCS: 87086

== ENCOUNTER 2024-04-20 10:03 | Outpatient (CLI) | payer MEDICARE, SELFPAY | END 2024-04-20 10:04 | disposition home or self-care (01) | LOC: FRMREF 11:09 | PROVIDERS: PCP Physician Assistant Medical; Visit Provider Physician Assistant Medical | DX: N39.0 Urinary tract infection, site not specified (principal) | CPT/HCPCS: 87086 ==

== ENCOUNTER 2024-06-08 12:00 | Outpatient (CLI) | payer MEDICARE, SELFPAY | END 2024-06-08 12:01 | disposition home or self-care (01) | LOC: NFLDREF 06-10 00:37 | PROVIDERS: PCP Physician Assistant Medical; Referring Provider Physician Assistant Medical; Visit Provider Physician Assistant Medical | DX: Z00.01 Encounter for general adult medical examination with abnormal findings (principal); E11.9 Type 2 diabetes mellitus without complications; I10 Essential (primary) hypertension; E78.2 Mixed hyperlipidemia; E03.9 Hypothyroidism, unspecified | CPT/HCPCS: 80053; 80061; 82043; 82570; 84443 ==

== ENCOUNTER 2024-06-20 14:46 | Outpatient (CLI) | payer MEDICARE, SELFPAY | END 2024-06-20 14:47 | disposition home or self-care (01) | LOC: NFLDREF 06-28 22:55 | PROVIDERS: PCP Physician Assistant Medical; Referring Provider Physician Assistant Medical; Visit Provider Physician Assistant Medical | DX: N39.0 Urinary tract infection, site not specified (principal) | CPT/HCPCS: 87086 ==

== ENCOUNTER 2024-12-07 11:32 | Outpatient (CLI) | payer MEDICARE, SELFPAY | END 2024-12-07 11:33 | disposition home or self-care (01) | LOC: NFLDREF 12-08 19:30 | PROVIDERS: PCP Physician Assistant Medical; Referring Provider Physician Assistant Medical; Visit Provider Physician Assistant Medical | DX: I26.99 Other pulmonary embolism without acute cor pulmonale (principal); Z79.01 Long term (current) use of anticoagulants | CPT/HCPCS: 85610 ==